=== PATIENT | female | born 1980 | race Caucasian/White ===

== ENCOUNTER → 2017-04-12 10:06 | Outpatient (CLI) | payer MEDICAID, SELFPAY ==
[2017-04-12 12:23] LABS: Absolute Lymphocyte Count 2.16 X10^3/ul (0.83-4.51); Absolute Neutrophil Count 4.5 X10^3/uL (2.0-7.7); Basophil# 0.03 X10^3/uL; Basophil% 0.4 % (0-1); Eosinophil# 0.29 X10^3/uL; Eosinophils% 3.9 % (0-5); Hematocrit 41.7 % (37-47); Hemoglobin 13.3 g/dl (12.0-15.0); Lymphocyte # 2.16 X10^3/ul (4.0); Lymphocyte % 29.1 % (19-41); Mean Corp Hgb Conc 31.9 g/gl (32-36); Mean Corpuscular Hgb 28.1 pg (27.0-32.0); Mean Platelet Vol. 9.7 fl (6.2-12.0); Monocyte# 0.43 X10^3/uL; Monocyte% 5.8 % (0-10); Neutrophil % 60.5 % (47-70); Platelet Count 358 K/mm3 (150-450); RBC Distribution Width CV 12.9 % (11.6-14.6); RBC Distribution Width SD 41.6 fl (35.1-43.9); Red Blood Count 4.74 M/mm3 (4.2-5.4); White Blood Count 7.4 K/mm3 (4.4-11.0)
[2017-04-12 12:28] LABS: POSITIVE COUNT NO; POSITIVE DIFFERENTIAL NO; POSITIVE MORPHOLOGY NO
[2017-04-12 14:51] LABS: ALB/GLOB Ratio 1.2 RATIO (0.9-2.4); AST(SGOT) 16 U/L (15-37); Alanine Aminotransfer ALT/SGPT 18 U/L (12-78); Albumin, Serum 4.2 g/dL (3.4-5.0); Alkaline Phosphatase 59 U/L (45-117); Anion Gap 8 (5-15); BUN 9 mg/dL (7-18); Calcium,Total 8.4 mg/dL (8.5-10.1); Chloride 103 mmol/L (98-107); Cholesterol 180 mg/dL (200); Creatinine, Serum 0.75 mg/dL (0.55-1.02); EST Glomerular Filtration Rate 93 mL/min (>60); Est Glom Filt Rate - Afr Amer 113 mL/min (>60); Globulin 3.5 g/dL (2.2-4.2); Glucose 80 mg/dL (70-110); High Density Lipoprotein 51 mg/dL; Potassium 3.8 mmol/L (3.5-5.1); Protein, Total 7.7 g/dL (6.4-8.2); Sodium Level 138 mmol/L (136-145); T4 Free Direct 1.02 ng/dL (0.76-1.46); Thyroid Stim Hormone (TSH) 1.51 uIU/mL (0.358-3.74); Triglycerides 134 mg/dL; Very Low Density Lipoprotein 27 mg/dL (5-40)
[2017-04-13 08:43] LABS: Vitamin B12 712 pg/mL (211-911)
[2017-04-17 10:26] LABS: Vitamin D 1,25-Dihydroxy 43.3 pg/mL (19.9-79.3)
== END ==
PROVIDERS: Family Provider Internal Medicine; PCP Internal Medicine; Visit Provider Nurse Practitioner Family
DX: F32.9 Major depressive disorder, single episode, unspecified (principal); F41.9 Anxiety disorder, unspecified; R53.83 Other fatigue; E55.9 Vitamin D deficiency, unspecified; E66.9 Obesity, unspecified; Z13.220 Encounter for screening for lipoid disorders
CPT/HCPCS: 36415; 80053; 80061; 82607; 82652; 84439; 84443; 85025

== ENCOUNTER → 2017-12-31 10:31 | Outpatient (CLI) | payer MEDICAID, SELFPAY ==
[2017-12-31 11:05] LABS: Absolute Lymphocyte Count 1.66 X10^3/ul (0.83-4.51); Absolute Neutrophil Count 4.9 X10^3/uL (2.0-7.7); Basophil# 0.02 X10^3/uL; Basophil% 0.3 % (0-1); Eosinophil# 0.19 X10^3/uL; Eosinophils% 2.6 % (0-5); Hematocrit 42.6 % (37-47); Hemoglobin 13.9 g/dl (12.0-15.0); Lymphocyte # 1.66 X10^3/ul (4.0); Lymphocyte % 23.1 % (19-41); Mean Corp Hgb Conc 32.6 g/gl (32-36); Mean Corpuscular Hgb 28.4 pg (27.0-32.0); Mean Corpuscular Volume 87.1 fL (81-99); Mean Platelet Vol. 9.5 fl (6.2-12.0); Monocyte% 5.6 % (0-10); Neutrophil # 4.92 X10^3/uL (2.7-7.7); Neutrophil % 68.3 % (47-70); POSITIVE COUNT NO; POSITIVE DIFFERENTIAL NO; POSITIVE MORPHOLOGY NO; Platelet Count 352 K/mm3 (150-450); RBC Distribution Width CV 13.5 % (11.6-14.6); RBC Distribution Width SD 42.7 fl (35.1-43.9); Red Blood Count 4.89 M/mm3 (4.2-5.4); White Blood Count 7.2 K/mm3 (4.4-11.0)
[2017-12-31 11:51] LABS: Thyroid Stim Hormone (TSH) 1.31 uIU/mL (0.358-3.74)
[2018-01-02 03:07] LABS: DHEA Sulfate 51.6 ug/dL (57.3-279.2)
[2018-01-02 13:34] LABS: Vitamin D 1,25-Dihydroxy 48.2 pg/mL (19.9-79.3)
[2018-01-03 15:31] LABS: Testosterone Free 0.3 pg/mL (0.0-4.2)
== END ==
PROVIDERS: Family Provider Internal Medicine; PCP Internal Medicine; Referring Provider Obstetrics & Gynecology; Visit Provider Obstetrics & Gynecology
DX: N93.9 Abnormal uterine and vaginal bleeding, unspecified (principal)
CPT/HCPCS: 36415; 82627; 82652; 84402; 84439; 84443; 85025; 82626

== ENCOUNTER 2018-01-26 10:04 | Inpatient (IN) | payer MEDICAID, SELFPAY ==
[2018-01-26] VITALS (9 sets, daily range): BP systolic 110–143; BP diastolic 69–96; PULSE 58–98; RESP 16–18; TEMP 36.6–37; O2SAT 92–99; BMI 32.3; BMI 33.5
--- NOTE | 2018-01-26 10:27 | CT_ITS ---
STUDY: CTA CHEST REASON FOR EXAM: Female, 37 years old. Shortness of breath and cough. RADIATION DOSAGE (If Supplied By Facility): CTDIvol = ( 14.89 ) mGy, DLP = ( 655.68 ) mGycm TECHNIQUE: The examination was performed with the intravenous administration of 100 ml of Isovue 370 contrast material. Post-processing of the angiographic images was performed, with multiplanar reformation. Individualized dose optimization techniques were used for this CT. COMPARISON: None. FINDINGS: There are filling defects consistent with pulmonary emboli in the distal right common pulmonary artery extending to the upper and lower lobe branches. There are also filling defects in the left upper and left lower lobe and it arteries extending to the peripheral branches. Normal thoracic aorta and visualized great vessels. There is no demonstrated aortic dissection. Normal heart and pericardium. Normal mediastinum. Normal hilar regions. Normal visualized trachea and bronchi. The lungs are well expanded. There are no pulmonary infiltrates. There are no pleural effusions. Normal chest wall structures. Normal osseous structures. Normal visualized upper abdomen. CT/CTA Chest W/WO Contrast IMPRESSION: 1. Bilateral pulmonary emboli in the main pulmonary arteries bilaterally extending to the peripheral branches. 2. No infiltrate is seen. N.B. : The above information has been verbally conveyed by Gama Conley MD to Dr. Adarsh Choudhary MD, on 01/26/2018 12:48:48 (ET). Electronically Signed: Gama Conley MD at 12:42 EST Tel , Service support ,
--- NOTE | 2018-01-26 10:27 | EKG12_ITS ---
Test Reason : SOB Blood Pressure : / mmHG Vent. Rate : 092 BPM Atrial Rate : 092 BPM P-R Int : 154 ms QRS Dur : 076 ms QT Int : 340 ms P-R-T Axes : 043 -15 034 degrees QTc Int : 420 ms Normal sinus rhythm Low voltage QRS Borderline ECG Confirmed by ASHIA ELENA, THERESA ([id number]), food editor ÁNGEL RAMIRES ([id number]) on 01/29/2018 3:52:03 PM Referred By: ANUP Confirmed By:THERESA ANG MD
--- NOTE | 2018-01-26 10:27 | RAD_ITS ---
STUDY: X-RAY CHEST REASON FOR EXAM: Female, 37 years old. Shortness of breath. Acute onset. TECHNIQUE: AP upright portable view. COMPARISON: None. FINDINGS: The lungs are clear and expanded. There is no demonstrated pleural abnormality. Normal size heart. Normal mediastinum and andrea. Normal visualized pulmonary arteries. Normal visualized aortic arch and descending thoracic aorta. Normal visualized thoracic spine. Normal visualized ribs, clavicles, and shoulders. There is no demonstrated abnormality of the visualized soft tissue structures of the upper abdomen. RAD/Chest 1 View (Portable) IMPRESSION: Normal x-ray examination of the chest. Electronically Signed: Aquiles Alvarado MD at 10:58 EST , Service support ,
--- NOTE | 2018-01-26 10:30 | ED.DCSUM_ITS ---
- ER Visit Summary Date of Service: 01/26/18 Chief Complaint: [] Shortness of breath recently started control pills to control endometriosis History of Present Illness: The patient is a 37 F [] no past history indicates that for a day or 2 she has had progressively worsening shortness of breath, slight cough with possible blood-tinged mucus, x1, no rhinorrhea no sore throat, she indicates her shortness of breath persisted this morning came in for evaluation, she indicates about 30 days ago she was started on control pills to control endometriosis, she has no history of cardiopulmonary disease no history of DVT or PE her bowel bladder habits been normal her review of systems are all negative she is a jkmu-zm-msov mom she is not been exposed anyone is been ill denies Physical Examination: [] Her vital signs are within normal range she is resting comforting the bed speaking full sentences her HEENT exam is unremarkable head neck normal lungs clear heart tones normal abdomen soft nontender upper lower extremities unremarkable neurologic exam normal her lower extremities show no sinus clubbing or edema her skin is normal her back is normal neurologic exam normal Test Results: [] Emergency Department Course and Treatment: [] All the above screening labs CTA chest duplex legs CTA of the chest per the radiologist shows bilateral PE no signs of saddle embolus no signs of right heart strain, duplex scan showed no DVT of legs and the rest of her studies were generally unremarkable on reevaluation she remains very hemodynamically stable we have started her immediately on IV heparin we spoke with the hospitalist though by to see her shortly for admission Treatment Plan: [] Disposition: [] Admit stable Impression: [] Bilateral pulmonary embolism This note was generated with Grey Area dictation software. It may contain incorrect words, spelling, and punctuation that were not noted in review of the chart prior to signing ED Disposition - Plan for ED Patient: Disposition: Acute Care Hospital [facility] Chief Complaint: Shortness of Breath
--- NOTE | 2018-01-26 10:36 | VDLE_ITS ---
Reason For Study: SHORTNESS OF BREATH RIGHT LEFT GSV is normal. GSV is normal. CFV is compressible, spontaneous, phasic, CFV is compressible, spontaneous, phasic, competent and demonstrates normal competent, and demonstrates normal augmentation. augmentation. FV is compressible, spontaneous, phasic, FV is compressible, spontaneous, phasic, competent and demonstrates normal competent and demonstrates normal augmentation. augmentation. POP V is compressible, spontaneous, phasic, POP V is compressible, spontaneous, phasic, competent and demonstrates normal competent and demonstrates normal augmentation. augmentation. T/P Trunk is compressible. T/P Trunk is compressible. PTV is compressible. PTV is compressible. RT PerV is compressible. LT PerV is compressible. Procedure Exam performed portable in ED. A preliminary report was called and/or faxed to Dr. Choudhary. <> Interpretation Summary Deep veins of the lower extremities are bilaterally patent and compressible segmentally. There is no evidence of deep vein thrombosis on either side. Valvular competence appears intact within the proximal deep venous systems bilaterally. The greater saphenous veins appear bilaterally patent and compressible segmentally. Ordering Physician: Adarsh Choudhary Referring Physician: Terence Goss Performed By: Viviana Hernandez RVT
[2018-01-26] MEDS: 0.9% Normal Saline 1,000 ML 1000 ML IV (10:45)
[2018-01-26 11:03] LABS: Absolute Lymphocyte Count 1.66 X10^3/ul (0.83-4.51); Absolute Neutrophil Count 6.3 X10^3/uL (2.0-7.7); Basophil# 0.04 X10^3/uL; Basophil% 0.5 % (0-1); Eosinophil# 0.18 X10^3/uL; Eosinophils% 2.1 % (0-5); Hematocrit 40.8 % (37-47); Hemoglobin 13.5 g/dl (12.0-15.0); Lymphocyte # 1.66 X10^3/ul (4.0); Lymphocyte % 19.5 % (19-41); Mean Corp Hgb Conc 33.1 g/gl (32-36); Mean Corpuscular Hgb 28.9 pg (27.0-32.0); Mean Corpuscular Volume 87.4 fL (81-99); Mean Platelet Vol. 9.4 fl (6.2-12.0); Monocyte# 0.29 X10^3/uL; Monocyte% 3.4 % (0-10); Neutrophil # 6.31 X10^3/uL (2.7-7.7); Neutrophil % 74.3 % (47-70); Platelet Count 273 K/mm3 (150-450); RBC Distribution Width CV 13.4 % (11.6-14.6); RBC Distribution Width SD 42.9 fl (35.1-43.9); Red Blood Count 4.67 M/mm3 (4.2-5.4); White Blood Count 8.5 K/mm3 (4.4-11.0)
[2018-01-26 11:05] LABS: POSITIVE COUNT NO; POSITIVE DIFFERENTIAL NO; POSITIVE MORPHOLOGY NO
[2018-01-26 11:25] LABS: Anion Gap 7 (5-15); BUN 11 mg/dL (7-18); BUN/Creat Ratio 11.3 RATIO (10-20); Calcium,Total 8.4 mg/dL (8.5-10.1); Chloride 107 mmol/L (98-107); Creatinine, Serum 0.97 mg/dL (0.55-1.02); EST Glomerular Filtration Rate 69 mL/min (>60); Est Glom Filt Rate - Afr Amer 83 mL/min (>60); Estimated Creatinine Clearance 75.06 ml/min; Glucose 79 mg/dL (74-106); Potassium 3.7 mmol/L (3.5-5.1); Sodium Level 139 mmol/L (136-145)
[2018-01-26 11:27] LABS: Pregnancy, Serum, hCG Quali. NEGATIVE Negative (0-9 Nonpreg)
[2018-01-26] MEDS: Heparin Injection (Vial) 5,000 UNIT/ML VIAL 6000 UNIT IV (12:13)
[2018-01-26] MEDS: HEPARIN/D5w 25,000 UNITS 25,000 UNITS/250 ML IV.SOLN. 12 UNITS IV (12:14)
[2018-01-26 12:20] LABS: Partial Thromboplast Time 27.2 Seconds (24.1-36.2)
--- NOTE | 2018-01-26 12:55 | PCM.HP.STD ---
Problem List (1) Chest pain Status: Acute History of Present Illness Date of Admission: 01/26/18 Chief Complaint: chest pain and shortness of breath The patient is a 37 year old F who was admitted through the ED on 01/26/2018 with a complaint of chest pain and shortness of breath for the last couple of days. Patient was started on combined estrogen and progesterone contraceptive pill, Lessina, in December 2017 for suspected endometriosis. 3 days ago started having shortness of breath with assisted pleuritic chest pain. She denied any headache or blurred vision, fever or chills, any palpitations, diarrhea vomiting. She discussed it with her mom who told her that she had had a PE herself when she was younger after she was put on control pills. Patient denies any previous history of DVT or PE or any long distance travel or any trauma. She is normally diagnosed with cancer. She decided to come into the ED with CT PE done showed bilateral pulmonary emboli. Vitals were essentially stable and she was saturating well on 2 L of oxygen. CBC and BMP were essentially unremarkable. Chest x-ray showed no acute pulmonary process. She was started on heparin drip and has been admitted to manage for PE. [] Past Medical History Past Medical History (Chronic Problems): Chronic Problems (Last Reviewed 12/31/17 @ 09:40 by Cammie Ortega) Insomnia (Chronic) Vitamin D deficiency (Chronic) Obesity (BMI 30.0-34.9) (Chronic) Anxiety and depression (Chronic) Medical History: Medical History (Last Reviewed 12/31/17 @ 09:40 by Cammie Ortega) Anxiety and depression (Chronic) F41.8 Allergies amoxicillin [From Augmentin] Allergy (Severe, Verified 12/31/17 09:39) Rash clavulanic acid [From Augmentin] Allergy (Severe, Verified 12/31/17 09:39) Rash augmentin Allergy (Severe, Uncoded 07/17/17 11:14) rash Home Medications: Ambulatory Orders Medication Instructions Recorded 1 tab PO QDAY 03/09/17 vitamin,calcium,wxjqjjil-ytyv-xidcl acid tablet levonorgestrel-ethinyl estradiol 1 tab PO QDAY #84 tab 12/31/17 0.1 mg-20 mcg tablet sertraline 100 mg tablet 150 mg PO QDAY 30 Days #45 tab 12/31/17 Trazodone HCl 100 mg PO QHS PRN 11/10/18 Surgical History: Surgical History (Last Reviewed 12/31/17 @ 09:40 by Cammie Ortega) History of hemorrhoidectomy Z98.890 History of tonsillectomy Z98.890, Z90.89 Surgical History: - - tonsillectomy Psychiatric History: 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 Denies: Claudication, Chest Tightness, Edema, Light Headedness, Orthopnea, Palpitations, Paroxysmal Noc. Dyspnea, Syncope Respiratory: Reports: Pleuritic Pain, Shortness of breath upon exertion. Denies: Cough, Shortness of Breath, Shortness of breath at rest, Sputum production Gastrointestinal: Denies: Abdominal Pain, Nausea, Vomiting Genitourinary: Denies: Dysuria Musculoskeletal: Denies: Joint Pain, Joint Tenderness Skin: Denies: Rash, Wounds Neurological: Denies: Numbness, Tingling, Focal weakness Psychiatric: Denies: Anxiety, Depression, Homicidal Ideations, Suicidal Ideations Hematologic/ Lymphatic: Denies: Easy Bruising, Easy Bleeding VTE Information - Inpt Only VTE Present on Admission: Yes Patient Problems: Active and Suspected Problems (Last Reviewed 12/31/17 @ 09:40 by Cammie Ortega) Chest pain (Acute) - Physical Exam General: Alert, Oriented x3, Cooperative, No apparent distress HEENT: Atraumatic, PERRLA, EOMI, Normocephalic Oral: Moist Mucosa Neck: Supple, No JVD, Negative Carotid Bruits Lungs: Clear to auscultation, Normal air movement, No rhonchi, No wheeze, No rales Cardiovascular: Regular rate, Regular Rhythm, Normal S1, Normal S2, No murmurs Abdomen: Bowel Sounds Present, Soft, Non Tender, Non-Distended, No Hepato-splenomegaly Extremities: No clubbing, No cyanosis, No edema Skin: No rashes, No breakdown Musculoskeletal: No Tenderness to Palpation of Joints or Extremities Lymphatic: No Cervical, Supraclavicular, or Inguinal Adenopathy Neurological: Cranial nerves II-XII grossly intact Psych/Mental Status: Normal Affect, Appropriate, Alert and oriented to time, place, person, mood and affect Vital Signs Temp Pulse Resp BP Pulse Ox 97.9 F 87 18 124/96 H 99 01/26/18 10:05 01/26/18 12:16 01/26/18 12:16 01/26/18 12:16 01/26/18 12:16 Oxygen Flow Rate (L/min) 2 Oxygen Delivery Method Nasal Cannula Weight: 200 lb Body Mass Index (BMI) 32.3 Laboratory Tests Past 24 Hrs 01/26/18 01/26/18 01/26/18 10:40 10:40 10:40 WBC 8.5 RBC 4.67 Hgb 13.5 Hct 40.8 MCV 87.4 MCH 28.9 MCHC 33.1 RDW 13.4 RDW Differential 42.9 Plt Count 273 MPV 9.4 Immature Gran % (Auto) 0.200 Neut % (Auto) 74.3 H Lymph % (Auto) 19.5 [place] % (Auto) 3.4 Eos % (Auto) 2.1 Baso % (Auto) 0.5 Absolute Neuts (auto) 6.3 Absolute Lymphs (auto) 1.66 Total Counted Not Reportable APTT Sodium 139 Potassium 3.7 Chloride 107 Carbon Dioxide 25.0 Anion Gap 7 BUN 11 Creatinine 0.97 Estim Creat Clear Calc 75.06 Est GFR (MDRD) Af Amer 83 Est GFR (MDRD) Non-Af 69 BUN/Creatinine Ratio 11.3 Glucose 79 Calcium 8.4 L Troponin I < 0.015 Serum , Qual NEGATIVE 01/26/18 10:40 WBC RBC Hgb Hct MCV MCH MCHC RDW RDW Differential Plt Count MPV Immature Gran % (Auto) Neut % (Auto) Lymph % (Auto) [place] % (Auto) Eos % (Auto) Baso % (Auto) Absolute Neuts (auto) Absolute Lymphs (auto) Total Counted APTT 27.2 Sodium Potassium Chloride Carbon Dioxide Anion Gap BUN Creatinine Estim Creat Clear Calc Est GFR (MDRD) Af Amer Est GFR (MDRD) Non-Af BUN/Creatinine Ratio Glucose Calcium Troponin I Serum , Qual Diagnostic Data Chest CTA 01/26/18 10:27 IMPRESSION: 1. Bilateral pulmonary emboli in the main pulmonary arteries bilaterally extending to the peripheral branches. 2. No infiltrate is seen. N.B. : The above information has been verbally conveyed by Gama Conley MD to Dr. Adarsh Choudhary MD, on 01/26/2018 12:48:48 (ET). Electronically Signed: Gama Conley MD at 12:42 EST Tel , Service support , Chest X-Ray 01/26/18 10:27 IMPRESSION: Normal x-ray examination of the chest. Electronically Signed: Aquiles Alvarado MD at 10:58 EST , Service support , Assessment/Plan All Active Problems (Last Reviewed 12/31/17 @ 09:40 by Cammie Ortega) Chest pain (Acute) 37 y/o female admitted with a complaint of chest pain and SOB 1. Bilateral provoked Pulmonary embolism Likely provoked by recent start of Lessina, combined oral progesterone and estrogen contraceptive pill CTPE showed bilateral PE in distal right common pulmonary artery extending to upper and lowre lobe branches, with filling defects in tehleft upper and left lower lobe and its arteries extending to peripheral branches. family history of PE in mother which was also provoked by OCPs admit to PCU with telemetry started on heparin drip. will transition to PO eliquis; home health care case manager to check if it is covered by her insurance patient told to stop taking OCPS and it would be risky for her to take it for the rest of her life. CT chest didnt show any right heart strain will need anticoagulation for ~ 6 months, then to follow up with PCP for decision to be made about stopping it or continuing. 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 there is also a clear precipitant, so will not do hypercoagulability testing, results of which would not be very accurate in light of current acute PE and her being strted on heparin. 2. Anxiety and depression: on sertraline and trazodone 3. Obesity: BMI is 32.3. This complicates care. Counselled on healthy diet and exercise. DVT prophylaxis: currently on heparin drip for PE ; to transition to eliquis Code Visit Inpatient E&M: 85824 Init Hosp L3
--- NOTE | 2018-01-26 14:00 | CM.UR ---
Dr. Galicia called stating that she will possibly discharge patient tomorrow on Eliquis. Called [facility] pharmacy as noted in her chart. They ran a test claim for 60 tablets for 30 day supply and they said came back with $[address] Galicia. Mikey Bran RN, [facility].
--- NOTE | 2018-01-26 14:52 | EKG12_ITS ---
Test Reason : CHEST PAIN Blood Pressure : / mmHG Vent. Rate : 080 BPM Atrial Rate : 080 BPM P-R Int : 148 ms QRS Dur : 078 ms QT Int : 388 ms P-R-T Axes : 013 -08 027 degrees QTc Int : 447 ms Normal sinus rhythm Low voltage QRS Borderline ECG When compared with ECG of 26-JAN-2018 10:36, MANUAL COMPARISON REQUIRED, DATA IS UNCONFIRMED Confirmed by ASHIA ELENA, THERESA ([id number]), editor department ÁNGEL RAMIRES ([id number]) on 01/30/2018 11:32:35 AM Referred By: NOEL Confirmed By:THERESA ANG MD
[2018-01-26] MEDS: Acetaminophen 325 MG Tablet 650 MG PO (17:38)
[2018-01-26] MEDS: APIXABAN 5 MG TABLET 10 MG PO (17:42)
[2018-01-27] VITALS (7 sets, daily range): BP systolic 110–115; BP diastolic 66–74; PULSE 72–78; RESP 16–18; TEMP 36.7–37.2; O2SAT 94–99
[2018-01-27 06:38] LABS: Absolute Lymphocyte Count 1.89 X10^3/ul (0.83-4.51); Absolute Neutrophil Count 5.5 X10^3/uL (2.0-7.7); Basophil# 0.04 X10^3/uL; Basophil% 0.5 % (0-1); Eosinophil# 0.38 X10^3/uL; Eosinophils% 4.5 % (0-5); Hematocrit 38.2 % (37-47); Hemoglobin 12.7 g/dl (12.0-15.0); Lymphocyte # 1.89 X10^3/ul (4.0); Lymphocyte % 22.6 % (19-41); Mean Corp Hgb Conc 33.2 g/gl (32-36); Mean Corpuscular Hgb 29.3 pg (27.0-32.0); Mean Platelet Vol. 9.6 fl (6.2-12.0); Monocyte# 0.56 X10^3/uL; Monocyte% 6.7 % (0-10); Neutrophil # 5.48 X10^3/uL (2.7-7.7); Neutrophil % 65.5 % (47-70); Platelet Count 284 K/mm3 (150-450); RBC Distribution Width CV 13.5 % (11.6-14.6); RBC Distribution Width SD 42.8 fl (35.1-43.9); Red Blood Count 4.34 M/mm3 (4.2-5.4); White Blood Count 8.4 K/mm3 (4.4-11.0)
[2018-01-27 06:50] LABS: POSITIVE COUNT NO; POSITIVE DIFFERENTIAL NO; POSITIVE MORPHOLOGY NO
[2018-01-27 06:54] LABS: Anion Gap 8 (5-15); BUN 9 mg/dL (7-18); BUN/Creat Ratio 10.2 RATIO (10-20); Calcium,Total 8.1 mg/dL (8.5-10.1); Chloride 111 mmol/L (98-107); Creatinine, Serum 0.88 mg/dL (0.55-1.02); EST Glomerular Filtration Rate 77 mL/min (>60); Est Glom Filt Rate - Afr Amer 93 mL/min (>60); Estimated Creatinine Clearance 82.74 ml/min; Glucose 82 mg/dL (74-106); Potassium 4.4 mmol/L (3.5-5.1); Sodium Level 142 mmol/L (136-145)
[2018-01-27] MEDS: Sertraline 100 MG Tablet 150 MG PO (09:58)
[2018-01-27] MEDS: APIXABAN 5 MG TABLET 10 MG PO (09:59)
[2018-01-27] MEDS: Prenatal Vits Tablet 1 TABLET PO (10:00)
[2018-01-27] MEDS: 0.9% NaCl Peripheral Flush Adult/Peds IV (10:04)
--- NOTE | 2018-01-27 11:10 | DS.PCM_ITS ---
Discharge Date and Diagnosis Date of Admission: 01/26/18 Date of Discharge: 01/27/18 - Primary Discharge Diagnosis Active and Suspected Problems (Last Reviewed 12/31/17 @ 09:40 by Cammie Ortega) Chest pain (Acute) bilateral PE - Secondary Discharge Diagnosis Chronic Problems (Last Reviewed 12/31/17 @ 09:40 by Cammie Ortega) Insomnia (Chronic) Vitamin D deficiency (Chronic) Obesity (BMI 30.0-34.9) (Chronic) Anxiety and depression (Chronic) Hospital Course and Treatment Imaging Results: Diagnostic Data Chest CTA 01/26/18 10:27 IMPRESSION: 1. Bilateral pulmonary emboli in the main pulmonary arteries bilaterally extending to the peripheral branches. 2. No infiltrate is seen. N.B. : The above information has been verbally conveyed by Gama Conley MD to Dr. Adarsh Choudhary MD, on 01/26/2018 12:48:48 (ET). Electronically Signed: Gama Conley MD at 12:42 EST Tel , Service support , Chest X-Ray 01/26/18 10:27 IMPRESSION: Normal x-ray examination of the chest. Electronically Signed: Aquiles Alvarado MD at 10:58 EST , Service support , Operations: None Procedures: None Summary of Care Provided: he patient is a 37 year old F who was admitted through the ED on 01/26/2018 with a complaint of chest pain and shortness of breath for the last couple of days. Patient was started on combined estrogen and progesterone contraceptive pill, Lessina, in December 2017 for suspected endometriosis. 3 days ago started having shortness of breath with assisted pleuritic chest pain. She denied any headache or blurred vision, fever or chills, any palpitations, diarrhea vomiting. She discussed it with her mom who told her that she had had a PE herself when she was younger after she was put on control pills. Patient denies any previous history of DVT or PE or any long distance travel or any trauma. She is normally diagnosed with cancer. She decided to come into the ED with CT PE done showed bilateral pulmonary emboli. Vitals were essentially stable and she was saturating well on 2 L of oxygen. CBC and BMP were essentially unremarkable. Chest x-ray showed no acute pulmonary process. She was started on heparin drip and admitted to be managed for PE. Heparin drip was stopped and she was transitioned to p.o. Eliquis. Patient remained stable and chest pain resolved. Duplex of the lower extremities were not done as the will have change the management in any way. Patient was discharged home on 01/27/2018 with a prescription for p.o. Eliquis 10 mg twice daily for 7 days ending on 02/02/2018. On 02/03/2018, she is to start taking p.o. Eliquis 5 mg twice daily. Prescriptions faxed to her pharmacy ([facility]) and I personally called pharmacy to confirm that her insurance will cover it. Insurance would cover medication with Seroquel P and patient was informed. She is to follow-up with her primary care doctor in 1 week. Patient was counseled that she will need to be on anticoagulation for at least 6 months and up to 6 months her primary care doctor is to decide whether to continue or otherwise. Patient was also told to stop taking her oral contraceptive pill Lessina and informed that she should never take an oral contraceptive pill for the rest of her life again due to it being very likely the cause of her PE> Patient seen and examined prior to discharge. She had no complaints and felt well. She denied any fever or chills, any cough or chest pain, any shortness of breath, abdominal pain, any diarrhea vomiting. Review of systems otherwise negative. Labs and vitals reviewed. Home medications reviewed and reconciled. [] [] Objective: Vital Signs Height 5 ft 6 in Weight: 207 lb 7.28 oz Weight in Pounds 207.5 lbs Pulse Ox 94 Temperature 98.9 F Pulse Rate 78 Respiratory Rate 18 Blood Pressure 112/66 Blood Pressure Position Semi-Fowlers General: Alert, Oriented x3, Cooperative, No apparent distress HEENT: Atraumatic, PERRLA, EOMI, Normocephalic Oral: Moist Mucosa Neck: Supple, No JVD, Negative Carotid Bruits Lungs: Clear to auscultation, Normal air movement, No rhonchi, No wheeze, No rales Cardiovascular: Regular rate, Regular Rhythm, Normal S1, Normal S2, No murmurs Abdomen: Bowel Sounds Present, Soft, Non Tender, Non-Distended, No Hepato- splenomegaly Extremities: No clubbing, No cyanosis, No edema Skin: No rashes, No breakdown Musculoskeletal: No Tenderness to Palpation of Joints or Extremities Lymphatic: No Cervical, Supraclavicular, or Inguinal Adenopathy Neurological: Cranial nerves II-XII grossly intact Psych/Mental Status: Normal Affect, Appropriate, Alert and oriented to time, place, person, mood and affect - Physical Exam Vital Signs Temp Pulse Resp BP Pulse Ox 98.8 F 78 18 115/74 99 01/27/18 08:10 01/27/18 08:10 01/27/18 08:10 01/27/18 08:10 01/27/18 08:10 Oxygen Flow Rate (L/min) 2 Oxygen Delivery Method Room Air Weight: 207 lb 7.28 oz Body Mass Index (BMI) 33.5 Intake and Output for Last 24 Hours 01/25/18 01/26/18 01/27/18 23:59 23:59 23:59 Intake Total 480 / 480 Balance 480 / 480 Laboratory Tests Past 24 Hrs 01/26/18 01/26/18 01/26/18 10:40 10:40 10:40 WBC RBC Hgb Hct MCV MCH MCHC RDW RDW Differential Plt Count MPV Immature Gran % (Auto) Neut % (Auto) Lymph % (Auto) [place] % (Auto) Eos % (Auto) Baso % (Auto) Absolute Neuts (auto) Absolute Lymphs (auto) Total Counted APTT 27.2 Sodium 139 Potassium 3.7 Chloride 107 Carbon Dioxide 25.0 Anion Gap 7 BUN 11 Creatinine 0.97 Estim Creat Clear Calc 75.06 Est GFR (MDRD) Af Amer 83 Est GFR (MDRD) Non-Af 69 BUN/Creatinine Ratio 11.3 Glucose 79 Calcium 8.4 L Troponin I < 0.015 Serum , Qual NEGATIVE 01/27/18 01/27/18 05:58 05:58 WBC 8.4 RBC 4.34 Hgb 12.7 Hct 38.2 MCV 88.0 MCH 29.3 MCHC 33.2 RDW 13.5 RDW Differential 42.8 Plt Count 284 MPV 9.6 Immature Gran % (Auto) 0.200 Neut % (Auto) 65.5 Lymph % (Auto) 22.6 [place] % (Auto) 6.7 Eos % (Auto) 4.5 Baso % (Auto) 0.5 Absolute Neuts (auto) 5.5 Absolute Lymphs (auto) 1.89 Total Counted Not Reportable APTT Sodium 142 Potassium 4.4 Chloride 111 H Carbon Dioxide 23.0 Anion Gap 8 BUN 9 Creatinine 0.88 Estim Creat Clear Calc 82.74 Est GFR (MDRD) Af Amer 93 Est GFR (MDRD) Non-Af 77 BUN/Creatinine Ratio 10.2 Glucose 82 Calcium 8.1 L Troponin I Serum , Qual Discharge Diet: No Restrictions Discharge Activity: Return to Normal Activity Weight Bearing Status: Weight bearing as tolerated Call your doctor if you observe: Shortness of breath, Chest pain, Increased palpitations (irregular heartbeat), Calf discomfort Home Medications: Medications to take at Discharge vitamin,calcium,mmtguoor-rops-uqlmw acid tablet 1 tab PO QDAY 03/09/17 sertraline 100 mg tablet 150 mg PO QDAY 30 Days #45 tab 12/31/17 Trazodone HCl 100 mg PO QHS PRN 01/26/18 Apixaban [Eliquis] 5 mg PO BID #60 tablet 01/27/18 Apixaban [Eliquis] 10 mg PO BID #14 tablet 01/27/18 Following Prescrptions Were Given to Patient: Apixaban [Eliquis] 10 mg PO BID #14 tablet Apixaban [Eliquis] 5 mg PO BID #60 tablet Primary Care Physician: Terence Goss MD [Primary Care Provider] - Please follow up with your Primary Care Physician in: one week Patient Instructions: Pulmonary Embolism Disposition: Home Minutes spent on discharge:: 35 Patient Condition:: Good Medical Necessity - Tobacco Use Smoking Status: Never smoker Meaningful Use Info Meaningful Use Diagnoses (Choose all that apply): VTE - VTE Anticoag overlap given w/in hospital stay or rx'd at nd?: Yes Pt receive overlap for 5 days?: No Reason overlap not ordered, prescribed, or given for 5 days: Treatment Not Indicated - transitioned to direct oral anticoagulants, so no need for overlap Code Visit Inpatient E&M: 19273 Disch Hosp
--- NOTE | 2018-01-27 11:10 | DCINST_ITS ---
- Discharge Diagnoses Current Active Problems: Current Active and Chronic Problems (Last Reviewed 12/31/17 @ 09:40 by Cammie Ortega) Chest pain (Acute) You will use the following diet at home:: Regular Your food should be the consistency of: Regular Your liquids should be the consistency of: Regular/Thin Discharge Activity: Return to Normal Activity Weight Bearing Status: Weight bearing as tolerated Call your doctor if you observe: Shortness of breath, Chest pain, Increased palpitations (irregular heartbeat), Calf discomfort Instructions: Pulmonary Embolism Allergies/Adverse Reactions: Allergies amoxicillin [From Augmentin] Allergy (Severe, Verified 12/31/17 09:39) Rash clavulanic acid [From Augmentin] Allergy (Severe, Verified 12/31/17 09:39) Rash augmentin Allergy (Severe, Uncoded 07/17/17 11:14) rash Medications to take at Discharge vitamin,calcium,fomqhyez-wyxo-adnzs acid tablet 1 tab PO QDAY 03/09/17 sertraline 100 mg tablet 150 mg PO QDAY 30 Days #45 tab 12/31/17 Trazodone HCl 100 mg PO QHS PRN 01/26/18 Apixaban [Eliquis] 5 mg PO BID #60 tablet 01/27/18 Apixaban [Eliquis] 10 mg PO BID #14 tablet 01/27/18 The following prescriptions were given: Apixaban [Eliquis] 10 mg PO BID #14 tablet Apixaban [Eliquis] 5 mg PO BID #60 tablet Primary Care Physician: Terence Goss MD [Primary Care Provider] - Please follow up with your Primary Care Physician in: one week Test Results: Test results from this visit will be discussed in further detail at your follow- up appointment, if applicable. Proposed Discharge Date: 01/27/18
== END 2018-01-27 12:11 | disposition home or self-care (01) | DRG 134 ==
LOC: ED 10:44 → PCU 14:26
PROVIDERS: Admitting Provider Student in an Organized Health Care Education/Training Program; Emergency Provider Emergency Medicine; Family Provider Internal Medicine; PCP Internal Medicine; Visit Provider Student in an Organized Health Care Education/Training Program
DX: I26.99 Other pulmonary embolism without acute cor pulmonale (principal); Z79.3 Long term (current) use of hormonal contraceptives; Z82.49 Family history of ischemic heart disease and other diseases of the circulatory system; E66.8 Other obesity; Z68.32 Body mass index [BMI] 32.0-32.9, adult; F41.9 Anxiety disorder, unspecified; F32.9 Major depressive disorder, single episode, unspecified; E55.9 Vitamin D deficiency, unspecified; G47.00 Insomnia, unspecified
CPT/HCPCS: 36415; 71045; 71275; 80048; 84484; 84703; 85025; 85730; 93005; 93970; 99283; J7030; Q9967; A4216; J2405

== ENCOUNTER 2018-01-29 03:53 | Emergency (ER) | payer MEDICAID, SELFPAY ==
[2018-01-29 03:56] VITALS: BP 119/77; PULSE 72; RESP 16; TEMP 36.7; O2SAT 98; BMI 34.7
--- NOTE | 2018-01-29 04:15 | RAD_ITS ---
HISTORY: PT STATES SHE FEELS LIKE THERE IS A LUMP IN HER THROAT SINCE 1800. PT STATES SHE IS WORRIED WITH RECENTLY BEING D/C'D FOR TREATMENT FOR BILATERAL PE'S. COMPARISON: None FINDINGS: AP and lateral soft tissue views of the neck: The epiglottis, aryepiglottic folds, and subglottic trachea are unremarkable. Trachea is midline. No radiopaque foreign body. The prevertebral soft tissues are not widened. RAD/Neck for Soft Tissue IMPRESSION: Negative neck soft tissues. No suspicious findings. at 0449 Reported and signed by: Wilmer De La Torre MD Electronically Signed: Wilmer De La Torre, at 4:47 EST Tel , Service support ,
[2018-01-29] MEDS: LORazepam 1 MG Tablet PO (04:25)
--- NOTE | 2018-01-29 05:06 | ED.DCSUM_ITS ---
- ER Visit Summary Date of Service: 01/29/18 Chief Complaint: Lump in throat History of Present Illness: The patient is a 37 F who complains of a sensation of a lump in her throat over the last 9 hours. She was recently admitted for bilateral pulmonary emboli. She does have a history of anxiety. She reports that she was feeling anxious when she began to have symptoms of feeling like a lump was in her throat. She denies having choked on anything. She denies fever chest pain shortness of breath nausea vomiting. Physical Examination: Afebrile vitals are normal Moist mucous membranes Oropharynx is clear no trismus clear speech Neck supple Heart regular rate and rhythm Lungs are clear Abdomen soft Alert Test Results: Soft tissue neck x-ray shows no acute findings or suspicious pathology. Emergency Department Course and Treatment: I suspect the patient's symptoms are related to anxiety and globus hystericus. She has benign physical exam and normal x-rays. Her oropharynx is clear. She has clear speech. She has no stridor. Her neck is supple with no lymphadenopathy mass or other acute findings. She was given a van here with improvement of symptoms. She was instructed on signs and symptoms to monitor for and she was discharged home. Treatment Plan: [] Disposition: Discharge Impression: Globus hystericus This note was generated with [employer] dictation software. It may contain incorrect words, spelling, and punctuation that were not noted in review of the chart prior to signing ED Disposition - Plan for ED Patient: Chief Complaint: Other, Pain/Inj Referrals: Terence Goss MD [Primary Care Provider] -
--- NOTE | 2018-01-29 05:06 | ED.DEP ---
ED Disposition - Plan for ED Patient: Chief Complaint: Other, Pain/Inj Instructions: ED Stress React Referrals: Terence Goss MD [Primary Care Provider] -
[2018-01-29 05:24] VITALS: RESP 16
== END 2018-01-29 05:25 | disposition home or self-care (01) ==
PROVIDERS: Emergency Provider Emergency Medicine; Family Provider Internal Medicine; PCP Internal Medicine
DX: F45.8 Other somatoform disorders (principal); F41.9 Anxiety disorder, unspecified; Z79.01 Long term (current) use of anticoagulants; Z79.899 Other long term (current) drug therapy; Z86.711 Personal history of pulmonary embolism
CPT/HCPCS: 70360; 99283

== ENCOUNTER → 2018-02-11 08:13 | Outpatient (CLI) | payer MEDICAID, SELFPAY ==
[2018-02-11 08:33] VITALS: BP 109/73; PULSE 74; RESP 18; TEMP 37; O2SAT 98; BMI 33.0
[2018-02-11] MEDS: Cosyntropin 0.25 MG Vial IM (09:00)
== END ==
PROVIDERS: Family Provider Internal Medicine; PCP Internal Medicine; Referring Provider Obstetrics & Gynecology; Visit Provider Obstetrics & Gynecology
DX: R53.83 Other fatigue (principal)
CPT/HCPCS: 36415; 82533; 96372; J0834

== ENCOUNTER → 2018-10-18 15:04 | Outpatient (CLI) | payer MEDICAID, SELFPAY ==
[2018-06-28 09:17] VITALS: BMI 33.1
--- NOTE | 2018-10-18 15:12 | RAD_ITS ---
STUDY: X-RAY - LUMBAR SPINE REASON FOR EXAM: Female, 38 years old. Right-sided low back pain. TECHNIQUE: 5 view(s) of the lumbar spine were obtained including oblique views. COMPARISON: None FINDINGS: There is straightening of the normal lumbar lordosis. There is no substantial scoliosis. There is a normal alignment of the vertebrae. 6 lumbar vertebral segments. Normal vertebral bodies and endplates. Normal disc space heights. The soft tissue structures are unremarkable. RAD/L/S Spine Min 4 Views IMPRESSION: There is loss of the normal lumbar lordosis. Electronically Signed: Chris Pérez, at 15:33 EDT , Service support ,
== END ==
PROVIDERS: Family Provider Internal Medicine; PCP Internal Medicine; Referring Provider Family Medicine; Visit Provider Family Medicine
DX: M54.16 Radiculopathy, lumbar region (principal)
CPT/HCPCS: 72110

== ENCOUNTER → 2018-12-12 16:08 | Outpatient (CLI) | payer BC, MEDICAID, SELFPAY ==
[2018-10-29 12:20] VITALS: BMI 33.1
[2018-12-12 17:55] LABS: Anion Gap 8 (5-15); BUN 11 mg/dL (7-18); BUN/Creat Ratio 14.5 RATIO (10-20); Calcium,Total 8.8 mg/dL (8.5-10.1); Chloride 107 mmol/L (98-107); Creatinine, Serum 0.76 mg/dL (0.55-1.02); EST Glomerular Filtration Rate 91 mL/min (>60); Est Glom Filt Rate - Afr Amer 110 mL/min (>60); Glucose 89 mg/dL (74-106); Potassium 3.7 mmol/L (3.5-5.1); Sodium Level 141 mmol/L (136-145); T4 Free Direct 0.95 ng/dL (0.76-1.46); Thyroid Stim Hormone (TSH) 0.98 uIU/mL (0.358-3.74)
== END ==
PROVIDERS: Family Provider Family Medicine; PCP Family Medicine; Referring Provider Family Medicine; Visit Provider Family Medicine
DX: F41.0 Panic disorder [episodic paroxysmal anxiety] (principal); L67.9 Hair color and hair shaft abnormality, unspecified
CPT/HCPCS: 36415; 80048; 84439; 84443

== ENCOUNTER → 2018-12-24 13:19 | Outpatient (CLI) | payer BC, MEDICAID, SELFPAY ==
[2018-10-29 12:20] VITALS: BMI 33.1
[2018-12-24 15:24] LABS: Erythrocyte Sedimentation Rate 4 mm/hr (0-20)
[2018-12-24 16:07] LABS: CRP < 2.90 mg/L (0.0-3.0)
[2018-12-26 16:08] LABS: Endomysial Antibody IgA Negative (Negative)
[2018-12-26 20:51] LABS: Immunoglobulin A 103 mg/dL (87-352); t-Transglutaminase IgA <2 U/mL (0-3)
== END ==
PROVIDERS: Family Provider Family Medicine; PCP Family Medicine; Visit Provider Family Medicine
DX: K52.9 Noninfective gastroenteritis and colitis, unspecified (principal)
CPT/HCPCS: 36415; 82784; 83516; 85652; 86140; 86255

== ENCOUNTER 2019-02-06 09:22 | Emergency (ER) | payer BC, MEDICAID, SELFPAY ==
[2018-10-29 12:20] VITALS: BMI 33.1
[2019-02-06 09:23] VITALS: BP 132/87; PULSE 82; RESP 16; TEMP 36.8; O2SAT 100; BMI 35.1
--- NOTE | 2019-02-06 09:34 | EKG12_ITS ---
Test Reason : CP Blood Pressure : / mmHG Vent. Rate : 080 BPM Atrial Rate : 080 BPM P-R Int : 144 ms QRS Dur : 080 ms QT Int : 382 ms P-R-T Axes : 012 -10 015 degrees QTc Int : 440 ms Normal sinus rhythm Low voltage QRS Borderline ECG Confirmed by HYEDI ELENA, TITI ([id number]), copy editor MADELIN IBRAHIM ([id number]) on 02/10/2019 9:16:08 AM Referred By: MARGOT Confirmed By:SABINE SOLIZ MD
--- NOTE | 2019-02-06 09:35 | CT_ITS ---
STUDY: CTA CHEST REASON FOR EXAM: Female, 38 years old. Chest tightness following inhalational injury. RADIATION DOSAGE (If Supplied By Facility): CTDIvol = ( 14.91 ) mGy, DLP = ( 451.00 ) mGycm TECHNIQUE: The examination was performed with the intravenous administration of IV Isovue 370 100. Post-processing of the angiographic images was performed, with multiplanar reformation and 3D reconstruction. Individualized dose optimization techniques were used for this CT. COMPARISON: Comparison is made with prior study dated January 26, 2018. FINDINGS: Small bilateral benign-appearing axillary lymph nodes. Normal enhancement of the main pulmonary artery and right and left pulmonary arteries. Normal enhancement of the bilateral peripheral pulmonary arteries. There is no demonstrated pulmonary embolism. Normal thoracic aorta and visualized great vessels. There is no demonstrated aortic dissection. Normal heart and pericardium. Normal mediastinum. Normal hilar regions. Normal visualized trachea and bronchi. The lungs are well expanded. Normal pulmonary parenchyma. Normal pleura. Normal chest wall structures. Normal osseous structures. Small hiatal hernia. CT/CTA Chest W/WO Contrast IMPRESSION: Normal CTA chest examination, without a demonstrated pulmonary embolism or arterial dissection. Electronically Signed: Chris Pérez, at 12:33 EST , Service support ,
--- NOTE | 2019-02-06 09:41 | ED.DCSUM_ITS ---
- ER Visit Summary Date of Service: 02/06/19 Chief Complaint: Chest pain History of Present Illness: The patient is a 38 F presenting with chest pain. Patient states this started this morning. She has pain in her mid chest when she takes a deep breath or coughs. She has had a URI for the past several days. She went to urgent care on Sunday and was advised this is likely a viral syndrome. She complains of cough and sore throat. She has been taking ibuprofen at home. This morning she called her primary care physician and they advised her to come into the ED due to history of PE. She had a PE in January and was on Eliquis for 6 months. Her control was stopped which was felt to be the cause. She denies recent travel or recent surgeries. She has a history of anxiety. Denies other complaints. Physical Examination: Vitals are stable. Patient is afebrile. Alert no acute distress. HEENT exam no pharyngeal erythema, no exudate. Uvula midline. Neck is supple. Lungs are clear and equal bilaterally. Heart is regular rate and rhythm. Abdomen is soft nontender nondistended. Extremities are unremarkable. Skin is warm and dry. No focal neurologic deficit. Remainder of exam is unremarkable. Emergency Department Course and Treatment: EKG is sinus rate of 80 with no acute ischemic changes. CBC, chemistries unremarkable. Troponin is negative. hCG negative. CTA chest normal CTA chest examination, without a demonstrated pulmonary embolism or arterial dissection. On reevaluation, patient is resting comfortably. She is given prescription for Tessalon Perles for her cough. Advised to follow-up with her primary care physician. Advised return to ED for worsening complaints. Disposition: Discharge home Impression: Chest pain, URI This note was generated with [employer] dictation software. It may contain incorrect words, spelling, and punctuation that were not noted in review of the chart prior to signing ED Disposition - Plan for ED Patient: Referrals: Tamiko Urena MD [Primary Care Provider] -
[2019-02-06 10:41] LABS: Absolute Lymphocyte Count 2.06 X10^3/uL (0.83-4.51); Absolute Neutrophil Count 5.2 X10^3/uL (2.0-7.7); Basophil# 0.06 X10^3/uL; Basophil% 0.7 % (0-1); Eosinophil# 0.41 X10^3/uL; Hematocrit 42.3 % (37-47); Hemoglobin 13.7 g/dL (12.0-15.0); Lymphocyte # 2.06 X10^3/ul (4.0); Lymphocyte % 25.2 % (19-41); Mean Corp Hgb Conc 32.4 g/dL (32-36); Mean Corpuscular Hgb 28.7 pg (27.0-32.0); Mean Corpuscular Volume 88.5 fL (81-99); Mean Platelet Vol. 9.1 fl (6.2-12.0); Monocyte# 0.41 X10^3/uL; NRBC Flagged by Analyzer 0 % (0-5); Neutrophil # 5.19 X10^3/uL (2.7-7.7); Neutrophil % 63.7 % (47-70); Platelet Count 312 K/mm3 (150-450); RBC Distribution Width CV 12.5 % (11.6-14.6); RBC Distribution Width SD 40.6 fl (35.1-43.9); Red Blood Count 4.78 M/mm3 (4.2-5.4); White Blood Count 8.2 K/mm3 (4.4-11.0)
[2019-02-06 10:50] VITALS: BP 120/71; PULSE 85; RESP 17; O2SAT 100
[2019-02-06 10:55] LABS: Anion Gap 6 (5-15); BUN 12 mg/dL (7-18); BUN/Creat Ratio 15.5 RATIO (10-20); Chloride 107 mmol/L (98-107); Creatinine, Serum 0.77 mg/dL (0.55-1.02); EST Glomerular Filtration Rate 89 mL/min (>60); Est Glom Filt Rate - Afr Amer 108 mL/min (>60); Estimated Creatinine Clearance 90.01 ml/min; Glucose 85 mg/dL (74-106); Potassium 3.6 mmol/L (3.5-5.1); Sodium Level 142 mmol/L (136-145)
[2019-02-06 10:56] LABS: Internal QC Validated? YES +Cl - CLEAR BKGD; Pregnancy, Serum, hCG Quali. NEGATIVE Negative
[2019-02-06 11:13] VITALS: BP 110/74; PULSE 79; RESP 23; O2SAT 97
[2019-02-06 12:16] VITALS: BP 98/70; PULSE 81; RESP 15; O2SAT 97
--- NOTE | 2019-02-06 12:49 | ED.DEP ---
ED Disposition - Plan for ED Patient: Instructions: Acute Bronchitis Prescriptions: Benzonatate [Tessalon Perle] 200 mg PO TID PRN PRN #20 capsule PRN Reason: Cough Referrals: Tamiko Urena MD [Primary Care Provider] -
[2019-02-06 13:05] VITALS: BP 125/75; PULSE 73; RESP 18; O2SAT 99
== END 2019-02-06 13:12 | disposition home or self-care (01) ==
LOC: ED 09:39
PROVIDERS: Emergency Provider Emergency Medicine; Family Provider Family Medicine; PCP Family Medicine
DX: R07.9 Chest pain, unspecified (principal); J06.9 Acute upper respiratory infection, unspecified; F41.9 Anxiety disorder, unspecified; Z79.899 Other long term (current) drug therapy; Z86.711 Personal history of pulmonary embolism
CPT/HCPCS: 71275; 80048; 84484; 84703; 85025; 93005; 96360; 99284; J7030; Q9967; A4216

== ENCOUNTER → 2019-04-02 08:56 | Outpatient (CLI) | payer BC, MEDICAID, SELFPAY ==
[2019-03-31 11:03] VITALS: BMI 35.1
--- NOTE | 2019-04-02 08:57 | US_ITS ---
STUDY: ULTRASOUND BREAST - RIGHT REASON FOR EXAM: Female, 38 years old. Right nipple discharge. TECHNIQUE: Axial and longitudinal images of the RIGHT breast were performed with a high resolution ultrasound transducer. # OF IMAGES: 58 COMPARISON: Correlation is made with prior mammogram done earlier in the day. FINDINGS: RIGHT Breast: The retroareolar region of the breast was examined by ultrasound. There is a mild degree of dilated retroareolar ducts. No solid or cystic mass lesion is seen. US/Breast Limited Unilateral IMPRESSION: Mild degree of dilated retroareolar ducts. ASSESSMENT CATEGORY: BIRADS Category 2: Benign. A letter regarding these results will be sent to the patient by the facility within 30 days. Electronically Signed: Chris Pérez, at 10:42 EST , Service support ,
--- NOTE | 2019-04-02 08:57 | BI_ITS ---
MAMMOGRAPHY - BILATERAL DIAGNOSTIC REASON FOR EXAM: Female, 38 years old. One-week history of right breast clear discharge. PERTINENT HISTORY: Non-contributory. TECHNIQUE: Digital bilateral breast christopher (3D mammographic acquisition) in the CC and MLO projections. 2-D mediolateral oblique (MLO) and craniocaudad (CC) views of both breasts were obtained. CAD: Full Field Digital Mammography with Computer Added Detection was performed. COMPARISON: None. Baseline examination. FINDINGS: Breast Composition: There are scattered areas of fibroglandular density. There are no dominant masses or suspicious calcifications. No other significant abnormalities are identified. BI/DIAG MAMM W/CAD, BILAT IMPRESSION: Negative diagnostic mammogram. With the patient''s history of right nipple discharge, correlation with ultrasound is recommended. ASSESSMENT CATEGORY: BIRADS Category 0: Incomplete. Need additional imaging evaluation. A letter regarding these results will be sent to the patient by the facility within 30 days. Approximately 10% of breast cancers are not detected by mammography. A normal mammogram should not delay biopsy of a clinically suspicious abnormality. Electronically Signed: Chris Pérez, at 10:41 EST , Service support ,
== END ==
PROVIDERS: Family Provider Family Medicine; PCP Family Medicine; Referring Provider Surgery; Visit Provider Surgery
DX: N64.4 Mastodynia (principal); N64.52 Nipple discharge
CPT/HCPCS: 76642; 77066

== ENCOUNTER → 2019-04-07 08:29 | Outpatient (CLI) | payer BC, MEDICAID, SELFPAY ==
[2019-04-01 09:33] VITALS: BMI 35.1
[2019-04-07 08:45] LABS: Absolute Lymphocyte Count 2.24 X10^3/uL (0.83-4.51); Absolute Neutrophil Count 3.9 X10^3/uL (2.0-7.7); Basophil# 0.04 X10^3/uL; Basophil% 0.6 % (0-1); Eosinophil# 0.34 X10^3/uL; Eosinophils% 4.9 % (0-5); Hemoglobin 12.8 g/dL (12.0-15.0); Lymphocyte # 2.24 X10^3/ul (4.0); Lymphocyte % 32.4 % (19-41); Mean Corpuscular Hgb 27.9 pg (27.0-32.0); Mean Corpuscular Volume 87.3 fL (81-99); Mean Platelet Vol. 9.2 fl (6.2-12.0); Monocyte# 0.36 X10^3/uL; Monocyte% 5.2 % (0-10); NRBC Flagged by Analyzer 0 % (0-5); Neutrophil % 56.5 % (47-70); Platelet Count 318 K/mm3 (150-450); RBC Distribution Width SD 41.3 fl (35.1-43.9); Red Blood Count 4.58 M/mm3 (4.2-5.4); White Blood Count 6.9 K/mm3 (4.4-11.0)
[2019-04-07 09:40] LABS: Prolactin 8.5 ng/mL; Thyroid Stim Hormone (TSH) 2.13 uIU/mL (0.358-3.74)
== END ==
PROVIDERS: Nurse Practitioner Women's Health; PCP Family Medicine; Referring Provider Obstetrics & Gynecology; Visit Provider Obstetrics & Gynecology
DX: R23.8 Other skin changes (principal); N64.52 Nipple discharge
CPT/HCPCS: 36415; 84146; 84443; 85025

== ENCOUNTER → 2019-08-01 13:51 | Outpatient (CLI) | payer BC, MEDICAID, SELFPAY ==
[2019-07-28 16:13] VITALS: BMI 35.1
--- NOTE | 2019-08-01 14:02 | US_ITS ---
STUDY: ULTRASOUND OF THE FEMALE PELVIS - COMPLETE REASON FOR EXAM: Female, 39 years old. Menorrhagia. Bilateral pelvic pain. LMP: July 12, 2019. TECHNIQUE: Transabdominal and Transvaginal TECHNICAL QUALITY: Adequate. COMPARISON: November 09, 2016. FINDINGS: The uterus is retroverted and is in a midline position. The uterus measures 12.4 x 7.6 x 5.2 cm. There are multiple nabothian cysts within the otherwise normal cervix. The endometrium measures 13 mm in thickness, and is hyperechoic. There is no demonstrated endometrial mass. There is a 1.5 x 1.3 x 1.0 cm hypoechoic focus in the posterior lower uterine segment consistent with a fibroid. I.U.D. - The patient does not have an I.U.D. The right ovary is visualized. The right ovary measures 3.0 x 3.5 x 2 point to cm. There are multiple follicles of the right ovary without a dominant cyst. There is no visualized right adnexal mass or complex lesion. There is normal arterial and normal venous vascularity. The left ovary is visualized. The left ovary measures 3.9 x 2.9 x 2.2 cm. There are multiple follicles of the left ovary without a dominant cyst. There is no visualized left adnexal mass or complex lesion. There is normal arterial and normal venous vascularity. There is no fluid in the cul-de-sac. The visualized urinary bladder appears grossly normal. Polycystic ovary disease: No. US/Transvaginal Non- IMPRESSION: 1. Retroverted uterus. There is a posterior fibroid in the lower uterine segment. 2. Prominent endometrium. 3. Normal ovaries. Electronically Signed: Luis Staton DO at 18:38 EDT Tel [phone], Service support ,
--- NOTE | 2019-08-01 14:02 | US_ITS ---
STUDY: ULTRASOUND OF THE FEMALE PELVIS - COMPLETE REASON FOR EXAM: Female, 39 years old. Menorrhagia. Bilateral pelvic pain. LMP: July 12, 2019. TECHNIQUE: Transabdominal and Transvaginal TECHNICAL QUALITY: Adequate. COMPARISON: November 09, 2016. FINDINGS: The uterus is retroverted and is in a midline position. The uterus measures 12.4 x 7.6 x 5.2 cm. There are multiple nabothian cysts within the otherwise normal cervix. The endometrium measures 13 mm in thickness, and is hyperechoic. There is no demonstrated endometrial mass. There is a 1.5 x 1.3 x 1.0 cm hypoechoic focus in the posterior lower uterine segment consistent with a fibroid. I.U.D. - The patient does not have an I.U.D. The right ovary is visualized. The right ovary measures 3.0 x 3.5 x 2 point to cm. There are multiple follicles of the right ovary without a dominant cyst. There is no visualized right adnexal mass or complex lesion. There is normal arterial and normal venous vascularity. The left ovary is visualized. The left ovary measures 3.9 x 2.9 x 2.2 cm. There are multiple follicles of the left ovary without a dominant cyst. There is no visualized left adnexal mass or complex lesion. There is normal arterial and normal venous vascularity. There is no fluid in the cul-de-sac. The visualized urinary bladder appears grossly normal. Polycystic ovary disease: No. US/Pelvic (Non ) IMPRESSION: 1. Retroverted uterus. There is a posterior fibroid in the lower uterine segment. 2. Prominent endometrium. 3. Normal ovaries. Electronically Signed: Luis Staton DO at 18:38 EDT Tel [phone], Service support ,
== END ==
PROVIDERS: PCP Family Medicine; Referring Provider Obstetrics & Gynecology; Visit Provider Obstetrics & Gynecology
DX: R10.2 Pelvic and perineal pain (principal); G89.29 Other chronic pain
CPT/HCPCS: 76830; 76856; 93976

== ENCOUNTER 2019-08-26 05:30 | Day surgery (SDC) | payer BC, MEDICAID, SELFPAY ==
[2019-07-28 16:13] VITALS: BMI 35.1
[2019-08-26] VITALS (9 sets, daily range): BP systolic 102–150; BP diastolic 65–93; PULSE 81–97; RESP 16–18; TEMP 36.1–37.4; O2SAT 95–99; BMI 36.7
[2019-08-26 05:54] LABS: Internal QC Validated? YES +Cl - CLEAR BKGD; Pregnancy, Urine Negative Negative
[2019-08-26] MEDS: dexAMETHasone 10 MG/ML Vial 8 MG IV (06:10)
[2019-08-26] MEDS: Acetaminophen 500 MG Tablet 1000 MG PO ×2 (06:10→12:17)
[2019-08-26] MEDS: Gabapentin 600 MG Tablet PO (06:11)
[2019-08-26] MEDS: Phenazopyridine 95 MG Tablet 190 MG PO (06:11)
[2019-08-26] MEDS: Scopolamine 1mg/72hr Patch 1 PATCH TRANSDERM. (06:12)
[2019-08-26] MEDS: Celecoxib 200 MG Capsule 400 MG PO (06:12)
[2019-08-26] MEDS: Lactated Ringers 1,000 ML 40 ML IV (06:13)
[2019-08-26] MEDS: Enoxaparin 40 MG/0.4 ML Syringe SC (06:15)
[2019-08-26 06:16] LABS: Bedside Glucose 86 mg/dL (70-110)
[2019-08-26 06:21] LABS: Absolute Lymphocyte Count 2.42 X10^3/uL (0.83-4.51); Absolute Neutrophil Count 4.2 X10^3/uL (2.0-7.7); Basophil# 0.05 X10^3/uL; Basophil% 0.7 % (0-1); Eosinophil# 0.32 X10^3/uL; Eosinophils% 4.3 % (0-5); Hematocrit 38.2 % (37-47); Hemoglobin 12.6 g/dL (12.0-15.0); Lymphocyte # 2.42 X10^3/ul (4.0); Lymphocyte % 32.4 % (19-41); Mean Corpuscular Hgb 28.4 pg (27.0-32.0); Mean Corpuscular Volume 86.2 fL (81-99); Mean Platelet Vol. 9.3 fl (6.2-12.0); Monocyte# 0.46 X10^3/uL; Monocyte% 6.1 % (0-10); NRBC Flagged by Analyzer 0 % (0-5); Neutrophil % 56.1 % (47-70); Platelet Count 377 K/mm3 (150-450); RBC Distribution Width CV 12.6 % (11.6-14.6); RBC Distribution Width SD 39.5 fl (35.1-43.9); Red Blood Count 4.43 M/mm3 (4.2-5.4); White Blood Count 7.5 K/mm3 (4.4-11.0)
--- NOTE | 2019-08-26 07:17 | HP.PCM_ITS ---
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 Leia Talamantes MD) Anxiety and depression (Chronic) History of blood clots (Acute) History of hemorrhoids (Acute) Surgical History History of hemorrhoidectomy (Acute) History of tonsillectomy (Acute) Family History Mother Hypertension Anxiety and depression Pulmonary embolism Grandmother Cancer ovarian Social History (Updated 07/28/19 @ 16:[address] 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 she has been having it worssened over the last few months. she used to only have pain with ovulation and with her periods. she has had some trouble with weight gain and has limited activities due to the pain. Female Reproductive History Questions: Metorrhagia: No, Sexually active: Yes, Dyspareunia: Yes, PCB: No Menopausal Symptoms: Yes hot flashes, Yes night sweats Pregancy History 2 Elective abortions Hx Para 2 Spontaneous abortions Hx # Term Pregnancies Ectopic pregnancies Hx # Pregnancies Multiple births # of living children Past Pregnancies Del. Date Name GA/Weeks Outcome Route Bth Weight Infant Gen Labor Lgth Anesthesia Del Locatn Provider FOB Unknown [place]- 2008 Unknown [place]-2011 ROS Const Constitutional: Reports night sweats; denies fatigue, fever(s), headache(s), increased appetite, poor appetite, weight gain or weight loss Cardio Card: Denies chest pain Resp Resp: Denies cough or dyspnea GI GI: Reports as per HPI; denies abdominal pain, constipation, nausea or vomiting : Reports as per HPI and hot flashes; denies difficulty urinating, painful urination, nipple discharge, urinary frequency, urinary incontinence, urinary hesitancy, urinary urgency, vaginal discharge, vaginal dryness, vaginal odor or vaginal itching Skin Skin/Breast: Denies change in hair, breast lump, breast pain, breast skin changes or nipple discharge Exam Const General: cooperative, healthy appearing, comfortable, no acute distress, well developed Orientation: alert [facility] Head: normal to inspection, normocephalic Neck Neck: normal visual inspection, trachea midline Thyroid: thyroid normal Resp Effort & Inspection: normal respiratory effort GI Inspection: normal to inspection, non-distended Palpation: soft, no hepatosplenomegaly General: bladder normal to palpation External Female Exam: normal external appearance, normal appearance of the urethra Urethra: normal appearance of the urethra, normal palpation, no discharge Speculum Exam - Vagina: normal appearance of the vagina, normal vaginal discha rge Speculum Exam - Cervix: normal appearance of the cervix, nontender Bimanual Exam- Vagina & Uterus: normal bimanual exam, uterine size normal, bladder normal to palpation, uterine shape normal, No cervical tenderness, uterine mobility normal, uterine consistency normal, normal cervical palpation, uterus non-tender Bimanual Exam- Adnexa, other: normal adnexae, adnexae mobile, no adnexal masses, pelvic support normal Pelvic Support: normal Skin General: no rashes or lesions noted Assessment & Plan Problems 1. History of blood clots Z86.718 PE. negative for evaluation. brought on by hormones. 2. Chronic pelvic pain in female R10.2; G89.29 Plan discussed options, not a candidate for medicla therapy, plan tvh bs once able to operate. Problem list updated and treatment plans were reviewed with the patient and relevant educational handouts given. See problem list details for specific plan information. After discussing the patient's diagnosis and treatment plan options, patient wishes to proceed with surgical management. I have discussed with the patient the risks, benefits, and alternatives of the procedure which include but are not limited to risks of anesthesia, bleeding, infection, possible damage to bowel, bladder, or surrounding vasculature which could lead to additional surgery to evaluate any complications. Patient agrees to procedure and wishes to proceed. ACOG/uptodate references given for additional information regarding procedure. Coding Level of Care Code Off vis,est,level 4 Diagnoses History of blood clots Z86.718 Chronic pelvic pain in female R10.2; G89.29 UPDATE- I have seen the patient and performed any clinically relevant updates to the history and physical exam. Leia Talamantes MD
--- NOTE | 2019-08-26 07:30 | HYST_PTH ---
PATIENT: CAYETANO PRABHAKAR LOC: [facility] [place] U#:[id number] AGE/SX: 39/F ROOM: RE08/26/[address]: Dr. Leia Talamantes MD : 1980 BED: DIS: 08/26/2019 SPEC #: [id number] RECD: 08/26/19 09:52 STATUS: KODY MELLO #: [id number] NATALI: 08/26/19 07:[address]: Leia Talamantes DEPT: SURGICAL PATHOLOGY RECD BY: Last Peacock ENTERED: 08/26/19 10:44 SP TYPE: HYSTERECT OTHR DR: Dr. Tamiko Urena MD Tissues: Uterus, NOS Procedures: Surgery Specimen Level V HEADER OPERATION: ERAS, vaginal hysterectomy, salpingectomy PRE-OP DIAGNOSIS: Chronic pelvic pain; history of blood clots TISSUE SUBMITTED: Uterus, bilateral fallopian tubes MICROSCOPIC DIAGNOSIS Uterus and bilateral fallopian tubes, vaginal hysterectomy and bilateral salpingectomy: Cervix - chronic cystic cervicitis. Endometrium - desynchronous endometrium consisting of proliferative endometrium to early secretory endometrium with focal area of simple endometrial hyperplasia without atypia. Myometrium - no pathologic diagnosis. Bilateral fallopian tubes - no pathologic diagnosis. SJ:johny 08/28/19 MICROSCOPIC DESCRIPTION Slides are reviewed. GROSS DESCRIPTION Received in fixative is one container labeled with the patient's name and designated uterus, bilateral fallopian tube. The specimen consists of a hysterectomy specimen consisting of uterus with cervix and detached bilateral fallopian tubes. The uterus with cervix weighs 145 gm and measures 10.5 x 7 x 5 cm. The serosal surface is whit[place], glistening. The ectocervical mucosa is unremarkable. The external os is oval in contour. The endocervical canal measures 3.5 cm in length and the endocervical mucosa is whit[place], glistening and unremarkable. Sections of the cervix reveal multiple cysts filled with mucoid material. The triangular endometrial cavity measures 5 cm in length and up to 4 cm in width. The endometrium is whitmore, glistening without any mass lesion and measures up to 0.7 cm in thickness. Sections of the uterine wall do not reveal any mass lesion and it measures up to 2.5 cm in thickness. The bilateral fallopian tubes are not identified as right or left and measures 5.5 cm in length and 0.6 cm in diameter and 4.5 cm in length and 0.7 cm in diameter. The fimbrial ends are identified. Sections reveal unremarkable cut surfaces. Senior Java Web Developer sections are submitted in eight cassettes as follows: 1 - anterior cervix, 2 - posterior cervix, 3 & 4 - anterior uterine wall, 5 & 6 - posterior uterine wall, 7 & 8 - bilateral fallopian tubes with each cassette containing one fallopian tube. / BETHANIE:johny 08/26/19 More sections area submitted in cassettes 9-13, endomyometrium. Almost entire endometrium is submitted. / BETHANIE:johny 08/27/19 TC:5 CPT: 26622
[2019-08-26] MEDS: Vasopressin 20 UNITS/ML Vial (08:17)
--- NOTE | 2019-08-26 08:44 | PCM.OPRPT ---
Problem List (1) Chronic pelvic pain in female Status: Chronic Comment: plan [facility] BS Report of Operation Date of Procedure: 08/26/19 Pre-Operative Diagnosis: chronic pelvic pain Post-Operative Diagnosis: same plus suspected adenomyosis and pelvic congestion syndrome Surgery/Procedure Performed:: tvh bs Description of Surgical Findings:: enlarged blood vessels, suspected adenomyosis, polycystic appearing ovaries solar hot water installer: Liana Clements Type of Anesthesia:: General Special Medications: none Specimen's removed: uterus tubes Drains: dawson, removed at completion Estimated Blood Loss (mL): 100 Fluids Replaced: crystalloid Description of Procedure: Patient was taken to the operating room and was placed under general anesthesia was prepped and draped in normal sterile fashion in the dorsal lithotomy position. Preoperative antibiotics and SCDs and Dawson catheter was placed inside the bladder. Weighted speculum was placed in the vagina and the anterior and posterior lip of the cervix was grasped with 2 Maxine clamps and circumferentially injected with dilute vasopressin. A circumferential incision was made with a scalpel and the posterior cul-de-sac was entered into sharply and a longneck speculum was placed. The anterior cul-de-sac was also dissected down and entered into sharply and the uterosacral ligaments were clamped cut and suture ligated bilaterally followed by the cardinal ligaments which were Clamped cut and suture ligated bilaterally with 0 Monocryl. The uterus serially descended and progressive bites were taken bilaterally up to the level of the utero-ovarian ligament bilaterally which was clamped transected and double ligated with 0 Monocryl suture and 0 Vicryl free tie. Bilateral fallopian tubes and ovaries were well visualized and noted be within normal limits and the bilateral fallopian tubes were transected across the base with a Anca clamp and removed and sutured with 0 Vicryl suture. Excellent hemostasis was noted. Posterior peritoneum was reapproximated with 2-0 Vicryl and a modified Sims stitch was placed through the posterior vaginal cuff and bilateral uterosacral ligaments across the posterior cul-de-sac skimming along to provide apical support to the vagina. 2 additional oversew sutures were placed over the ovary to obtain hemostasis. An additional right apical stitch was placed to obtain hemostasis due to the thickened vaginal mucosa and increased amount of vasculature particularly venous. Suspect pelvic congestion syndrome. The vagina was closed with [id number] 0 Vicryl pop offs including the posterior and anterior peritoneum in the reapproximation. Excellent hemostasis was noted. All instruments removed from the vagina clear urine was noted at the end of the procedure and patient was awoken and taken recovery in stable condition. Grafts/Implants Used: none - Complications none - Admit VTE Documentation VTE Present on Admission: No VTE Mechan Device Prophylaxis: SCD's VTE Pharm Prophylaxis ordered?: Yes Multi Select Codes - Urinary/Genital Urinary/Genital CPT Codes: 97735 TVH+BS/O <250gr uterus
--- NOTE | 2019-08-26 08:52 | PCM.DC.VHY ---
Discharge Diet: No Restrictions Discharge Activity: Return to Normal Activity, May Not Drive, May Shower May resume sexual activity in: 6-8 weeks Call your doctor if your incision/area has: Continuous Slow Oozing, Sudden Increased Bleeding, Increased Pain/ Swelling, Increased Redness, Foul Smelling Discharge Call your doctor if you observe: Fever of 101 or Higher, Inability to urinate, Inability to have a bowel movement, Using more than one pad per hour Allergies/Adverse Reactions: Allergies amoxicillin [From Augmentin] Allergy (Severe, Verified 08/26/19 06:00) Rash clavulanic acid [From Augmentin] Allergy (Severe, Verified 08/26/19 06:00) Rash augmentin Allergy (Severe, Uncoded 08/26/19 06:00) rash Medications to take at Discharge Buspirone HCl 10 mg PO TID 02/06/19 Sertraline HCl 100 mg PO DAILY 02/06/19 Trazodone HCl 50 mg PO QHS 02/06/19 Enoxaparin Sodium [Lovenox] 40 mg SQ DAILY 14 Days #14 ml 08/26/19 Naproxen [Naprosyn] 250 - 500 mg PO Q8H PRN PRN #30 tab 08/26/19 Oxycodone HCl/Acetaminophen [Percocet 5-325] 1 - 2 tablet PO Q6H PRN PRN 7 Days #28 tablet 08/26/19 The following prescriptions were given: Enoxaparin Sodium [Lovenox] 40 mg SQ DAILY 14 Days #14 ml Transmission Status: Pending to [facility] Naproxen [Naprosyn] 250 - 500 mg PO Q8H PRN PRN #30 tab PRN Reason: MILD PAIN Transmission Status: Pending to [facility] Oxycodone HCl/Acetaminophen [Percocet 5-325] 1 - 2 tablet PO Q6H PRN PRN 7 Days #28 tablet PRN Reason: Moderate-Severe pain Transmission Status: Sent to [facility] Primary Care Physician: Tamiko Urena MD [Primary Care Provider] - Test Results: Test results from this visit will be discussed in further detail at your follow-up appointment, if applicable. Please Follow Up With: Leia Talamantes MD - [phone]
[2019-08-26] MEDS: Ketorolac 30 MG/ML Syringe IV (10:05)
[2019-08-26] MEDS: oxyCODONE 5 MG Tablet PO (11:10)
[2019-08-26 13:11] LABS: Hematocrit 37.1 % (37-47); Hemoglobin 12.2 g/dL (12.0-15.0); Mean Corp Hgb Conc 32.9 g/dL (32-36); Mean Corpuscular Hgb 28.9 pg (27.0-32.0); Mean Corpuscular Volume 87.9 fL (81-99); Mean Platelet Vol. 9.3 fl (6.2-12.0); Platelet Count 339 K/mm3 (150-450); RBC Distribution Width CV 12.6 % (11.6-14.6); RBC Distribution Width SD 40.1 fl (35.1-43.9); Red Blood Count 4.22 M/mm3 (4.2-5.4)
== END 2019-08-26 13:59 | disposition home or self-care (01) ==
LOC: SDC 05:30 → AC 05:30
PROVIDERS: Anesthesiology; PCP Family Medicine; Visit Provider Obstetrics & Gynecology
PROC: (CPT 58260; principal; 2019-08-26 07:10)
DX: N85.01 Benign endometrial hyperplasia (principal); N72 Inflammatory disease of cervix uteri; R10.2 Pelvic and perineal pain; G89.29 Other chronic pain; E66.01 Morbid (severe) obesity due to excess calories; Z68.37 Body mass index [BMI] 37.0-37.9, adult; Z88.0 Allergy status to penicillin; Z88.1 Allergy status to other antibiotic agents; Z86.718 Personal history of other venous thrombosis and embolism; Z11.59 Encounter for screening for other viral diseases
CPT/HCPCS: 00944; 58262; 36415; 81025; 82962; 83735; 85025; 85027; 86850; 86900; 86901; 87635; 88307; G2023; J7120; J2310; J2405; U0003

== ENCOUNTER → 2019-09-01 | Outpatient (CLI) | payer BC, MEDICAID, SELFPAY ==
[2019-09-01 13:29] VITALS: BMI 36.9
== END | disposition home or self-care (01) ==
LOC: LABSPEC 15:25
PROVIDERS: PCP Family Medicine; Visit Provider Obstetrics & Gynecology
DX: G89.29 Other chronic pain (principal); R10.9 Unspecified abdominal pain
CPT/HCPCS: 87077; 87086; 87088; 87186

== ENCOUNTER → 2020-06-16 14:50 | Outpatient (CLI) | payer BC, MEDICAID, SELFPAY ==
[2019-11-19 08:11] VITALS: BMI 36.7
[2020-06-16 18:20] LABS: T4 Free Direct 0.83 ng/dL (0.76-1.46); Thyroid Stim Hormone (TSH) 1.46 uIU/mL (0.358-3.74)
== END ==
PROVIDERS: PCP Family Medicine; Visit Provider Family Medicine
DX: R53.83 Other fatigue (principal)
CPT/HCPCS: 36415; 84439; 84443

== ENCOUNTER 2020-08-07 10:41 | Emergency (ER) | payer BC, MEDICAID, SELFPAY ==
[2019-11-19 08:11] VITALS: BMI 36.7
[2020-08-07 10:42] VITALS: BP 153/78; PULSE 83; RESP 16; TEMP 36.3; O2SAT 99; BMI 33.0
--- NOTE | 2020-08-07 10:56 | VDLE_ITS ---
Reason For Study: pain Procedure LEFT This is a venous duplex using B-mode, color GSV is normal. flow and spectral Doppler. CFV is compressible, spontaneous, phasic, Exam performed portable in ED. competent, and demonstrates normal The exam was diagnostic. augmentation. A preliminary report was called and/or faxed FV is compressible, spontaneous, phasic, to Dr. Watkins. competent and demonstrates normal augmentation. POP V is compressible, spontaneous, phasic, competent and demonstrates normal augmentation. T/P Trunk is compressible. PTV is compressible. LT PerV is compressible. VL/Venous Duplex US, Unilateral Interpretation Summary There is no evidence of left lower extremity deep vein thrombosis. Left great s aphenous vein appears patent and compressible segmentally. Ordering Physician: Felicitas Watkins Performed By: Stef Zelaya RVT
--- NOTE | 2020-08-07 10:57 | EDS_ITS ---
HPI History of Present Illness Chief Complaint: Lower Extremity Injury Detail of Chief Complaint: Patient with left calf pain that started yesterday Informant: patient Onset/Context/Timing Worsened by: Standing and walking Narrative Narrative: Patient presents to the emergency department with complaint of pain in her left calf that started yesterday while she was at her desk working. Radha ent describes it is achy and crampy and worse with standing and walking. She denies any chest pain or shortness of breath. Patient does have history of PE in 2019 and was treated for 6 months with anticoagulation and it was felt that the PE was due to her control. Patient went to urgent care this morning and was referred to the emergency department. Patient does workout regularly but has not worked out in several days and denies any injury to her leg. Prior similar symptoms: No PFSH PFSH Medical History (Updated 08/07/20 @ 13:[address] Felicitas Watkins DO) Anxiety and depression History of blood clots History of hemorrhoids Home Medications buspirone 10 mg PO TID 02/06/19 [History Last Taken Unknown] sertraline 100 mg PO DAILY 02/06/19 [History Last Taken Unknown] trazodone 50 mg PO QHS 02/06/19 [History Last Taken Unknown] phentermine 37.5 mg tablet 37.5 mg PO QDAY #30 tab 11/19/19 [Rx Last Taken Unknown] Allergy/AdvReac Type Severity Reaction Status Date / Time amoxicillin [From Augmentin] Allergy Severe Rash Verified 08/07/20 10:42 clavulanic acid Allergy Severe Rash Verified 08/07/20 10:42 [From Augmentin] augmentin Allergy Severe rash Uncoded 08/07/20 10:42 Family History Mother Hypertension Anxiety and depression Pulmonary embolism Grandmother Cancer ovarian Surgical History History of hemorrhoidectomy History of tonsillectomy History of total vaginal hysterectomy (TVH) (~08/26/19) Social History (Updated 10/09/19 @ 09:[address] 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 NATHAN ROS ED Constitutional Constitutional ED: Reports systems reviewed and no addt'l complaints, except as documented; Denies body ache(s), change in weight or chills Eyes Eyes: Denies acute decrease in peripheral vision, change in vision, double vision or loss of vision ENT ENT ED: Reports none; Denies ear pain, lip swelling, loss taste/smell, neck pain, otalgia or sore throat Cardiovascular Cardiovascular: Reports none; Denies abdominal pain, chest pain with activity, leg edema, lightheadedness, palpitations, rapid heart rate or syncope Respiratory/Chest Respiratory/Chest: Reports none; Denies change in mental status, dry cough, dyspnea, hemoptysis, shortness of breath at rest or shortness of breath with exertion Gastrointestinal Gastrointestinal: Reports none; Denies abdominal pain, change in stool character, diarrhea, hematemesis, hematochezia, melena, rectal bleeding or vomiting Genitourinary Genitourinary ED: Reports none; Denies abdominal discomfort, anuria, dysuria, genital pain or polyuria Musculoskeletal Musculoskeletal: Reports none and other Details: Left calf pain ; Denies arthralgias, back pain, difficulty walking, extremity pain, muscle weakness or myalgias Integumentary Reports none; Denies abscess or rash Neurologic Neurologic: Reports none; Denies abnormal gait, confusion, focal weakness, frequent falls, headache(s), loss of vision, numbness, paresthesias, radicular pain, vertigo or weakness Psychiatric Psychiatric: Reports systems reviewed and no addt'l complaints, except as documented and none; Denies behavioral changes, confusion, difficulty concentrating, hallucinations, suicidal ideation, tactile hallucinations or visual hallucinations Endocrine Endocrinology: Denies none, cold intolerance, excessive sweating, fatigue or heat intolerance Hematologic/Lymphatic Hematologic/Lymphatic: Reports none; Denies anemia, easy bleeding or easy bruising Allergic/Immunologic Allergic/Immunologic ED: Denies as per HPI, none, lip swelling, mouth swelling, throat swelling, tongue swelling or hives EXAM Physical Exam Const Vital Signs: 08/07/20 10:42 Temperature 97.4 F L Temperature Source Temporal Pulse Rate 83 Respiratory Rate 16 Blood Pressure 153/78 H Blood Pressure Mean 103 Pulse Ox 99 Oxygen Delivery Method Room Air Positive well nourished and well developed General Appearance ED: well developed and NAD HEENT Reports TM's clear and moist mucous membranes normocephalic and atraumatic; Negative for trauma or tenderness Tympanic Membrane ED: Yes TM's clear Eyes PERRL and EOMs intact bilaterally General Eye ED: Negative for pale conjunctiva or scleral icterus Neck no lymphadenopathy, supple and no JVD General: Negative for tenderness Chest Wall inspection of chest normal and palpation of chest normal Chest: Negative for tenderness Resp normal respiratory effort and clear to auscultation bilaterally Effort and Inspection: Negative for respiratory distress or pain with movement Auscultation: Negative for rhonchi, wheezes or diminished lung sounds Cardio regular rate, regular rhythm, S1 normal heart sound, S2 normal heart sound and no murmurs Peripheral Pulses: pulses 2+ throughout GI normal to inspection, nondistended, normoactive bowel sounds, soft to palpation, non-tender, non-distended and no masses Back/Spine no CVA tenderness and no thoracic nor lumbar tenderness Extremity Extremity Narrative: Patient with some mild discomfort to the left calf. No significant edema noted. There is no erythema or warmth. No masses or ropes or cords palpated. General Extremety ED: Negative for edema General Extremity: Negative for edema Neuro oriented x3, CN's II-XII intact bilaterally, no sensory deficits noted and gait normal Sensorium / Orientation: awake, alert, oriented to person, oriented to place and oriented to time Motor Exam: strength 5/5 throughout and strength abnormal Psych mental status grossly normal Skin no rashes or lesions noted and no wounds MDM MDM MDM Narrative Medical decision making narrative: Venous Doppler of the left lower extremity was negative for DVT. Advised patient to follow-up with primary care physician in 3 to 5 days. She is to return if worsening pain, swelling, chest pain, shortness of breath, or condition should worsen anyway. Discharge Plan Triage Chief Complaint: Lower Extremity Injury ED Provider: Felicitas Watkins Dx/Rx/DC Orders Clinical Impression: Pain of right calf Instructions: ED Pain, Acute, Uncertain Cause Prescriptions: No Action phentermine [Adipex-P] 37.5 mg tablet 37.5 mg PO QDAY Qty: 30 RF: 0 sertraline 100 MG tablet 100 mg PO DAILY RF: 0 buspirone 10 MG tablet 10 mg PO TID RF: 0 trazodone 50 MG tablet 50 mg PO QHS RF: 0 Primary Care Provider: Tamiko Urena Referrals: Tamiko Urena MD [Primary Care Provider] - 3-5 Days Disposition Disposition: Home, self care
[2020-08-07 13:10] VITALS: BP 137/89; PULSE 72; RESP 16
== END 2020-08-07 13:17 | disposition home or self-care (01) ==
LOC: ED 13:14
PROVIDERS: Emergency Provider Emergency Medicine; PCP Family Medicine
DX: M79.661 Pain in right lower leg (principal); F32.9 Major depressive disorder, single episode, unspecified; F41.9 Anxiety disorder, unspecified; Z79.899 Other long term (current) drug therapy; Z86.711 Personal history of pulmonary embolism
CPT/HCPCS: 93971; 99282

== ENCOUNTER → 2021-10-11 | Outpatient (CLI) | payer BC, MEDICAID, SELFPAY | END | disposition home or self-care (01) | LOC: SL 11:06 | PROVIDERS: PCP Family Medicine; Visit Provider Family Medicine | DX: R40.0 Somnolence (principal); Z68.35 Body mass index [BMI] 35.0-35.9, adult | CPT/HCPCS: 95806 ==

== ENCOUNTER → 2022-10-10 | Outpatient (CLI) | payer BC, MEDICAID, SELFPAY ==
--- NOTE | 2022-10-10 15:03 | BI_ITS ---
MAMMOGRAPHY - BILATERAL SCREENING REASON FOR EXAM: Female, 42 years old. Routine annual screening examination. PERTINENT HISTORY: Non-contributory. TECHNIQUE: Digital bilateral breast kit (3D mammographic acquisition) in the CC and MLO projections. 2-D mediolateral oblique (MLO) and craniocaudad (CC) views of both breasts were obtained. CAD: Full Field Digital Mammography with Computer Added Detection was performed. COMPARISON: Comparison is made with prior study dated 01/01/2020. FINDINGS: Breast Composition: There are scattered areas of fibroglandular density. There are no dominant masses or suspicious calcifications. No other significant abnormalities are identified. There has been no significant change since the prior study. BI/SCRN MAMM (CAD)W/KIT BILAT IMPRESSION: Stable bilateral screening mammogram. Yearly follow-up mammogram recommended. (A) ASSESSMENT CATEGORY: BIRADS Category 1: Negative. A letter regarding these results will be sent to the patient by the facility within 30 days. Approximately 10% of breast cancers are not detected by mammography. A normal mammogram should not delay biopsy of a clinically suspicious abnormality. [id number] Electronically Signed: Chris Pérez MD at 8:08 EDT ,
[2022-10-10 15:54] LABS: Estradiol 159.7 pg/mL; Follicle Stimulating Hormone 4.3 mIU/mL; Thyroid Stim Hormone (TSH) 1.62 uIU/mL (0.358-3.74)
== END | disposition home or self-care (01) ==
LOC: OPBI 14:51
PROVIDERS: PCP Family Medicine; Referring Provider Advanced Practice Midwife; Visit Provider Advanced Practice Midwife
DX: Z12.31 Encounter for screening mammogram for malignant neoplasm of breast (principal); Z13.29 Encounter for screening for other suspected endocrine disorder; E66.9 Obesity, unspecified
CPT/HCPCS: 36415; 77063; 77067; 82670; 83001; 84439; 84443

== ENCOUNTER → 2022-11-17 | Outpatient (CLI) | payer BC, MEDICAID, SELFPAY ==
--- NOTE | 2022-11-17 16:25 | RAD_ITS ---
INDICATION: CHEST PAIN EXAMINATION/TECHNIQUE: X-RAY - XR Chest 2 Views COMPARISON: 01/26/2018 FINDINGS: LINES/DEVICES: None. LUNGS: No consolidation, edema or effusion. No pneumothorax. MEDIASTINUM AND CARDIOVASCULAR STRUCTURES: Cardiac silhouette not enlarged. Central airways and mediastinal contour are unremarkable. BONES AND SOFT TISSUES: Unremarkable. RAD/Chest PA and Lateral IMPRESSION: No radiographic evidence of acute cardiopulmonary disease. Electronically Signed: Agueda Baird MD at 0:29 EDT ,
[2022-11-17 17:48] LABS: Absolute Neutrophil Count 6.7 X10^3/uL (2.0-7.7); Basophil# 0.05 X10^3/uL; Basophil% 0.5 % (0-1); Eosinophil# 0.26 X10^3/uL; Eosinophils% 2.6 % (0-5); Hematocrit 41.2 % (37-47); Hemoglobin 13.1 g/dL (12.0-15.0); Lymphocyte % 24.9 % (19-41); Mean Corp Hgb Conc 31.8 g/dL (32-36); Mean Corpuscular Hgb 28.4 pg (27.0-32.0); Mean Corpuscular Volume 89.4 fL (81-99); Mean Platelet Vol. 9.8 fl (6.2-12.0); Monocyte# 0.49 X10^3/uL; Monocyte% 4.9 % (0-10); NRBC Flagged by Analyzer 0 % (0-5); Neutrophil % 66.7 % (47-70); Platelet Count 442 K/mm3 (150-450); RBC Distribution Width CV 12.8 % (11.6-14.6); RBC Distribution Width SD 41.9 fl (35.1-43.9); Red Blood Count 4.61 M/mm3 (4.2-5.4)
[2022-11-17 17:58] LABS: Erythrocyte Sedimentation Rate 7 mm/hr (0-30)
[2022-11-17 18:49] LABS: ALB/GLOB Ratio 1.1 RATIO (0.9-2.4); AST(SGOT) 16 U/L (15-37); Alanine Aminotransfer ALT/SGPT 18 U/L (13-56); Albumin, Serum 4.1 g/dL (3.2-5.0); Alkaline Phosphatase 58 U/L (45-117); Anion Gap 8 (5-15); BUN 11 mg/dL (7-18); BUN/Creat Ratio 11.4 RATIO (10-20); CRP 6.72 mg/L (0.0-3.0); Calcium,Total 8.9 mg/dL (8.5-10.1); Chloride 103 mmol/L (98-107); Cholesterol 186 mg/dL (200); Creatinine, Serum 0.96 mg/dL (0.55-1.02); EST Glomerular Filtration Rate 68 mL/min (>60); Est Glom Filt Rate - Afr Amer 82 mL/min (>60); Globulin 3.8 g/dL (2.2-4.2); Glucose 89 mg/dL (74-106); High Density Lipoprotein 48 mg/dL; Potassium 3.5 mmol/L (3.5-5.1); Protein, Total 7.9 g/dL (6.4-8.2); Rheumatoid Factor < 10.0 IU/mL (<15); Sodium Level 135 mmol/L (136-145); Triglycerides 71 mg/dL; Very Low Density Lipoprotein 14 mg/dL (5-40)
[2022-11-21 12:08] LABS: CCP IgG Antibodies 3 units (0-19)
[2022-11-21 13:07] LABS: ANTINUCLEAR ANTIBODIES DIRECT Negative (Negative)
== END | disposition home or self-care (01) ==
LOC: MTLAB 16:24
PROVIDERS: PCP Family Medicine; Referring Provider Family Medicine; Visit Provider Family Medicine
DX: Z00.00 Encounter for general adult medical examination without abnormal findings (principal); M32.9 Systemic lupus erythematosus, unspecified; M25.50 Pain in unspecified joint; R07.9 Chest pain, unspecified
CPT/HCPCS: 36415; 71046; 80053; 80061; 85025; 85652; 86038; 86140; 86200; 86431

== ENCOUNTER 2022-12-14 07:50 | Outpatient (CLI) | payer BC, MEDICAID, SELFPAY ==
[2022-12-14 08:17] VITALS: BP 122/76; PULSE 79; RESP 16; TEMP 36.7; O2SAT 100
[2022-12-14] MEDS: Cosyntropin 0.25 MG Vial IM (08:32)
== END 2022-12-14 07:51 | disposition home or self-care (01) ==
LOC: MEDOUTP 07:52
PROVIDERS: PCP Family Medicine; Referring Provider Family Medicine; Visit Provider Family Medicine
DX: E27.49 Other adrenocortical insufficiency (principal)
CPT/HCPCS: 36415; 82533; 96372; J0834

== ENCOUNTER → 2024-08-27 | Outpatient (CLI) | payer BC, SELFPAY | END | disposition home or self-care (01) | LOC: LABSPEC 13:07 | PROVIDERS: PCP Family Medicine; Visit Provider Nurse Practitioner Family | DX: N39.0 Urinary tract infection, site not specified (principal) | CPT/HCPCS: 87086; 87088 ==

== ENCOUNTER → 2025-02-19 | Outpatient (CLI) | payer BC, SELFPAY ==
--- NOTE | 2025-02-19 07:45 | BI_ITS ---
EXAM: SCRN MAMM (CAD)W/KIT BILAT DATE: 02/19/2025 CLINICAL HISTORY: F, Age 44 y/o , SCREENING TECHNIQUE: Procedure Code: [id number] Modality: MG Procedure: SCRN MAMM (CAD)W/KIT BILAT COMPARISON: Prior exam(s) were compared FINDINGS: TISSUE DENSITY: The breasts are heterogeneously dense, which may obscure small masses. Bilateral Breast Mammographic Findings: No significant masses, calcifications or other abnormalities are identified. BI/SCRN MAMM (CAD)W/KIT BILAT IMPRESSION: No mammographic evidence of malignancy. OVERALL FINAL ASSESSMENT BI-RADS 1: NEGATIVE. RECOMMENDATION: Routine annual follow-up in 1 Year Additional Recommendation none A letter with findings and recommendations will be mailed to the patient. Reading Location: [id number]
--- OUTSIDE RECORDS SUMMARY | 2025-02-19 07:50 | XMS RPT_ITS | CCD ---
Author Organization [facility] Care Team Providers Care Fashion Supervisor Name Role Phone Leia Talamantes MD Unavailable [phone] Nestor Dotson Unavailable Unavailable Leia Talamantes MD Unavailable [phone] Tamiko Urena Primary Care Provider Tamiko Urena Primary Care Provider Tamiko Urena Primary Care Provider Tamiko Urena Primary Care Provider Tamiko Urena MD Primary Care Provider Dr. Tamiko Urena Referring Provider CHESTER Aden Attending Provider Tamiko Urena MD Primary Care Provider Tamiko Urena MD Primary Care Provider ANTON OLIVEIRA Referring Unavailable TAMIKO URENA Primary Care Unavailable TAMIKO URENA Primary Care Unavailable ANTON OLIVEIRA Attending Unavailable TAMIKO URENA Primary Care Unavailable TAMIKO URENA Primary Care Unavailable ANKUR DE LA CRUZ Attending Unavailable ANKUR DE LA CRUZ Admitting Unavailable TAMIKO URENA Primary Care Unavailable TAMIKO URENA Primary Care Unavailable YANELY GORE Attending Unavailable MIEDEL, TAMIKO E Primary Care Unavailable MIEDEL, TAMIKO E Primary Care Unavailable SERINA MONTOYA Attending Unavailable [facility], Tamiko Primary Care Unavailable Leia Talamantes Attending Unavailable Wied, Tamiko Referring Unavailable Wiedel, Tamiko Primary Care Unavailable Alia Rod Attending Unavailable Wied, Tamiko Primary Care Unavailable Leia Talamantes Referring Unavailable Leia Talamantes Attending Unavailable Allergies Allergy Classification Reported Allergen(s) Allergy Type Date of Onset Reaction(s) Facility (5 sources) amoxicillin / clavulanate drug allergy 7 rash [facility] (20 sources) Amoxicillin / Clavulanate; Translations: [AMOXICILLIN-POT CLAVULANATE] Drug Allergy 4 Itching [facility] (4 sources) Amoxicillin Drug Allergy 1 [facility] (4 sources) Clavulanate Drug Allergy 1 [facility] (14 sources) HYDROcodone; Translations: [HYDROCODONE] Drug Allergy 2 Itching [facility] (2 sources) Acetaminophen / HYDROcodone; Translations: [vicodin] [facility] Amox[facility] Drug Allergy 4 [facility] (1 source) Clavulanate Drug Allergy 4 [facility] Medications Current Medications Medication Drug Class(es) Dates Sig (Normalized) Sig (Original) acetaminophen 21.7 mg/ml / chlorpheniramine maleate 0.133 mg/ml / dextromethorphan hydrobromide 1 mg/ml oral solution (4 sources) Histamine-1 Receptor Antagonist, Uncompetitive C-pxycme-X-aspartat e Receptor Antagonist, Sigma-1 Agonist End: 08-11-2023 chlorpheniram-DM- acetaminophen (VICKS NYQUIL COLD/FLU, CPM,) 4-30-650 mg/30 mL liqd Take by mouth. 0 08/11/2023 Discontinued Comment on above: Take by mouth. adrenal health and balance (3 sources) Start: 10-05-2022 adrenal health and balance Active PO DAILY October 05, 2022 12:00am azithromycin 250 mg oral tablet (1 source) Macrolide Antimicrobial Start: 03-19-2024 End: 03-24-2024 azithromycin (ZITHROMAX Z-EDGARDO) 250 mg tablet Take 2 tablets day one, then, 1 tablet daily until gone. 6 tablet 03/19/2024 03/24/2024 Active benzonatate 100 mg oral capsule (15 sources) Non-narcotic Antitussive Start: 08-05-2024 take 1 capsule by mouth every eight hours as needed benzonatate (TESSALON PERLE) 100 mg capsule Take 1 capsule by mouth three times a day as needed. 21 capsule 08/05/2024 Active Start: 03-19-2024 End: 08-05-2024 take 1 capsule by mouth every eight hours as needed benzonatate (TESSALON PERLE) 100 mg capsule Take 1 capsule by mouth three times a day as needed for cough. 21 capsule 03/19/2024 08/05/2024 Discontinued (Course of therapy completed) Start: 12-14-2021 End: 01-12-2022 take 1 capsule by mouth every eight hours as needed benzonatate (TESSALON PERLE) 100 mg capsule Indications: Sinobronchitis Take 1 capsule by mouth every 8 hours as needed. 30 capsule 0 12/14/2021 01/12/2022 Discontinued (Discontinued by Patient) Start: 02-06-2019 End: 04-01-2019 take 200 mg by mouth three times daily as needed Benzonatate Discontinued 200 MG PO 3 TIMES DAILY NEEDED February 06, 2019 1:00am April 01, 2019 10:33am Comment on above: Take 1 capsule by [facility] every 8 hours as needed. cholecalciferol 0.025 mg oral tablet (20 sources) Vitamin D Start: take 25 ug by mouth once daily Cholecalciferol (Vitamin D3) Active 25 MCG PO DAILY October 05, 2022 12:00am Start: 11-07-2021 End: 04-20-2022 take [id number] [IU] by mouth once daily cholecalciferol, Vitamin D3, (VITAMIN D3) 1,250 mcg (50,000 unit) cap capsule Indications: vitamin D deficiency Take 1 capsule by mouth one time a week for 12 doses. Transition to 2,000-4,000 units of Vitamin D OTC after completing 12 weeks 12 capsule 0 11/07/2021 04/20/2022 Discontinued (Discontinued by Patient) Comment on above: Take 1 capsule by [facility] one time a week for 12 doses. Transition to 2,000-4,000 units of Vitamin D OTC after completing 12 weeks cholecalciferol 5000 unt / folic acid 1 mg oral tablet (12 sources) Vitamin D take 1 mg by mouth once daily vitamin D3-folic acid 125 mcg (5,000 unit)-1 mg tab Take 5,000 Units by mouth once daily. Active Comment on above: Take 5,000 Units by mouth once daily. d-methorphan/PE/acetamin ophen (VICKS DAYQUIL COLD-FLU RELIEF ORAL) (4 sources) End: 08-11-19 24 d-methorphan/PE/acet aminophen (VICKS DAYQUIL COLD-FLU RELIEF ORAL) Take by mouth. 0 08/11/2023 Discontinued d-methorphan/PE/ acetaminophen (VICKS DAYQUIL COLD-FLU RELIEF ORAL) Take by mouth. 0 Active Comment on above: Take by mouth. doxycycline hyclate 100 mg oral tablet (4 sources) Tetracycline-cla ss Drug Start: 08-05-2024 End: 08-10-2024 take 1 tablet by mouth twice daily doxycycline (VIBRA-TABS) 100 mg tablet Take 1 tablet by mouth two times a day for 5 days. 10 tablet 08/05/2024 08/10/2024 Active Start: 12-14-2021 End: 12-24-2021 take 1 capsule by mouth twice daily doxycycline monohydrate (MONODOX) 100 mg capsule Indications: Sinobronchitis Take 1 capsule by mouth twice daily for 10 days. 20 capsule 0 12/14/2021 12/24/2021 Active Comment on above: Take 1 capsule by [facility] twice daily for 10 days. escitalopram 5 mg oral tablet (7 sources) Serotonin Reuptake Inhibitor take 1 tablet by mouth once daily at bedtime escitalopram oxalate (LEXAPRO) 5 mg tablet Take 5 mg by mouth daily at bedtime. Active lisdexamfetamine dimesylate 30 mg oral capsule (20 sources) Central Nervous System Stimulant Start: 07-15-19 take 1 capsule by mouth once daily in the morning VYVANSE 30 mg capsule TAKE 1 CAPSULE BY MOUTH ONCE DAILY IN THE MORNING 07/14/2021 Active Start: 01-20-2021 End: 10-05-2022 take 1 capsule by mouth once daily Lisdexamfetamine (Vyvanse) 20 mg capsule Discontinued 20 MG PO DAILY January 20, 2021 12:00am October 05, 2022 11:05am Comment on above: TAKE 1 CAPSULE BY [facility] [place] ONCE DAILY IN THE MORNING MULTIVITAMIN ORAL (20 sources) take 1 tablet by mouth once daily MULTIVITAMIN ORAL Take 1 tablet by mouth once daily. Active take 1 tablet by mouth once amor y MULTIVITAMIN ORAL Take 1 tablet by mouth once daily. 0 Active Comment on above: Take 1 tablet by cecilio once daily. Multivitamin preparation (3 sources) Start: 10-06-19 take 1 tablet by mouth once daily Multivitamin Active 1 TABLET PO DAILY October 05, 2022 12:00am nystatin [id number] unt/ml oral suspension (1 source) Polyene Antifungal Start: 08-11-19 End: 08-16-19 take 5 mL by mouth four times daily nystatin (MYCOSTATIN) 100,000 unit/mL suspension Indications: Oral thrush Take 5 mL by mouth four times daily for 5 days. Swish and swallow. 100 mL 0 08/11/2023 08/16/2023 Active oxyCODONE hydrochloride 5 mg oral tablet (1 source) Opioid Agonist Start: 01-18-20 End: 01-23-20 take 1 tablet by mouth every six hours as needed for pain oxyCODONE IR (ROXICODONE) 5 mg immediate release tablet Indications: Symptomatic cholelithiasis Take 1 tablet by mouth every 6 hours as needed for pain for up to 5 days. 10 tablet 01/18/2024 01/23/2024 Active polyethylene glycol 3350 [id number] mg powder for oral solution (12 sources) Osmotic Laxative polyethylene gl ycol 3350 (MIRALAX, GLYCOLAX) 17 gram/dose powder Take by mouth once daily. Dissolve dose in 4 - 8 ounces of liquid and take as directed. Active Comment on above: Take by mouth once d aily. Dissolve dose in 4 - 8 ounces of liquid and take as directed. predniSONE 20 mg oral tablet (1 source) Start: 08-06-19 End: 08-11-19 take 2 tablets by mouth once daily at mealtime predniSONE (DELTASONE) 20 mg tablet Take 2 tablets by mouth once daily for 5 days. Take daily with food. 10 tablet 08/05/2024 08/10/2024 Active Semaglutide (3 sources) Start: 10-06-19 Semaglutide (Ozempic) 1 mg/dose (4 mg/3 mL) pen injector Active 1 MG SC EVERY WEEK October 05, 2022 12:00am semaglutide (OZEMPIC) 1 mg/dose (4 mg/3 mL) pen (3 sources) Start: 10-06-19 End: 01-28-20 semaglutide (OZEMPIC) 1 mg/dose (4 mg/3 mL) pen Semaglutide (Ozempic) 1 mg/dose (4 mg/3 mL) pen injector Active 1 MG SC EVERY WEEK October 05, 2022 12:00am 10/05/2022 01/28/2024 Discontinued (Course of therapy completed) Start: 10-05-2022 semaglutide (O ZEMPIC) 1 mg/dose (4 mg/3 mL) pen Semaglutide (Ozempic) 1 mg/dose (4 mg/3 mL) pen injector Active 1 MG SC EVERY WEEK October 05, 2022 12:00am 10/05/2022 Active Start: 10-05-2022 semaglutide (O ZEMPIC) 1 mg/dose (4 mg/3 mL) pen Semaglutide (Ozempic) 1 mg/dose (4 mg/3 mL) pen injector Active 1 MG SC EVERY WEEK October 05, 2022 12:00am 0 10/05/2022 Active vitamin b12 1 mg oral tablet (3 sources) Vitamin B12 Start: 10-05-2022 take 1000 ug by mouth once daily Cyanocobalamin (Vitamin B-12) Active 1000 MCG PO DAILY October 05, 2022 12:00am Completed/Discontinued Medications Medication Drug Class(es) Dates Sig (Normalized) Sig (Original) acetaminophen 325 mg / oxyCODONE hydrochloride 5 mg oral tablet (4 sources) Opioid Agonist Start: 08-26-2019 End: 09-02-2019 take 1 tablet by mouth every six hours as needed Oxycodone-Acetamin ophen Discontinued 1 - 2 TABLET PO EVERY 6 HOURS NEEDED 28 7 August 26, 2019 September 02, 2019 12:02am apixaban 5 mg oral tablet (12 sources) Factor Xa Inhibitor Start: 01-27-2018 End: 02-03-2018 take 2 tablets by mouth twice daily, then take 5 tablets by mouth twice daily Apixaban (Eliquis) 5 MG tablet Discontinued 10 MG PO TWICE A DAY 14 January 27, 2018 1:00am February 03, 2018 1:15am UNTIL Jan. THEN START 5 BID Start: 01-27-2018 End: 10-29-2018 take 5 mg by mouth twice daily Apixaban Discontinued 5 MG PO TWICE A DAY 60 February 18, 2018 11:11am October 29, 2018 12:17pm brompheniramine maleate 0.4 mg/ml / dextromethorphan hydrobromide 2 mg/ml / pseudoephedrine hydrochloride 6 mg/ml oral solution (8 sources) alpha-Adrenergic Agonist, Uncompetitive F-qyqtwv-A-aspartate Receptor Antagonist, Sigma-1 Agonist Start: 12-14-2021 End: 01-12-2022 take 5 mL by mouth at bedtime as needed Hypczdnemyikgxa-Dkgprmwja-EU (BROMFED DM) 2-30-10 mg/5 mL syrup Indications: Sinobronchitis Take 5 mL by mouth at bedtime as needed. 118 mL 0 12/14/2021 01/12/2022 Discontinued (Discontinued by Patient) Comment on above: Take 5 mL by mouth a t bedtime as needed. busPIRone hydrochloride 10 mg oral tablet (20 sources) Start: 02-06-2019 End: 01-20-2021 take 10 mg by mouth three times daily Buspirone Discontinued 10 MG PO THREE TIMES A DAY February 06, 2019 1:00am January 20, 2021 2:43pm End: 08-11-2023 take 1 tablet by mouth three times daily busPIRone (BUSPAR) 5 mg tablet Take 5 mg by mouth three times daily. 0 08/11/2023 Discontinued Comment on above: Take 5 mg by mouth t hree times daily. cefaclor 500 mg oral capsule (5 sources) Cephalosporin Antibacterial Start: 06-14-19 End: 06-21-19 CEFACLOR 500 MG CAPS Take 1 tablet every 8 hours CEFACLOR [id number] Jono LANDERS 24 hr desvenlafaxine succinate 50 mg extended release oral tablet (20 sources) Serotonin and Norepinephrine Reuptake Inhibitor Start: 10-06-19 End: 12-15-19 take 50 mg by mouth once daily Desvenlafaxine Succinate Discontinued 50 MG PO DAILY October 05, 2022 12:00am December 14, 2022 8:15am End: 08-11-2023 desvenlafaxine ER (PRISTIQ) 50 mg 24 hr tablet Take 100 mg by mouth once daily. 0 08/11/2023 Discontinued take 1 tablet by cecilio th once daily, then take 1 tablet by mouth every twenty-four hours desvenlafaxine ER (PRISTIQ) 50 mg 24 hr tablet Take 50 mg by mouth once daily. 0 Active Comment on above: Take 50 mg by mouth once daily. Take 100 mg by mouth once daily. 0.4 ml enoxaparin sodium 100 mg/ml prefilled syringe (4 sources) Low Molecular Weight Heparin Start: 08-26-19 End: 10-09-19 inject 40 mg by subcutaneous injection once daily Enoxaparin Discontinued 40 MG SQ DAILY August 26, 2019 12:00am October 09, 2019 8:44am Levonorgestrel-Eth inyl Estrad (4 sources) Progestin, Estrogen, Progestin-containing Intrauterine Device Start: 01-01-20 End: 01-28-20 take 1 tablet by mouth once daily Levonorgestrel-Ethi nyl Estrad (Aviane) 0.1-20 mg-mcg tablet Discontinued 1 TABLET PO daily December 31, 2017 12:00am January 27, 2018 12:04pm take only active pills, discard inactive and start new pack immediately famotidine 20 mg oral tablet (4 sources) Histamine-2 Receptor Antagonist Start: 10-06-19 End: 12-15-19 take 20 mg by mouth once daily Famotidine Discontinued 20 MG PO DAILY October 05, 2022 12:00am December 14, 2022 8:15am Start: 04-20-2022 End: 06-19-2022 take 1 tablet by mouth once daily famotidine (PEPCID) 20 mg tablet Take 1 tablet by mouth once daily. 30 tablet 1 04/20/2022 06/19/2022 Active Comment on above: Take 1 tablet by cecilio th once daily. fluconazole 150 mg oral tablet (8 sources) Azole Antifungal Start: 0 End: 0 Fluconazole Discontinued 150 MG PO .COMPLEX 2 September 18, 2019 10:17am October 09, 2019 8:44am 150 mg PO take one po now and repeat in 3 days ibuprofen 200 mg oral tablet (5 sources) Nonsteroidal Anti-inflammatory Drug Start: 7 MOTRIN IB 200 MG TABS Take as directed IBUPROFEN [id number] Swati Durbin CUSTOMER SERVICE RECEPTIONIST naproxen 250 mg oral tablet (8 sources) Nonsteroidal Anti-inflammatory Drug Start: 0 End: 0 take 250-500 mg by mouth every eight hours as needed Naproxen Discontinued 250 - 500 MG PO EVERY 8 HOURS NEEDED August 26, 2019 12:00am October 09, 2019 8:44am Start: 05-27-2018 End: 10-29-2018 take 500 mg by mouth at mealtime Naproxen Discontinued 500 MG PO 2 to 3 times per day 60 May 27, 2018 12:00am October 29, 2018 12:17pm administer with food or milk phentermine hydrochloride 37.5 mg oral tablet (20 sources) Sympathomimetic Amine Anorectic Start: 10-22-2019 End: 01-20-2021 take 1 tablet by mouth once daily Phentermine (Adipex-P) 37.5 mg tablet Discontinued 37.5 MG PO daily November 19, 2019 8:23am January 20, 2021 2:43pm Start: 04-28-2018 End: 10-29-2018 take 1 tablet by mouth once daily Phentermine (Adipex-P) 37.5 mg tablet Discontinued 37.5 MG PO daily June 28, 2018 9:43am October 29, 2018 12:18pm Prenat.Vits,Drew,Wdy-Veli-Bbu ic ( Vitamin) tablet (4 sources) Start: 03-09-2017 End: 05-27-2018 take 1 tablet by mouth once daily Prenat.Vits,Drew,Fba-Cant-Xzofj ( Vitamin) tablet Discontinued 1 TABLET PO daily March 09, 2017 1:00am May 27, 2018 9:08am sertraline 100 mg oral table t (20 sources) Serot onin Reupt checo Inhib itor Start: 02-06-2019 End: 01-20-2021 take 100 mg by mouth once daily Sertraline Discontinued 100 MG PO DAILY February 06, 2019 1:00am January 20, 2021 2:43pm Start: 12-31-2017 End: 01-26-2019 take 150 mg by mouth once daily Sertraline Discontinue d 150 MG PO daily 45 December 31, 2017 10:10am January 26, 2019 1:09am Start: 04-12-2017 End: 12-31-2017 take 100 mg by mouth once daily Sertraline Discontinue d 100 MG PO daily July 03, 2017 10:47am December 31, 2017 10:11am Start: 03-09-2017 End: 04-12-2017 take 1 tablet by mouth once daily Sertraline (Zoloft) 50 mg tablet Discontinued 50 MG PO daily April 12, 2017 10:34am April 12, 2017 10:50am sulfamethoxazole 800 mg / trimethoprim 160 mg oral tablet (4 sources) Dihydrofolate Reductase Inhibitor Antibacterial, Sulfonamide Antimicrobial Start: 09-01-2019 End: 09-10-2019 take 1 tablet by mouth twice daily Sulfamethoxazole-Trimethoprim (Bactrim Ds) 800-160 mg tablet Discontinued 1 TABLET PO TWICE A DAY September 01, 2019 12:00am September 10, 2019 8:59am traZODone hydrochloride 50 mg oral tablet (20 sources) Serotonin Reuptake Inhibitor Start: 02-06-2019 End: 01-20-2021 take 50 mg by mouth at bedtime Trazodone Discontinued 50 MG PO AT BEDTIME February 06, 2019 1:00am January 20, 2021 2:43pm Start: 01-26-2018 End: 10-29-2018 take 100 mg by mouth at bedtime Trazodone Discontinued 100 MG PO AT BEDTIME 60 February 15, 2018 2:09pm October 29, 2018 12:18pm Start: 03-09-2017 End: 03-09-2017 take 100 mg by mouth at bedtime Trazodone Discontinued 100 MG PO AT BEDTIME March 09, 2017 1:00am March 09, 2017 11:02am Start: 03-09-2017 End: 01-26-2018 take 50 mg by mouth at bedtime Trazodone Discontinued 50 MG PO AT BEDTIME March 09, 2017 1:00am January 26, 2018 11:11am Start: 02-14-2017 TRAZODONE HCL 100 MG TABS take nightly TRAZODONE HCL [id number] Leia Talamantes MD triamcinolone acetonide 5 mg/ml topical cream (4 sources) Corticosteroid Start: 07-17-2017 End: 08-16-2017 Triamcinolone Acetonide Discontinued 1 APPLIC TOPICAL TWICE A DAY July 17, 2017 12:00am August 16, 2017 10:24am Problems Active Problems Problem Classification Problem Date Documented Da te Episodic/Chronic Abdominal pain (10 sources) Right lower quadrant pain; Translations: [Chronic pelvic pain of female] Onset: 11-13-2016 11-13-2016 Episodic Administrative/social admission (8 sources) Patient encounter status; Translations: [Dietary counseling and surveillance] Episodic Anxiety disorders (20 sources) Mixed anxiety and depressive disorder; Translations: [Anxiety disorder, unspecified] Onset: 03-16-2022 Chronic Attention-deficit, conduct, and disruptive behavior disorders (6 sources) Attention deficit hyperactivity disorder; Translations: [Attention-deficit hyperactivity disorder, unspecified type] Chronic Calculus of urinary tract (1 source) Calculus of kidney; Translations: [Kidney stone] Onset: 08-17-2024 Episodic Chronic obstructive pulmonary disease and bronchiectasis (1 source) Bronchitis, not specified as acute or chronic; Translations: [Sinobronchitis] Onset: 08-05-2024 Episodic Headache; including migraine (1 source) Acute headache; Translations: [Acute nonintractable headache, unspecified headache type] Episodic Miscellaneous mental health disorders (12 sources) Psychosomatic factor in physical condition; Translations: [Psychological and behavioral factors associated with disorders or diseases classified elsewhere] Chronic Mood disorders (20 sources) Recurrent major depression in partial remission; Translations: [Major depressive disorder, recurrent, in partial remission] Onset: 12-07-2021 Chronic Mycoses (1 source) Candidiasis of mouth; Translations: [Candidal stomatitis] 08-11-2023 Episodic Nonspecific chest pain (4 sources) Chest pain; Translations: [Chest pain, unspecified] 08-26-2019 Episodic Nutritional deficiencies (18 sources) Vitamin D deficiency; Translations: [Vitamin D deficiency, unspecified] Onset: 12-07-2021 Chronic Other connective tissue disease (4 sources) Pain in calf; Translations: [Pain in right lower leg] 08-07-2020 Episodic Other gastrointestinal disorders (1 source) Heartburn; Translations: [Heartburn] Episodic Other lower respiratory disease (2 sources) Cough; Translations: [Acute cough] 03-19-2024 Episodic Other lower respiratory disease (1 source) Lower respiratory tract infection; Translations: [Unspecified acute lower respiratory infection] 03-19-2024 Episodic Other nutritional; endocrine; and metabolic disorders (4 sources) Obese class I; Translations: [Obesity, unspecified] 01-26-2018 Chronic Other nutritional; endocrine; and metabolic disorders (3 sources) Obesity; Translations: [Obesity, unspecified] Chronic Other nutritional; endocrine; and metabolic disorders (12 sources) Severe obesity; Translations: [Morbid (severe) obesity due to excess calories] Chronic Other nutritional; endocrine; and metabolic disorders (14 sources) Morbid obesity; Translations: [Morbid (severe) obesity due to excess calories] Onset: 03-16-2022 Chronic Other nutritional; endocrine; and metabolic disorders (3 sources) Obesity, unspecified; Translations: [Obesity, unspecified] 10-05-2022 Chronic Other skin disorders (4 sources) Granulation of tissue; Translations: [Granulomatous disorder of the skin and subcutaneous tissue, unspecified] 01-20-2021 Episodic Other upper respiratory disease (1 source) Nasal sinus problem; Translations: [Other specified disorders of nose and nasal sinuses] Episodic Other upper respiratory disease (1 source) Nasal congestion; Translations: [Nasal congestion] Episodic Other upper respiratory infections (3 sources) Chronic sinusitis; Translations: [Chronic sinusitis, unspecified] Onset: 08-05-2024 Chronic Other upper respiratory infections (10 sources) Upper respiratory infection; Translations: [Acute maxillary sinusitis] Onset: 06-13-2016 06-13-2016 Episodic Unclassified (1 source) Counseling for infertility done; Translations: [Encounter for other general counseling and advice on procreation] Onset: 11-13-2016 11-13-2016 Unclassified (4 sources) Body mass index 40+ - severely obese; Translations: [Body mass index (BMI) greater than 40] 10-09-2019 Unclassified (1 source) APPOINTMENT CANCELLED Unclassified (1 source) Acute cough; Translations: [Acute cough] Onset: 08-05-2024 Unclassified (1 source) Post Op Follow Up Onset: 02-04-2024 Urinary tract infections (1 source) Urinary tract infection, site not specified; Translations: [Urinary tract infection, site not specified] Onset: 09-03-2024 Episodic Past or Other Problems Problem Classification Problem Date Documented Date Episodic/Chronic Anal and rectal conditions (20 sources) Disorder of rectum; Translations: [Anal fissure, unspecified] Onset: 03-14-2011 03-14-2011 Episodic Biliary tract disease (9 sources) Biliary calculus; Translations: [Calculus of gallbladder without cholecystitis without obstruction] Onset: 01-17-2024 01-17-2024 Episodic Cancer of rectum and anus (5 sources) Atypical squamous cells of undetermined significance on anal Papanicolaou smear; Translations: [Atypical squamous cells of undetermined significance on cytologic smear of anus (ASC-US)] Onset: 10-20-2016 10-22-2016 Episodic Contraceptive and procreative management (3 sources) Encounter for other general counseling and advice on procreation; Translations: [Encounter for other general counseling and advice on procreation] Onset: 11-13-2016 11-13-2016 Episodic Hemorrhoids (20 sources) Thrombosed external hemorrhoids; Translations: [Perianal venous thrombosis] Onset: 08-17-2011 08-17-2011 Episodic Miscellaneous mental health disorders (20 sources) depression; Translations: [ depression] Onset: 09-27-2011 09-27-2011 Episodic Other complications of (8 sources) Venous complication of and/or the puerperium; Translations: [Other venous complications in , unspecified trimester] Onset: 09-14-2008 Resolved: 05-18-2011 05-18-2011 Episodic Other lower respiratory disease (1 source) Cough Onset: 03-19-2024 Episodic Other and delivery including normal (8 sources) Normal in primigravida; Translations: [Encounter for supervision of normal first , unspecified trimester] Onset: 08-13-2008 Resolved: 01-26-2009 01-26-2009 Episodic Other screening for suspected conditions (not mental disorders or infectious disease) (5 sources) Encounter for screening for other suspected endocrine disorder; Translations: [Screening for thyroid disorders] Onset: 11-09-2023 10-05-2022 Episodic Other skin disorders (12 sources) Granulomatous disorder of the skin and subcutaneous tissue; Translations: [Granulomatous disorder of the skin and subcutaneous tissue, unspecified] Onset: 01-20-2021 03-16-2022 Episodic Other upper respiratory disease (5 sources) Pain in throat; Translations: [Acute pharyngitis, unspecified] Onset: 06-13-2016 06-13-2016 Episodic Otitis media and related conditions (5 sources) Acute otitis media; Translations: [Otitis media, unspecified, right ear] Onset: 06-13-2016 06-13-2016 Episodic Ovarian cyst (5 sources) Cyst of ovary; Translations: [Unspecified ovarian cysts] Onset: 10-20-2016 10-22-2016 Episodic Pulmonary heart disease (20 sources) 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 Submit a new specimen if indicated. Normal [facility] Comment on above: Performed By: #### M 100.1630 #### [facility] [address] [place], [place], [address] ALLIED HEALTHon 08-17-2024 [facility] HNO ID: [id number] Author: BATSHEVA HONG RT(R) Service: Radiology Author Type: Technologist Type: Allied Health Filed: 08/17/2024 16:44 Note Text: Radiology Service Progress Note PATIENT NAME: Zonia Ojeda DATE OF SERVICE: August 17, 2024 TIME: 4:44 PM PATIENT IDENTITY VERIFICATION COMPLETED USING TWO (2) IDENTIFIERS: Name and Date of confirmed by patient verbally. FALL SCREENING: Has the patient had 2 falls in the last year or 1 fall with injury or currently using an Ambulatory Assistive Device (Walker, Cane, Wheelchair, Crutches, etc.)? Emergency Room Patient: Screened in ED PATIENT GENDER DATA: Assigned female at . status: : No status: NO. PATIENT RELEVANT IMPLANT DATA REVIEWED: Not Applicable PATIENT PRESENTS WITH AN IMPLANTABLE OR ATTACHED MODEL DRESSER: No RADIOLOGY DEPARTMENT: CT; Exam(s) Completed: Flank Study PERIPHERAL IV DATA: Not applicable SIGNED BY: RT Haylie(R) August 17, 2024 4:44 PM Normal [facility] CBC W Auto Differential pane l (Bld)on 08-17-2024 Basophils (Bld) [#/Vol] 0.06 10*3/uL Normal <0.11 [facility] Comment on above: Order Comment: Speci men Type: BLOOD SPECIMEN Ordering Facility: [facility] Address: [address] [place] [address] Performed By: #### 5 7021-8 #### [facility] CLIA [id number] [address] [place] [address] [place] Basophils/100 WBC (Bld) 0.5 % Normal [facility] Comment on above: Order Comment: Speci zenaida Type: BLOOD SPECIMEN Ordering Facility: [facility] Address: [address] [place] [address] Performed By: #### 5 7021-8 #### [facility] CLIA [id number] [address] [place] [address] [place] Differential cell count method Nom (Bld) Auto Normal [facility] Comment on above: Order Comment: Speci men Type: BLOOD SPECIMEN Ordering Facility: [facility] Address: [address] [place] [address] Performed By: #### 5 7021-8 #### [facility] CLIA [id number] [address] [place] [address] [place] Eosinophils (Bld) [#/Vol] 0.09 10*3/uL Normal <0.46 [facility] Comment on above: Order Comment: Speci men Type: BLOOD SPECIMEN Ordering Facility: [facility] Address: [address] [place] [address] Performed By: #### 5 7021-8 #### [facility] CLIA [id number] [address] [place] [address] [place] Eosinophils/100 WBC (Bld) 0.8 % Normal [facility] Comment on above: Order Comment: Speci men Type: BLOOD SPECIMEN Ordering Facility: [facility] Address: [address] [place] [address] Performed By: #### 5 7021-8 #### [facility] CLIA [id number] [address] [place] [address] [place] Erythrocyte distribution width (RBC) [Ratio] 12.7 % Normal 11.5-15.0 [facility] Comment on above: Order Comment: Speci men Type: BLOOD SPECIMEN Ordering Facility: [facility] Address: [address] [place] [address] Performed By: #### 5 7021-8 #### [facility] CLIA [id number] [address] [id number] [place] Hematocrit (Bld) [Volume fraction] 43.0 % Normal 36.0-46.0 [facility] Comment on above: Order Comment: Speci men Type: BLOOD SPECIMEN Ordering Facility: [facility] Address: [address] [place] [address] Performed By: #### 5 7021-8 #### [facility] CLIA [id number] [address] [place] [address] [place] Hemoglobin (Bld) [Mass/Vol] 14.3 g/dL Normal 11.5-15.5 [facility] Comment on above: Order Comment: Speci men Type: BLOOD SPECIMEN Ordering Facility: [facility] Address: [address] [place] [address] Performed By: #### 5 7021-8 #### [facility] CLIA [id number] [address] [id number] [place] Immature granulocytes (Bld) [#/Vol] 10*3/uL Normal <0.10 [facility] Comment on above: Order Comment: Speci men Type: BLOOD SPECIMEN Ordering Facility: [facility] Address: [address] [place] [address] Performed By: #### 5 7021-8 #### [facility] CLIA [id number] [address] [place] [address] [place] Immature granulocytes/100 WBC (Bld) 0.1 % Normal [facility] Comment on above: Order Comment: Speci men Type: BLOOD SPECIMEN Ordering Facility: [facility] Address: [address] [place] [address] Performed By: #### 5 7021-8 #### [facility] CLIA [id number] [address] [place] [address] [place] Lymphocytes (Bld) [#/Vol] 1.47 10*3/uL Normal 1.00-4.00 [facility] Comment on above: Order Comment: Speci men Type: BLOOD SPECIMEN Ordering Facility: [facility] Address: [address] [place] [address] Performed By: #### 5 7021-8 #### [facility] CLIA [id number] [address] [place] Lymphocytes/100 WBC (Bld) 12.3 % Normal [facility] Comment on above: Order Comment: Speci men Type: BLOOD SPECIMEN Ordering Facility: [facility] Address: [address] [place] [address] Performed By: #### 5 7021-8 #### [facility] CLIA [id number] [address] [place] [address] [place] MCH (RBC) [Entitic mass] 28.6 pg Normal 26.0-34.0 [facility] Comment on above: Order Comment: Speci men Type: BLOOD SPECIMEN Ordering Facility: [facility] Address: [address] [place] [address] Performed By: #### 5 7021-8 #### [facility] CLIA [id number] [address] [place] [address] [place] MCHC (RBC) [Mass/Vol] 33.3 g/dL Normal 30.5-36.0 [facility] Comment on above: Order Comment: Speci men Type: BLOOD SPECIMEN Ordering Facility: [facility] Address: [address] [place] [address] Performed By: #### 5 7021-8 #### [facility] CLIA [id number] [address] [place] [address] [facility] [place] MCV (RBC) [Entitic vol] 86.0 fL Normal 80.0-100.0 [facility] Comment on above: Order Comment: Speci men Type: BLOOD SPECIMEN Ordering Facility: [facility] Address: [address] [place] [address] Performed By: #### 5 7021-8 #### [facility] CLIA [id number] [address] [place] [address] [place] Monocytes (Bld) [#/Vol] 0.42 10*3/uL Normal <0.87 [facility] Comment on above: Order Comment: Speci men Type: BLOOD SPECIMEN Ordering Facility: [facility] Address: [address] [place] [address] Performed By: #### 5 7021-8 #### [facility] CLIA [id number] [address] [place], [place] [address] [place] [address] [place] Monocytes/100 WBC (Bld) 3.5 % Normal [facility] Comment on above: Order Comment: Speci men Type: BLOOD SPECIMEN Ordering Facility: [facility] Address: [address] [place] [address] Performed By: #### 5 7021-8 #### [facility] CLIA [id number] [address] [place], [place] [address] [place] [address] [place] Neutrophils (Bld) [#/Vol] 9.91 10*3/uL High 1.45-7.50 [facility] Comment on above: Order Comment: Speci men Type: BLOOD SPECIMEN Ordering Facility: [facility] Address: [address] [place] [address] Performed By: #### 5 7021-8 #### [facility] CLIA [id number] [address] [place] [address] [place] Neutrophils/100 WBC (Bld) 82.8 % Normal [facility] Comment on above: Order Comment: Speci men Type: BLOOD SPECIMEN Ordering Facility: [facility] Address: [address] [place] [address] Performed By: #### 5 7021-8 #### [facility] CLIA [id number] [address] [place] [address] [place] Nucleated RBC (Bld) [#/Vol] Normal [facility] Comment on above: Order Comment: Speci men Type: BLOOD SPECIMEN Ordering Facility: [facility] Address: [address] [place] [address] Performed By: #### 5 7021-8 #### [facility] CLIA [id number] [address] [place] [address] [place] Nucleated RBC/100 WBC (Bld) [Ratio] Normal [facility] Comment on above: Order Comment: Speci men Type: BLOOD SPECIMEN Ordering Facility: [facility] Address: [address] [place] [address] Performed By: #### 5 7021-8 #### [facility] CLIA [id number] [address] [place] [address] [place] Platelet mean volume (Bld) [Entitic vol] 9.4 fL Normal 9.0-12.7 [facility] Comment on above: Order Comment: Speci men Type: BLOOD SPECIMEN Ordering Facility: [facility] Address: [address] [place] [address] Performed By: #### 5 7021-8 #### [facility] CLIA [id number] [address] [place] [address] [place] Platelets (Bld) [#/Vol] 416 10*3/uL High 150-400 [facility] Comment on above: Order Comment: Sheryl estevez Type: BLOOD SPECIMEN Ordering Facility: [facility] Address: [address] [place] [address] Performed By: #### 5 7021-8 #### [facility] CLIA [id number] [address] [place] [address] [facility] RBC (Bld) [#/Vol] 5.00 10*6/uL Normal 3.90-5.20 [facility] Comment on above: Order Comment: Speci men Type: BLOOD SPECIMEN Ordering Facility: [facility] Address: [address] [place] [address] Performed By: #### 5 7021-8 #### [facility] CLIA [id number] [address] [place], [place] [id number] [facility] WBC (Bld) [#/Vol] 11.96 10*3/uL High 3.70-11.00 [facility] Comment on above: Order Comment: Speci men Type: BLOOD SPECIMEN Ordering Facility: [facility] Address: [address] [place] [address] Performed By: #### 5 7021-8 #### [facility] CLIA [id number] [address] [place], [place] [id number] [facility] CT FLANK WO IVCONon 08-18-[address] FLANK WO IVCON * * *Final Report* * * DATE OF EXAM: Aug 17 2024 4:43PM [facility] 0529 - CT FLANK WO IVCON / PROCEDURE REASON: Flank pain, kidney stone suspected * * * * Physician Interpretation * * * * EXAMINATION: CT ABDOMEN AND PELVIS WITHOUT IV CONTRAST (Renal stone protocol) CLINICAL HISTORY: Flank pain, kidney stone suspected. TECHNIQUE: Non-contrast imaging of the abdomen and pelvis was performed through the urinary tract. Study performed without intravenous or oral contrast to evaluate for urinary tract calculus. MQ: [id number] Contrast: IV contrast: None Oral contrast: None CT Radiation dose: Integrated dose-length product (DLP) for this visit = 770.53 mGy*cm. CT Dose Reduction Employed: Automated exposure control(AEC) and iterative recon COMPARISON: None. RESULT: Limitations: Unenhanced imaging is limited for the evaluation of some renal and other intra-abdominal and pelvic pathology. Urinary Tract: Right kidney and ureter: There is a 2 mm calculus at the right ureterovesical junction (2:102-103). There is mild increased distention of the right ureter and right renal collecting system. No right renal calculus. No finding to suggest cyst or mass in the unenhanced kidney. Left kidney and ureter: No calculus. No hydronephrosis. No finding to suggest cyst or mass in the unenhanced kidney. Bladder: No calculus. Abdomen and Pelvis: Liver: Unremarkable. Biliary: Gallbladder is absent. Spleen: No splenomegaly. Pancreas: Unremarkable. Adrenals: Normal. GI Tract: No bowel dilation. Normal appendix. No diverticulosis. Lymph Nodes: No lymphadenopathy. Mesentery/peritoneum: No ascites. Vasculature: No abdominal aortic or iliac artery aneurysm. Pelvis: No mass or ascites. Bones and Soft Tissues: No acute abnormality. Lower thorax: Unremarkable. Localizer images: No additional findings. IMPRESSION: 2 mm calculus at the right ureterovesical junction with minimal right hydronephrosis Cloth Picker: [facility] Transcribe Date/Time: Aug 17 2024 5:37P Dictated by : JOSEPHINE HAILE MD This examination was interpreted and the report reviewed and electronically signed by: JOSEPHINE HAILE MD on Aug 17 2024 5:44PM EST [id number] Normal [facility] Comprehensive metabolic 2000 panelon 08-17-2024 Albumin [Mass/Vol] 4.7 g/dL Normal 3.9-4.9 [facility] Comment on above: Order Comment: Sheryl estevze Type: BLOOD SPECIMEN Ordering Facility: [facility] Address: [address] [place] [address] Performed By: #### 2 4323-8, 3040-3 #### [facility] CLIA [id number] [address] [place] [address] [place] ALP [Catalytic activity/Vol] 72 U/L Normal 34-123 [facility] Comment on above: Order Comment: Sheryl estevez Type: BLOOD SPECIMEN Ordering Facility: [facility] Address: [address] [place] [address] Performed By: #### 2 4323-8, 3040-3 #### [facility] CLIA [id number] [address] [place] [address] [place] ALT With P-5'-P [Catalytic activity/Vol] 13 U/L Normal 7-38 [facility] Comment on above: Order Comment: Speci men Type: BLOOD SPECIMEN Ordering Facility: [facility] Address: [address] [place] [address] Performed By: #### 2 4323-8, 3040-3 #### [facility] CLIA [id number] [address] [place] [address] [place] Anion gap [Moles/Vol] 14 mmol/L Normal 8-15 [facility] Comment on above: Order Comment: Speci men Type: BLOOD SPECIMEN Ordering Facility: [facility] Address: [address] [place] [address] Performed By: #### 2 4323-8, 0-3 #### [facility] CLIA [id number] [address] [place] [address] [place] AST With P-5'-P [Catalytic activity/Vol] 20 U/L Normal 13-35 [facility] Comment on above: Order Comment: Speci men Type: BLOOD SPECIMEN Ordering Facility: [facility] Address: [address] [place] [address] Performed By: #### 2 4323-8, 0-3 #### [facility] CLIA [id number] [address] [place] [address] [place] Bilirubin [Mass/Vol] 0.6 mg/dL Normal 0.2-1.3 [facility] Comment on above: Order Comment: Speci men Type: BLOOD SPECIMEN Ordering Facility: [facility] Address: [address] [place] [address] Performed By: #### 2 4323-8, 3040-3 #### [facility] CLIA [id number] [address] [place] [address] [place] Calcium [Mass/Vol] 10.1 mg/dL Normal 8.5-10.2 [facility] Comment on above: Order Comment: Speci men Type: BLOOD SPECIMEN Ordering Facility: [facility] Address: [address] [place] [address] Performed By: #### 2 4323-8, 3040-3 #### [facility] CLIA [id number] [address] [place] [address] [place] Chloride [Moles/Vol] 103 mmol/L Normal 98-107 [facility] Comment on above: Order Comment: Speci men Type: BLOOD SPECIMEN Ordering Facility: [facility] Address: [address] [place] [address] Performed By: #### 2 4323-8, 0-3 #### [facility] CLIA [id number] [address] [place] [address] [place] CO2 [Moles/Vol] 21 mmol/L Low 22-30 [facility] Comment on above: Order Comment: Speci men Type: BLOOD SPECIMEN Ordering Facility: [facility] Address: [address] [place] [address] Performed By: #### 2 4323-8, 0-3 #### [facility] CLIA [id number] [address] [place] [address] [place] Creatinine [Mass/Vol] 1.03 mg/dL High 0.58-0.96 [facility] Comment on above: Order Comment: Speci men Type: BLOOD SPECIMEN Ordering Facility: [facility] Address: [address] [place] [address] Performed By: #### 2 4323-8, 3040-3 #### [facility] CLIA [id number] [address] [place] [address] [place] Creatinine and Glomerular filtration rate.predicted panel (S/P/Bld) 69 mL/min/1.73m??? Normal >=60 [facility] Comment on above: Order Comment: Speci men Type: BLOOD SPECIMEN Ordering Facility: [facility] Address: [address] [place] [address] Result Comment: Morelia mated Glomerular Filtration Rate (eGFR) is calculated using the 2020 CKD-EPI creatinine equation. This equation utilizes serum creatinine, sex, and age as parameters. The creatinine assay has traceable calibration to isotope dilution-mass spectrometry. Refer to KDIGO guidelines for clinical interpretation. In patients with unstable renal function, e.g. those with acute kidney injury, the eGFR may not accurately reflect actual GFR. Performed By: #### 2 4323-8, 3039-3 #### [facility] CLIA [id number] [address] [place] [address] [place] Glucose [Mass/Vol] 111 mg/dL High 74-99 [facility] Comment on above: Order Comment: Sheryl estevez Type: BLOOD SPECIMEN Ordering Facility: [facility] Address: [address] [place] [address] Result Comment: The [place] Diabetes [employer] (ADA) provides guidance for cutoff values for fasting glucose and random glucose. The ADA defines fasting as no caloric intake for at least 8 hours. Fasting plasma glucose results between 100 to 125 mg/dL indicate increased risk for diabetes (prediabetes). Fasting plasma glucose results greater than or equal to 126 mg/dL meet the criteria for diagnosis of diabetes. In the absence of unequivocal hyperglycemia, results should be confirmed by repeat testing. In a patient with classic symptoms of hyperglycemia or hyperglycemic crisis, random plasma glucose results greater than or equal to 200 mg/dL meet the criteria for diagnosis of diabetes. Reference: Standards of Medical Care in Diabetes 2016, [place] [employer] Association. Diabetes Care. 2016.39(Suppl 1). Performed By: #### 2 4323-8, 3039-3 #### [facility] CLIA [id number] [address] [place] [address] [place] Potassium [Moles/Vol] 4.0 mmol/L Normal 3.7-5.1 [facility] Comment on above: Order Comment: Sheryl estevez Type: BLOOD SPECIMEN Ordering Facility: [facility] Address: [address] [place] [id number] Performed By: #### 2 4323-8, 3039-3 #### [facility] CLIA [id number] [address] [place] [address] [place] Protein [Mass/Vol] 8.2 g/dL High 6.3-8.0 [facility] Comment on above: Order Comment: Speci men Type: BLOOD SPECIMEN Ordering Facility: [facility] Address: [address] [place] [address] Performed By: #### 2 4323-8, 3040-3 #### [facility] CLIA [id number] [address] [place] [address] [place] Sodium [Moles/Vol] 138 mmol/L Normal 136-144 [facility] Comment on above: Order Comment: Speci men Type: BLOOD SPECIMEN Ordering Facility: [facility] Address: [address] [place] [address] Performed By: #### 2 4323-8, 3040-3 #### [facility] CLIA [id number] [address] [place], [place] [address] [place] [address] [place] Urea nitrogen [Mass/Vol] 13 mg/dL Normal 7-21 [facility] Comment on above: Order Comment: Speci men Type: BLOOD SPECIMEN Ordering Facility: [facility] Address: [address] [place] [address] Performed By: #### 2 4323-8, 3040-3 #### [facility] CLIA [id number] [address] [place] [address] [facility] [place] ED NOTEon 08-17-2024 ED NOTE HNO ID: [id number] Author: DARVIN RM RN Service: ? Author Type: Registered Nurse Type: ED Notes Filed: 08/17/2024 17:14 Note Text: Pt reports taking AZO this morning at approx 1030, urine is red in color Normal [facility] ED NOTE HNO ID: [id number] Author: DARVIN RM RN Service: ? Author Type: Registered Nurse Type: ED Notes Filed: 08/17/2024 15:12 Note Text: Pt reports right sided flank pain with radiation to right lower abd beginning approx 3 hours ago. Pt also reports nausea and vomiting. Did arrive with bottle of water and instructed not to drink more until exam is completed. Pt reports distant hx of kidney stones. Normal [facility] ED PROV NOTEon 08-17-2024 ED PROV NOTE HNO ID: [id number] Author: YANELY GORE MD Service: Emergency Medicine Author Type: Physician Type: ED Provider Notes Filed: 08/17/2024 23:51 Note Text: ED Provider Note Patient Name: Zonia Ojeda : 1980 SERVICE DATE: 08/17/24 History Patient presents with: Flank Pain Patient is a 44-year-old female presenting for right-sided flank pain that started acutely earlier today. She tried some Aleve for her symptoms with no improvement. She has had episodes of nonbilious nonbloody emesis related to her pain. No fevers or chills. She tried some Pyridium and her symptoms has worsened. No falls or trauma. No rashes or wounds. Denies concerns for STDs or STIs. Denies drugs alcohol or smoking. No chest pain or pressure. Pain is described as severe and she cannot find a comfortable place. PAST MEDICAL HISTORY Diagnosis Date ADD (attention deficit disorder) Anxiety Female infertility of unspecified origin Female infertility Influenza 03/2022 Morbid obesity (HCC) Pulmonary embolism (HCC) 2018 PAST SURGICAL HISTORY Procedure Laterality Date ADENOIDECTOMY PRIMARY Adenoidectomy CATH AND SALINE/CONTRAST SONOHYSTER/HYSTEROSAL PI EXT HYSTERECTOMY,W/PARTIA L VAGINECTO 2020 HEMORRHOIDAL nd 05/2011 HEMORRHOIDECTOMY INT AND XTRNL 2/> COLUMN/JENNIFER 06/16/2015 1 quadrant TONSILLECTOMY PRIMARY/SECONDARY Tonsillectomy FAMILY HISTORY Problem Relation Age of Onset Asthma Mother Hypertension Mother other (Pulmonary Embolism) Mother other (Kidney Stone) Father other (Pulmonary Embolism) Brother Cancer Maternal Grandmother ovarian Alcohol/Drug Maternal Grandfather ETOH Heart Maternal Aunt Psychiatry Maternal Aunt Social History Tobacco Use Smoking status: Never Smokeless tobacco: Never Vaping Use Vaping status: Never Used Substance and Sexual Activity Alcohol use: Yes Comment: NOT CURRENTLY THE LAST YEAR Drug use: No Sexual activity: Yes Partners: Male control/protection: Condom ALLERGIES Allergen Reactions Augmentin [Amoxicil* Itching AND swelling Hydrocodone Itching Review of Systems Constitutional: Negative for activity change, chills and fever. HENT: Negative for ear discharge and ear pain. Eyes: Negative for pain and discharge. Respiratory: Negative for cough and shortness of breath. Cardiovascular: Negative for chest pain and palpitations. Gastrointestinal: Positive for abdominal pain, nausea and vomiting. Negative for diarrhea. Genitourinary: Positive for flank pain. Negative for dysuria. Musculoskeletal: Negative for back pain and neck pain. Skin: Negative for color change, rash and wound. Neurological: Negative for dizziness, seizures and numbness. Psychiatric/Behaviora l: Negative for self-injury and suicidal ideas. Physical Exam Vitals [08/17/24 1509] BP Pulse Temp Temp src Resp SpO2 Weight Height 149/51 (!) 111 36.4 ?C (97.5 ?F) -- 18 100 % 95.3 kg (210 lb) 1.651 m (5' 5) Physical Exam Vitals and nursing note reviewed. Constitutional: General: She is not in acute distress. Appearance: She is well-developed. She is ill-appearing. She is not diaphoretic. Comments: Pacing and uncomfortable appearing HENT: Head: Normocephalic and atraumatic. Right Ear: External ear normal. Left Ear: External ear normal. Nose: Nose normal. Mouth/Throat: Mouth: Mucous membranes are moist. Pharynx: No oropharyngeal exudate or posterior oropharyngeal erythema. Eyes: General: No scleral icterus. Right eye: No discharge. Left eye: No discharge. Pupils: Pupils are equal, round, and reactive to light. Cardiovascular: Rate and Rhythm: Regular rhythm. Tachycardia present. Pulmonary: Effort: Pulmonary effort is normal. No respiratory distress. Abdominal: Palpations: Abdomen is soft. Tenderness: There is abdominal tenderness in the right lower quadrant and suprapubic area. There is no right CVA tenderness, left CVA tenderness, guarding or rebound. Negative signs include Vargas's sign and Rovsing's sign. Musculoskeletal: General: No tenderness or deformity. Normal range of motion. Cervical back: Normal range of motion and neck supple. Skin: General: Skin is warm and dry. Capillary Refill: Capillary refill takes less than 2 seconds. Findings: No rash. Neurological: General: No focal deficit present. Mental Status: She is alert and oriented to person, place, and time. Cranial Nerves: No cranial nerve deficit. Sensory: No sensory deficit. Motor: No weakness. Psychiatric: Mood and Affect: Mood normal. Behavior: Behavior normal. Diagnostic Testing ED Labs Ordered and Reviewed - No data to display Procedures ED Course / Clinical Impression Clinical Impressions as of 08/17/24 2346 Kidney stone Flank pain MDM / Disposition / Plan Patient is a 44-year-old female presenting for evaluation of right flank pain, acute onset feels similar to previous kidne (more content not included)... Normal [facility] Lipase SerPl-cCncon 08-18-19 25 Lipase [Catalytic activity/Vol] 43 U/L Normal 16- [facility] Comment on above: Order Comment: Speci men Type: BLOOD SPECIMEN Ordering Facility: [facility] Address: [address] [place] [address] Performed By: #### 2 4323-8, 3040-3 #### [facility] CLIA [id number] [address] [place] [address] [place] Urinalysis complete panel (U )on 08-17-2024 Bacteria LM.HPF (Urine sed) [#/Area] Few Abnormal None Seen [facility] Comment on above: Order Comment: Speci men Type: URINE SPECIMEN Ordering Facility: [facility] Address: [address] [place] [address] Performed By: #### 2 4356-8 #### [facility] CLIA [id number] [address] [place] [address] [place] Bilirubin Ql (U) Normal [facility] Comment on above: Order Comment: Speci men Type: URINE SPECIMEN Ordering Facility: [facility] Address: [address] [place] [address] Result Comment: Unab le to perform macroscopic analysis???due to abnormal color. Performed By: #### 2 4356-8 #### [facility] CLIA [id number] [address] [place] [address] [place] Clarity (Unsp spec) Cloudy Abnormal Clear [facility] Comment on above: Order Comment: Speci men Type: URINE SPECIMEN Ordering Facility: [facility] Address: [address] [place] [address] Performed By: #### 2 4356-8 #### [facility] CLIA [id number] [address] [place] [address] [facility] [place] Color (U) Bull[place] Abnormal Yellow [facility] Comment on above: Order Comment: Speci men Type: URINE SPECIMEN Ordering Facility: [facility] Address: [address] [place] [address] Performed By: #### 2 4356-8 #### [facility] CLIA [id number] [address] [place] [address] [facility] [place] Epithelial cells LM.HPF (Urine sed) [#/Area] Few Normal [facility] Comment on above: Order Comment: Speci men Type: URINE SPECIMEN Ordering Facility: [facility] Address: [address] [place] [address] Performed By: #### 2 4356-8 #### [facility] CLIA [id number] [address] [place] [address] [facility] Glucose Test strip (U) [Mass/Vol] Normal [facility] Comment on above: Order Comment: Speci men Type: URINE SPECIMEN Ordering Facility: [facility] Address: [address] [place] [address] Result Comment: Unab le to perform macroscopic analysis???due to abnormal color. Performed By: #### 2 4356-8 #### [facility] CLIA [id number] [address] [place] [address] [place] Hemoglobin Ql (U) Normal [facility] Comment on above: Order Comment: Speci men Type: URINE SPECIMEN Ordering Facility: [facility] Address: [address] [place] [address] Result Comment: Unab le to perform macroscopic analysis???due to abnormal color. Performed By: #### 2 4356-8 #### [facility] CLIA [id number] [address] [place] [address] [facility] [place] Ketones Ql (U) Normal [facility] Comment on above: Order Comment: Speci men Type: URINE SPECIMEN Ordering Facility: [facility] Address: [address] [place] [address] Result Comment: Unab le to perform macroscopic analysis???due to abnormal color. Performed By: #### 2 4356-8 #### [facility] CLIA [id number] [address] [place] [address] [place] [facility] Leukocyte esterase Test strip Ql (U) Normal [facility] Comment on above: Order Comment: Speci men Type: URINE SPECIMEN Ordering Facility: [facility] Address: [address] [place] [address] Result Comment: Unab le to perform macroscopic analysis???due to abnormal color. Performed By: #### 2 4356-8 #### [facility] CLIA [id number] [address] [place] [address] [place] Nitrite Ql (U) Normal [facility] Comment on above: Order Comment: Speci men Type: URINE SPECIMEN Ordering Facility: [facility] Address: [address] [place] [address] Result Comment: Unab le to perform macroscopic analysis???due to abnormal color. Performed By: #### 2 4356-8 #### [facility] CLIA [id number] [address] [place] [address] [place] pH (U) Normal [facility] Comment on above: Order Comment: Speci men Type: URINE SPECIMEN Ordering Facility: [facility] Address: [address] [place] [address] Result Comment: Unab le to perform macroscopic analysis???due to abnormal color. Performed By: #### 2 4356-8 #### [facility] CLIA [id number] [address] [place] [address] [place] Protein (U) [Mass/Vol] Normal [facility] Comment on above: Order Comment: Speci men Type: URINE SPECIMEN Ordering Facility: [facility] Address: [address] [place], [place] [id number] Result Comment: Unab le to perform macroscopic analysis???due to abnormal color. Performed By: #### 2 4356-8 #### [facility] CLIA [id number] [address] [place] [address] [place] RBC LM.HPF (Urine sed) [#/Area] 11-25 /HPF Abnormal 0-3 /HPF [facility] Comment on above: Order Comment: Speci men Type: URINE SPECIMEN Ordering Facility: [facility] Address: [address] [place] [address] Performed By: #### 2 4356-8 #### [facility] CLIA [id number] [address] [place], [place] [id number] [place] Specific gravity (U) [Rel density] Normal [facility] Comment on above: Order Comment: Speci men Type: URINE SPECIMEN Ordering Facility: [facility] Address: [address] [place] [address] Result Comment: Unab le to perform macroscopic analysis???due to abnormal color. Performed By: #### 2 4356-8 #### [facility] CLIA [id number] [address] [place] [address] Urobilinogen Ql (U) Normal [facility] Comment on above: Order Comment: Speci men Type: URINE SPECIMEN Ordering Facility: [facility] Address: [address] [place] [address] Result Comment: Unab le to perform macroscopic analysis???due to abnormal color. Performed By: #### 2 4356-8 #### [facility] CLIA [id number] [address] [place] [address] [place] WBC LM.HPF (Urine sed) [#/Area] 0-5 /HPF Normal 0-5 /HPF [facility] Comment on above: Order Comment: Speci men Type: URINE SPECIMEN Ordering Facility: [facility] Address: [address] [place] [address] Performed By: #### 2 4356-8 #### [facility] CLIA [id number] [address] [place], [place] [id number] [facility] CNOVon 08-05-2024 CNOV Office Visit ([facility]WSTR ) ZNOIA OJEDA ([id number]) 1980 F Date Time Provider Department 08/05/24 9:00 AM ANTON CANALES [facility] During your visit today, we recorded the following information about you: Temperature Pulse Respiration Blood pressure 98.5 degrees 70/minute 18/minute 110/76 Weight 104.2 kg Anton Canales PA 08/05/2024 8:30 AM Signed [facility] Subjective Zonia Ojeda is a 44 year old female. Patient presents with: Other: I have been sick for over 2 weeks. Cough, congestion, headache, heaviness in chest, fatigue. - Entered by patient Cough: Cough, congestion, SHOEMAKER, fatigue and chest feels heavy x 2 weeks HPI Cough and Dyspnea: - Persistent cough x2 weeks, initially productive with a lot of phlegm, now less so. - Chest feels heavy, particularly when coughing and ascending stairs. - Mild dyspnea noted when ascending stairs. - Denies chest pain. - Taking Mucinex, which helps reduce coughing at night. - Denies history of COPD, asthma, or smoking. Sinus Pressure: - Sinus congestion and pressure x2 weeks. - Initially had significant rhinorrhea with yellowish-green discharge, now resolved. - Currently experiencing sinus pressure. - Denies ear pain. Fever: - Intermittent fevers, with the most recent episode last night (Tmax 100.2 degreeF). - No fever this morning. - Denies being or . PAST MEDICAL HISTORY Diagnosis Date ADD (attention deficit disorder) Anxiety Female infertility of unspecified origin Female infertility Influenza 03/2022 Morbid obesity (HCC) Pulmonary embolism (HCC) 2018 PAST SURGICAL HISTORY Procedure Laterality Date ADENOIDECTOMY PRIMARY Adenoidectomy CATH AND SALINE/CONTRAST SONOHYSTER/HYSTEROSAL PI EXT HYSTERECTOMY,W/PARTIA L VAGINECTO 2020 HEMORRHOIDAL 05/2011 HEMORRHOIDECTOMY INT AND XTRNL 2/> COLUMN/JENNIFER 06/16/2015 1 quadrant TONSILLECTOMY PRIMARY/SECONDARY Tonsillectomy ALLERGIES Augmentin [Amoxicillin-Pot Clavulanate] and Hydrocodone MEDICATIONS escitalopram oxalate (LEXAPRO) 5 mg tablet Take 5 mg by mouth daily at bedtime. polyethylene glycol 3350 (MIRALAX, GLYCOLAX) 17 gram/dose powder Take by mouth once daily. Dissolve dose in 4 - 8 ounces of liquid and take as directed. vitamin D3-folic acid 125 mcg (5,000 unit)-1 mg tab Take 5,000 Units by mouth once daily. VYVANSE 30 mg capsule TAKE 1 CAPSULE BY MOUTH ONCE DAILY IN THE MORNING MULTIVITAMIN ORAL Take 1 tablet by mouth once daily. doxycycline (VIBRA-TABS) 100 mg tablet Take 1 tablet by mouth two times a day for 5 days. predniSONE (DELTASONE) 20 mg tablet Take 2 tablets by mouth once daily for 5 days. Take daily with food. benzonatate (TESSALON PERLE) 100 mg capsule Take 1 capsule by mouth three times a day as needed. FAMILY HISTORY Problem Relation Age of Onset Asthma Mother Hypertension Mother other (Pulmonary Embolism) Mother other (Kidney Stone) Father other (Pulmonary Embolism) Brother Cancer Maternal Grandmother ovarian Alcohol/Drug Maternal Grandfather ETOH Heart Maternal Aunt Psychiatry Maternal Aunt Social History Tobacco Use Smoking status: Never Smokeless tobacco: Never Vaping Use Vaping status: Never Used Substance Use Topics Alcohol use: Yes Comment: NOT CURRENTLY THE LAST YEAR Drug use: No Review of Systems Constitutional: (+) fever Head: (+) headache Ears/Nose/Mouth/Throa t: (+) congestion, (+) sinus pressure, (-) ear pain, (-) sore throat Cardiovascular: (-) chest pain Respiratory: (+) cough, (+) phlegm, (+) chest heaviness, (+) shortness of breath Objective BP 110/76 Pulse 70 Temp 36.9 ?C (98.5 ?F) (Tympanic) Resp 18 Wt 104.2 kg (229 lb 11.5 oz) LMP 08/26/2019 SpO2 99% BMI 39.43 kg/m? Nursing note reviewed. Vitals reviewed Physical Exam General: No acute distress. HEENT: Throat clear, maxillary sinus pressure, nasal mucosa inflamed, tympanic membranes clear. CV: Heart sounds regular. Resp: Crackles with cough. Lungs CTA at rest {1. Acute cough (R05.1) - Cough persisting for over two weeks, initially productive with yellowish-green sputum, now less productive; associated with chest heaviness, particularly during coughing and exertion. - Recent low-grade fever of 100.2 degreeF noted last night; no fever this morning. - Physical exam reveals clear lung martinez with mild crackles upon coughing, clear throat, inflamed nasal passages, and maxillary sinus pressure. - Differential diagnosis includes bronchitis and pneumonia. - Ordered chest X-ray to rule out pneumonia. - Continue Mucinex as needed for symptomatic relief. 2. sinobronchitis - Rx doxycycline, prednisone, Tessalon Perles and Recording using [employer] software for draft documentation of the visit was discussed with the patient/authorized territory account representative; (more content not included)... Normal [facility] XR CHEST 2V FRONTAL/LATon XR CHEST 2V FRONTAL/LAT * * *Final Report* * * DATE OF EXAM: Aug 05 2024 8:19AM WOX [id number] - XR CHEST 2V FRONTAL/LAT / PROCEDURE REASON: Acute cough * * * * Physician Interpretation * * * * EXAMINATION: CHEST RADIOGRAPH (2 VIEW FRONTAL and LATERAL) CLINICAL HISTORY: Acute cough MQ: XC2_6 EXAM DATE/TIME: 08/05/2024 8:19 AM COMPARISON: 10/26/2021 RESULT: Lines, tubes, and devices: None. Lungs and pleura: No consolidation. No lung mass. No pleural effusion. No pneumothorax. Cardiomediastinal silhouette: Normal cardiomediastinal silhouette. Bones and soft tissues: Unremarkable. IMPRESSION: No acute radiographic abnormality. Cloth Picker: [email or web address] Transcribe Date/Time: Aug 05 2024 8:21A Dictated by : CHIDI SNEED MD This examination was interpreted and the report reviewed and electronically signed by: CHIDI SNEED MD on Aug 05 2024 8:21AM EST [id number] Normal [facility] XR Chest PA and Lateralon IMPRESSION: No acute radiographic abnormality. Cloth Picker: [email or web address] Transcribe Date/Time: Aug 05 2024 8:21A Dictated by : CHIDI SNEED MD This examination was interpreted and the report reviewed and electronically signed by: CHIDI SNEED MD on Aug 05 2024 8:21AM [facility] DIVISION OF RADIOLOGY * * *Final Report* * * DATE OF EXAM: Aug 05 2024 8:19AM WOX [id number] - XR CHEST 2V FRONTAL/LAT / PROCEDURE REASON: Acute cough * * * * Physician Interpretation * * * * EXAMINATION: CHEST RADIOGRAPH (2 VIEW FRONTAL & LATERAL) CLINICAL HISTORY: Acute cough MQ: XC2_6 EXAM DATE/TIME: 08/05/2024 8:19 AM COMPARISON: 10/26/2021 RESULT: Lines, tubes, and devices: None. Lungs and pleura: No consolidation. No lung mass. No pleural effusion. No pneumothorax. Cardiomediastinal silhouette: Normal cardiomediastinal silhouette. Bones and soft tissues: Unremarkable. DIVISION OF RADIOLOGY Provider, [facility] - 08/05/2024 * * *Final Report* * * DATE OF EXAM: Aug 05 2024 8:19AM WOX [id number] - XR CHEST 2V FRONTAL/LAT / PROCEDURE REASON: Acute cough * * * * Physician Interpretation * * * * EXAMINATION: CHEST RADIOGRAPH (2 VIEW FRONTAL & LATERAL) CLINICAL HISTORY: Acute cough MQ: XC2_6 EXAM DATE/TIME: 08/05/2024 8:19 AM COMPARISON: 10/26/2021 RESULT: Lines, tubes, and devices: None. Lungs and pleura: No consolidation. No lung mass. No pleural effusion. No pneumothorax. Cardiomediastinal silhouette: Normal cardiomediastinal silhouette. Bones and soft tissues: Unremarkable. IMPRESSION IMPRESSION: No acute radiographic abnormality. Cloth Picker: [email or web address] Transcribe Date/Time: Aug 05 2024 8:21A Dictated by : CHIDI SNEED MD This examination was interpreted and the report reviewed and electronically signed by: CHIDI SNEED MD on Aug 05 2024 8:21AM [facility] Radiology Study observation (narrative) [facility] XR Chest PA and LateralOrder ed By: Cc Provider on 08-05-2024 [facility] CNOVon 03-19-2024 CNOV Office Visit (UCWSTR ) ZONIA OJEDA ([id number]) 1980 F Date Time Provider Department 03/19/24 9:00 AM REGINA HINES [facility] During your visit today, we recorded the following information about you: Temperature Pulse Respiration Blood pressure 98.5 degrees 92/minute 18/minute 122/68 Weight 100.7 kg Regina Hines APRN.CATT[employer]ER 03/19/2024 8:27 AM Signed This note was created using NoteWriter. Subjective Zonia Ojeda is a 43 year old female. 43 year old female with PMH PE 2017 (contributed to PE, not on blood thinners) presents for illness Acute onset almost 3 weeks ago She was POSITIVE for COVID 17 days ago with home test +cough +productive sputum Endorses yesterday day evening she developed fever +winded +chest congestion Denies N/V/D Has been using DayQuil Nyquil Mucinex DM Denies tobacco usage +ill contact at home, citing her family was ill as well They all seem better but me The history is provided by the patient. No speech language pathologist prn was used. Cough This is a new problem. The current episode started more than 1 week ago. The problem occurs constantly. The problem has been gradually worsening. The cough is Productive of sputum. The maximum temperature recorded prior to her arrival was 100 to 100.9 F. Associated symptoms include chills, headaches, rhinorrhea, shortness of breath and wheezing. Pertinent negatives include no chest pain, no sweats, no weight loss, no ear congestion, no ear pain, no sore throat, no myalgias and no eye redness (+ ill contacts). Treatments tried: see HPI. The treatment provided no relief. She is not a smoker. Her past medical history does not include bronchitis, pneumonia, bronchiectasis, COPD, emphysema or asthma. PAST MEDICAL HISTORY Diagnosis Date ADD (attention deficit disorder) Anxiety Female infertility of unspecified origin Female infertility Influenza 03/2022 Morbid obesity (HCC) Pulmonary embolism (HCC) 2018 PAST SURGICAL HISTORY Procedure Laterality Date ADENOIDECTOMY PRIMARY Adenoidectomy CATH AND SALINE/CONTRAST SONOHYSTER/HYSTEROSAL PI EXT HYSTERECTOMY,W/PARTIA L VAGINECTO 2020 HEMORRHOIDAL nd 05/2011 HEMORRHOIDECTOMY INT AND XTRNL 2/> COLUMN/JENNIFER 06/16/2015 1 quadrant TONSILLECTOMY PRIMARY/SECONDARY Tonsillectomy ALLERGIES Augmentin [Amoxicillin-Pot Clavulanate] and Hydrocodone MEDICATIONS escitalopram oxalate (LEXAPRO) 5 mg tablet Take 5 mg by mouth daily at bedtime. polyethylene glycol 3350 (MIRALAX, GLYCOLAX) 17 gram/dose powder Take by mouth once daily. Dissolve dose in 4 - 8 ounces of liquid and take as directed. vitamin D3-folic acid 125 mcg (5,000 unit)-1 mg tab Take 5,000 Units by mouth once daily. VYVANSE 30 mg capsule TAKE 1 CAPSULE BY MOUTH ONCE DAILY IN THE MORNING MULTIVITAMIN ORAL Take 1 tablet by mouth once daily. azithromycin (ZITHROMAX Z-EDGARDO) 250 mg tablet Take 2 tablets day one, then, 1 tablet daily until gone. benzonatate (TESSALON PERLE) 100 mg capsule Take 1 capsule by mouth three times a day as needed for cough. FAMILY HISTORY Problem Relation Age of Onset Asthma Mother Hypertension Mother other (Pulmonary Embolism) Mother other (Kidney Stone) Father other (Pulmonary Embolism) Brother Cancer Maternal Grandmother ovarian Alcohol/Drug Maternal Grandfather ETOH Heart Maternal Aunt Psychiatry Maternal Aunt Social History Tobacco Use Smoking status: Never Smokeless tobacco: Never Vaping Use Vaping status: Never Used Substance Use Topics Alcohol use: Yes Comment: NOT CURRENTLY THE LAST YEAR Drug use: No Review of Systems Constitutional: Positive for chills, fatigue and fever. Negative for weight loss. HENT: Positive for congestion and rhinorrhea. Negative for ear pain and sore throat. Eyes: Negative for discharge, redness (+ ill contacts) and itching. Respiratory: Positive for cough, shortness of breath and wheezing. Cardiovascular: Negative for chest pain. Gastrointestinal: Negative for abdominal pain, diarrhea, nausea and vomiting. Musculoskeletal: Negative for arthralgias, back pain and myalgias. Skin: Negative for color change, pallor, rash and wound. Allergic/Immunologic: Negative for environmental allergies, food allergies and immunocompromised state. Neurological: Positive for headaches. Hematological: Negative for adenopathy. Does not bruise/bleed easily. Psychiatric/Behaviora l: Negative for agitation and behavioral problems. Objective BP 122/68 Pulse 92 Temp 36.9 ?C (98.5 ?F) Resp 18 Wt 100.7 kg (222 lb 0.1 oz) LMP 08/26/2019 SpO2 100% BMI 38.11 kg/m? Physical Exam Vitals and nursing note reviewed. Constitutional: General: She is not in acute distress. Appearance: Normal appearance. She is normal weight. She is not ill-appearing, toxic-appearing or diaphoretic. HENT: Head: Normocephalic (more content not included)... Normal [facility] 02-05-[address] [facility] Telephone ([facility]) ZONIA OJEDA ([id number]) 1980 F Date Time Provider Department 02/05/24 CARMEN SAMPSON [facility] During your visit today, we recorded the following information about you: Glynn Edwards MA 02/05/2024 8:32 AM Signed Good morning, I still do not have the option to email Dr De La Cruz?s office via [employer] for some reason. Could this email be forwarded to him? I read the notes on my follow up appointment yesterday but I think I must have missed communicated to her how I am feeling. In the notes it says I have occasional burning and pulling with movement but it?s not worrisome. However, I have burning and pulling anytime I move. I am actually in quite a bit of pain unless I am laying down somewhat flat. It is not a digestive pain/burn. It feels more muscle or nerve near my largest incision. I have to wear an abdominal binder anytime I need to move/walk. I am worried about it, but she did reassure me it takes about 4 weeks to heal. Like I said, maybe I miscommunicated my pain, but I wanted to be sure this was known in case it raised any red flags. I may just be taking longer to recover but I just thought I?d be in less pain by now so it?s alittle discouraging. I appreciate your help in forwarding this message. Thank you! Zonia Ojeda Allergies As of Date: 02/05/2024 Noted Allergy Reaction AUGMENTIN (AMOXICILLIN-POT CLAVUL*03/14/2014 9 - Itching Comments: AND swelling HYDROCODONE 03/14/2022 9 - Itching Date Reviewed: 01/18/2024 Reviewed by: Latasha Cuellar, ADITYA - Fully Assessed Reason for Visit: Patient Question [1804] Prescriptions as of 03/27/2024 - benzonatate (TESSALON PERLE) 100 mg capsule Take 1 capsule by mouth three times a day as needed for cough. - escitalopram oxalate (LEXAPRO) 5 mg tablet Take 5 mg by mouth daily at bedtime. - polyethylene glycol 3350 (MIRALAX, GLYCOLAX) 17 gram/dose powder Take by mouth once daily. Dissolve dose in 4 - 8 ounces of liquid and take as directed. - vitamin D3-folic acid 125 mcg (5,000 unit)-1 mg tab Take 5,000 Units by mouth once daily. - VYVANSE 30 mg capsule TAKE 1 CAPSULE BY MOUTH ONCE DAILY IN THE MORNING - MULTIVITAMIN ORAL Take 1 tablet by mouth once daily. Problem List As Of Date 02/05/2024 Noted Resolved Supervision of Normal First [Z34.00] 08/13/2008 01/26/2009 BACKACHE NOS [M54.9] 08/31/2008 Other venous complication, antepartum [O22.8X9] 09/14/2008 05/18/2011 Rectal fissure [K60.2] 03/14/2011 Thrombosed external hemorrhoid [K64.5] 08/17/2011 depression [F53.0] 09/27/2011 Pulmonary embolus with infarction (HCC) [I26.99]03/20/2018 History of pulmonary embolism [Z86.711] 12/07/2021 Morbid obesity (HCC) [E66.01] 03/16/2022 Insomnia [G47.00] 03/16/2022 Vitamin D deficiency [E55.9] 12/07/2021 Depression [F32.A] 12/07/2021 Mixed anxiety depressive disorder [F41.8] 03/16/2022 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 Telephone (AGGENS3) ZONIA OJEDA ([id number]) 1980 F Date Time Provider Department 01/28/24 ANKUR DE LA CRUZ AGGENS3 During your visit today, we recorded the following information about you: Glynn Edwards MA 01/28/2024 9:05 AM Signed Pt sent email as below: Good morning, As I briefly advised on the phone, I had my gallbladder removed in January 17. I spoke with Dr Wagoner in Sunday and he reassured me that it sounds like what I am experiencing is normal but he said I could be seen today to make sure. I live about 35-40 mins away and I do struggle with being in the car for longer periods of time due to the pain/burning/pulling sensation so I?d like to avoid that if possible. I had developed a cough last week which I believe caused irritation and more soreness from coughing. I am just experiencing a burning sensation/pulling sensation pain with movement. If the incision appears to be normal, then I will just continue to take it easy and treat with ice/heat. Thank you for your help. Zonia Ojeda Glynn Edwards MA 01/29/2024 8:31 AM Signed Ankur De La Cruz MD You11 hours ago (8:58 PM) Thank you for the message. The incision appears to be healing well. The soreness should subside within the next week or two. Thank you, MD Mel Cancino [place], MA 01/29/2024 8:31 AM Signed LVM. Glynn Edwards MA January 29, 2024 8:31 AM Glynn Edwrads MA 01/29/2024 8:51 AM Signed Pt notified of message. Brandanviviana Edwards MA January 29, 2024 8:51 AM Allergies As of Date: 01/28/2024 Noted Allergy Reaction AUGMENTIN (AMOXICILLIN-POT CLAVUL*03/14/2014 9 - Itching Comments: AND swelling HYDROCODONE 03/14/2022 9 - Itching Date Reviewed: 01/18/2024 Reviewed by: Latasha Cuellar RN - Fully Assessed Reason for Visit: Patient Question [4899] Prescriptions as of 01/29/2024 - escitalopram oxalate (LEXAPRO) 5 mg tablet Take 5 mg by mouth daily at bedtime. - polyethylene glycol 3350 (MIRALAX, GLYCOLAX) 17 gram/dose powder Take by mouth once daily. Dissolve dose in 4 - 8 ounces of liquid and take as directed. - vitamin D3-folic acid 125 mcg (5,000 unit)-1 mg tab Take 5,000 Units by mouth once daily. - VYVANSE 30 mg capsule TAKE 1 CAPSULE BY MOUTH ONCE DAILY IN THE MORNING - MULTIVITAMIN ORAL Take 1 tablet by mouth once daily. Problem List As Of Date 01/28/2024 Noted Resolved Supervision of Normal First [Z34.00] 08/13/2008 01/26/2009 BACKACHE NOS [M54.9] 08/31/2008 Other venous complication, antepartum [O22.8X9] 09/14/2008 05/18/2011 Rectal fissure [K60.2] 03/14/2011 Thrombosed external hemorrhoid [K64.5] 08/17/2011 depression [F53.0] 09/27/2011 Pulmonary embolus with infarction (HCC) [I26.99]03/20/2018 History of pulmonary embolism [Z86.711] 12/07/2021 Morbid obesity (HCC) [E66.01] 03/16/2022 Insomnia [G47.00] 03/16/2022 Vitamin D deficiency [E55.9] 12/07/2021 Depression [F32.A] 12/07/2021 Mixed anxiety depressive disorder [F41.8] 03/16/2022 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 Overall she reports feeling better and has improvement in the appearance of her incisions and her discomfort. She had a coughing episode and felt some pulling and burning at the epigastric incision. The discomfort subsides with standing, sitting or resting, but does worsen when she initially stands up. She denies any other symptoms. I counseled her on the general course of the port sites and recovery. We will plan for a Sunday visit in the [facility] clinic time if possible for re-evaluation. All questions answered to her satisfaction. Ankur De La Cruz MD Allergies As of Date: 01/26/2024 Noted Allergy Reaction AUGMENTIN (AMOXICILLIN-POT CLAVUL*03/14/2014 9 - Itching Comments: AND swelling HYDROCODONE 03/14/2022 9 - Itching Date Reviewed: 01/18/2024 Reviewed by: Latasha Cuellar, ADITYA - Fully Assessed Reason for Visit: Returning Patient's Call [408] Prescriptions as of 01/28/2024 - escitalopram oxalate (LEXAPRO) 5 mg tablet Take 5 mg by mouth daily at bedtime. - polyethylene glycol 3350 (MIRALAX, GLYCOLAX) 17 gram/dose powder Take by mouth once daily. Dissolve dose in 4 - 8 ounces of liquid and take as directed. - vitamin D3-folic acid 125 mcg (5,000 unit)-1 mg tab Take 5,000 Units by mouth once daily. - VYVANSE 30 mg capsule TAKE 1 CAPSULE BY MOUTH ONCE DAILY IN THE MORNING - MULTIVITAMIN ORAL Take 1 tablet by mouth once daily. Problem List As Of Date 01/26/2024 Noted Resolved Supervision of Normal First [Z34.00] 08/13/2008 01/26/2009 BACKACHE NOS [M54.9] 08/31/2008 Other venous complication, antepartum [O22.8X9] 09/14/2008 05/18/2011 Rectal fissure [K60.2] 03/14/2011 Thrombosed external hemorrhoid [K64.5] 08/17/2011 depression [F53.0] 09/27/2011 Pulmonary embolus with infarction (HCC) [I26.99]03/20/2018 History of pulmonary embolism [Z86.711] 12/07/2021 Morbid obesity (HCC) [E66.01] 03/16/2022 Insomnia [G47.00] 03/16/2022 Vitamin D deficiency [E55.9] 12/07/2021 Depression [F32.A] 12/07/2021 Mixed anxiety depressive disorder [F41.8] 03/16/2022 Granulomatous disorder of the skin and subcutan*01/20/2021 Symptomatic cholelithiasis [K80.20] 01/17/2024 Medications Discontinued During This Encounter Prescriptions - semaglutide (OZEMPIC) 1 mg/dose (4 mg/3 mL) pen (Discontinued) Semaglutide (Ozempic) 1 mg/dose (4 mg/3 mL) pen injector Active 1 MG SC EVERY WEEK October 05, 2022 12:00am Encounter Status:Closed by ANKUR DE LA CRUZ on 01/28/24 [facility] 01-23-[address] [facility] Telephone (AGGENS3) LYNETTEZONIA ([id number]) 1980 F Date Time Provider Department 01/23/24 LANEY MONTOYA AGGENS3 During your visit today, we recorded the following information about you: Nestor Starr LPN 01/23/2024 9:23 AM Signed Ambika sosae on 01/18/24- states the top of her incision is slightly red and is burning, denies drainage, fever, chills, n/v. Still having pain is alternating tylenol and ibuprofen. She will email picture. Nestor Browne LPN, LPN 01/23/2024 11:04 AM Signed Laney Montoya MD Just saw the picture-- this looks totally appropriate, but if it worsens or changes she can contact us again or come in to have it checked. Any fever, chills, nausea or emesis, or drainage should also prompt her to come in. Thanks!! Pt notified verbalized understanding. Nannette MOTA Allergies As of Date: 01/23/2024 Noted Allergy Reaction AUGMENTIN (AMOXICILLIN-POT CLAVUL*03/14/2014 9 - Itching Comments: AND swelling HYDROCODONE 03/14/2022 9 - Itching Date Reviewed: 01/18/2024 Reviewed by: Latasha Cuellar RN - Fully Assessed Reason for Visit: Patient Question [9387] Prescriptions as of 01/23/2024 - oxyCODONE IR (ROXICODONE) 5 mg immediate release tablet Take 1 tablet by mouth every 6 hours as needed for pain for up to 5 days. - escitalopram oxalate (LEXAPRO) 5 mg tablet Take 5 mg by mouth daily at bedtime. - semaglutide (OZEMPIC) 1 mg/dose (4 mg/3 mL) pen Semaglutide (Ozempic) 1 mg/dose (4 mg/3 mL) pen injector Active 1 MG SC EVERY WEEK October 05, 2022 12:00am - polyethylene glycol 3350 (MIRALAX, GLYCOLAX) 17 gram/dose powder Take by mouth once daily. Dissolve dose in 4 - 8 ounces of liquid and take as directed. - vitamin D3-folic acid 125 mcg (5,000 unit)-1 mg tab Take 5,000 Units by mouth once daily. - VYVANSE 30 mg capsule TAKE 1 CAPSULE BY MOUTH ONCE DAILY IN THE MORNING - MULTIVITAMIN ORAL Take 1 tablet by mouth once daily. Problem List As Of Date 01/23/2024 Noted Resolved Supervision of Normal First [Z34.00] 08/13/2008 01/26/2009 BACKACHE NOS [M54.9] 08/31/2008 Other venous complication, antepartum [O22.8X9] 09/14/2008 05/18/2011 Rectal fissure [K60.2] 03/14/2011 Thrombosed external hemorrhoid [K64.5] 08/17/2011 depression [F53.0] 09/27/2011 Pulmonary embolus with infarction (HCC) [I26.99]03/20/2018 History of pulmonary embolism [Z86.711] 12/07/2021 Morbid obesity (HCC) [E66.01] 03/16/2022 Insomnia [G47.00] 03/16/2022 Vitamin D deficiency [E55.9] 12/07/2021 Depression [F32.A] 12/07/2021 Mixed anxiety depressive disorder [F41.8] 03/16/2022 Granulomatous disorder of the skin and subcutan*01/20/2021 Symptomatic cholelithiasis [K80.20] 01/17/2024 Encounter Status:Closed by NESTOR STARR on 01/23/24 [facility] ANES POSTPROC EVALon 024 ANES POSTPROC EVAL HNO ID: [id number] Author: MIRIAM VILLARREAL MD Service: Anesthesiology Author Type: Physician Type: Anesthesia Postprocedure Evaluation Filed: 01/18/2024 11:59 Note Text: POST ANESTHESIA EVALUATION NOTE : 1980 Procedure Summary Date: 01/18/24 Room / Location: [place] OR 17 / [place] OR Anesthesia Start: 827 Anesthesia Stop: 1040 Procedure: LAPAROSCOPIC CHOLECYSTECTOMY WITH GRAMS (Abdomen) Diagnosis: Symptomatic cholelithiasis (Symptomatic cholelithiasis [K80.20]) Surgeons: Ankur De La Cruz MD Responsible Provider: Miriam Villarreal MD Anesthesia Type: general ASA Status: 2 Anesthesia Type: general Airway Type: ETT Last Vitals Vitals Value Taken Time BP 120/88 01/18/24 1130 Temp 36.4 ?C (97.5 ?F) 01/18/24 1115 HR SpO2 87 01/18/24 1130 Resp 13 01/18/24 1130 SpO2 96 % 01/18/24 1130 Post Anesthesia Patient Status Anticipated Disposition: inpatient floor planned admission. Neurological Status: aware and responsive. Pulmonary Status: breathing comfortably on room air Airway Control: returned to baseline unsupported. Cardiovascular Status: stable. Pain Management: clinically adequate Postoperative Hydration: acceptable. Intraoperative Events: no significant anesthesia events Post Operative Nausea/Vomiting Status: no significant post operative nausea or vomiting Recommendation: further care per PACU/ICU/floor team. Anesthesia Observations No Documentation SIGNATURE: Miriam Villarreal MD PATIENT NAME: Zonia Ojeda DATE: January 18, 2024 TIME: 11:58 AM CSN: [id number] [facility] ANES PRE-OPon 01-18-2024 ANES PRE-OP HNO ID: [id number] Author: MIRIAM VILLARREAL MD Service: Anesthesiology Author Type: Physician Type: Anesthesia Preprocedure Evaluation Filed: 01/18/2024 08:54 Note Text: ANESTHESIOLOGY DAY OF SURGERY NOTE : 1980 Procedure Information Anesthesia Start Date/Time: 01/18/24827 Procedure: LAPAROSCOPIC CHOLECYSTECTOMY WITH GRAMS (Abdomen) Location: [place] [address] [place] [address] OR Surgeons: Ankur De La Cruz MD Estimated body mass index is 36.48 kg/m? as calculated from the following: Height as of this encounter: 162.6 cm (5' 4). Weight as of this encounter: 96.4 kg (212 lb 8.4 oz). Most recent hematocrit and potassium results: Hematocrit 38.9 01/18/2024 Potassium 3.9 01/18/2024 Relevant Problems CARDIO (+) Thrombosed external hemorrhoid NEURO-PSYCH (+) History of pulmonary embolism I - PHYSICAL EVALUATION AIRWAY Patient intubated: No. Tracheostomy tube not present Mallampati: II. TM distance: >3 FB. Neck ROM: full ROM without neurological symptoms. Mouth opening: adequate. Short neck: no. Thick neck: no DENTAL Dental findings: broken tooth. Additional exam findings: no II - ANESTHESIA PLAN ASA Score: 2 Anesthetic Plan: general Airway type: ETT NPO Status: adequate Anesthetic plan additional comments: S/p hysterectomy. Beta Len Monitoring Plan Monitoring plan: standard ASA. Post Procedure Analgesic Plan Postoperative analgesic plan: parenteral or oral opioids and multimodal analgesia. Informed Consent Anesthetic risks, benefits, alternatives, personnel and consent discussed: yes. Patient / Responsible [employer] agrees to proceed: yes Patient / Surrogate agrees to blood products: Yes Significant changes in the patient condition since the History and Physical, not otherwise documented in primary service progress note: no. Vitals Value Taken Time BP 137/82 01/18/24731 Pulse 84 01/18/24731 Resp 18 01/18/24731 Temp 36.6 ?C (97.9 ?F) 01/18/24731 SpO2 100 % 01/18/24731 Facility-Administered Medications as of 01/18/2024 Medication Dose Route Frequency [COMPLETED] NaCl 0.9% 500 mL iv bolus 500 mL INTRAVENOUS ONCE [COMPLETED] ondansetron (PF) 4 mg injection (ZOFRAN) 4 mg INTRAVENOUS ONCE [COMPLETED] fentaNYL 50 mcg/mL 50 mcg injection (SUBLIMAZE) 50 mcg INTRAVENOUS ONCE [Transfer Hold] enoxaparin 40 mg injection (LOVENOX) 40 mg SUBCUTANEOUS DAILY [Transfer Hold] NaCl 0.9% iv flush bag 20 mL INTRAVENOUS PRN [Transfer Hold] lactated ringers iv infusion 100 mL/hr INTRAVENOUS CONTINUOUS [Transfer Hold] ondansetron 4 mg tab(s) (ZOFRAN) 4 mg ORAL q 6 H PRN Or [Transfer Hold] ondansetron (PF) 4 mg injection (ZOFRAN) 4 mg INTRAVENOUS q 6 H PRN [Transfer Hold] morphine 2 mg injection 2 mg INTRAVENOUS q 4 H PRN [Transfer Hold] oxyCODONE IR 5-10 mg tab(s) (ROXICODONE) 5-10 mg ORAL q 4 H PRN [Transfer Hold] acetaminophen 975 mg tab(s) (TYLENOL) 975 mg ORAL QID [Transfer Hold] cefOXitin 2 g in NaCl 0.9% 100 mL Vial-Bag (MEFOXIN) 2 g INTRAVENOUS q 6 H [COMPLETED] cefOXitin 2 g in NaCl 0.9% 100 mL Vial-Bag (MEFOXIN) 2 g INTRAVENOUS ONCE [Transfer Hold] escitalopram oxalate 5 mg tab(s) (LEXAPRO) 5 mg ORAL AT BEDTIME Outpatient Medications as of 01/18/2024 Medication Sig polyethylene glycol 3350 (MIRALAX, GLYCOLAX) 17 gram/dose powder Take by mouth once daily. Dissolve dose in 4 - 8 ounces of liquid and take as directed. vitamin D3-folic acid 125 mcg (5,000 unit)-1 mg tab Take 5,000 Units by mouth once daily. VYVANSE 30 mg capsule TAKE 1 CAPSULE BY MOUTH ONCE DAILY IN THE MORNING MULTIVITAMIN ORAL Take 1 tablet by mouth once daily. semaglutide (OZEMPIC) 1 mg/dose (4 mg/3 mL) pen Semaglutide (Ozempic) 1 mg/dose (4 mg/3 mL) pen injector Active 1 MG SC EVERY WEEK October 05, 2022 12:00am I have interviewed and examined the patient. I have reviewed the medical record and/or the pre-anesthesia evaluation, pertinent labs, and test results. This contains updated information obtained within 48 hours of Surgery/Procedure. SIGNATURE: Miriam Villarreal MD PATIENT NAME: Zonia Ojeda DATE: January 18, 2024 TIME: 8:53 AM CSN: [id number] Normal [facility] Basic metabolic 2000 panelon 01-18-2024 Anion gap [Moles/Vol] 9 mmol/L Normal 8-15 [facility] Comment on above: Order Comment: Sheryl estevez Type: BLOOD SPECIMEN Ordering Facility: [facility] Address: [address] [place] [address] Performed By: #### 2 7701-2, 25876-7 #### [facility] CLIA [id number] [address] [place] [address] [place] Calcium [Mass/Vol] 8.5 mg/dL Normal 8.5-10.2 [facility] Comment on above: Order Comment: Sheryl estevez Type: BLOOD SPECIMEN Ordering Facility: [facility] Address: [address] [id number] Performed By: #### 2 4321-2, 01088-5 #### [facility] CLIA [id number] [address] [place] Chloride [Moles/Vol] 106 mmol/L Normal 98-107 [facility] Comment on above: Order Comment: Speci men Type: BLOOD SPECIMEN Ordering Facility: [facility] Address: [address] [place] [address] Performed By: #### 2 4321-2, 48735-0 #### [facility] CLIA [id number] [address] OF [facility] CO2 [Moles/Vol] 23 mmol/L Normal 22-30 [facility] Comment on above: Order Comment: Speci men Type: BLOOD SPECIMEN Ordering Facility: [facility] Address: [address] [place] [address] Performed By: #### 2 432-2, 06289-9 #### [facility] CLIA [id number] [address] OF [facility] Creatinine [Mass/Vol] 0.77 mg/dL Normal 0.58-0.96 [facility] Comment on above: Order Comment: Speci men Type: BLOOD SPECIMEN Ordering Facility: [facility] Address: [address] [place] [address] Performed By: #### 2 432-2, 19100-7 #### [facility] CLIA [id number] [address] Creatinine and Glomerular filtration rate.predicted panel (S/P/Bld) 99 mL/min/1.73m??? Normal >=60 [facility] Comment on above: Order Comment: Speci men Type: BLOOD SPECIMEN Ordering Facility: [facility] Address: [address] [place] [address] Result Comment: Morelia mated Glomerular Filtration Rate (eGFR) is calculated using the 2020 CKD-EPI creatinine equation. This equation utilizes serum creatinine, sex, and age as parameters. The creatinine assay has traceable calibration to isotope dilution-mass spectrometry. Refer to KDIGO guidelines for clinical interpretation. In patients with unstable renal function, e.g. those with acute kidney injury, the eGFR may not accurately reflect actual GFR. Performed By: #### 2 432-2, 64831-4 #### [facility] CLIA [id number] [address] [place] [address] [place] Glucose [Mass/Vol] 92 mg/dL Normal 74-99 [facility] Comment on above: Order Comment: Speci men Type: BLOOD SPECIMEN Ordering Facility: [facility] Address: [address] [place] [address] Result Comment: The [place] Diabetes Association (ADA) provides guidance for cutoff values for fasting glucose and random glucose. The ADA defines fasting as no caloric intake for at least 8 hours. Fasting plasma glucose results between 100 to 125 mg/dL indicate increased risk for diabetes (prediabetes). Fasting plasma glucose results greater than or equal to 126 mg/dL meet the criteria for diagnosis of diabetes. In the absence of unequivocal hyperglycemia, results should be confirmed by repeat testing. In a patient with classic symptoms of hyperglycemia or hyperglycemic crisis, random plasma glucose results greater than or equal to 200 mg/dL meet the criteria for diagnosis of diabetes. Reference: Standards of Medical Care in Diabetes 2016, [place] Diabetes Association. Diabetes Care. 2016.39(Suppl 1). Performed By: #### 2 432-, 48351-0 #### [facility] CLIA [id number] [address] [place] [address] [place] Potassium [Moles/Vol] 3.9 mmol/L Normal 3.7-5.1 [facility] Comment on above: Order Comment: Speci men Type: BLOOD SPECIMEN Ordering Facility: [facility] Address: [address] [place] [address] Performed By: #### 2 432-2, 32992-1 #### [facility] CLIA [id number] [address] [place] [address] [place] Sodium [Moles/Vol] 138 mmol/L Normal 136-144 [facility] Comment on above: Order Comment: Speci men Type: BLOOD SPECIMEN Ordering Facility: [facility] Address: [address] [place] [address] Performed By: #### 2 4320-2, 43217-7 #### [facility] CLIA [id number] [address] [place] Urea nitrogen [Mass/Vol] 8 mg/dL Normal 7-21 [facility] Comment on above: Order Comment: Speci men Type: BLOOD SPECIMEN Ordering Facility: [facility] Address: [address] [place] [address] Performed By: #### 2 4321-2, 26198-6 #### [facility] CLIA [id number] [address] [place] CBC panel Auto (Bld)on 01-17 Erythrocyte distribution width (RBC) [Ratio] 13.1 % Normal 11.5-15.0 [facility] Comment on above: Order Comment: Speci men Type: BLOOD SPECIMEN Ordering Facility: [facility] Address: [address] [place] [address] Performed By: #### 5 8410-2 #### [facility] CLIA [id number] [address] OF [facility] Hematocrit (Bld) [Volume fraction] 38.9 % Normal 36.0-46.0 [facility] Comment on above: Order Comment: Speci men Type: BLOOD SPECIMEN Ordering Facility: [facility] Address: [address] [place] [address] Performed By: #### 5 8410-2 #### [facility] CLIA [id number] [address] [place] Hemoglobin (Bld) [Mass/Vol] 12.4 g/dL Normal 11.5-15.5 [facility] Comment on above: Order Comment: Speci men Type: BLOOD SPECIMEN Ordering Facility: [facility] Address: [address] [place] [address] Performed By: #### 5 8410-2 #### [facility] CLIA [id number] [address] [place] MCH (RBC) [Entitic mass] 28.2 pg Normal 26.0-34.0 [facility] Comment on above: Order Comment: Speci men Type: BLOOD SPECIMEN Ordering Facility: [facility] Address: [address] [place] [address] Performed By: #### 5 8410-2 #### [facility] CLIA [id number] [address] MCHC (RBC) [Mass/Vol] 31.9 g/dL Normal 30.5-36.0 [facility] Comment on above: Order Comment: Speci men Type: BLOOD SPECIMEN Ordering Facility: [facility] Address: [address] [place] [address] Performed By: #### 5 8410-2 #### [facility] CLIA [id number] [address] MCV (RBC) [Entitic vol] 88.4 fL Normal 80.0-100.0 [facility] Comment on above: Order Comment: Speci men Type: BLOOD SPECIMEN Ordering Facility: [facility] Address: [address] [place] [address] Performed By: #### 5 8410-2 #### [facility] CLIA [id number] [address] Nucleated RBC (Bld) [#/Vol] 10*3/uL Normal <0.01 [facility] Comment on above: Order Comment: Speci men Type: BLOOD SPECIMEN Ordering Facility: [facility] Address: [address] [place] [address] Performed By: #### 5 8410-2 #### [facility] CLIA [id number] [address] Platelet mean volume (Bld) [Entitic vol] 8.9 fL Low 9.0-12.7 [facility] Comment on above: Order Comment: Speci men Type: BLOOD SPECIMEN Ordering Facility: [facility] Address: [address] [place] [address] Performed By: #### 5 8410-2 #### [facility] CLIA [id number] [address] Platelets (Bld) [#/Vol] 382 10*3/uL Normal 150-400 [facility] Comment on above: Order Comment: Speci men Type: BLOOD SPECIMEN Ordering Facility: [facility] Address: [address] [place] [address] Performed By: #### 5 8410-2 #### [facility] CLIA [id number] [address] [place] OF [facility] RBC (Bld) [#/Vol] 4.40 10*6/uL Normal 3.90-5.20 [facility] Comment on above: Order Comment: Speci men Type: BLOOD SPECIMEN Ordering Facility: [facility] Address: [address] [place] [address] Performed By: #### 5 8410-2 #### [facility] CLIA [id number] [address] OF [facility] WBC (Bld) [#/Vol] 8.66 10*3/uL Normal 3.70-11.00 [facility] Comment on above: Order Comment: Speci men Type: BLOOD SPECIMEN Ordering Facility: [facility] Address: [address] [place] [address] Performed By: #### 5 8410-2 #### [facility] CLIA [id number] [address] Hepatic function 2000 panelo n 01-18-2024 Albumin [Mass/Vol] 3.8 g/dL Low 3.9-4.9 [facility] Comment on above: Order Comment: Speci men Type: BLOOD SPECIMEN Ordering Facility: [facility] Address: [address] [place] [address] Performed By: #### 2 4321-2, 23410-6 #### [facility] CLIA [id number] [address] ALP [Catalytic activity/Vol] 92 U/L Normal 34-123 [facility] Comment on above: Order Comment: Speci men Type: BLOOD SPECIMEN Ordering Facility: [facility] Address: [address] [place] [address] Performed By: #### 2 4320-2, 32890-2 #### [facility] CLIA [id number] [address] OF [facility] ALT With P-5'-P [Catalytic activity/Vol] 116 U/L High 7-38 [facility] Comment on above: Order Comment: Speci men Type: BLOOD SPECIMEN Ordering Facility: [facility] Address: [address] [place] [address] Performed By: #### 2 4320-04, 27664-8 #### [facility] CLIA [id number] [address] AST With P-5'-P [Catalytic activity/Vol] 77 U/L High 13-35 [facility] Comment on above: Order Comment: Speci men Type: BLOOD SPECIMEN Ordering Facility: [facility] Address: [address] [place] [address] Performed By: #### 2 4320-04, 37126-6 #### [facility] CLIA [id number] [address] Bilirubin [Mass/Vol] 0.5 mg/dL Normal 0.2-1.3 [facility] Comment on above: Order Comment: Speci men Type: BLOOD SPECIMEN Ordering Facility: [facility] Address: [address] [place] [address] Performed By: #### 2 4320-04, 26909-6 #### [facility] CLIA [id number] [address] Bilirubin.conjugated [Mass/Vol] mg/dL Normal <0.2 [facility] Comment on above: Order Comment: Speci men Type: BLOOD SPECIMEN Ordering Facility: [facility] Address: [address] [place] [address] Performed By: #### 2 4320-04, 82563-8 #### [facility] CLIA [id number] [address] Protein [Mass/Vol] 6.2 g/dL Low 6.3-8.0 [facility] Comment on above: Order Comment: Speci men Type: BLOOD SPECIMEN Ordering Facility: [facility] Address: [address], [place] [address] Performed By: #### 2 4321-2, 66436-3 #### [facility] CLIA [id number] [address] OF [facility] OPERATIVE NOon 01-18-2024 OPERATIVE NO HNO ID: [id number] Author: ANKUR DE LA CRUZ MD Service: General Surgery Author Type: Resident Type: Operative Report Filed: 01/28/2024 22:07 Note Text: Attestation signed by Ankur De La Cruz MD at 01/28/2024 10:07 PM [facility] Operative Staff Addendum I was present and participated in the entire procedure. Ankur De La Cruz MD OPERATIVE/PROCEDURE REPORT LOG ID: [id number] Surgery/Procedure Date: 01/18/2024 Incision/Procedure Start Time: 9:01 AM Incision Close/Procedure End Time: 10:28 AM Surgeon(s)/Procedural ist(s) and Lawn Mower Mechanic(s): Surgeons and Role: * Ankur De La Cruz MD - Primary * Osamn Nolen DO - Resident - Assisting Procedure(s): Laparoscopic cholecystectomy, cholangiogram Anesthesia: General Indications: Patient is a 43-year-old female who presented originally to the hospital due to right upper quadrant abdominal pain. Imaging was concerning for cholelithiasis. After risk benefits and alternatives patient agreed to proceed with laparoscopic cholecystectomy and intraoperative cholangiogram. Pre-Op/Pre-Procedure Diagnosis: Symptomatic cholelithiasis Post-Op/Post-Procedur e Diagnosis: Same as above, Findings: Gallbladder with stones some omental adhesions. Procedure Details: The patient was brought to the operating room and identified by name and date of . The procedure of laparoscopic cholecystectomy with cholangiogram, possible open cholecystectomy, was confirmed with the patient, nursing, anesthesia, and surgical teams. The patient was intubated by the anesthesiologist and given general anesthesia. The patient was given 2 g Mefoxin intravenously. The abdomen was prepped with Chlorhexidine gluconate 4% and draped after allowing the prep solution to dry. A time out was performed, again identifying the patient and the procedure. A periumbilical incision was made and the tissue was dissected down to the fascia. The fascia was incised with a scalpel and 5mm trochar was inserted. The abdomen was insufflated and inspected. A 12 mm air seal port was placed in the subcostal region. Two 5mm ports were inserted under direct visualization in the sub right upper quadrant subcostally. The gallbladder fundus was grasped with a Justin and Gekiara grasper and retracted cranially. The infundibulum was grasped and retracted laterally. The peritoneum over the triangle of Calot was scored with cautery and dissected using Maryland graspers and Hook cautery. The cystic duct and cystic artery were isolated and the critical view was obtained. A small ductotomy was made and a Arrow catheter was placed and cholangiogram was obtained. There were no filling defects and the common bile duct was not dilated. There was prompt filing of the small bowel. Clips were used to clip the cystic duct proximally and distally, and the duct was transected with laparoscopic scissors. Clips were used to clip the cystic artery proximally and distally, and the artery was transected with laparoscopic scissors. The gallbladder was dissected off the liver bed with hook cautery. It was then placed in an anchor bag and removed via the subxiphoid port site. The resection bed was inspected and there were a few focal areas of bleeding, which were controlled with cautery. Hemostasis was achieved. The right upper quadrant was irrigated and suctioned. The subxiphoid port was closed with [id number] 0 PDS suture. The ports were removed under direct visualization and the abdomen was desufflated. The fascia of the umbilical port was closed with a figure of eight 0-PDS suture. Skin was closed using 4-0 monocryls. Skin glue was applied to the incisions. The patient was awakened and returned to the recovery area in good condition. Estimated Blood Loss: 5 mls Specimens: ID Type Source Tests Collected by Time Destination A : Tissue Gallbladder SURGICAL PATHOLOGY Ankur De La Cruz MD 01/18/2024 10:18 AM Drains: None Complications: None Counts: Sponge, needle, instrument, and towel counts were correct Wound class: 2 Attending Surgeon was present and participated in the entirety of the procedure. SIGNATURE: Osman Nolen DO PATIENT NAME: Zonia Ojeda DATE: January 18, 2024 TIME: 10:38 AM Pager: [phone] Normal [facility] SURGICAL PATHOLOGYon 024 CASE REPORT Normal [facility] Comment on above: Order Comment: Speci men Type: TISSUE SPECIMENOrdering Facility: [facility] Address: [address] [place] [address] Result Comment: Surg [facility] Pathology Report Case: [id number] Authorizing Provider: Ankur De La Cruz MD Collected: 01/18/2024 10:18 AM Ordering Location[facility] Received: 01/18/2024 02:52 PM Pathologist: Jennifer Monsalve MD Specimen: Gallbladder Performed By: #### S ####[facility] [id number] [address] OF [facility] CLINICAL HISTORY Normal [facility] Comment on above: Order Comment: Speci men Type: TISSUE SPECIMENOrdering Facility: [facility] Address: [address] [place] [address] Result Comment: Pre- op diagnosis: Symptomatic cholelithiasis [K80.20] Performed By: #### S ####[facility] [id number] [address] OF [facility] FINAL DIAGNOSIS Normal [facility] Comment on above: Order Comment: Speci men Type: TISSUE SPECIMENOrdering Facility: [facility] Address: [address] [place] [address] Result Comment: Gall bladder, cholecystectomy: - Chronic cholecystitis. - Cholelithiasis. Performed By: #### S ####[facility] [id number] [address] OF [facility] FINAL PERFORMING LAB Normal [facility] Comment on above: Order Comment: Speci men Type: TISSUE SPECIMENOrdering Facility: [facility] Address: [address] [place] [address] Result Comment: Diag nostic interpretation performed at [facility], [address] [place] [address] CLIA# [id number] Trailer Body Assembler: Clarence Coleman M.D. Performed By: #### S ####[facility] [id number] [address] GROSS DESCRIPTION A. Gallbladder Normal [facility] Comment on above: Order Comment: Speci men Type: TISSUE SPECIMENOrdering Facility: [facility] Address: [address] [place] [address] Result Comment: Rece ived in formalin labeled gallbladder is a gallbladder measuring 9 x 3 x 3 cm. The serosal aspect is bile-stained and smooth. A defect is not present. The lumen contains bile. The wall of the gallbladder averages 0.1 cm in thickness. Calculi are present and appear green in color and range in size from 0.1-0.5 cm in greatest dimension. A calculus is impacted in the cystic duct. The mucosa is bile-stained with yellow fatty streaks, more prominent along the summit of the mucosal ridges. Also received adjacent to the cystic duct, is a pink firm nodule, resembling a lymph node, measuring 0.6 cm in greatest dimension. Steam Table Worker sections are submitted in one cassette. Gross examination performed at [facility], [address] [place] [address] CLIA#[id number] [facility] January 18, 2024 4:30 PM Performed By: #### S ####[facility]ORY[facility]IA [id number] [address] XR CHOLANGIOGRAM INTRAOPon 03-19-2023 XR CHOLANGIOGRAM INTRAOP * * *Final Report* * * DATE OF EXAM: Jan 18 2024 10:11AM LEONOR 5421 - XR CHOLANGIOGRAM INTRAOP / PROCEDURE REASON: LAP MICHELLE * * * * Physician Interpretation * * * * EXAM TITLE: XR CHOLANGIOGRAM INTRAOP DATE: 01/18/2024 10:22 AM INDICATION: Intraoperative for laparoscopic cholecystectomy COMPARISON: None. FINDINGS: 34 seconds of fluoroscopy time. 14 images. These views demonstrate surgical instruments and injection of radiographic contrast opacifying the common bile duct. The duct appears normal in caliber and there are no definite filling defects. IMPRESSION: Intraoperative exam. Cloth Picker: PSCB Transcribe Date/Time: Jan 18 2024 10:22A Dictated by : WILLY AGUAYO MD This examination was interpreted and the report reviewed and electronically signed by: WILLY AGUAYO MD on Jan 18 2024 10:23AM EST [id number] Normal [facility] HNO ID: [id number] Author: STEVEN MONROE TECHNOLOGIST Service: ? Author Type: Technologist Type: Allied Health Filed: 01/17/2024 16:39 Note Text: Radiology Service Progress Note PATIENT NAME: Zonia Ojeda DATE OF SERVICE: January 17, 2024 TIME: 4:39 PM PATIENT IDENTITY VERIFICATION COMPLETED USING TWO (2) IDENTIFIERS: Name and Date of confirmed by patient verbally. FALL SCREENING: Has the patient had 2 falls in the last year or 1 fall with injury or currently using an Ambulatory Assistive Device (Walker, Cane, Wheelchair, Crutches, etc.)? Emergency Room Patient: Screened in ED PATIENT GENDER DATA: Female. status: : No status: NO. PATIENT RELEVANT IMPLANT DATA REVIEWED: Yes PATIENT PRESENTS WITH AN IMPLANTABLE OR ATTACHED MODEL DRESSER: No RADIOLOGY DEPARTMENT: Ultrasound PERIPHERAL IV DATA: Not applicable SIGNED BY: TECHNOLOGIST [place] January 17, 2024 4:39 PM Normal [facility] Basic metabolic 2000 panelon 01-17-2024 Anion gap [Moles/Vol] 12 mmol/L Normal 8-15 [facility] Comment on above: Order Comment: Speci men Type: BLOOD SPECIMEN Ordering Facility: [facility] Address: [address] [place] [address] Performed By: #### 2 4323-8, 3040-3 #### [facility] CLIA [id number] [address] [place] [address] [place] Calcium [Mass/Vol] 9.1 mg/dL Normal 8.5-10.2 [facility] Comment on above: Order Comment: Speci men Type: BLOOD SPECIMEN Ordering Facility: [facility] Address: [address] [place] [id number] Performed By: #### 2 4323-8, 0-3 #### [facility] CLIA [id number] [address] [place] [address] [place] Chloride [Moles/Vol] 102 mmol/L Normal 98-107 [facility] Comment on above: Order Comment: Speci men Type: BLOOD SPECIMEN Ordering Facility: [facility] Address: [address] [place] [address] Performed By: #### 2 4323-8, 3039-3 #### [facility] CLIA [id number] [address] [place] [address] [place] CO2 [Moles/Vol] 24 mmol/L Normal 22-30 [facility] Comment on above: Order Comment: Speci men Type: BLOOD SPECIMEN Ordering Facility: [facility] Address: [address] [place] [id number] Performed By: #### 2 4323-8, 0-3 #### [facility] CLIA [id number] [address] [place] [address] [place] Creatinine [Mass/Vol] 0.77 mg/dL Normal 0.58-0.96 [facility] Comment on above: Order Comment: Speci men Type: BLOOD SPECIMEN Ordering Facility: [facility] Address: [address] [place] [id number] Performed By: #### 2 4323-8, 0-3 #### [facility] CLIA [id number] [address] [place] [address] [place] Creatinine and Glomerular filtration rate.predicted panel (S/P/Bld) 99 mL/min/1.73m??? Normal >=60 [facility] Comment on above: Order Comment: Sheryl estevez Type: BLOOD SPECIMEN Ordering Facility: [facility] Address: [address] [place] [address] Result Comment: Morelia mated Glomerular Filtration Rate (eGFR) is calculated using the 2020 CKD-EPI creatinine equation. This equation utilizes serum creatinine, sex, and age as parameters. The creatinine assay has traceable calibration to isotope dilution-mass spectrometry. Refer to KDIGO guidelines for clinical interpretation. In patients with unstable renal function, e.g. those with acute kidney injury, the eGFR may not accurately reflect actual GFR. Performed By: #### 2 4323-8, 0-3 #### [facility] CLIA [id number] [address] [place] [address] [place] Glucose [Mass/Vol] 102 mg/dL High 74-99 [facility] Comment on above: Order Comment: Sheryl estevez Type: BLOOD SPECIMEN Ordering Facility: [facility] Address: [address] [place] [address] Result Comment: The [place] Diabetes Association (ADA) provides guidance for cutoff values for fasting glucose and random glucose. The ADA defines fasting as no caloric intake for at least 8 hours. Fasting plasma glucose results between 100 to 125 mg/dL indicate increased risk for diabetes (prediabetes). Fasting plasma glucose results greater than or equal to 126 mg/dL meet the criteria for diagnosis of diabetes. In the absence of unequivocal hyperglycemia, results should be confirmed by repeat testing. In a patient with classic symptoms of hyperglycemia or hyperglycemic crisis, random plasma glucose results greater than or equal to 200 mg/dL meet the criteria for diagnosis of diabetes. Reference: Standards of Medical Care in Diabetes 2016, [place] Diabetes Association. Diabetes Care. 2016.39(Suppl 1). Performed By: #### 2 4323-8, 0-3 #### [facility] CLIA [id number] [address] [place] [address] [place] Potassium [Moles/Vol] 4.0 mmol/L Normal 3.7-5.1 [facility] Comment on above: Order Comment: Speci men Type: BLOOD SPECIMEN Ordering Facility: [facility] Address: [address] [place] [address] Performed By: #### 2 4323-8, 3040-3 #### [facility] CLIA [id number] [address] [place] [address] [place] Sodium [Moles/Vol] 138 mmol/L Normal 136-144 [facility] Comment on above: Order Comment: Speci men Type: BLOOD SPECIMEN Ordering Facility: [facility] Address: [address] [place] [address] Performed By: #### 2 4323-8, 3040-3 #### [facility] CLIA [id number] [address] [place] [address] [place] Urea nitrogen [Mass/Vol] 11 mg/dL Normal 7-21 [facility] Comment on above: Order Comment: Speci men Type: BLOOD SPECIMEN Ordering Facility: [facility] Address: [address] [place] [address] Performed By: #### 2 4323-8, 3040-3 #### [facility] CLIA [id number] [address] [place] CBC W Auto Differential pane l (Bld)on 01-17-2024 Basophils (Bld) [#/Vol] 0.03 10*3/uL Normal <0.11 [facility] Comment on above: Order Comment: Speci men Type: BLOOD SPECIMEN Ordering Facility: [facility] Address: [address] [place] [address] Performed By: #### 5 7021-8 #### [facility] CLIA [id number] [address] [place] Basophils/100 WBC (Bld) 0.2 % Normal [facility] Comment on above: Order Comment: Speci men Type: BLOOD SPECIMEN Ordering Facility: [facility] Address: [address] [place] [address] Performed By: #### 5 7021-8 #### [facility] CLIA [id number] [address] [place] [address] [facility] [place] Differential cell count method Nom (Bld) Auto Normal [facility] Comment on above: Order Comment: Speci men Type: BLOOD SPECIMEN Ordering Facility: [facility] Address: [address] [place] [address] Performed By: #### 5 7021-8 #### [facility] CLIA [id number] [address] [place] [address] [place] Eosinophils (Bld) [#/Vol] 0.18 10*3/uL Normal <0.46 [facility] Comment on above: Order Comment: Speci men Type: BLOOD SPECIMEN Ordering Facility: [facility] Address: [address] [place] [address] Performed By: #### 5 7021-8 #### [facility] CLIA [id number] [address] [place] Eosinophils/100 WBC (Bld) 1.4 % Normal [facility] Comment on above: Order Comment: Speci men Type: BLOOD SPECIMEN Ordering Facility: [facility] Address: [address] [place] [address] Performed By: #### 5 7021-8 #### [facility] CLIA [id number] [address] [place] [address] [place] Erythrocyte distribution width (RBC) [Ratio] 13.1 % Normal 11.5-15.0 [facility] Comment on above: Order Comment: Speci men Type: BLOOD SPECIMEN Ordering Facility: [facility] Address: [address] [place] [address] Performed By: #### 5 7021-8 #### [facility] CLIA [id number] [address] [place] [address] [place] Hematocrit (Bld) [Volume fraction] 41.2 % Normal 36.0-46.0 [facility] Comment on above: Order Comment: Speci men Type: BLOOD SPECIMEN Ordering Facility: [facility] Address: [address] [place] [address] Performed By: #### 5 7021-8 #### [facility] CLIA [id number] [address] [place] [address] [place] Hemoglobin (Bld) [Mass/Vol] 13.4 g/dL Normal 11.5-15.5 [facility] Comment on above: Order Comment: Speci men Type: BLOOD SPECIMEN Ordering Facility: [facility] Address: [address] [place] [address] Performed By: #### 5 7021-8 #### [facility] CLIA [id number] [address] [place] [address] [place] Immature granulocytes (Bld) [#/Vol] 0.03 10*3/uL Normal <0.10 [facility] Comment on above: Order Comment: Speci men Type: BLOOD SPECIMEN Ordering Facility: [facility] Address: [address] [place] [address] Performed By: #### 5 7021-8 #### [facility] CLIA [id number] [address] [place] [address] [place] Immature granulocytes/100 WBC (Bld) 0.2 % Normal [facility] Comment on above: Order Comment: Speci men Type: BLOOD SPECIMEN Ordering Facility: [facility] Address: [address] [place] [address] Performed By: #### 5 7021-8 #### [facility] CLIA [id number] [address] [place] [address] [place] Lymphocytes (Bld) [#/Vol] 2.24 10*3/uL Normal 1.00-4.00 [facility] Comment on above: Order Comment: Speci men Type: BLOOD SPECIMEN Ordering Facility: [facility] Address: [address] [place] [address] Performed By: #### 5 7021-8 #### [facility] CLIA [id number] [address] [place] [address] [facility] Lymphocytes/100 WBC (Bld) 16.9 % Normal [facility] Comment on above: Order Comment: Speci men Type: BLOOD SPECIMEN Ordering Facility: [facility] Address: [address] [place] [address] Performed By: #### 5 7021-8 #### [facility] CLIA [id number] [address] [place], [place] [address] [place] [address] [place] MCH (RBC) [Entitic mass] 28.8 pg Normal 26.0-34.0 [facility] Comment on above: Order Comment: Speci men Type: BLOOD SPECIMEN Ordering Facility: [facility] Address: [address] [place] [address] Performed By: #### 5 7021-8 #### [facility] CLIA [id number] [address] [place], [place] [address] [place] [address] [place] MCHC (RBC) [Mass/Vol] 32.5 g/dL Normal 30.5-36.0 [facility] Comment on above: Order Comment: Speci men Type: BLOOD SPECIMEN Ordering Facility: [facility] Address: [address] [place] [address] Performed By: #### 5 7021-8 #### [facility] CLIA [id number] [address] [place] MCV (RBC) [Entitic vol] 88.6 fL Normal 80.0-100.0 [facility] Comment on above: Order Comment: Speci men Type: BLOOD SPECIMEN Ordering Facility: [facility] Address: [address] [place] [address] Performed By: #### 5 7021-8 #### [facility] CLIA [id number] [address] [place] Monocytes (Bld) [#/Vol] 0.68 10*3/uL Normal <0.87 [facility] Comment on above: Order Comment: Speci men Type: BLOOD SPECIMEN Ordering Facility: [facility] Address: [address] [place] [address] Performed By: #### 5 7021-8 #### [facility] CLIA [id number] [address] [place] [address] [place] Monocytes/100 WBC (Bld) 5.1 % Normal [facility] Comment on above: Order Comment: Speci men Type: BLOOD SPECIMEN Ordering Facility: [facility] Address: [address] [place] [address] Performed By: #### 5 7021-8 #### [facility] CLIA [id number] [address] [place] [address] [place] Neutrophils (Bld) [#/Vol] 10.08 10*3/uL High 1.45-7.50 [facility] [facility] Comment on above: Order Comment: Speci men Type: BLOOD SPECIMEN Ordering Facility: [facility] Address: [address] [place] [address] Performed By: #### 5 7021-8 #### [facility] CLIA [id number] [address] [place] [address] [place] Neutrophils/100 WBC (Bld) 76.2 % Normal [facility] Comment on above: Order Comment: Speci men Type: BLOOD SPECIMEN Ordering Facility: [facility] Address: [address] [place] [address] Performed By: #### 5 7021-8 #### [facility] CLIA [id number] [address] [place] [address] [place] Nucleated RBC (Bld) [#/Vol] Normal [facility] Comment on above: Order Comment: Speci men Type: BLOOD SPECIMEN Ordering Facility: [facility] Address: [address] [place] [address] Performed By: #### 5 7021-8 #### [facility] CLIA [id number] [address] [place] [address] [place] Nucleated RBC/100 WBC (Bld) [Ratio] Normal [facility] Comment on above: Order Comment: Speci men Type: BLOOD SPECIMEN Ordering Facility: [facility] Address: [address] [place] [address] Performed By: #### 5 7021-8 #### [facility] CLIA [id number] [address] [place] [address] [place] Platelet mean volume (Bld) [Entitic vol] 9.1 fL Normal 9.0-12.7 [facility] Comment on above: Order Comment: Speci men Type: BLOOD SPECIMEN Ordering Facility: [facility] Address: [address] [place] [address] Performed By: #### 5 7021-8 #### [facility] CLIA [id number] [address] [place] [address] [place] Platelets (Bld) [#/Vol] 444 10*3/uL High 150-400 [facility] Comment on above: Order Comment: Speci men Type: BLOOD SPECIMEN Ordering Facility: [facility] Address: [address] [place] [address] Performed By: #### 5 7021-8 #### [facility] CLIA [id number] [address] [place] [address] [place] RBC (Bld) [#/Vol] 4.65 10*6/uL Normal 3.90-5.20 [facility] Comment on above: Order Comment: Speci men Type: BLOOD SPECIMEN Ordering Facility: [facility] Address: [address] [place] [address] Performed By: #### 5 7021-8 #### [facility] CLIA [id number] [address] [place] [address] [place] WBC (Bld) [#/Vol] 13.24 10*3/uL High 3.70-11.00 [facility] Comment on above: Order Comment: Speci men Type: BLOOD SPECIMEN Ordering Facility: [facility] Address: [address] [place] [address] Performed By: #### 5 7021-8 #### [facility] CLIA [id number] [address] [place] [address] [facility] ED NOTEon 01-17-2024 ED NOTE HNO ID: [id number] Author: EMETERIO MARTINEZ RN Service: Emergency Medicine Author Type: Registered Nurse Type: ED Notes Filed: 01/17/2024 22:18 Note Text: Report questions clarified with Nicole BURGESS [address] [facility] ED NOTE HNO ID: [id number] Author: EMETERIO MARTINEZ RN Service: Emergency Medicine Author Type: Registered Nurse Type: ED Notes Filed: 01/17/2024 20:46 Note Text: Provider at bedside [facility] ED NOTE HNO ID: [id number] Author: APRIL ARAGON RN Service: ? Author Type: Registered Nurse Type: ED Notes Filed: 01/17/2024 20:21 Note Text: Bed: 12-ED Expected date: Expected time: Means of arrival: Comments: Squad [facility] ED NOTE HNO ID: [id number] Author: PIERCE RIOS RN Service: Emergency Medicine Author Type: Registered Nurse Type: ED Notes Filed: 01/17/2024 15:29 Note Text: Pt c/o abd pain that has been intermittent the last few weeks. Denies any abd surgery and hx regarding. Camilla, warm, dry. No apparent distress. Alert and oriented. [facility] ED PROV NOTEon 01-17-2024 ED PROV NOTE HNO ID: [id number] Author: WESLEY BROWNE MD Service: Emergency Medicine Author Type: Physician Type: ED Provider Notes Filed: 01/17/2024 21:34 Note Text: ED Provider Note Patient Name: Zonia Ojeda : 1980 SERVICE DATE: 01/17/24 History Patient presents with: Functional Transfers: Pt ambulatory to triage, sent from [place] for surgery consult. Pt initially went to ED for abdominal with nauseaANDdiarrhea. HPI 43-year-old female past medical history as noted below presents the emergency department via private transfer, here for surgery consultation. Has had postprandial pain for the last couple of weeks. Today's pain started around 1 to 1:30 PM after she had lunch. Symptoms started about an hour after eating. Pain is located epigastric and right upper quadrant region. Had pain radiating around the right flank. Today's episode was associated with nausea which is new for her. No vomiting. Denies any lower abdominal pain. Pain was fairly persistent throughout ED workup at [facility] and transferred for surgical consultation. Patient does have elevated white blood cell count at 13, previously normal, also with elevated ALT and AST. Pain has subsided a little bit since arrival here to the emergency department but she still feels discomfort in the upper abdomen. No nausea currently. Denies fever. PAST MEDICAL HISTORY Diagnosis Date ADD (attention deficit disorder) Anxiety Female infertility of unspecified origin Female infertility Influenza 03/2022 Morbid obesity (HCC) Pulmonary embolism (HCC) 2017 PAST SURGICAL HISTORY Procedure Laterality Date ADENOIDECTOMY PRIMARY Adenoidectomy CATH AND SALINE/CONTRAST SONOHYSTER/HYSTEROSAL PI EXT HYSTERECTOMY,W/PARTIA L VAGINECTO 2019 HEMORRHOIDAL 05/2011 HEMORRHOIDECTOMY INT AND XTRNL 2/> COLUMN/JENNIFER 06/16/2015 1 quadrant TONSILLECTOMY PRIMARY/SECONDARY Tonsillectomy FAMILY HISTORY Problem Relation Age of Onset Asthma Mother Hypertension Mother other (Pulmonary Embolism) Mother other (Kidney Stone) Father other (Pulmonary Embolism) Brother Cancer Maternal Grandmother ovarian Alcohol/Drug Maternal Grandfather ETOH Heart Maternal Aunt Psychiatry Maternal Aunt Social History Tobacco Use Smoking status: Never Smokeless tobacco: Never Vaping Use Vaping status: Never Used Substance and Sexual Activity Alcohol use: Yes Comment: NOT CURRENTLY THE LAST YEAR Drug use: No Sexual activity: Yes Partners: Male control/protection: Condom ALLERGIES Allergen Reactions Augmentin [Amoxicil* Itching AND swelling Hydrocodone Itching Review of Systems Constitutional: Positive for appetite change. Negative for activity change, chills, fatigue and fever. HENT: Negative for sore throat and trouble swallowing. Respiratory: Negative for cough and shortness of breath. Cardiovascular: Negative for palpitations. Gastrointestinal: Positive for abdominal pain and nausea. Negative for abdominal distention, diarrhea and vomiting. Musculoskeletal: Negative for back pain and neck pain. Skin: Negative for color change and wound. Neurological: Negative for weakness and headaches. Hematological: Negative for adenopathy. Does not bruise/bleed easily. Physical Exam Vitals [01/17/241921] BP Pulse Temp Temp src Resp SpO2 Weight Height 142/90 (!) 100 36.3 ?C (97.3 ?F) Oral 18 98 % 90.7 kg (200 lb) -- Physical Exam Vitals and nursing note reviewed. Constitutional: General: She is not in acute distress. Appearance: She is not ill-appearing, toxic-appearing or diaphoretic. HENT: Mouth/Throat: Mouth: Mucous membranes are moist. Pharynx: Oropharynx is clear. Eyes: Conjunctiva/sclera: Conjunctivae normal. Pupils: Pupils are equal, round, and reactive to light. Cardiovascular: Rate and Rhythm: Normal rate and regular rhythm. Pulses: Normal pulses. Pulmonary: Effort: Pulmonary effort is normal. Breath sounds: Normal breath sounds. Abdominal: Palpations: Abdomen is soft. Tenderness: There is abdominal tenderness. Positive signs include Vargas's sign. Negative signs include McBurney's sign. Comments: Mild tenderness to palpation epigastric and right upper quadrant. Does have a positive Vargas sign with deep inhalation. Neurological: Mental Status: She is alert and oriented to person, place, and time. 01/17/241921 BP: 142/90 Pulse: (!) 100 Resp: 18 Temp: 36.3 ?C (97.3 ?F) TempSrc: Oral SpO2: 98% Weight: 90.7 kg (200 lb) Diagnostic Testing ED Labs Ordered and Reviewed - No data to display Procedures ED Course / Clinical Impression Clinical Impressions as of 01/17/242132 RUQ pain MDM / Disposition / Plan History obtained from patient. Prior medical records reviewed. Pertinent information includes -reviewed [facility] ED workup. Reviewed documentation from Dr. Montoya and received report for transfer. Differential includes bu (more content not included)... Normal [facility] ED PROV NOTE HNO ID: [id number] Author: SERINA MONTOYA MD Service: Emergency Medicine Author Type: Physician Type: ED Provider Notes Filed: 01/17/2024 18:40 Note Text: ED Provider Note Patient Name: Zonia Ojeda : 1980 SERVICE DATE: 01/17/24 History Patient presents with: Abdominal Pain HPI 43-year-old female with history as below presenting with concerns for abdominal pain. Provided by patient. Reports 3 episodes in last 2 weeks of this postprandial pain. States her last episode was last night she ate dinner and then she developed this significant right upper quadrant epigastric pain with nausea. Symptoms resolved and she was able to sleep, woke up this morning still felt unwell but states that it was more just an upset stomach, unsettled stomach and not significant pain. Reports after eating lunch today had severe symptoms of epigastric right upper quadrant pain with nausea. States that she was able to find position of comfort. Is radiating into her back. Did not take anything for symptoms prior to arrival. This was most severe symptoms have ever been and she was not getting any relief prompting ED assessment. PAST MEDICAL HISTORY Diagnosis Date ADD (attention deficit disorder) Anxiety Female infertility of unspecified origin Female infertility Influenza 03/2022 Morbid obesity (HCC) Pulmonary embolism (HCC) 2017 PAST SURGICAL HISTORY Procedure Laterality Date ADENOIDECTOMY PRIMARY Adenoidectomy CATH AND SALINE/CONTRAST SONOHYSTER/HYSTEROSAL PI EXT HYSTERECTOMY,W/PARTIA L VAGINECTO 2019 HEMORRHOIDAL 05/2011 HEMORRHOIDECTOMY INT AND XTRNL 2/> COLUMN/JENNIFER 06/16/2015 1 quadrant TONSILLECTOMY PRIMARY/SECONDARY Tonsillectomy FAMILY HISTORY Problem Relation Age of Onset Asthma Mother Hypertension Mother other (Pulmonary Embolism) Mother other (Kidney Stone) Father other (Pulmonary Embolism) Brother Cancer Maternal Grandmother ovarian Alcohol/Drug Maternal Grandfather ETOH Heart Maternal Aunt Psychiatry Maternal Aunt Social History Tobacco Use Smoking status: Never Smokeless tobacco: Never Vaping Use Vaping status: Never Used Substance and Sexual Activity Alcohol use: Yes Comment: NOT CURRENTLY THE LAST YEAR Drug use: No Sexual activity: Yes Partners: Male control/protection: Condom ALLERGIES Allergen Reactions Augmentin [Amoxicil* Itching AND swelling Hydrocodone Itching Review of Systems Per HPI Physical Exam Vitals [01/17/24 1528] BP Pulse Temp Temp src Resp SpO2 Weight Height 154/110 (!) 100 37.3 ?C (99.1 ?F) Tympanic 16 100 % 90.7 kg (200 lb) 1.626 m (5' 4) Physical Exam Is tearful in obvious distress. Tachycardic, temp of 37.3. Heart RRR w/o murmurs; Distal pulses intact Lungs CTAB Abd soft, nondistended. Does have guarding to the right upper quadrant. Positive Vargas sign on my assessment. Also epigastric pain. No peritoneal signs. No CVA tenderness or flank pain. Patient moves all 4 extremities spontaneously and without deficit Diagnostic Testing ED Labs Ordered and Reviewed BASIC METABOLIC PANEL - Abnormal; Notable for the following components: Result Value Ref Range Glucose 102 (*) 74 - 99 mg/dL All other components within normal limits COMPLETE BLOOD COUNT AND DIFFERENTIAL - Abnormal; Notable for the following components: WBC 13.24 (*) 3.70 - 11.00 k/uL Platelet Count 444 (*) 150 - 400 k/uL Abs Neut 10.08 (*) 1.45 - 7.50 k/uL All other components within normal limits HEPATIC FUNCTION PNL - Abnormal; Notable for the following components: Bilirubin, Direct 0.3 (*) <0.2 mg/dL AST 171 (*) 13 - 35 U/L ALT 139 (*) 7 - 38 U/L All other components within normal limits Procedures ED Course / Clinical Impression Clinical Impressions as of 01/17/24 1823 Biliary colic MDM / Disposition / Plan MDM Patient is a 43-year-old female with history as above presenting with complaints of abdominal pain. History and exam as above. Medical record reviewed. Additional encounters reviewed: Last PCP encounter from 11/09/23 HPI obtained from patient DDx considered: Postprandial pain, location of discomfort considered this time for biliary colic versus acute cholecystitis. Low suspicion for pancreatitis as she does not leave any left-sided symptoms. Recommended symptom relief, lab assessment ultrasound imaging. Treated symptomatically with antiemetic, fentanyl and fluid bolus given and she was tachycardic. ED COURSE: Reassessment she is having improvement of pain but still persisting pain. Labs show leukocytosis with left shift white blood cell count of 13,000. Metabolic panel without abnormality. Hepatic function shows elevated AST and ALT, conjugated bilirubin slightly elevated 1.3 with T. bili within acceptable range at 0.5. I personally reviewed the radiographs and the radiology report. US RUQ IMPRESSION: 1. Cholelithiasis. N (more content not included)... Normal [facility] ED Triage Noteon 01-17-2024 ED Triage Note HNO ID: [id number] Author: STEVEN PINEDA APRN.AUREA Service: Emergency Medicine Author Type: Nurse Practitioner Type: ED Triage Notes Filed: 01/17/2024 19:27 Note Text: ED TRIAGE PROVIDER NOTE Patient Name: Zonia Ojeda Service Date: 01/17/24 BRIEF HPI: This is a 43 year old female who presents to the ED with: Biliary colic. Patient was sent from [place] for general surgery consultation. BRIEF EXAM: Obese, no acute distress. Heart mildly tachycardic, regular rhythm. Lungs clear to auscultation bilaterally. INITIAL WORKUP AND DECISION MAKING: Orders Placed This Encounter No orders of the defined types were placed in this encounter. SIGNATURE: Steven Pineda APRN.CATTLE SPRAYER Normal [facility] HISTORY PHYSICALon HISTORY PHYSICAL HNO ID: [id number] Author: ANKUR DE LA CRUZ MD Service: General Surgery Author Type: Resident Type: H&P Filed: 01/30/2024 13:15 Note Text: Attestation signed by Ankur De La Cruz MD at 01/30/2024 1:15 PM Attending Note I evaluated the patient and personally participated in the pierre components on 01/18/2024 I agree with the resident's findings and plan as documented and have discussed the case and management of the patient's care with the resident. Admit, IV abx, lap michelle with IOC. Ankur De La Cruz MD Delayed entry HISTORY AND PHYSICAL EXAM: EGS SERVICE SERVICE DATE: 01/17/2024 SERVICE TIME: 9:20 PM Subjective CHIEF COMPLAINT: Symptomatic cholelithiasis HPI: 43 year old female with previous history of a pulmonary embolism not on anticoagulation presents to the ED for worsening postprandial abdominal pain of 2 weeks duration. Patient states that she has been having crampy epigastric/RUQ pain intermittently for the last 2 weeks. She states that this morning she was eating lunch and roughly 30 minutes afterwards she had another episode of this pain however this time it did not go away within 1 to 2 hours. She denies any fevers chills but does relate nausea and vomiting during the episode of pain. She states that the episode today was her third or fourth episode in the last 2 weeks. No acholic stools or dark urine. No previous abdominal surgery history. No blood thinners. In the ED, she underwent a right upper quadrant ultrasound which remarkable for cholelithiasis and sludge without evidence of wall thickening or biliary duct dilatation. T. bili 0.5, AST 171, ALT 139, WBC 13.24, hemoglobin 13.4, creatinine 0.77. General surgery was consulted secondary to symptomatic cholelithiasis FUNCTIONAL STATUS: Independent PAST MEDICAL HISTORY Diagnosis Date ADD (attention deficit disorder) Anxiety Female infertility of unspecified origin Female infertility Influenza 03/2022 Morbid obesity (HCC) Pulmonary embolism (HCC) 2017 PAST SURGICAL HISTORY Procedure Laterality Date ADENOIDECTOMY PRIMARY Adenoidectomy CATH AND SALINE/CONTRAST SONOHYSTER/HYSTEROSAL PI EXT HYSTERECTOMY,W/PARTIA L VAGINECTO 2019 HEMORRHOIDAL nd 05/2011 HEMORRHOIDECTOMY INT AND XTRNL 2/> COLUMN/JENNIFER 06/16/2015 1 quadrant TONSILLECTOMY PRIMARY/SECONDARY Tonsillectomy FAMILY HISTORY Problem Relation Age of Onset Asthma Mother Hypertension Mother other (Pulmonary Embolism) Mother other (Kidney Stone) Father other (Pulmonary Embolism) Brother Cancer Maternal Grandmother ovarian Alcohol/Drug Maternal Grandfather ETOH Heart Maternal Aunt Psychiatry Maternal Aunt Social History Tobacco Use Smoking status: Never Smokeless tobacco: Never Vaping Use Vaping status: Never Used Substance Use Topics Alcohol use: Yes Comment: NOT CURRENTLY THE LAST YEAR Drug use: No (Not in a hospital admission) ALLERGIES Allergen Reactions Augmentin [Amoxicil* Itching AND swelling Hydrocodone Itching COMPLETE REVIEW OF SYSTEMS: GENERAL: No weight loss, malaise or fevers. HEENT: Negative for frequent or significant headaches, No changes in hearing or vision, no nose bleeds or other nasal problems. NECK: Negative for lumps, goiter, pain and significant neck swelling. RESPIRATORY: Negative for cough, hemoptysis, wheezing, COPD, dyspnea or shortness of breath. CARDIOVASCULAR: Negative for chest pain, leg swelling, hypertension, CHF or palpitations. GI: Positive for crampy epigastric/RUQ pain, nausea, episode of emesis MUSCULOSKELETAL: Negative for joint pain or swelling, back pain or muscle pain. SKIN: Negative for lesions, rash, and itching. PSYCH: Negative for sleep disturbance, mood disorder and recent psychosocial stressors. NEURO: No history of headaches, syncope, paralysis, seizures or tremors. Objective BP 142/90 Pulse 81 Temp (Src) 97.3 (Oral) Resp 22 Wt 200 lb (90.7kg) SpO2 98% LMP 08/26/2019 O2 Therapy: Room Air PHYSICAL EXAM: GENERAL: Alert. No distress. Resting comfortably. NEURO: AANDOx3. No focal neurologic deficits. Sensation grossly intact. HEENT: Normocephalic. Atraumatic. EOMI. LUNGS: Unlabored breathing. Equal excursion bilaterally. CARDIAC: Regular rate. Good perfusion throughout. ABDOMEN: Soft, minimal tenderness in the right upper quadrant, non-distended. No rebound or guarding. EXTREMITIES: FLORES. No deformities. SKIN: No obvious jaundice or pallor. DATA: Labs: Recent Labs 01/17/24 1600 NA 138 K 4.0 CHLOR 102 CO2 24 BUN 11 CREAT 0.77 GLUC 102* ANION 12 CA 9.1 ALB 4.1 AST 171* ALT 139* ALKPHOS 121 TBILI 0.5 WBC 13.24* HB 13.4 HCT 41.2 PLT 444* No orders to display Diagnostic tests reviewed for today's vis (more content not included)... Normal [facility] Hepatic function 2000 panelo n 01-17-2024 Albumin [Mass/Vol] 4.1 g/dL Normal 3.9-4.9 [facility] Comment on above: Order Comment: Sheryl estevez Type: BLOOD SPECIMEN Ordering Facility: [facility] Address: [address] [place] [address] Performed By: #### 2 4323-8, 3040-3 #### [facility] CLIA [id number] [address] [place] [address] [place] ALP [Catalytic activity/Vol] 121 U/L Normal 34-123 [facility] Comment on above: Order Comment: Speci men Type: BLOOD SPECIMEN Ordering Facility: [facility] Address: [address] [place] [address] Performed By: #### 2 4323-8, 3040-3 #### [facility] CLIA [id number] [address] [place] [address] [facility] ALT With P-5'-P [Catalytic activity/Vol] 139 U/L High 7-38 [facility] Comment on above: Order Comment: Speci men Type: BLOOD SPECIMEN Ordering Facility: [facility] Address: [address] [place], [place] [address] Performed By: #### 2 4323-8, 3040-3 #### [facility] CLIA [id number] [address] [place] [address] [facility] [place] AST With P-5'-P [Catalytic activity/Vol] 171 U/L High 13-35 [facility] Comment on above: Order Comment: Speci men Type: BLOOD SPECIMEN Ordering Facility: [facility] Address: [address] [place], [place] [address] Performed By: #### 2 4323-8, 3040-3 #### [facility] CLIA [id number] [address] [place], [place] [id number] [place] [address] [place] Bilirubin [Mass/Vol] 0.5 mg/dL Normal 0.2-1.3 [facility] Comment on above: Order Comment: Speci men Type: BLOOD SPECIMEN Ordering Facility: [facility] Address: [address] [place], [place] [address] Performed By: #### 2 4323-8, 3040-3 #### [facility] CLIA [id number] [address] [place] [address] [facility] Bilirubin.direct [Mass/Vol] 0.3 mg/dL High <0.2 [facility] Comment on above: Order Comment: Speci men Type: BLOOD SPECIMEN Ordering Facility: [facility] Address: [address] [place], [place] [address] Performed By: #### 2 4323-8, 3040-3 #### [facility] CLIA [id number] [address] [place] [address] [place] Protein [Mass/Vol] 7.2 g/dL Normal 6.3-8.0 [facility] Comment on above: Order Comment: Speci men Type: BLOOD SPECIMEN Ordering Facility: [facility] Address: [address] [place] [address] Performed By: #### 2 4323-8, 3040-3 #### [facility] CLIA [id number] [address] [place] [address] [place] US ABD RIGHT UPPER QUADRANTo n 01-17-2024 US ABD RIGHT UPPER QUADRANT * * *Final Report* * * DATE OF EXAM: Jan 17 2024 4:38PM LDU 1032 - US ABD RIGHT UPPER QUADRANT / PROCEDURE REASON: Cholelithiasis * * * * Physician Interpretation * * * * EXAMINATION: RIGHT UPPER QUADRANT ULTRASOUND CLINICAL HISTORY: Abdominal pain. TECHNIQUE: Sonography of the right upper quadrant was performed. Images were obtained and stored in a permanent archive. MQ: URUQ_2 COMPARISON: Ultrasound right upper quadrant 11/05/2021. RESULT: Pancreas: Normal sonographic appearance. Portions obscured: tail Liver: Echotexture: Normal, homogeneous. Echogenicity: Normal Surface contour: Smooth Lesions: None. Biliary: No intrahepatic biliary duct dilation. CBD: 0.2 cm at the hilum. Gallbladder: Normal caliber -Contents: Cholelithiasis and sludge present -Wall: Normal -Other: No pericholecystic fluid. Right Kidney: No hydronephrosis. Ascites: None. Main portal vein: Patent. IMPRESSION: 1. Cholelithiasis. No evidence of gallbladder wall thickening or biliary dilatation. 2. Otherwise unremarkable right upper quadrant ultrasound. Cloth Picker: PSCB Transcribe Date/Time: Jan 17 2024 5:16P Dictated by : KAMALJIT BELLE MD This examination was interpreted and the report reviewed and electronically signed by: KAMALJIT BELLE MD on Jan 17 2024 5:24PM EST [id number] Normal [facility] Assistant Director Office Visit Reporton 11-09-2023 Child Care Center Assistant Director Office Visit Report [facility] [address] [place] [address], [address] [place] [address] OFFICE VISIT Date of Service: 11/09/23 MR#: [id number] Acct: [id number] Name: ZONIA OJEDA Rep #: [id number] : 1980 Provider: Dr. 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: No Is patient in pain?: No Allergies amoxicillin (From Augmentin) Allergy (Severe, Verified 11/09/23 10:22) Rash clavulanic acid (From Augmentin) Allergy (Severe, Verified 11/09/23 10:22) Rash vicodin Adverse Reaction (Uncoded 11/09/23 10:22) Itching Medications ???Medication ???Instructions ???Recorded ???Confirmed ???Type lisdexamfetamine 30 mg capsule 30 mg PO DAILY 10/05/22 11/09/23 History (Vyvanse) multivitamin 1 tab PO DAILY 10/05/22 11/09/23 History semaglutide 1 mg/dose (4 mg/3 mL) 1 mg subcut QWEEK 10/05/22 11/09/23 History subcutaneous pen injector (Ozempic) Is last menstrual period known: No Patient : No : No Control Method: TVH PFSH Medical History History of blood clots History of hemorrhoids Anxiety and depression Surgical History History of total vaginal hysterectomy (TVH) ( 08/26/19) History of hemorrhoidectomy History of tonsillectomy Family History Mother Hypertension Anxiety and depression Pulmonary embolism Grandmother Cancer ovarian Social History Smoking Status: Never smoker alcohol intake: former substance use type: does not use caffeine: Yes (rarely) what type of physical activity do you participate in: other details: beach body videos frequency: 1-2 times per week seatbelt use: always do you feel safe at home: Yes additional social history: - 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 Date Name GA/Weeks Outcome Route Bth Weight Gen Labor Lgth Anesthesia Del Locatn Provider FOB Unknown Randall- 2008 Unknown Sofya-2010 HPI Encounter for routine gynecological examination Details: ZONIA OJEDA is a 43 year old who presents for annual exam. Last PAP: TVH History of abnormal PAP: no severe Last mammogram: 2022 History of abnormal mammogram: no Colon cancer screening: due at 46 Other preventative health care screenings: [place], sees PCP annually ROS Const Constitutional: Reports as per HPI; Denies fatigue, increased appetite, poor appetite, weight gain or weight loss Cardio Card: Denies chest pain Resp Resp: Denies cough or dyspnea GI GI: Reports as per HPI; Denies abdominal pain, bloating, constipation, nausea or vomiting : Reports as per HPI and other; Denies difficulty voiding, dysuria, hematuria, nipple discharge, pelvic pain, prolapse symptoms, urinary frequency, urinary incontinence, urinary urgency, vaginal discharge, vaginal dryness, vaginal odor or vaginal pruritus Skin Skin/Breast: Denies changing lesions, breast mass, breast pain, breast skin changes or nipple discharge Psych Psych: Reports anxiety; Denies depression Exam Const General: cooperative, healthy appearing, comfortable, no acute distress, well developed and well groomed [facility] Head: normal to inspection and normocephalic Ears: hearing grossly normal bilaterally and external ears normal Nose: external nose normal Face and sinus: normal facial exam Neck Neck: normal visual inspection, full ROM and no lymphadenopathy Thyroid: thyroid normal Chest Chest palpation inspection: normal inspection of the chest Breast inspection: normal inspection of the breasts and normal inspection of the axillae Breast palpation: normal palpation of the breasts, normal palpation of the axillae and no axillary lymphadenopathy Resp Effort Inspection: normal respiratory effort GI Inspection: normal to inspection and non-distended Palpation: soft, no hepatosplenomegaly and no guarding General: bladder normal to palpation External Female Exam: normal external appearance, normal appearance of the urethra and no lesions Urethra: normal appearance of the urethra and normal palpation Speculum Exam - Vagina: normal appearance of the vagina and normal vaginal discharge Bimanual Exam- Vagina Uterus: bladde (more content not included)... Normal [facility] Serum or plasma cortisol raj surement (mass/volume)Ordered By: Tamiko Urena on 12-14-2022 Cortisol [Mass/Vol] 26.40 ug/dL 3.44-22.45 [facility] Comment on above: Adult (AM) 5.27 - 22 .45 ug/dL Adult (PM) 3.44 - 16.76 ug/dLPlease note revised CORTISOL reference range effective 2019. Absolute lymphocyte countOrd ered By: Tamiko Urena on 11-17-2022 Lymphocytes Auto (Unsp spec) [#/Vol] 2.50 10*3/uL 0.83-4.51 [facility] Basophil percentageOrdered B y: Tamiko Urena on 11-17-2022 Basophils/100 WBC (Bld) 0.5 % 0-1 [facility] Bilirubin [Mass/Vol] 0.70 mg/dL 0.20-1.00 [facility] Comment on above: For patients on eltr ombopag therapy, use of Dimension [place] TBIL is not recommended. Chloride [Moles/Vol] 103 mmol/L 98-107 [facility] Cholesterol [Mass/Vol] 186 mg/dL <200 [facility] Comment on above: <200 mg/dL Desirable 200-240 mg/dL Borderline >240 mg/dL High Risk Eosinophils/100 WBC (Bld) 2.6 % 0-5 [facility] Glucose [Mass/Vol] 89 mg/dL 74-106 [facility] Neutrophils (Bld) [#/Vol] 6.7 10*3/uL 2.0-7.7 [facility] Neutrophils/100 WBC (Bld) 66.7 % 47-70 [facility] Potassium [Moles/Vol] 3.5 mmol/L 3.5-5.1 [facility] Protein [Mass/Vol] 7.9 g/dL 6.4-8.2 [facility] Sodium [Moles/Vol] 135 mmol/L 136-145 [facility] Triglyceride [Mass/Vol] 71 mg/dL <199 [facility] Comment on above: The drugs N-Acetylcy steine and Metamizole may falsely depress this assay.Serum Triglycerides Reference Interval Normal <150 mg/dL Borderline high 150 - 199 mg/dL High 200 - 499 mg/dL Very High > or = 500 mg/dL WBC (Bld) [#/Vol] 10.0 10*3/uL 4.4-11.0 [facility] Blood erythrocytes count (nu mber/volume)Ordered By: Tamiko Urena on 11-17-2022 RBC (Bld) [#/Vol] 4.61 10*6/uL 4.2-5.4 [facility] Blood hemoglobin measurement (mass/volume)Ordered By: Tamiko Urena on 11-17-2022 Hemoglobin (Bld) [Mass/Vol] 13.1 g/dL 12.0-15.0 [facility] Blood lymphocytes/100 leukoc ytesOrdered By: Tamiok Urena on 11-17-2022 Lymphocytes/100 WBC (Bld) 24.9 % 19-41 [facility] Blood monocytes/100 leukocyt esOrdered By: Tamiko Urena on 11-17-2022 Monocytes/100 WBC (Bld) 4.9 % 0-10 [facility] Blood platelet mean volumeOr dered By: Tamiko Urena on 11-17-2022 Platelet mean volume (Bld) [Entitic vol] 9.8 fL 6.2-12.0 [facility] Determination of erythrocyte mean corpuscular volume (MCV)Ordered By: Tamiko Urena on 11-17-2022 MCV (RBC) [Entitic vol] 89.4 fL 81-99 [facility] Erythrocyte sedimentation ra teOrdered By: Tamiko Urena on 11-17-2022 ESR (Bld) [Velocity] 7 mm/h 0-30 [facility] Hematocrit Auto (Bld) [Volum e fraction]Ordered By: Tamiko Urena on 11-17-2022 Hematocrit (Bld) [Volume fraction] 41.2 % 37-47 [facility] - Chemistry and C hemistry - challengeOrdered By: Tamiko Urena on 11-17-2022 ALP [Catalytic activity/Vol] 58 U/L 45-117 [facility] ALT [Catalytic activity/Vol] 18 U/L 13-56 [facility] CO2 [Moles/Vol] 24.0 mmol/L 21.0-32.0 [facility] Globulin (S) [Mass/Vol] 3.8 g/dL 2.2-4.2 [facility] Urea nitrogen/Creatinine [Mass ratio] 11.4 mg/mg 10-20 [facility] - Hematology and Cell countsOrdered By: Tamiko Urena on 11-17-2022 Erythrocyte distribution width (RBC) [Entitic vol] 41.9 fL 35.1-43.9 [facility] Erythrocyte distribution width (RBC) [Ratio] 12.8 % 11.6-14.6 [facility] Immature granulocytes/100 WBC (Bld) 0.400 % 0.0-0.9 [facility] Comment on above: IG% - Immature Granu locytes (promyelocytes, myelocytes and metamyelocytes) > 1% indicates that a LEFT SHIFT is Present. MCH (RBC) [Entitic mass] 28.4 pg 27.0-32.0 [facility] Nucleated RBC/100 WBC (Bld) [Ratio] 0 % 0-5 [facility] MCHC Auto (RBC) [Mass/Vol]Or dered By: Tamiko Urena on 11-17-2022 MCHC (RBC) [Mass/Vol] 31.8 g/dL 32-36 [facility] No Panel InformationOrdered By: Tamiko Urena on 11-17-2022 Anti-Nuclear Antibody Screen Negative Negative [facility] Comment on above: Performed at: [address] [id number] Director: Reji Abad PhD, Phone: [phone] Estimated GFR (MDRD) Amer 82 mL/min >60 [facility] Comment on above: GFR Calc Estimated GFR (MDRD) Non-Af Amer 68 mL/min >60 [facility] Comment on above: Non- GFR Calc Platelets bldOrdered By: Lencho Urena on 11-17-2022 Platelets (Bld) [#/Vol] 442 10*3/uL 150-450 [facility] Serum cyclic citrullinated p eptide IgG antibody assay (units/volume)Ordered By: Tamiko Urena on 11-17-2022 Cyclic citrullinated peptide IgG Qn 3 units 0-19 [facility] Comment on above: Negative <20 Weak po sitive 20 - 39 Moderate positive 40 - 59 Strong positive >59Performed at: [facility] [id number] Director: Reji Abad PhD, Phone: [phone] Serum or plasma C reactive p rotein measurement (mass/volume)Ordered By: Tamiko Urena on 11-17-2022 CRP [Mass/Vol] 6.72 mg/L 0.0-3.0 [facility] Comment on above: C-Reactive Protein ( CRP) provides useful information for thediagnosis, therapy and monitoring of inflammatory processesand associated diseases. For the evaluation of Relative Riskfor Cardiovascular Disease, a High Sensitivity CRP (HSCRP)should be ordered. Serum or plasma albumin jose urement (mass/volume)Ordered By: Tamiko Urena on 11-17-2022 Albumin [Mass/Vol] 4.1 g/dL 3.2-5.0 [facility] Serum or plasma albumin/glob ulin mass ratioOrdered By: Tamiko Urena on 11-17-2022 Albumin/Globulin [Mass ratio] 1.1 {ratio} 0.9-2.4 [facility] Serum or plasma calcium jose urement (mass/volume)Ordered By: Tamiko Urena on 11-17-2022 Calcium [Mass/Vol] 8.9 mg/dL 8.5-10.1 [facility] Serum or plasma cholesterol in HDL measurement (mass/volume)Ordered By: Tamiko Urena on 11-17-2022 Cholesterol in HDL [Mass/Vol] 48 mg/dL >40 [facility] Comment on above: The drugs N-Acetylcy steine and Metamizole may falsely depress this assay. Reference Range HDL <40 mg/dL Low HDL Cholesterol HDL >or= 60 mg/dL High HDL Cholesterol Serum or plasma cholesterol in VLDL measurement (mass/volume)Ordered By: Tamiko Urena on 11-17-2022 Cholesterol in VLDL [Mass/Vol] 14 mg/dL 5-40 [facility] Serum or plasma creatinine m easurement (mass/volume)Ordered By: Tamiko Urena on 11-17-2022 Creatinine [Mass/Vol] 0.96 mg/dL 0.55-1.02 [facility] Comment on above: The validity of the calculated GFR & GFRAA in patients over 70 years has not been determined. Clinical correlation is essential. Serum or plasma low density lipoprotein (LDL) cholesterol measurement (mass/volume)Ordered By: Tamiko Urena on 11-17-2022 Cholesterol in LDL [Mass/Vol] 124 mg/dL 0-130 [facility] Serum or plasma urea nitroge n measurement (mass/volume)Ordered By: Tamiko Urena on 11-17-2022 Urea nitrogen [Mass/Vol] 11 mg/dL 7-18 [facility] Serum rheumatoid factor dete ctionOrdered By: Tamiko Urena on 11-17-2022 Rheumatoid factor Ql (S) < 10.0 IU/mL <15 [facility] Thin prep Papanicolaou smear with manual screeningOrdered By: Tamiko Urena on 11-17-2022 Thin prep Papanicolaou smear with manual screening 16 U/L 15-37 [facility] Thin prep Papanicolaou smear with manual screening 8 5-15 [facility] - Chemistry and C hemistry - challengeOrdered By: Anca Aden on 10-10-2022 Free T4 [Mass/Vol] 0.80 ng/dL 0.76-1.46 [facility] No Panel InformationOrdered By: Anca Aden on 10-10-2022 Follicle Stimulating Hormone 4.3 mIU/mL [facility] Comment on above: NORMAL REFERENCE RAN GES FEMALE FOLLICULAR 2.3 - 12.6 mIU/mL MID-CYCLE PEAK 5.2 - 17.5 mIU/mL LUTEAL 1.7 - 12.9 mIU/mL POST-MENOPAUSAL ON MHT 5.9 - 72.8 mIU/mL NOT ON MHT 12.7 - 132.2 mlU/mL MALE 0.7 - 10.8 mIU/mL Thyroid Stimulating Hormone (TSH) 1.62 uIU/mL 0.358-3.74 [facility] Serum or plasma estradiol (E 2) measurement (mass/volume)Ordered By: Anca Aden on 10-10-2022 E2 [Mass/Vol] 159.7 pg/mL [facility] Comment on above: NORMAL REFERENCE RAN GES FEMALE FOLLICULAR 21.4 - 164.8 pg/mL MID-CYCLE PEAK 49.9 - 367.2 pg/mL LUTEAL 40.2 - 259.0 pg/mL POST-MENOPAUSAL ON MHT <11.0 - 462.1 pg/mL NOT ON MHT <11.0 - 58.3 pg/mL MALE <11.0 - 52.5 pg/mL NOTE:[employer] HAS CONFIRMED THE DRUG FULVETRANT (FASLODEX) MAY CAUSE FALSELY ELEVATED ESTRADIOL RESULTS WHEN USING THIS TEST METHOD. IF PATIENT IS TAKING FULVESTRANT AN ALTERNATIVE METHOD SHOULD BE USED TO DETERMINE ESTRADIOL CONCENTRATION. CBC panel Auto (Bld)on 03-16 Erythrocyte distribution width (RBC) [Ratio] 13.0 % 11.5 - 15.0 % [facility] Hematocrit (Bld) [Volume fraction] 41.4 % 36.0 - 46.0 % [facility] Hemoglobin (Bld) [Mass/Vol] 13.6 g/dL 11.5 - 15.5 g/dL [facility] MCH (RBC) [Entitic mass] 27.9 pg 26.0 - 34.0 pg [facility] MCHC (RBC) [Mass/Vol] 32.9 g/dL 30.5 - 36.0 g/dL [facility] MCV (RBC) [Entitic vol] 85.0 fL 80.0 - 100.0 fL [facility] Nucleated RBC (Bld) [#/Vol] <0.01 k/uL [facility] Platelet mean volume (Bld) [Entitic vol] 9.4 fL 9.0 - 12.7 fL [facility] Platelets (Bld) [#/Vol] 415 10*3/uL High 150 - 400 k/uL [facility] RBC (Bld) [#/Vol] 4.87 10*6/uL 3.90 - 5.2 0 m/uL [facility] WBC (Bld) [#/Vol] 10.51 10*3/uL 3.70 - 11 .00 k/uL [facility] Comprehensive metabolic 2000 panelon 03-16-2022 Albumin [Mass/Vol] 4.6 g/dL 3.9 - 4.9 g/dL [facility] ALP [Catalytic activity/Vol] 66 U/L 34 - 123 U/L [facility] ALT With P-5'-P [Catalytic activity/Vol] 16 U/L 7 - 38 U/L [facility] Anion gap [Moles/Vol] 12 mmol/L 9 - 18 mmol/L [facility] AST With P-5'-P [Catalytic activity/Vol] 24 U/L 13 - 35 U/L [facility] Bilirubin [Mass/Vol] 0.3 mg/dL 0.2 - 1 .3 mg/dL [facility] Calcium [Mass/Vol] 9.6 mg/dL 8.5 - 10. 2 mg/dL [facility] Chloride [Moles/Vol] 101 mmol/L 97 - 10 5 mmol/L [facility] CO2 [Moles/Vol] 24 mmol/L 22 - 30 mmol/L [facility] Creatinine [Mass/Vol] 0.79 mg/dL 0.58 - 0.96 mg/dL [facility] Estimated Glomerular Filtration Rate 97 mL/min/1.73m >=60 mL/min/1.73m [facility] Glucose [Mass/Vol] 99 mg/dL 74 - 99 mg/dL [facility] Potassium [Moles/Vol] 4.1 mmol/L 3.7 - 5.1 mmol/L [facility] Protein [Mass/Vol] 7.5 g/dL 6.3 - 8.0 g/dL [facility] Sodium [Moles/Vol] 137 mmol/L 136 - 144 mmol/L [facility] Urea nitrogen [Mass/Vol] 11 mg/dL 7 - 21 mg/dL [facility] TYPE AND SCREEN,30 DAYon ABO A [facility] HIstorical Ab Scr Status Negative [facility] Rh Nom (Bld) Positive [facility] XR UPPER GI ROUTINE DOUBLE C ONTRAST/AIRon 12-22-2021 [facility] US ABD RT UPPER QUADRANTon 0 11-05-2021 [facility] CT FOOT WO IVCON LTon 2019 CT FOOT WO IVCON LT Final Report DATE OF EXAM: Dec 07 2019 1:21AM LD [id number] - CT FOOT WO IVCON LT / PROCEDURE REASON: Foot trauma, Lisfranc fx suspected, xray equivocal Physician Interpretation EXAMINATION: CT FOOT WO IVCON LT CLINICAL HISTORY: Foot trauma, Lisfranc fx suspected, xray equivocal Technique: -- Axial noncontrast CT through the left foot with multiplanar reformats Exam Date: 12/07/2019 1:21 AM Comparison: Radiographs 12/07/2019 Contrast: None ml of ml of ml of CT Radiation dose: Integrated Dose-length product (DLP) for this visit = 296.[address] Dose Reduction Employed: No dose reduction techniques were required RESULT: Small subcutaneous lipoma medial plantar hindfoot. Small plantar calcaneal spur. 9 mm slightly displaced fracture intra-articular base of second metatarsal. 1 mm lateral displacement. Fracture involves the plantar portion of the distal attachment of the Lisfranc ligament. Also small fracture along the medial plantar cortex intra-articular base of third metatarsal. Normal ossicle plantar lateral to the cuboid. IMPRESSION: Plantar medial intra-articular fracture base of second and third metatarsals at the distal attachment of the plantar portion Lisfranc ligament. Minimal lateral displacement 1 of the second metatarsal fracture [facility] Transcribe Date/Time: Dec 07 2019 1:24A Dictated by : DMITRY DELUNA MD This examination was interpreted and the report reviewed and electronically signed by: DMITRY DELUNA MD on Dec 07 2019 1:48AM EST Normal [facility] XR FOOT 3V AP/LAT/OBL LTon 0 12-07-2019 XR FOOT 3V AP/LAT/OBL LT Final Report DATE OF EXAM: Dec 07 2019 12:17AM LDX [id number] - XR FOOT 3V AP/LAT/OBL LT / PROCEDURE REASON: Foot trauma, Cloud positive, fx suspected, initial exam Physician Interpretation EXAMINATION: XR FOOT 3V AP/LAT/OBL LT CLINICAL HISTORY: Trauma. Twisting injury. Dorsal medial foot pain. Technique: PA, oblique and lateral views of the left foot. Comparison: None. RESULT: Question mild widening at the Lisfranc interval. There is mild soft tissue swelling about the dorsal midfoot. There is a 3 to 4 mm curvilinear calcification adjacent to the plantar and lateral aspect of the cuboid bone. No other acute bony abnormality. IMPRESSION: Question mild widening at the Lisfranc interval which could indicate underlying Lisfranc ligamentous injury. Follow-up evaluation with MRI suggested. Mild soft tissue swelling about the dorsal midfoot. 3 to 4 mm curvilinear calcification adjacent to the plantar and lateral aspect of the cuboid bone may reflect an accessory ossicle or avulsion fracture fragment. Recommend correlation with point tenderness. Cloth Picker: [email or web address] Transcribe Date/Time: Dec 07 2019 12:40A Dictated by : CARMINA MCELROY DO This examination was interpreted and the report reviewed and electronically signed by: CARMINA MCELROY DO on Dec 07 2019 12:47AM EST Normal [facility] Office Visit: f/u ultrasound on 11-13-2016 Documentation of current medications (procedure) Done Invalid Interpretation Code [facility] Fall risk assessment No Invalid Interpretation Code [facility] Protein mass conc Done [facility] Tobacco smoking status [facility] Never Invalid Interpretation Code [facility] Tobacco smoking status [facility] Tobacco smoking status NHIS Invalid Interpretation Code [facility] Tobacco smoking status [facility] Never smoker [facility] Tobacco use HS Never smoker Invalid Interpretation Code [facility] Office Visit: f/u ultrasound on 09-29-2016 General categories [Interpretation] of Cervical or vaginal smear or scraping by Cyto stain Abnormal Invalid Interpretation Code [facility] Microbiology: Culture, R/O S trep Aon 06-15-2016 CUSTREPA . Invalid Interpretation Code [facility] GE use only - for [employer] import when terms are not otherwise specified . Invalid Interpretation Code [facility] Office Visit: UC: Fever, Cou ghon 06-13-2016 Alcoholism counseling (procedure) no Invalid Interpretation Code [facility] Documentation of current medications (procedure) Done Invalid Interpretation Code [facility] Fall risk assessment No Invalid Interpretation Code [facility] test Negative Invalid Interpretation Code [facility] S. pyogenes DNA DIONISIO+probe Ql (Throat) Negative [facility] Tobacco smoking status NHIS Never Invalid Interpretation Code [facility] Tobacco use [facility] Never smoker Invalid Interpretation Code [facility] Vital Signs Date Time Vital Sign Value Performing Clinician Nerissa sanchez 08-05-2024 07:55-0400 Body mass index (BMI) [Ratio] 39.43 kg/m2 Krislyn Aberegg PA Work Phone: [facility] 08-05-2024 07:55-0400 Body temperature 98.49 [degF] Krislyn Aberegg PA Work Phone: [facility] 08-05-2024 07:55-0400 Body weight 104.2 kg Krislyn Aberegg PA Work Phone: [facility] 08-05-2024 07:55-0400 Diastolic blood pressure 76 mm[Hg] Krislyn Aberegg PA Work Phone: [facility] 08-05-2024 07:55-0400 Heart rate 70 /min Krislyn Aberegg PA Work Phone: [facility] 08-05-2024 07:55-0400 Respiratory rate 18 /min Krislyn Aberegg PA Work Phone: [facility] 08-05-2024 07:55-0400 SaO2% (BldA) [Mass fraction] 99 % Krislyn Aberegg PA Work Phone: [facility] 08-05-2024 07:55-0400 Systolic blood pressure 110 mm[Hg] Krislyn Aberegg PA Work Phone: [facility] 03-19-2024 08:08-0500 Body mass index (BMI) [Ratio] 38.11 kg/m2 Regina Hines DOOR MANAGER.[employer] Work Phone: [facility] 03-19-2024 08:08-0500 Body temperature 98.49 [degF] Reginamatthew Hines DOOR MANAGER.[employer] Work Phone: [facility] 03-19-2024 08:08-0500 Body weight 100.7 kg Regina Hines DOOR MANAGER.[employer] Work Phone: [facility] 03-19-2024 08:08-0500 Diastolic blood pressure 68 mm[Hg] Regina Hines DOOR MANAGER.[employer] Work Phone: [facility] 03-19-2024 08:08-0500 Heart rate 92 /min Regina Hines DOOR MANAGER.[employer] Work Phone: [facility] 03-19-2024 08:08-0500 Respiratory rate 18 /min Regina Hines DOOR MANAGER.[employer] Work Phone: [facility] 03-19-2024 08:08-0500 SaO2% (BldA) [Mass fraction] 100 % Regina Hines DOOR MANAGER.[employer] Work Phone: [facility] 03-19-2024 08:08-0500 Systolic blood pressure 122 mm[Hg] Regina Hines DOOR MANAGER.[employer] Work Phone: [facility] 12-14-2022 08:17-0400 Body height 162.[address] Tamiko Urena Work Phone: [facility] 12-14-2022 08:17-0400 Body temperature 98.1 [degF] Dr. Tamiko Urena Work Phone: [facility] 12-14-2022 08:17-0400 Diastolic blood pressure 76 mm[Hg] Dr. Tamiko Urena Work Phone: [facility] 12-14-2022 08:17-0400 Heart rate 79 /min Dr. Tamiko Urena Work Phone: [facility] 12-14-2022 08:17-0400 Respiratory rate 16 /min Dr. Tamiko Urena Work Phone: [facility] 12-14-2022 08:17-0400 SaO2% (BldA) [Mass fraction] 100 % Dr. Tamiko Urena Work Phone: [facility] 12-14-2022 08:17-0400 Systolic blood pressure 122 mm[Hg] Dr. Tamiko Urena Work Phone: [facility] 10-05-2022 11:03-0400 Body height 162.[address] Tamiko Urena Work Phone: [facility] 10-05-2022 11:03-0400 Body mass index (BMI) [Ratio] 37.2 kg/m2 Dr. Tamiko Urena Work Phone: [facility] 10-05-2022 11:03-0400 Body weight 98.[address] Tamiko Urena Work Phone: [facility] 10-05-2022 11:03-0400 Diastolic blood pressure 98 mm[Hg] Dr. Tamiko Urena Work Phone: [facility] 10-05-2022 11:03-0400 Systolic blood pressure 142 mm[Hg] Dr. Tamiko Urena Work Phone: [facility] 04-20-2022 08:20-0500 Body height 162.6 cm Maira D Gromovsky DOOR MANAGER.[employer] Work Phone: [facility] 04-20-2022 08:20-0500 Body weight 106.05 kg Maria D Gromovsky DOOR MANAGER.[employer] Work Phone: [facility] 04-20-2022 08:20-0500 Diastolic blood pressure 87 mm[Hg] Maria D Gromovsky DOOR MANAGER.[employer] Work Phone: [facility] 04-20-2022 08:20-0500 Heart rate 83 /min Maria D Gromovsky DOOR MANAGER.[employer] Work Phone: [facility] 04-20-2022 08:20-0500 Systolic blood pressure 119 mm[Hg] Maria D Gromovsky DOOR MANAGER.CATTLE SPRAYER Work Phone: [facility] 04-03-2022 10:19-0500 Body height 162.6 cm Michelle Mariee MD Work Phone: [facility] 04-03-2022 10:19-0500 Body weight 105.69 kg Michelle Mariee MD Work Phone: [facility] 03-22-2022 11:23-0500 Body height 162.6 cm Maria D Fowler DOOR MANAGER.CATTLE SPRAYER Work Phone: [facility] 03-22-2022 11:23-0500 Body weight 101.61 kg Maria D Fowler DOOR MANAGER.CATTLE SPRAYER Work Phone: [facility] 03-16-2022 10:30-0500 Body height 162.6 cm Pst 1 [facility] 03-16-2022 10:30-0500 Body temperature 99 [degF] Pst 1 [facility] 03-16-2022 10:30-0500 Body weight 101.61 kg Pst 1 [facility] 03-16-2022 10:30-0500 Diastolic blood pressure 88 mm[Hg] Pst 1 [facility] 03-16-2022 10:30-0500 Heart rate 106 /min Pst 1 [facility] 03-16-2022 10:30-0500 Respiratory rate 18 /min Pst 1 [facility] 03-16-2022 10:30-0500 SaO2% (BldA) [Mass fraction] 98 % Pst 1 [facility] 03-16-2022 10:30-0500 Systolic blood pressure 119 mm[Hg] Pst 1 [facility] 02-27-2022 14:13-0500 Body height 162.[address] Work Phone: [facility] 02-27-2022 14:13-0500 Body weight 101.[address] Work Phone: [facility] 02-02-2022 08:05-0500 Body height 162.[address] Work Phone: [facility] 02-02-2022 08:05-0500 Body weight 102.[address] Work Phone: [facility] 01-12-2022 14:34-0400 Body height 162.[address] Work Phone: [facility] 01-12-2022 14:34-0400 Body weight 101.61 kg Tram Camachomanoj CORTEZ Work Phone: [facility] 12-14-2021 15:54-0400 Body height 162.6 cm Alia Slabaugh PA-C Work Phone: [facility] 12-14-2021 15:54-0400 Body temperature 97.5 [degF] Alia Slabaugh PA-C Work Phone: [facility] 12-14-2021 15:54-0400 Body weight 104.78 kg Alia Slabaugh PA-C Work Phone: [facility] 12-14-2021 15:54-0400 Diastolic blood pressure 79 mm[Hg] Alia Slabaugh PA-C Work Phone: [facility] 12-14-2021 15:54-0400 Heart rate 80 /min Alia Slabaugh PA-C Work Phone: [facility] 12-14-2021 15:54-0400 SaO2% (BldA) [Mass fraction] 99 % Alia Slabaugh PA-C Work Phone: [facility] 12-14-2021 15:54-0400 Systolic blood pressure 125 mm[Hg] Alia Slabaugh PA-C Work Phone: [facility] 12-07-2021 10:44-0400 Body height 162.6 cm Michelle Mariee MD Work Phone: [facility] 12-07-2021 10:44-0400 Body weight 102.29 kg Michelle Mariee MD Work Phone: [facility] 12-07-2021 10:44-0400 Diastolic blood pressure 80 mm[Hg] Michelle Mariee MD Work Phone: [facility] 12-07-2021 10:44-0400 Heart rate 108 /min Michelle Mariee MD Work Phone: [facility] 12-07-2021 10:44-0400 Respiratory rate 14 /min Michelle Mariee MD Work Phone: [facility] 12-07-2021 10:44-0400 SaO2% (BldA) [Mass fraction] 99 % Michelle Mariee MD Work Phone: [facility] 12-07-2021 10:44-0400 Systolic blood pressure 118 mm[Hg] Michelle Mariee MD Work Phone: [facility] 10-31-2021 10:42-0400 Body height 162.[address] Work Phone: [facility] 10-31-2021 10:42-0400 Body weight 101.[address] Work Phone: [facility] 10-25-2021 07:57-0400 Body height 162.6 cm Maria D Jennifermovsky DOOR MANAGER.CATTLE SPRAYER Work Phone: [facility] 10-25-2021 07:57-0400 Body weight 101.15 kg Maria D Jennifermovsky DOOR MANAGER.CATTLE SPRAYER Work Phone: [facility] 07-31-2021 10:00-0400 Body height 162.6 cm Trudy Wormald PA-C Work Phone: [facility] 07-31-2021 10:00-0400 Body temperature 98.4 [degF] Trudy Wormald PA-C Work Phone: [facility] 07-31-2021 10:00-0400 Body weight 101.15 kg Trudy Wormald PA-C Work Phone: [facility] 07-31-2021 10:00-0400 Diastolic blood pressure 83 mm[Hg] Trudy Wormald PA-C Work Phone: [facility] 07-31-2021 10:00-0400 Heart rate 80 /min Trudy Wormald PA-C Work Phone: [facility] 07-31-2021 10:00-0400 Respiratory rate 16 /min Trudy Wormald PA-C Work Phone: [facility] 07-31-2021 10:00-0400 SaO2% (BldA) [Mass fraction] 97 % Trudy Bernard PA-C Work Phone: [facility] 07-31-2021 10:00-0400 Systolic blood pressure 128 mm[Hg] Trudy LANDERS-Norma Work Phone: [facility] 11-13-2016 13:14-0400 BMI (Body Mass Index) 35.46 kg/m2 Leia Talamantes MD [facility] 11-13-2016 13:14-0400 Body Temperature 98.9 [degF] Leia Talamantes MD [facility] 11-13-2016 13:14-0400 Body Temperature 98.91 [degF] Leia Talamantes MD [facility] 11-13-2016 13:14-0400 BP Diastolic 84 mm[Hg] Leia Talamantes MD [facility] 11-13-2016 13:14-0400 BP Systolic 129 mm[Hg] Leia Talamantes MD [facility] 11-13-2016 13:14-0400 Height 162.56 cm Leia Talamantes MD [facility] 11-13-2016 13:14-0400 Pulse (Heart Rate) 80 /min Leia Talamantes MD [facility] 11-13-2016 13:14-0400 Respiratory Rate 16 /min Leia Talamantes MD [facility] 11-13-2016 13:14-0400 Weight 93.71 kg Leia Talamantes MD [facility] 06-13-2016 10:50-0400 BMI (Body Mass Index) 34.98 kg/m2 Leia Talamantes MD [facility] 06-13-2016 10:50-0400 Body Temperature 100.7 [degF] Leia Talamantes MD [facility] 06-13-2016 10:50-0400 BP Diastolic 72 mm[Hg] Leia Talamantes MD [facility] 06-13-2016 10:50-0400 BP Systolic 128 mm[Hg] Leia Talamantes MD [facility] 06-13-2016 10:50-0400 Height 162.56 cm Leia Talamantes MD [facility] 06-13-2016 10:50-0400 Pulse (Heart Rate) 102 /min Leia Talamantes MD [facility] 06-13-2016 10:50-0400 Respiratory Rate 16 /min Leia Talamantes MD [facility] 06-13-2016 10:50-0400 Weight 92.44 kg Leia Talamantes MD [facility] Encounters Encounter Date Encounter Type Care Provider Facility Start: 08-27-2024 End: 08-27-2024 ambulatory [facility] Facility:[facility] Start: 08-17-2024 End: 08-17-2024 Emergency department patient visit [facility] Facility:[facility] Start: 08-05-2024 End: 08-05-2024 Patient encounter procedure Anton Canales PA Work Phone: [facility] Comment on above: Acute cough (Primary Dx); Sinobronchitis Start: 08-05-2024 End: 08-05-2024 ambulatory [facility] Facility:[facility] Start: 04-02-2024 ambulatory [facility] Facility: [facility] Start: 03-19-2024 End: 03-19-2024 Patient encounter procedure Regina Kennedi CALLES Work Phone: [facility] Comment on above: Acute cough (Primary Dx); Lower respiratory infection Start: 03-19-2024 End: 03-19-2024 ambulatory [facility] Facility:[facility] Start: 02-05-2024 End: 03-27-2024 Telephone encounter Carmen Sampson MD Work Phone: [facility] GENERAL SURGERY DEPARTMENT Comment on above: Patient Question Start: 02-04-2024 End: 02-04-2024 Admission to same day surgery center Acute 359 Work Phone: [facility] Comment on above: Status post cholecys tectomy (Primary Dx) Start: 02-04-2024 End: 02-04-2024 Telemedicine consultation with patient [facility] Work Phone: [facility] Start: 02-04-2024 End: 02-04-2024 ambulatory TAMIKO URENA Facility:[facility] Start: 01-28-2024 End: 01-29-2024 Telephone encounter Ankur De La Cruz MD Work Phone: [facility] Comment on above: Patient Question Start: 01-26-2024 End: 01-28-2024 Telephone encounter Ankur De La Cruz MD Work Phone: [facility] Comment on above: Returning Patient's Call Start: 01-23-2024 End: 01-23-2024 Telephone encounter Laney Montoya MD Work Phone: [facility] Comment on above: Patient Question Start: 01-17-2024 End: 01-18-2024 ambulatory ANKUR DE LA CRUZ Facility:[facility] Start: 01-17-2024 End: 01-17-2024 Emergency department patient visit TAMIKO URENA Facility:[facility] Start: 11-09-2023 Encounter for gynecological examination (general) (routine) without abnormal findings Leia Talamantes [facility] Start: 11-09-2023 End: 11-09-2023 ambulatory Tamiko Urena Facility[facility] Start: 08-11-2023 End: 08-11-2023 ambulatory TAMIKO Jairo URENA Facility:[facility] Start: 08-11-2023 End: 08-11-2023 Telemedicine consultation with patient Garry Wilson APRN.AUREA Work Phone: Telemedicine Comment on above: Oral thrush (Primary Dx) Start: 12-14-2022 End: 12-14-[address] Tamiko Urena Work Phone: [facility] Work Phone: Start: 12-14-2022 End: 12-14-[address] Tamiko Urena Work Phone: [facility] Work Phone: Start: 11-17-2022 End: 11-17-[address] Tamiko Urena Work Phone: [facility] Work Phone: Start: 11-17-2022 End: 11-17-[address] Tamiko Urena Work Phone: [facility] Work Phone: Start: 10-10-2022 End: 10-10-[address] Tamiko Urena Work Phone: [facility] Work Phone: Start: 10-10-2022 End: 10-10-[address] Tamiko Urena Work Phone: [facility] Work Phone: Start: 10-05-[address] Tamiko Urena Work Phone: [facility] Start: 10-05-2022 End: 10-05-[address] Tamiko Urena Work Phone: [facility] Work Phone: Start: 04-20-2022 End: 04-20-2022 Patient encounter procedure Maria D Fowler APRN.CNP Work Phone: [facility] Comment on above: Class 3 severe obesi ty with body mass index (BMI) of 40.0 to 44.9 in adult, unspecified obesity type, unspecified whether serious comorbidity present (HCC) (Primary Dx); Heartburn; Depression, unspecified depression type Start: 04-03-2022 Telephone encounter Michelle holloway MD Work Phone: [facility] Comment on above: Patient Update (In o ffice weight check) Start: 03-22-2022 End: 01-04-2023 Patient encounter procedure Maria D Fowler DOOR MANAGER.CATTLE SPRAYER Work Phone: [facility] Comment on above: APPOINTMENT CANCELLE D (Primary Dx) Start: 03-22-2022 End: 03-22-2022 Telemedicine consultation with patient Maria D Fowler DOOR MANAGER.CATTLE SPRAYER Work Phone: [facility] Start: 03-16-2022 End: 03-21-2022 Admission to establishment Pst Riva Acc 1 [facility] Start: 03-16-2022 End: 03-21-2022 ambulatory Pst 1 Pre Surgical Testing Comment on above: Preop testing (Prima ry Dx); Morbid obesity (HCC) [E66.01 (ICD-10-CM)] Start: 03-16-2022 End: 03-21-2022 Patient encounter status Pst 1 Pre Surgical Te sting Start: 03-10-2022 Telephone encounter Maritza Flynn on DOOR MANAGER.CATTLE SPRAYER Work Phone: [facility] Comment on above: Patient Update (Surg bettina ) Start: 03-08-2022 End: 03-08-2022 ambulatory Maria D Reddy Brennachristina OREN.CATTLE SPRAYER Work Phone: [facility] Comment on above: Class 2 severe obesi ty due to excess calories with serious comorbidity and body mass index (BMI) of 38.0 to 38.9 in adult (HCC) (Primary Dx) Start: 03-08-2022 End: 03-08-2022 Telemedicine consultation with patient Maria D Fowler OREN.CATTLE SPRAYER Work Phone: [facility] Start: 02-28-2022 Orders Only Michelle Mariee MD Work Phone: [facility] Comment on above: Morbid obesity (HCC) (Primary Dx) Start: 02-27-2022 End: 02-27-[address] Work Phone: [facility] Comment on above: Dietary counseling a nd surveillance [Z71.3 (ICD-10-CM)] (Primary Dx) Start: 02-27-2022 End: 02-27-2022 Telemedicine consultation with patient Jennifer David RD Work Phone: [facility] Start: 02-21-2022 Telephone encounter Michelle holloway MD Work Phone: [facility] Comment on above: Medical Clearance Start: 02-06-2022 Telephone encounter [facility] Provider [facility] Comment on above: Appointment Start: 02-03-2022 Telephone encounter Michelle holloway MD Work Phone: [facility] Comment on above: Patient Update Start: 02-02-2022 End: 02-02-[address] Work Phone: [facility] Start: 02-02-2022 End: 02-02-2022 [facility] visit, estab pt Tram Stack RD Work Phone: [facility] Comment on above: Established Patient Start: 01-26-2022 Telephone encounter Maria D carrasquillo APRN.CATTLE SPRAYER Work Phone: [facility] Comment on above: Appointment Start: 01-12-2022 End: 01-12-2022 [facility] Erica Ibrahim PhD Work Phone: [facility] Comment on above: Psychological factor s affecting medical condition (Primary Dx); Class 2 severe obesity with serious comorbidity and body mass index (BMI) of 38.0 to 38.9 in adult, unspecified obesity type (HCC); Eating disorder in remission; MDD (major depressive disorder), recurrent, in partial remission (HCC); Other mixed anxiety disorders; Attention deficit hyperactivity disorder (ADHD), unspecified ADHD type Class 2 severe obesi ty due to excess calories with serious comorbidity and body mass index (BMI) of 38.0 to 38.9 in adult (HCC) (Primary Dx) Start: 01-10-2022 End: 01-10-2022 [facility] Js Ibrahim PhD Work Phone: [facility] Comment on above: Psychological factor s affecting medical condition (Primary Dx); Class 2 severe obesity with serious comorbidity and body mass index (BMI) of 38.0 to 38.9 in adult, unspecified obesity type (HCC); Eating disorder in remission; MDD (major depressive disorder), recurrent, in partial remission (HCC); Other mixed anxiety disorders; Attention deficit hyperactivity disorder (ADHD), unspecified ADHD type Start: 01-03-2022 End: 01-03-2022 [facility] Erica Ibrahim PhD Work Phone: [facility] Comment on above: Psychological factor s affecting medical condition (Primary Dx); Class 2 severe obesity with serious comorbidity and body mass index (BMI) of 38.0 to 38.9 in adult, unspecified obesity type (HCC); Eating disorder in remission; MDD (major depressive disorder), recurrent, in partial remission (HCC); Other mixed anxiety disorders; Attention deficit hyperactivity disorder (ADHD), unspecified ADHD type Start: 12-27-2021 End: 12-27-2021 [facility] Erica Ibrahim PhD Work Phone: [facility] Comment on above: Psychological factor s affecting medical condition (Primary Dx); Class 2 severe obesity with serious comorbidity and body mass index (BMI) of 38.0 to 38.9 in adult, unspecified obesity type (HCC); Eating disorder in remission; MDD (major depressive disorder), recurrent, in partial remission (HCC); Other mixed anxiety disorders; Attention deficit hyperactivity disorder (ADHD), unspecified ADHD type Start: 12-22-2021 End: 12-22-2021 Subsequent hospital visit by physician Gi/Gu 1 [facility] Comment on above: Class 2 severe obesi ty due to excess calories with serious comorbidity and body mass index (BMI) of 38.0 to 38.9 in adult (HCC) [E66.01, Z68.38] Start: 12-20-2021 End: 12-20-2021 [facility] Erica Ibrahim PhD Work Phone: [facility] Comment on above: Psychological factor s affecting medical condition (Primary Dx); Class 2 severe obesity with serious comorbidity and body mass index (BMI) of 38.0 to 38.9 in adult, unspecified obesity type (HCC); Eating disorder in remission; MDD (major depressive disorder), recurrent, in partial remission (HCC); Other mixed anxiety disorders; Attention deficit hyperactivity disorder (ADHD), unspecified ADHD type Start: 12-14-2021 End: 12-14-2021 Patient encounter procedure Alia Kraft PA-C Work Phone: [facility] Comment on above: Sinobronchitis (Prim ericka Dx) Start: 12-07-2021 End: 12-07-2021 Patient encounter procedure Michelle Mariee MD Work Phone: [facility] Comment on above: Class 2 severe obesi ty due to excess calories with serious comorbidity and body mass index (BMI) of 38.0 to 38.9 in adult (HCC) (Primary Dx); Depression, unspecified depression type; History of pulmonary embolism; Vitamin D deficiency Start: 11-17-2021 End: 11-17-2021 [facility] Erica Ibrahim PhD Work Phone: [facility] Comment on above: Psychological factor s affecting medical condition (Primary Dx); Class 2 severe obesity with serious comorbidity and body mass index (BMI) of 38.0 to 38.9 in adult, unspecified obesity type (HCC); Eating disorder in remission; MDD (major depressive disorder), recurrent, in partial remission (HCC); Other mixed anxiety disorders; Attention deficit hyperactivity disorder (ADHD), unspecified ADHD type Start: 11-07-2021 Orders Only Maria D vasquez APRN.CNP Work Phone: [facility] Comment on above: Vitamin D deficiency (Primary Dx) Start: 11-05-2021 End: 11-05-2021 Subsequent hospital visit by physician [facility] [employer] Comment on above: Class 2 obesity with body mass index (BMI) of 38.0 to 38.9 in adult, unspecified obesity type, unspecified whether serious comorbidity present [E66.9, Z68.38] Start: 10-31-2021 End: 10-31-[address] Work Phone: [facility] Comment on above: Disclosure statement for visit with Dr. Ibrahim on 11/17 Start: 10-31-2021 E-mail encounter fro m caregiver [facility] Provider [facility] Start: 10-26-2021 End: 10-26-2021 Subsequent hospital visit by physician Mary Ellen Vivas [facility] Comment on above: Class 2 obesity with body mass index (BMI) of 38.0 to 38.9 in adult, unspecified obesity type, unspecified whether serious comorbidity present [E66.9, Z68.38] Start: 10-25-2021 End: 10-25-2021 ambulatory Maria D Fowler APRN.CATTLE SPRAYER Work Phone: [facility] Comment on above: Class 2 obesity with body mass index (BMI) of 38.0 to 38.9 in adult, unspecified obesity type, unspecified whether serious comorbidity present (Primary Dx); History of pulmonary embolism; Anxiety and depression Start: 10-25-2021 End: 10-25-2021 Telemedicine consultation with patient Maria D Fowler APRN.CATTLE SPRAYER Work Phone: [facility] Start: 10-11-2021 End: 10-11-2021 Patient encounter procedure [facility] Start: 07-31-2021 End: 07-31-2021 Patient encounter procedure Trudy Bernard PA-C Work Phone: [facility] Comment on above: Acute maxillary sinu sitis, recurrence not specified (Primary Dx); Sinus pressure; Nasal congestion; Acute nonintractable headache, unspecified headache type Procedures Date Procedure Procedure Detail Performing Clinician Start: 11-17-2022 Plain chest X-ray Dr. Tamiko Urena Work Phone: Start: 10-10-[address] Tamiko Urena Work Phone: Start: 03-16-2022 Antibody screen Pst 1 Start: 12-22-2021 Radiologic exam upr gi trc double contrast study Michelle Mariee MD Work Phone: Start: 11-05-2021 Us abdominal real time w/image limited Maria D Fowler APRN.CNP Work Phone: Start: 08-18-2019 H/O: hysterectomy History of total vaginal hysterectomy (TVH) Start: 06-13-2016 End: 06-13-2016 [facility] a Jono LANDERS Work Phone: Start: 06-13-2016 End: 06-13-2016 [facility] streptococcus [facility] a Jono LANDERS Work Phone: Start: 06-13-2016 End: 06-13-2016 Rapid strep test Jono LANDERS Work Phone: History of cholecystectomy Status post cholecystectomy Acute 359 Work Phone: Plan of Treatment Date Care Activity Detail Author Start: 11-17-2024 Influenza vaccination Influenz a Vaccine (Season Ended) [facility] Start: 02-04-2024 End: 02-04-2024 Admission to same day surgery center 02/04/2024 3:15 PM [facility] GENERAL SURGERY DEPARTMENT 1 [facility] [address] [place] [address] lap [facility] SURGERY DEPARTMENT Comment on above: [facility] Start: 11-18-2023 Covid-19 Vaccine ( season) Covid-19 Vaccine ( season) [facility] Start: 11-18-2023 Influenza vaccination [facility] Start: 11-17-2022 Covid-19 Vaccine ( season) Covid-19 Vaccine ( season) [facility] Start: 10-05-2022 Patient referral [facility] Work Phone: Start: 04-20-2022 End: 06-20-2022 Albumin [Mass/volume] in Serum or Plasma ALBUMIN BLD Lab Routine Class 3 severe obesity with body mass index (BMI) of 40.0 to 44.9 in adult, unspecified obesity type, unspecified whether serious comorbidity present (HCC) Expected: 04/20/2022, Expires: 06/20/2022 [facility] Work Phone: Comment on above: Expected: 04/20/2022 , Expires: 06/20/2022 Start: 04-20-2022 End: 06-20-2022 Basic metabolic 2000 panel - Serum or Plasma BASIC METABOLIC PNL Lab Routine Class 3 severe obesity with body mass index (BMI) of 40.0 to 44.9 in adult, unspecified obesity type, unspecified whether serious comorbidity present (HCC) Expected: 04/20/2022, Expires: 06/20/2022 [facility] Work Phone: Comment on above: Expected: 04/20/2022 , Expires: 06/20/2022 Start: 04-20-2022 End: 06-20-2022 CBC panel - Blood by Automated count CBC Lab Routine Class 3 severe obesity with body mass index (BMI) of 40.0 to 44.9 in adult, unspecified obesity type, unspecified whether serious comorbidity present (HCC) Expected: 04/20/2022, Expires: 06/20/2022 [facility] Work Phone: Comment on above: Expected: 04/20/2022 , Expires: 06/20/2022 Start: 04-20-2022 End: 04-20-2023 SARS-CoV-2 (COVID-19) RNA [Presence] in Respiratory specimen by DIONISIO with probe detection PRE-PROCEDURE & PRE-OPERATIVE COVID Microbiology Routine Class 3 severe obesity with body mass index (BMI) of 40.0 to 44.9 in adult, unspecified obesity type, unspecified whether serious comorbidity present (HCC) Expected: 04/20/2022, Expires: 04/20/2023 [facility] Work Phone: Comment on above: Expected: 04/20/2022 , Expires: 04/20/2023 Start: 04-20-2022 End: 06-20-2022 TYPE AND SCREEN,30 DAY TYPE AND SCREEN,30 DAY Blood Bank Routine Class 3 severe obesity with body mass index (BMI) of 40.0 to 44.9 in adult, unspecified obesity type, unspecified whether serious comorbidity present (HCC) Expected: 04/20/2022, Expires: 06/20/2022 [facility] Work Phone: Comment on above: Expected: 04/20/2022 , Expires: 06/20/2022 Start: 11-17-2021 Influenza vaccination C [facility] Start: 10-25-2021 End: 12-25-2021 25-hydroxyvitamin D3 [Mass/volume] in Serum or Plasma VITAMIN D 25 HYDROXY Lab Routine Class 2 obesity with body mass index (BMI) of 38.0 to 38.9 in adult, unspecified obesity type, unspecified whether serious comorbidity present Expected: 10/25/2021, Expires: 12/25/2021 [facility] Work Phone: Comment on above: Expected: 10/25/2021 , Expires: 12/25/2021 Start: 10-25-2021 End: 12-25-2021 CBC panel - Blood by Automated count CBC Lab Routine Class 2 obesity with body mass index (BMI) of 38.0 to 38.9 in adult, unspecified obesity type, unspecified whether serious comorbidity present Expected: 10/25/2021, Expires: 12/25/2021 [facility] Work Phone: Comment on above: Expected: 10/25/2021 , Expires: 12/25/2021 Start: 10-25-2021 End: 12-25-2021 Cobalamin (Vitamin B12) [Mass/volume] in Serum or Plasma VITAMIN B12 BLOOD Lab Routine Class 2 obesity with body mass index (BMI) of 38.0 to 38.9 in adult, unspecified obesity type, unspecified whether serious comorbidity present Expected: 10/25/2021, Expires: 12/25/2021 [facility] Work Phone: Comment on above: Expected: 10/25/2021 , Expires: 12/25/2021 Start: 10-25-2021 End: 12-25-2021 Comprehensive metabolic 2000 panel - Serum or Plasma COMP METABOLIC PANEL Lab Routine Class 2 obesity with body mass index (BMI) of 38.0 to 38.9 in adult, unspecified obesity type, unspecified whether serious comorbidity present Expected: 10/25/2021, Expires: 12/25/2021 [facility] Work Phone: Comment on above: Expected: 10/25/2021 , Expires: 12/25/2021 Start: 10-25-2021 End: 12-25-2021 Ferritin [Mass/volume] in Serum or Plasma FERRITIN BLD Lab Routine Class 2 obesity with body mass index (BMI) of 38.0 to 38.9 in adult, unspecified obesity type, unspecified whether serious comorbidity present Expected: 10/25/2021, Expires: 12/25/2021 [facility] Work Phone: Comment on above: Expected: 10/25/2021 , Expires: 12/25/2021 Start: 10-25-2021 End: 12-25-2021 Folate [Mass/volume] in Serum or Plasma FOLATE SERUM Lab Routine Class 2 obesity with body mass index (BMI) of 38.0 to 38.9 in adult, unspecified obesity type, unspecified whether serious comorbidity present Expected: 10/25/2021, Expires: 12/25/2021 [facility] Work Phone: Comment on above: Expected: 10/25/2021 , Expires: 12/25/2021 Start: 10-25-2021 End: 12-25-2021 Iron and Iron binding capacity panel - Serum or Plasma IRON + TIBC Lab Routine Class 2 obesity with body mass index (BMI) of 38.0 to 38.9 in adult, unspecified obesity type, unspecified whether serious comorbidity present Expected: 10/25/2021, Expires: 12/25/2021 [facility] Work Phone: Comment on above: Expected: 10/25/2021 , Expires: 12/25/2021 Start: 10-25-2021 End: 12-25-2021 Lipid 1996 panel - Serum or Plasma LIPID PANEL BASIC Lab Routine Class 2 obesity with body mass index (BMI) of 38.0 to 38.9 in adult, unspecified obesity type, unspecified whether serious comorbidity present Expected: 10/25/2021, Expires: 12/25/2021 [facility] Work Phone: Comment on above: Expected: 10/25/2021 , Expires: 12/25/2021 Start: 10-25-2021 End: 12-25-2021 NICOTINE & METAB, UR NICOTINE & METAB, UR Lab Routine Class 2 obesity with body mass index (BMI) of 38.0 to 38.9 in adult, unspecified obesity type, unspecified whether serious comorbidity present Expected: 10/25/2021, Expires: 12/25/2021 [facility] Work Phone: Comment on above: Expected: 10/25/2021 , Expires: 12/25/2021 Start: 10-25-2021 End: 12-25-2021 Parathyrin.intact [Mass/volume] in Serum or Plasma PTH INTACT BLD Lab Routine Class 2 obesity with body mass index (BMI) of 38.0 to 38.9 in adult, unspecified obesity type, unspecified whether serious comorbidity present Expected: 10/25/2021, Expires: 12/25/2021 [facility] Work Phone: Comment on above: Expected: 10/25/2021 , Expires: 12/25/2021 Start: 10-25-2021 End: 12-25-2021 Thyrotropin [Units/volume] in Serum or Plasma TSH BLD Lab Routine Class 2 obesity with body mass index (BMI) of 38.0 to 38.9 in adult, unspecified obesity type, unspecified whether serious comorbidity present Expected: 10/25/2021, Expires: 12/25/2021 [facility] Work Phone: Comment on above: Expected: 10/25/2021 , Expires: 12/25/2021 Start: 10-25-2021 End: 12-25-2021 TOX SCREEN ROUT UR TOX SCREEN ROUT UR Lab Routine Class 2 obesity with body mass index (BMI) of 38.0 to 38.9 in adult, unspecified obesity type, unspecified whether serious comorbidity present Expected: 10/25/2021, Expires: 12/25/2021 [facility] Work Phone: Comment on above: Expected: 10/25/2021 , Expires: 12/25/2021 Start: 10-25-2021 End: 12-25-2021 VITAMIN B1 (THIAMINE), WHOLE BLOOD VITAMIN B1 (THIAMINE), WHOLE BLOOD Lab Routine Class 2 obesity with body mass index (BMI) of 38.0 to 38.9 in adult, unspecified obesity type, unspecified whether serious comorbidity present Expected: 10/25/2021, Expires: 12/25/2021 [facility] Work Phone: Comment on above: Expected: 10/25/2021 , Expires: 12/25/2021 Start: 09-28-2021 HPV TESTING HPV TESTING [facility] Start: 09-28-2021 PAP TESTING PAP TESTING [facility] Start: 09-28-2021 Screening for malign ant neoplasm of cervix [facility] Start: 2021 Mammography MAMMOGRAM [facility] Start: 2021 Screening for malign ant neoplasm of breast Mammogram Screening [facility] Start: 12-14-2020 COVID-19 VACCINE (3 - Booster for Moderna series) COVID-19 VACCINE (3 - Booster for Moderna series) [facility] Start: 09-08-2020 COVID-19 VACCINE (3 - Booster for Moderna series) COVID-19 VACCINE (3 - Booster for Moderna series) [facility] Start: 11-13-2016 End: 11-13-2016 Appointment Appointment [facility] Start: 10-20-2016 End: 10-23-2016 Us pelvic nonobstetric real-time image complete US Pelvis [facility] Start: 10-20-2016 End: 10-23-2016 Us transvaginal US Transvaginal [facility] Start: 10-20-2016 End: 10-23-2016 Transvaginal us, non-ob US Transvaginal [facility] Start: 10-20-2016 End: 10-23-2016 Us exam, pelvic, complete US Pelvis [facility] Start: 06-13-2016 End: 06-13-2016 Streptococcus.beta-hemol ytic [Presence] in Throat by Organism specific culture *Culture, R/O Strep A Swab [facility] Start: 06-13-2016 End: 06-13-2016 Streptococcus.beta-hemol ytic [Presence] in Throat by Organism specific culture *Culture, R/O Strep A Swab [facility] Start: 2000 Hepatitis B Vaccine (1 of 3 - 19+ 3-dose series) Hepatitis B Vaccine (1 of 3 - 19+ 3-dose series) [facility] Start: 2000 Urine microalbumin profile [facility] Start: 1981 HEPATITIS B (1 of 3 - 3-dose series) HEPATITIS B (1 of 3 - 3-dose series) [facility] End: 10-25-2022 ECG COMPLETE ECG COMPLETE ECG Routine Class 2 obesity with body mass index (BMI) of 38.0 to 38.9 in adult, unspecified obesity type, unspecified whether serious comorbidity present 1 Occurrences starting 10/25/2021 until 10/25/2022 [facility] Work Phone: Comment on above: 1 Occurrences starti ng 10/25/2021 until 10/25/2022 H&P for surgery H&P FOR SURGERY Procedures Routine Class 3 severe obesity with body mass index (BMI) of 40.0 to 44.9 in adult, unspecified obesity type, unspecified whether serious comorbidity present (HCC) Ordered: 04/20/2022 [facility] Work Phone: Comment on above: Ordered: 04/20/2022 Patient referral [facility] Work Phone: End: 11-24-2022 Radiologic exam chest 2 views XR CHEST 2V FRONTAL/LAT Radiology Routine Class 2 obesity with body mass index (BMI) of 38.0 to 38.9 in adult, unspecified obesity type, unspecified whether serious comorbidity present 1 Occurrences starting 10/25/2021 until 11/24/2022 [facility] Work Phone: Comment on above: 1 Occurrences starti ng 10/25/2021 until 11/24/2022 End: 10-26-2021 Radiologic exam chest 2 views [facility] Work Phone: Comment on above: 1 Occurrences starti ng 10/26/2021 until 10/26/2021 End: 01-06-2023 Radiologic exam upr gi trc double contrast study XR UPPER GI ROUTINE DOUBLE CONTRAST/AIR Radiology Routine Class 2 severe obesity due to excess calories with serious comorbidity and body mass index (BMI) of 38.0 to 38.9 in adult (HCC) 1 Occurrences starting 12/07/2021 until 01/06/2023 [facility] Work Phone: Comment on above: 1 Occurrences starti ng 12/07/2021 until 01/06/2023 End: 11-24-2022 Us abdominal real time w/image limited US ABD RT UPPER QUADRANT Radiology Routine Class 2 obesity with body mass index (BMI) of 38.0 to 38.9 in adult, unspecified obesity type, unspecified whether serious comorbidity present 1 Occurrences starting 10/25/2021 until 11/24/2022 [facility] Work Phone: Comment on above: 1 Occurrences starti ng 10/25/2021 until 11/24/2022 [facility] [place] Immunizations Immunization Date Immunization Notes Care Provider Leticia leroy 12-29-2017 influenza, injectabl e, quadrivalent, contains preservative Trudy Wormald PA-C Work Phone: [facility] 12-29-2017 influenza virus vaccine, unspecified formulation Garry Wilson DOOR MANAGER.CATTLE SPRAYER Work Phone: [facility] 12-22-2017 influenza, injectabl e, quadrivalent, preservative free Dr. Tamiko Urena Work Phone: [facility] 12-22-2017 influenza, seasonal, injectable [facility] 12-22-2017 influenza, seasonal, injectable, preservative free Tram Stack RD Work Phone: [facility] 01-30-2017 influenza, injectabl e, quadrivalent, contains preservative Trudy Wormald PA-C Work Phone: [facility] Work Phone: 12-24-2015 influenza, injectabl e, quadrivalent, contains preservative Trudy Wormald PA-C Work Phone: [facility] 02-17-2015 influenza, injectabl e, quadrivalent, contains preservative Maria D Fowler DOOR MANAGER.CATTLE SPRAYER Work Phone: [facility] 01-12-2009 novel [id number], preservative-free, injectable Maria D Malcolm LOTT.CATTLE SPRAYER Work Phone: [facility] 12-07-2008 influenza virus vaccine, whole virus Trudy Bernard PA-C Work Phone: [facility] Work Phone: Payers Date Payer Category Payer Self-pay [id number] 2022 Medicaid [id number] 2018 [employer] Blue Shield BLUE ACCE SS PPO [id number] 2018 Unknown ANTHEM BLUE ACCE PPO [id number] 2018-Present [phone] [address] [id number] 2018 Unknown ANTHEM BLUE ACCE PPO [id number] 2018-Present [phone] [place], [place] [id number] [facility] [id number] 2018 Unknown [id number] 2016 Medicaid [facility] MEDICAID [facility] [employer] MEDICAID [id number] 2016-Present [phone] [address] [place] [address] Medicaid [id number] 2016 Medicaid [id number] Unknown [id number] Unknown [id number] Unknown [id number] Unknown [id number] Social History Date Type Detail Facility Start: 10-25-2021 Tobacco smoking status NHIS Never smoked tobacco [facility] Start: 11-24-2020 End: 08-05-2024 Alcohol intake Current drinker of alcohol (finding) [facility] Start: 12-07-2019 History SDOH Alcohol Frequency 2 [facility] Start: 09-28-2015 History SDOH Alcohol Comment Occasionally [facility] Start: 1980 Sex Assigned At Not on file [facility] Start: 07-21-2021 End: 12-14-2021 Exposure to SARS-CoV-2 (event) Not sure [facility] Start: 01-20-2021 End: 10-05-2022 Tobacco smoking status NHIS Unknown if ever smoked [facility] Start: 01-26-2018 Occasional [facility] Start: 01-26-2018 None [facility] Start: 01-26-2018 With Family [facility] Start: 01-18-2021 Non-smoker [facility] Start: 1980 Sex Assigned At Female [facility] Start: 10-25-2021 Tobacco use and exposure Smokeless tobacco non-user [facility] Work Phone: Start: 10-15-2021 End: 10-25-2021 Exposure to SARS-CoV-2 (event) Unable to assess [facility] Start: 03-16-2022 Alcohol Comment NOT CURRENTLY THE LAST YEAR [facility] Start: 12-06-2019 End: 04-03-2022 History of Social function [facility] Start: 12-06-2019 End: 04-03-2022 Alcohol Use Disorder Identification Test - Consumption [AUDIT-C] [facility] How often to you hav e a drink containing alcohol? Monthly or less [facility] Average Number of Drinks Not on file [facility] Start: 10-16-2021 Gender identity Identifies as female gender (finding) [facility] Start: 10-16-2021 Sexual orientation Heterosexual (finding) [facility] Goals Date Patient Goal Desired Activity /State Personal health goal Personal health goal Functional Status Date Assessment Result Facility 01-18-2024 Are you deaf, or do you have serious difficulty hearing No 01/18/2024 2:56 PM Chantal Smallwood RN [facility] 01-18-2024 Are you blind, or do you have serious difficulty seeing, even when wearing glasses No 01/18/2024 2:56 PM Chantal Smallwood RN [facility] 01-18-2024 Do you have serious difficulty walking or climbing stairs No 01/18/2024 2:56 PM Chantal Smallwood RN [facility] 01-18-2024 Do you have difficul ty dressing or bathing No 01/18/2024 2:56 PM Chantal Smallwood RN No [facility] 01-18-2024 Because of a physica l, mental, or emotional condition, do you have difficulty doing errands alone such as visiting a physician's office or shopping No 01/18/2024 2:56 PM Chantal Smallwood RN [facility] Mental Status Date Assessment Result Facility 01-18-2024 Because of a physica l, mental, or emotional condition, do you have serious difficulty concentrating, remembering, or making decisions No 01/18/2024 2:56 PM Chantal Smallwood RN No [facility] 12-14-2022 Cognitive function Awake;Alert;A ppropriate; Follows Commands [facility] Work Phone: Clinical Notes 09-14-2008 to 08-05-2024 Anton Canales PA - 08/05/2024 8:29 AM Regina Villagran APRN.CATTLE SPRAYER - 03/19/2024 8:10 AM ESTTelephone Encounter - Glynn Edwards MA - 02/05/2024 8:31 AM ESTPatient InstructionsPatient Instructions Note Date & Type Note Facility 08-05-2024 Note HNO ID: [id number] Author: ANTON CANALES PA Service: ? Author Type: Physician Lawn Mower Mechanic Type: Progress Notes Filed: 08/05/2024 08:30 Note Text: [facility] Subjective Zonia Ojeda is a 44 year old female. Patient presents with: Other: I have been sick for over 2 weeks. Cough, congestion, headache, heaviness in chest, fatigue. - Entered by patient Cough: Cough, congestion, SHOEMAKER, fatigue and chest feels heavy x 2 weeks HPI Cough and Dyspnea: - Persistent cough x2 weeks, initially productive with a lot of phlegm, now less so. - Chest feels heavy, particularly when coughing and ascending stairs. - Mild dyspnea noted when ascending stairs. - Denies chest pain. - Taking Mucinex, which helps reduce coughing at night. - Denies history of COPD, asthma, or smoking. Sinus Pressure: - Sinus congestion and pressure x2 weeks. - Initially had significant rhinorrhea with yellowish-green discharge, now resolved. - Currently experiencing sinus pressure. - Denies ear pain. Fever: - Intermittent fevers, with the most recent episode last night (Tmax 100.2 degreeF). - No fever this morning. - Denies being or . PAST MEDICAL HISTORY Diagnosis Date ADD (attention deficit disorder) Anxiety Female infertility of unspecified origin Female infertility Influenza 03/2022 Morbid obesity (HCC) Pulmonary embolism (HCC) 2018 PAST SURGICAL HISTORY Procedure Laterality Date ADENOIDECTOMY PRIMARY Adenoidectomy CATH AND SALINE/CONTRAST SONOHYSTER/HYSTEROSALPI EXT HYSTERECTOMY,W/PARTIAL VAGINECTO 2020 HEMORRHOIDAL nd 05/2011 HEMORRHOIDECTOMY INT AND XTRNL 2/> COLUMN/JENNIFER 06/16/2015 1 quadrant TONSILLECTOMY PRIMARY/SECONDARY Tonsillectomy ALLERGIES Augmentin [Amoxicillin-Pot Clavulanate] and Hydrocodone MEDICATIONS escitalopram oxalate (LEXAPRO) 5 mg tablet Take 5 mg by mouth daily at bedtime. polyethylene glycol 3350 (MIRALAX, GLYCOLAX) 17 gram/dose powder Take by mouth once daily. Dissolve dose in 4 - 8 ounces of liquid and take as directed. vitamin D3-folic acid 125 mcg (5,000 unit)-1 mg tab Take 5,000 Units by mouth once daily. VYVANSE 30 mg capsule TAKE 1 CAPSULE BY MOUTH ONCE DAILY IN THE MORNING MULTIVITAMIN ORAL Take 1 tablet by mouth once daily. doxycycline (VIBRA-TABS) 100 mg tablet Take 1 tablet by mouth two times a day for 5 days. predniSONE (DELTASONE) 20 mg tablet Take 2 tablets by mouth once daily for 5 days. Take daily with food. benzonatate (TESSALON PERLE) 100 mg capsule Take 1 capsule by mouth three times a day as needed. FAMILY HISTORY Problem Relation Age of Onset Asthma Mother Hypertension Mother other (Pulmonary Embolism) Mother other (Kidney Stone) Father other (Pulmonary Embolism) Brother Cancer Maternal Grandmother ovarian Alcohol/Drug Maternal Grandfather ETOH Heart Maternal Aunt Psychiatry Maternal Aunt Social History Tobacco Use Smoking status: Never Smokeless tobacco: Never Vaping Use Vaping status: Never Used Substance Use Topics Alcohol use: Yes Comment: NOT CURRENTLY THE LAST YEAR Drug use: No Review of Systems Constitutional: (+) fever Head: (+) headache Ears/Nose/Mouth/Throat: (+) congestion, (+) sinus pressure, (-) ear pain, (-) sore throat Cardiovascular: (-) chest pain Respiratory: (+) cough, (+) phlegm, (+) chest heaviness, (+) shortness of breath Objective BP 110/76 Pulse 70 Temp 36.9 ?C (98.5 ?F) (Tympanic) Resp 18 Wt 104.2 kg (229 lb 11.5 oz) LMP 08/26/2019 SpO2 99% BMI 39.43 kg/m? Nursing note reviewed. Vitals reviewed Physical Exam General: No acute distress. HEENT: Throat clear, maxillary sinus pressure, nasal mucosa inflamed, tympanic membranes clear. CV: Heart sounds regular. Resp: Crackles with cough. Lungs CTA at rest {1. Acute cough (R05.1) - Cough persisting for over two weeks, initially productive with yellowish-green sputum, now less productive; associated with chest heaviness, particularly during coughing and exertion. - Recent low-grade fever of 100.2 degreeF noted last night; no fever this morning. - Physical exam reveals clear lung martinez with mild crackles upon coughing, clear throat, inflamed nasal passages, and maxillary sinus pressure. - Differential diagnosis includes bronchitis and pneumonia. - Ordered chest X-ray to rule out pneumonia. - Continue Mucinex as needed for symptomatic relief. 2. sinobronchitis - Rx doxycycline, prednisone, Tessalon Perles and Recording using [employer] software for draft documentation of the visit was discussed with the patient/authorized territory account representative; all questions welcomed and answered. Patient/authorized territory account representative agreed to proceed History and Record Review External record(s) reviewed: prior outpatient record. Systemic symptoms present included: Fever Differential Diagnoses - Sinobronchitis is more likely for the following reason (more content not included)... [facility] 08-05-2024 History of Presen t illness Narrative [facility] Subjective Zonia Ojeda is a 44 year old female. Patient presents with: Other: I have been sick for over 2 weeks. Cough, congestion, headache, heaviness in chest, fatigue. - Entered by patient Cough: Cough, congestion, SHOEMAKER, fatigue and chest feels heavy x 2 weeks HPI Cough and Dyspnea: - Persistent cough x2 weeks, initially productive with a lot of phlegm, now less so. - Chest feels heavy, particularly when coughing and ascending stairs. - Mild dyspnea noted when ascending stairs. - Denies chest pain. - Taking Mucinex, which helps reduce coughing at night. - Denies history of COPD, asthma, or smoking. Sinus Pressure: - Sinus congestion and pressure x2 weeks. - Initially had significant rhinorrhea with yellowish-green discharge, now resolved. - Currently experiencing sinus pressure. - Denies ear pain. Fever: - Intermittent fevers, with the most recent episode last night (Tmax 100.2 degreeF). - No fever this morning. - Denies being or . PAST MEDICAL HISTORY Diagnosis Date ADD (attention deficit disorder) Anxiety Female infertility of unspecified origin Female infertility Influenza 03/2022 Morbid obesity (HCC) Pulmonary embolism (HCC) 2018 PAST SURGICAL HISTORY Procedure Laterality Date ADENOIDECTOMY PRIMARY <AGE 13 Adenoidectomy CATH & SALINE/CONTRAST SONOHYSTER/HYSTEROSALPI EXT HYSTERECTOMY,W/PARTIAL VAGINECTO 2019 HEMORRHOIDAL 05/2011 HEMORRHOIDECTOMY INT & XTRNL 2/> COLUMN/JENNIFER 06/16/2015 1 quadrant TONSILLECTOMY PRIMARY/SECONDARY <AGE 13 Tonsillectomy ALLERGIES Augmentin [Amoxicillin-Pot Clavulanate] and Hydrocodone MEDICATIONS escitalopram oxalate (LEXAPRO) 5 mg tablet Take 5 mg by mouth daily at bedtime. polyethylene glycol 3350 (MIRALAX, GLYCOLAX) 17 gram/dose powder Take by mouth once daily. Dissolve dose in 4 - 8 ounces of liquid and take as directed. vitamin D3-folic acid 125 mcg (5,000 unit)-1 mg tab Take 5,000 Units by mouth once daily. VYVANSE 30 mg capsule TAKE 1 CAPSULE BY MOUTH ONCE DAILY IN THE MORNING MULTIVITAMIN ORAL Take 1 tablet by mouth once daily. doxycycline (VIBRA-TABS) 100 mg tablet Take 1 tablet by mouth two times a day for 5 days. predniSONE (DELTASONE) 20 mg tablet Take 2 tablets by mouth once daily for 5 days. Take daily with food. benzonatate (TESSALON PERLE) 100 mg capsule Take 1 capsule by mouth three times a day as needed. FAMILY HISTORY Problem Relation Age of Onset Asthma Mother Hypertension Mother other (Pulmonary Embolism) Mother other (Kidney Stone) Father other (Pulmonary Embolism) Brother Cancer Maternal Grandmother ovarian Alcohol/Drug Maternal Grandfather ETOH Heart Maternal Aunt Psychiatry Maternal Aunt Social History Tobacco Use Smoking status: Never Smokeless tobacco: Never Vaping Use Vaping status: Never Used Substance Use Topics Alcohol use: Yes Comment: NOT CURRENTLY THE LAST YEAR Drug use: No Review of Systems Constitutional: (+) fever Head: (+) headache Ears/Nose/Mouth/Throat: (+) congestion, (+) sinus pressure, (-) ear pain, (-) sore throat Cardiovascular: (-) chest pain Respiratory: (+) cough, (+) phlegm, (+) chest heaviness, (+) shortness of breath Objective BP 110/76 Pulse 70 Temp 36.9 C (98.5 F) (Tympanic) Resp 18 Wt 104.2 kg (229 lb 11.5 oz) LMP 08/26/2019 SpO2 99% BMI 39.43 kg/m Nursing note reviewed. Vitals reviewed Physical Exam General: No acute distress. HEENT: Throat clear, maxillary sinus pressure, nasal mucosa inflamed, tympanic membranes clear. CV: Heart sounds regular. Resp: Crackles with cough. Lungs CTA at rest {1. Acute cough (R05.1) - Cough persisting for over two weeks, initially productive with yellowish-green sputum, now less productive; associated with chest heaviness, particularly during coughing and exertion. - Recent low-grade fever of 100.2 degreeF noted last night; no fever this morning. - Physical exam reveals clear lung martinez with mild crackles upon coughing, clear throat, inflamed nasal passages, and maxillary sinus pressure. - Differential diagnosis includes bronchitis and pneumonia. - Ordered chest X-ray to rule out pneumonia. - Continue Mucinex as needed for symptomatic relief. 2. sinobronchitis - Rx doxycycline, prednisone, Tessalon Perles and Recording using [employer] software for draft documentation of the visit was discussed with the patient/authorized territory account representative; all questions welcomed and answered. Patient/authorized territory account representative agreed to proceed History and Record Review External record(s) reviewed: prior outpatient record. Systemic symptoms present included: Fever Differential Diagnoses - Sinobronchitis is more likely for the following reason(s): suggested by H&P - Pneumonia is less likely for the following reason(s): no evidence on imaging Disposition The patient was discharged. Procedures documented in this encounter [facility] 08-05-2024 Note HNO ID: [id number] Author: ARIADNA FUNK RT(R) Service: ? Author Type: Eligibility Clerk Type: Progress Notes Filed: 08/05/2024 08:18 Note Text: Radiology Service Progress Note PATIENT NAME: Zonia Ojeda DATE OF SERVICE: August 05, 2024 TIME: 8:08 AM PATIENT IDENTITY VERIFICATION COMPLETED USING TWO (2) IDENTIFIERS: Name and Date of confirmed by patient verbally. FALL SCREENING: Has the patient had 2 falls in the last year or 1 fall with injury or currently using an Ambulatory Assistive Device (Walker, Cane, Wheelchair, Crutches, etc.)? No PATIENT GENDER DATA: Assigned female at . status: : No status: NO. PATIENT RELEVANT IMPLANT DATA REVIEWED: Yes PATIENT PRESENTS WITH AN IMPLANTABLE OR ATTACHED MODEL DRESSER: No RADIOLOGY DEPARTMENT: General X-ray: Exam(s) Completed: Chest X-Ray PERIPHERAL IV DATA: Not applicable SIGNED BY: RT Heena(R) August 05, 2024 8:08 AM [facility] 03-19-2024 Note HNO ID: [id number] Author: REGINA HINES APRN.CATTLE SPRAYER Service: ? Author Type: Nurse Practitioner Type: Progress Notes Filed: 03/19/2024 08:27 Note Text: This note was created using NoteWriter. Subjective Zonia Ojeda is a 43 year old female. 43 year old female with PMH PE 2017 (contributed to PE, not on blood thinners) presents for illness Acute onset almost 3 weeks ago She was POSITIVE for COVID 17 days ago with home test +cough +productive sputum Endorses yesterday day evening she developed fever +winded +chest congestion Denies N/V/D Has been using DayQuil Nyquil Mucinex DM Denies tobacco usage +ill contact at home, citing her family was ill as well They all seem better but me The history is provided by the patient. No speech language pathologist prn was used. Cough This is a new problem. The current episode started more than 1 week ago. The problem occurs constantly. The problem has been gradually worsening. The cough is Productive of sputum. The maximum temperature recorded prior to her arrival was 100 to 100.9 F. Associated symptoms include chills, headaches, rhinorrhea, shortness of breath and wheezing. Pertinent negatives include no chest pain, no sweats, no weight loss, no ear congestion, no ear pain, no sore throat, no myalgias and no eye redness (+ ill contacts). Treatments tried: see HPI. The treatment provided no relief. She is not a smoker. Her past medical history does not include bronchitis, pneumonia, bronchiectasis, COPD, emphysema or asthma. PAST MEDICAL HISTORY Diagnosis Date ADD (attention deficit disorder) Anxiety Female infertility of unspecified origin Female infertility Influenza 03/2022 Morbid obesity (HCC) Pulmonary embolism (HCC) 2018 PAST SURGICAL HISTORY Procedure Laterality Date ADENOIDECTOMY PRIMARY Adenoidectomy CATH AND SALINE/CONTRAST SONOHYSTER/HYSTEROSALPI EXT HYSTERECTOMY,W/PARTIAL VAGINECTO 2020 HEMORRHOIDAL 05/2011 HEMORRHOIDECTOMY INT AND XTRNL 2/> COLUMN/JENNIFER 06/16/2015 1 quadrant TONSILLECTOMY PRIMARY/SECONDARY Tonsillectomy ALLERGIES Augmentin [Amoxicillin-Pot Clavulanate] and Hydrocodone MEDICATIONS escitalopram oxalate (LEXAPRO) 5 mg tablet Take 5 mg by mouth daily at bedtime. polyethylene glycol 3350 (MIRALAX, GLYCOLAX) 17 gram/dose powder Take by mouth once daily. Dissolve dose in 4 - 8 ounces of liquid and take as directed. vitamin D3-folic acid 125 mcg (5,000 unit)-1 mg tab Take 5,000 Units by mouth once daily. VYVANSE 30 mg capsule TAKE 1 CAPSULE BY MOUTH ONCE DAILY IN THE MORNING MULTIVITAMIN ORAL Take 1 tablet by mouth once daily. azithromycin (ZITHROMAX Z-EDGARDO) 250 mg tablet Take 2 tablets day one, then, 1 tablet daily until gone. benzonatate (TESSALON PERLE) 100 mg capsule Take 1 capsule by mouth three times a day as needed for cough. FAMILY HISTORY Problem Relation Age of Onset Asthma Mother Hypertension Mother other (Pulmonary Embolism) Mother other (Kidney Stone) Father other (Pulmonary Embolism) Brother Cancer Maternal Grandmother ovarian Alcohol/Drug Maternal Grandfather ETOH Heart Maternal Aunt Psychiatry Maternal Aunt Social History Tobacco Use Smoking status: Never Smokeless tobacco: Never Vaping Use Vaping status: Never Used Substance Use Topics Alcohol use: Yes Comment: NOT CURRENTLY THE LAST YEAR Drug use: No Review of Systems Constitutional: Positive for chills, fatigue and fever. Negative for weight loss. HENT: Positive for congestion and rhinorrhea. Negative for ear pain and sore throat. Eyes: Negative for discharge, redness (+ ill contacts) and itching. Respiratory: Positive for cough, shortness of breath and wheezing. Cardiovascular: Negative for chest pain. Gastrointestinal: Negative for abdominal pain, diarrhea, nausea and vomiting. Musculoskeletal: Negative for arthralgias, back pain and myalgias. Skin: Negative for color change, pallor, rash and wound. Allergic/Immunologic: Negative for environmental allergies, food allergies and immunocompromised state. Neurological: Positive for headaches. Hematological: Negative for adenopathy. Does not bruise/bleed easily. Psychiatric/Behavioral: Negative for agitation and behavioral problems. Objective BP 122/68 Pulse 92 Temp 36.9 ?C (98.5 ?F) Resp 18 Wt 100.7 kg (222 lb 0.1 oz) LMP 08/26/2019 SpO2 100% BMI 38.11 kg/m? Physical Exam Vitals and nursing note reviewed. Constitutional: General: She is not in acute distress. Appearance: Normal appearance. She is normal weight. She is not ill-appearing, toxic-appearing or diaphoretic. HENT: Head: Normocephalic and atraumatic. Right Ear: Ear canal and external ear normal. Left Ear: Ear canal and external ear normal. Nose: Congestion present. No rhinorrhea. Mouth/Throat: Mouth: Mucous membranes are moist. Pharynx: Posterior oropharyngeal erythema present. No oropharyngeal exudate. Eyes: (more content not included)... [facility] 03-19-2024 History of Presen t illness Narrative This note was created using [employer]. Subjective Zonia Ojeda is a 43 year old female. 43 year old female with PMH PE 2018 (contributed to PE, not on blood thinners) presents for illness Acute onset almost 3 weeks ago She was POSITIVE for COVID 17 days ago with home test +cough +productive sputum Endorses yesterday day evening she developed fever +winded +chest congestion Denies N/V/D Has been using DayQuil Nyquil Mucinex DM Denies tobacco usage +ill contact at home, citing her family was ill as well They all seem better but me The history is provided by the patient. No speech language pathologist prn was used. Cough This is a new problem. The current episode started more than 1 week ago. The problem occurs constantly. The problem has been gradually worsening. The cough is Productive of sputum. The maximum temperature recorded prior to her arrival was 100 to 100.9 F. Associated symptoms include chills, headaches, rhinorrhea, shortness of breath and wheezing. Pertinent negatives include no chest pain, no sweats, no weight loss, no ear congestion, no ear pain, no sore throat, no myalgias and no eye redness (+ ill contacts). Treatments tried: see HPI. The treatment provided no relief. She is not a smoker. Her past medical history does not include bronchitis, pneumonia, bronchiectasis, COPD, emphysema or asthma. PAST MEDICAL HISTORY Diagnosis Date ADD (attention deficit disorder) Anxiety Female infertility of unspecified origin Female infertility Influenza 03/2022 Morbid obesity (HCC) Pulmonary embolism (HCC) 2017 PAST SURGICAL HISTORY Procedure Laterality Date ADENOIDECTOMY PRIMARY <AGE 13 Adenoidectomy CATH & SALINE/CONTRAST SONOHYSTER/HYSTEROSALPI EXT HYSTERECTOMY,W/PARTIAL VAGINECTO 2019 HEMORRHOIDAL 05/2011 HEMORRHOIDECTOMY INT & XTRNL 2/> COLUMN/JENNIFER 06/16/2015 1 quadrant TONSILLECTOMY PRIMARY/SECONDARY <AGE 13 Tonsillectomy ALLERGIES Augmentin [Amoxicillin-Pot Clavulanate] and Hydrocodone MEDICATIONS escitalopram oxalate (LEXAPRO) 5 mg tablet Take 5 mg by mouth daily at bedtime. polyethylene glycol 3350 (MIRALAX, GLYCOLAX) 17 gram/dose powder Take by mouth once daily. Dissolve dose in 4 - 8 ounces of liquid and take as directed. vitamin D3-folic acid 125 mcg (5,000 unit)-1 mg tab Take 5,000 Units by mouth once daily. VYVANSE 30 mg capsule TAKE 1 CAPSULE BY MOUTH ONCE DAILY IN THE MORNING MULTIVITAMIN ORAL Take 1 tablet by mouth once daily. azithromycin (ZITHROMAX Z-EDGARDO) 250 mg tablet Take 2 tablets day one, then, 1 tablet daily until gone. benzonatate (TESSALON PERLE) 100 mg capsule Take 1 capsule by mouth three times a day as needed for cough. FAMILY HISTORY Problem Relation Age of Onset Asthma Mother Hypertension Mother other (Pulmonary Embolism) Mother other (Kidney Stone) Father other (Pulmonary Embolism) Brother Cancer Maternal Grandmother ovarian Alcohol/Drug Maternal Grandfather ETOH Heart Maternal Aunt Psychiatry Maternal Aunt Social History Tobacco Use Smoking status: Never Smokeless tobacco: Never Vaping Use Vaping status: Never Used Substance Use Topics Alcohol use: Yes Comment: NOT CURRENTLY THE LAST YEAR Drug use: No Review of Systems Constitutional: Positive for chills, fatigue and fever. Negative for weight loss. HENT: Positive for congestion and rhinorrhea. Negative for ear pain and sore throat. Eyes: Negative for discharge, redness (+ ill contacts) and itching. Respiratory: Positive for cough, shortness of breath and wheezing. Cardiovascular: Negative for chest pain. Gastrointestinal: Negative for abdominal pain, diarrhea, nausea and vomiting. Musculoskeletal: Negative for arthralgias, back pain and myalgias. Skin: Negative for color change, pallor, rash and wound. Allergic/Immunologic: Negative for environmental allergies, food allergies and immunocompromised state. Neurological: Positive for headaches. Hematological: Negative for adenopathy. Does not bruise/bleed easily. Psychiatric/Behavioral: Negative for agitation and behavioral problems. Objective BP 122/68 Pulse 92 Temp 36.9 C (98.5 F) Resp 18 Wt 100.7 kg (222 lb 0.1 oz) LMP 08/26/2019 SpO2 100% BMI 38.11 kg/m Physical Exam Vitals and nursing note reviewed. Constitutional: General: She is not in acute distress. Appearance: Normal appearance. She is normal weight. She is not ill-appearing, toxic-appearing or diaphoretic. HENT: Head: Normocephalic and atraumatic. Right Ear: Ear canal and external ear normal. Left Ear: Ear canal and external ear normal. Nose: Congestion present. No rhinorrhea. Mouth/Throat: Mouth: Mucous membranes are moist. Pharynx: Posterior oropharyngeal erythema present. No oropharyngeal exudate. Eyes: General: Right eye: No discharge. Left eye: No discharge. Extraocular Movements: Extraocular movements intact. Conjunctiva/sclera: Conjunctivae normal. Pupils: Pupils are equal, round, and reactive to light. Cardiovascular: Rate and Rhythm: Normal rate and regular rhythm. Pulses: Normal pulses. Heart sounds: Normal heart sounds. No murmur heard. No friction rub. Pulmonary: Effort: Pulmonary effort is normal. No respiratory distress. Breath sounds: Normal breath sounds. No stridor. No wheezing, rhonchi or rales. Comments: Harsh cough with deep inspiration Chest: Chest wall: No tenderness. Abdominal: General: Abdomen is flat. There is no distension. Palpations: Abdomen is soft. There is no mass. Tenderness: There is no abdominal tenderness. There is no right CVA tenderness, left CVA tenderness, guarding or rebound. Hernia: No hernia is present. Musculoskeletal: General: No swelling, tenderness, deformity or signs of injury. Normal range of motion. Cervical back: Normal range of motion and neck supple. No rigidity. Right lower leg: No edema. Left lower leg: No edema. Lymphadenopathy: Cervical: Cervical adenopathy present. Skin: General: Skin is warm and dry. Coloration: Skin is not jaundiced or pale. Findings: No bruising, erythema, lesion or rash. Neurological: General: No focal deficit present. Mental Status: She is alert and oriented to person, place, and time. Cranial Nerves: No cranial nerve deficit. Sensory: No sensory deficit. Motor: No weakness. Coordination: Coordination normal. Gait: Gait normal. Psychiatric: Mood and Affect: Mood normal. Behavior: Behavior normal. Thought Content: Thought content normal. Judgment: Judgment normal. Assessment and Plan ASSESSMENT/PLAN: 1. Acute cough - ICD9: 786.2, ICD10: R05.1 (primary diagnosis) X 3 weeks +COVID 17 days ago Increasing cough +winded Denies dyspnea Denies hemoptysis Pulse Ox 100 percent No CXR as patient presents on holiday, Will treat for atypical pneumonia RX Zpack RX Tessalon Perles 2. Lower respiratory infection - ICD9: 519.8, ICD10: J22 X 3 weeks Harsh cough noted Hemodynamically stable Regina Hines APRN.CATTLE SPRAYER documented in this encounter [facility] 02-05-2024 Telephone encounter Note Good morning, I still do not have the option to email Dr De La Cruz s office via [employer] for some reason. Could this email be forwarded to him? I read the notes on my follow up appointment yesterday but I think I must have missed communicated to her how I am feeling. In the notes it says I have occasional burning and pulling with movement but it s not worrisome. However, I have burning and pulling anytime I move. I am actually in quite a bit of pain unless I am laying down somewhat flat. It is not a digestive pain/burn. It feels more muscle or nerve near my largest incision. I have to wear an abdominal binder anytime I need to move/walk. I am worried about it, but she did reassure me it takes about 4 weeks to heal. Like I said, maybe I miscommunicated my pain, but I wanted to be sure this was known in case it raised any red flags. I may just be taking longer to recover but I just thought I d be in less pain by now so it s alittle discouraging. I appreciate your help in forwarding this message. Thank you! Zonia Ojeda [facility] 02-05-2024 Miscellaneous Notes Good morning, I still do not have the option to email Dr De La Cruz s office via [employer] for some reason. Could this email be forwarded to him? I read the notes on my follow up appointment yesterday but I think I must have missed communicated to her how I am feeling. In the notes it says I have occasional burning and pulling with movement but it s not worrisome. However, I have burning and pulling anytime I move. I am actually in quite a bit of pain unless I am laying down somewhat flat. It is not a digestive pain/burn. It feels more muscle or nerve near my largest incision. I have to wear an abdominal binder anytime I need to move/walk. I am worried about it, but she did reassure me it takes about 4 weeks to heal. Like I said, maybe I miscommunicated my pain, but I wanted to be sure this was known in case it raised any red flags. I may just be taking longer to recover but I just thought I d be in less pain by now so it s alittle discouraging. I appreciate your help in forwarding this message. Thank you! Zonia Ojeda documented in this encounter [facility] 02-04-2024 History of Presen t illness Narrative VIRTUAL VISIT PROGRESS NOTE This is a virtual visit using [employer] Zoom Video Visit. It required patient-provider interaction for the medical decision making as documented below. I have communicated my name and active licensure. The patient's identity and physical location were verified at the time of this visit. Either the patient or their legal territory account representative has been informed of the risks and benefits of -- and alternatives to -- treatment through a remote evaluation and consents to proceed with the evaluation remotely. Zonia Ojeda is a 43 year old female seen for pos operative visit following a laparoscopic cholecystectomy with grams by Dr De La Cruz. She was discharged on stable condition from PACU. Today, Zonia presents for a follow up. She reports no new or concerning symptoms. She does experience occasional burning / pulling sensation around incision area with movement but not worrisome. She uses an abdominal binder for comfort. Tolerating diet. Denies nausea/vomiting or diarrhea or constipation. Had chills this morning but no fevers. Incisions are healing well. The one on the epigastric area appears a little red/pinkish. Denies tenderness. HISTORY REVIEWED (electronic chart updated): PAST MEDICAL HISTORY Diagnosis Date ADD (attention deficit disorder) Anxiety Female infertility of unspecified origin Female infertility Influenza 03/2022 Morbid obesity (HCC) Pulmonary embolism (HCC) 2017 PAST SURGICAL HISTORY Procedure Laterality Date ADENOIDECTOMY PRIMARY <AGE 13 Adenoidectomy CATH & SALINE/CONTRAST SONOHYSTER/HYSTEROSALPI EXT HYSTERECTOMY,W/PARTIAL VAGINECTO 2019 HEMORRHOIDAL 05/2011 HEMORRHOIDECTOMY INT & XTRNL 2/> COLUMN/JENNIFER 06/16/2015 1 quadrant TONSILLECTOMY PRIMARY/SECONDARY <AGE 13 Tonsillectomy FAMILY HISTORY Problem Relation Age of Onset Asthma Mother Hypertension Mother other (Pulmonary Embolism) Mother other (Kidney Stone) Father other (Pulmonary Embolism) Brother Cancer Maternal Grandmother ovarian Alcohol/Drug Maternal Grandfather ETOH Heart Maternal Aunt Psychiatry Maternal Aunt Social History Tobacco Use Smoking status: Never Smokeless tobacco: Never Vaping Use Vaping status: Never Used Substance Use Topics Alcohol use: Yes Comment: NOT CURRENTLY THE LAST YEAR Drug use: No Current Outpatient Medications Medication Sig escitalopram oxalate (LEXAPRO) 5 mg tablet Take 5 mg by mouth daily at bedtime. polyethylene glycol 3350 (MIRALAX, GLYCOLAX) 17 gram/dose powder Take by mouth once daily. Dissolve dose in 4 - 8 ounces of liquid and take as directed. vitamin D3-folic acid 125 mcg (5,000 unit)-1 mg tab Take 5,000 Units by mouth once daily. VYVANSE 30 mg capsule TAKE 1 CAPSULE BY MOUTH ONCE DAILY IN THE MORNING MULTIVITAMIN ORAL Take 1 tablet by mouth once daily. No current facility-administered medications for this visit. ALLERGIES Allergen Reactions Augmentin [Amoxicil* Itching & swelling Hydrocodone Itching REVIEW OF SYSTEMS: 10 ROS reviewed negative except what noted on HPI. PHYSICAL EXAMINATION: VIDEO EXAM: (if completed, performed via video enabled technology) GENERAL: alert and appropriate, in no distress, well-hydrated, well nourished, and happy, smiling, interactive - Surgical incision: Mid upper quadrant of abdomen with some redness/ scabbed. No noted discharges or swelling. Rest of lap sites healing. ASSESSMENT / PLAN S/p Laparoscopic cholecystectomy 01/18/24 - Healing as expected. Reviewed post operative instructions with patient including but not limited to diet, activity/restrictions and incisional care. Advised to continue to follow lifting restrictions as discussed. Follow up as needed. I spent a total of 15 minutes on the date of the service which included preparing to see the patient, [id number] patient care, completing clinical documentation, obtaining and/or reviewing separately obtained history, performing a medically appropriate examination, and counseling and educating the patient/family/caregiver Rochelle Carlos APRN.AUREA documented in this encounter [facility] 02-04-2024 Note HNO ID: [id number] Author: ROCHELLE CARLOS APRN.AUREA Service: ? Author Type: Nurse Practitioner Type: Progress Notes Filed: 02/04/2024 15:58 Note Text: VIRTUAL VISIT PROGRESS NOTE This is a virtual visit using [employer] Video Visit. It required patient-provider interaction for the medical decision making as documented below. I have communicated my name and active licensure. The patient's identity and physical location were verified at the time of this visit. Either the patient or their legal territory account representative has been informed of the risks and benefits of -- and alternatives to -- treatment through a remote evaluation and consents to proceed with the evaluation remotely. Zonia Ojeda is a 43 year old female seen for pos operative visit following a laparoscopic cholecystectomy with grams by Dr De La Cruz. She was discharged on stable condition from PACU. Today, Zonia presents for a follow up. She reports no new or concerning symptoms. She does experience occasional burning / pulling sensation around incision area with movement but not worrisome. She uses an abdominal binder for comfort. Tolerating diet. Denies nausea/vomiting or diarrhea or constipation. Had chills this morning but no fevers. Incisions are healing well. The one on the epigastric area appears a little red/pinkish. Denies tenderness. HISTORY REVIEWED (electronic chart updated): PAST MEDICAL HISTORY Diagnosis Date ADD (attention deficit disorder) Anxiety Female infertility of unspecified origin Female infertility Influenza 03/2022 Morbid obesity (HCC) Pulmonary embolism (HCC) 2017 PAST SURGICAL HISTORY Procedure Laterality Date ADENOIDECTOMY PRIMARY Adenoidectomy CATH AND SALINE/CONTRAST SONOHYSTER/HYSTEROSALPI EXT HYSTERECTOMY,W/PARTIAL VAGINECTO 2019 HEMORRHOIDAL 05/2011 HEMORRHOIDECTOMY INT AND XTRNL 2/> COLUMN/JENNIFER 06/16/2015 1 quadrant TONSILLECTOMY PRIMARY/SECONDARY Tonsillectomy FAMILY HISTORY Problem Relation Age of Onset Asthma Mother Hypertension Mother other (Pulmonary Embolism) Mother other (Kidney Stone) Father other (Pulmonary Embolism) Brother Cancer Maternal Grandmother ovarian Alcohol/Drug Maternal Grandfather ETOH Heart Maternal Aunt Psychiatry Maternal Aunt Social History Tobacco Use Smoking status: Never Smokeless tobacco: Never Vaping Use Vaping status: Never Used Substance Use Topics Alcohol use: Yes Comment: NOT CURRENTLY THE LAST YEAR Drug use: No Current Outpatient Medications Medication Sig escitalopram oxalate (LEXAPRO) 5 mg tablet Take 5 mg by mouth daily at bedtime. polyethylene glycol 3350 (MIRALAX, GLYCOLAX) 17 gram/dose powder Take by mouth once daily. Dissolve dose in 4 - 8 ounces of liquid and take as directed. vitamin D3-folic acid 125 mcg (5,000 unit)-1 mg tab Take 5,000 Units by mouth once daily. VYVANSE 30 mg capsule TAKE 1 CAPSULE BY MOUTH ONCE DAILY IN THE MORNING MULTIVITAMIN ORAL Take 1 tablet by mouth once daily. No current facility-administered medications for this visit. ALLERGIES Allergen Reactions Augmentin [Amoxicil* Itching AND swelling Hydrocodone Itching REVIEW OF SYSTEMS: 10 ROS reviewed negative except what noted on HPI. PHYSICAL EXAMINATION: VIDEO EXAM: (if completed, performed via video enabled technology) GENERAL: alert and appropriate, in no distress, well-hydrated, well nourished, and happy, smiling, interactive - Surgical incision: Mid upper quadrant of abdomen with some redness/ scabbed. No noted discharges or swelling. Rest of lap sites healing. ASSESSMENT / PLAN S/p Laparoscopic cholecystectomy 01/18/24 - Healing as expected. Reviewed post operative instructions with patient including but not limited to diet, activity/restrictions and incisional care. Advised to continue to follow lifting restrictions as discussed. Follow up as needed. I spent a total of 15 minutes on the date of the service which included preparing to see the patient, ulok-fi-buaa patient care, completing clinical documentation, obtaining and/or reviewing separately obtained history, performing a medically appropriate examination, and counseling and educating the patient/family/caregiver Rochelle Carlos APRN.[facility] 01-29-2024 Telephone encounter Note Pt notified of message. Glynn Edwards MA January 29, 2024 8:51 AM [facility] 01-29-2024 Miscellaneous Notes Pt notified of message. Glynn Edwards MA January 29, 2024 8:51 AM LVM. Glynn Edwards MA January 29, 2024 8:31 AM Images from the original note were not included. Ankur De La Cruz MD You11 hours ago (8:58 PM) Thank you for the message. The incision appears to be healing well. The soreness should subside within the next week or two. Thank you, Ankur De La Cruz MD Images from the original note were not included. Pt sent email as below: Good morning, As I briefly advised on the phone, I had my gallbladder removed in January 17. I spoke with Dr Wagoner in Sunday and he reassured me that it sounds like what I am experiencing is normal but he said I could be seen today to make sure. I live about 35-40 mins away and I do struggle with being in the car for longer periods of time due to the pain/burning/pulling sensation so I d like to avoid that if possible. I had developed a cough last week which I believe caused irritation and more soreness from coughing. I am just experiencing a burning sensation/pulling sensation pain with movement. If the incision appears to be normal, then I will just continue to take it easy and treat with ice/heat. Thank you for your help. Zonia Ojeda documented in this encounter [facility] 01-29-2024 Telephone encounter Note LVM. Glynn Edwards MA January 29, 2024 8:31 AM [facility] 01-29-2024 Telephone encounter Note Images from the original note were not included. Ankur De La Cruz MD You11 hours ago (8:58 PM) Thank you for the message. The incision appears to be healing well. The soreness should subside within the next week or two. Thank you, Ankur De La Curz MD [facility] 01-28-2024 Telephone encounter Note Images from the original note were not included. Pt sent email as below: Good morning, As I briefly advised on the phone, I had my gallbladder removed in January 17. I spoke with Dr Wagoner in Sunday and he reassured me that it sounds like what I am experiencing is normal but he said I could be seen today to make sure. I live about 35-40 mins away and I do struggle with being in the car for longer periods of time due to the pain/burning/pulling sensation so I d like to avoid that if possible. I had developed a cough last week which I believe caused irritation and more soreness from coughing. I am just experiencing a burning sensation/pulling sensation pain with movement. If the incision appears to be normal, then I will just continue to take it easy and treat with ice/heat. Thank you for your help. Zonia Ojeda [facility] 01-26-2024 Telephone encounter Note Zonia Ojeda contacted our office via the answering service. Overall she reports feeling better and has improvement in the appearance of her incisions and her discomfort. She had a coughing episode and felt some pulling and burning at the epigastric incision. The discomfort subsides with standing, sitting or resting, but does worsen when she initially stands up. She denies any other symptoms. I counseled her on the general course of the port sites and recovery. We will plan for a Sunday visit in the [facility] time if possible for re-evaluation. All questions answered to her satisfaction. Ankur De La Cruz MD [facility] Work Phone: 01-26-2024 Miscellaneous Notes Zonia Ojeda contacted our office via the answering service. Overall she reports feeling better and has improvement in the appearance of her incisions and her discomfort. She had a coughing episode and felt some pulling and burning at the epigastric incision. The discomfort subsides with standing, sitting or resting, but does worsen when she initially stands up. She denies any other symptoms. I counseled her on the general course of the port sites and recovery. We will plan for a Sunday visit in the [facility] time if possible for re-evaluation. All questions answered to her satisfaction. Ankur De La Cruz MD documented in this encounter [facility] 01-23-2024 Telephone encounter Note Laney Montoya MD Just saw the picture-- this looks totally appropriate, but if it worsens or changes she can contact us again or come in to have it checked. Any fever, chills, nausea or emesis, or drainage should also prompt her to come in. Thanks!! Pt notified verbalized understanding. Nannette MOTA [facility] 01-23-2024 Miscellaneous Notes Laney Montoya MD Just saw the picture-- this looks totally appropriate, but if it worsens or changes she can contact us again or come in to have it checked. Any fever, chills, nausea or emesis, or drainage should also prompt her to come in. Thanks!! Pt notified verbalized understanding. Nannette MOTA Ambika padron on 01/18/24- states the top of her incision is slightly red and is burning, denies drainage, fever, chills, n/v. Still having pain is alternating tylenol and ibuprofen. She will email picture. Nannette MOTA documented in this encounter [facility] 01-23-2024 Telephone encounter Note Ambika padron on 01/18/24- states the top of her incision is slightly red and is burning, denies drainage, fever, chills, n/v. Still having pain is alternating tylenol and ibuprofen. She will email picture. Nannette MOTA [facility] 01-18-2024 Note HNO ID: [id number] Author: ANKUR DE LA CRUZ MD Service: General Surgery Author Type: Resident Type: Progress Notes Filed: 01/29/2024 05:38 Note Text: Attestation signed by Ankur De La Cruz MD at 01/29/2024 5:38 AM Attending Note The patient is appropriate for discharge on 01/18/2024. I discussed with resident. The patient was not examined by the attending. I reviewed the resident's note. I agree with the resident's assessment and plan unless otherwise noted. Signature: Ankur De La Cruz MD Delayed entry DISCHARGE SUMMARY PATIENT NAME: Zonia Ojeda Code Status: Full Code Highest Readmission Risk Score: 12 The 30 day readmissions risk score is derived from an internally validated risk model which evaluates patient level characteristics, utilization history, medication orders and lab results up until the day of discharge. Patients with a score of 40 or above are considered highest risk for readmission. Specific patient level drivers will be listed at the bottom of the summary. Admission Information Admission Information ADMIT DATE: 01/17/2024 DISCHARGE DATE: 01/18/2024 MY DOCTORS AND MEDICAL TEAM: My Main Hospital Doctor: Ankur De La Cruz MD Primary Care Provider: Tamiko Urena MD My Medical Team Members: Treatment Team: Attending Provider: Ankur De La Cruz MD MY CONDITION AT DISCHARGE: Stable REASON I WAS IN THE HOSPITAL: For Right upper quadrant pain SUMMARY OF WHAT HAPPENED WHILE I WAS IN THE HOSPITAL: Patient came into the hospital due to right upper quadrant abdominal pain. She was diagnosed with symptomatic cholelithiasis. She was taken the operating room for laparoscopic cholecystectomy with intraoperative cholangiograms. After the procedure her pain was under control. She was able to tolerate a diet. At this point she is stable for discharge. OTHER PROBLEMS/DIAGNOSIS: Principal Problem: Symptomatic cholelithiasis Resolved Problems: * No resolved hospital problems. * OPERATIONS PERFORMED WHILE IN THE HOSPITAL: Laparoscopic cholecystectomy with intraoperative cholangiogram IMPORTANT TEST/PROCEDURES: No procedures performed TEST RESULTS NOT AVAILABLE AT THIS TIME: None Discharge Disposition Discharge Disposition: Home With Self Care Activity When You Leave the Hospital No prolonged bedrest, longer than 8 hours in a 24 hour period Other: No heavy lifting greater than 10 pounds for 4 weeks. May shower. Do not soak in water for [address] while on pain medications. No walking restrictions. Diet Instructions Drink 6 to 8 glasses of fluids per day Resume your pre-hospital diet For Pain When You Leave the Hospital Continue taking previously prescribed pain medications as directed If you become constipated, you may use any avli-zex-oletljm treatment such as Milk of Magnesia, Sennakot, Prune Juice, Suppositories, etc. in addition to the stool softener/fiber supplement No alcohol or driving while on pain medication Use acetaminophen (Tylenol) as recommended on the bottle Use the dispensed medication (see prescription) You should use an kvgv-knk-ivgsjls stool softener (Docusate sodium) and/or a fiber supplement (Metamucil, Fiber Con) every day while taking prescribed pain medication Wound/Surgical Site Care Your incision has skin glue. It will peel off on its own. It can get wet Call Your Doctor If There is severe pain at the operative site You have persistent nausea/vomiting over 24 hours You have persistent or heavy bleeding You have redness, swelling, pus or drainage from the wound Your temperature is greater than 101F Follow Up Appointments Follow-Up Appointment When: In 2 weeks Patient/Parents to call for appointment?: Yes Ankur De La Cruz MD [phone] [address] [phone] PCP Requested Referral Additional Provider to Provider Information: Principal Problem: Symptomatic cholelithiasis Resolved Problems: * No resolved hospital problems. * Treatment Team: Attending Provider: Ankur De La Cruz MD FOLLOW-UP APPOINTMENTS ALREADY SCHEDULED WITH A [facility] PROVIDER: No future appointments. ALLERGIES Allergen Reactions Augmentin [Amoxicil* Itching AND swelling Hydrocodone Itching DISCHARGE MEDICATION: Medication List START taking these medications oxyCODONE IR 5 mg immediate release tablet Commonly known as: ROXICODONE Take 1 tablet by mouth every 6 hours as needed for pain for up to 5 days. CONTINUE taking these medications LEXAPRO 5 mg tablet Generic drug: escitalopram oxalate MULTIVITAMIN ORAL polyethylene glycol 3350 17 gram/dose powder semaglutide 1 mg/dose (4 mg/3 mL) pen Commonly known as: OZEMPIC vitamin D3-folic acid 1 (more content not included)... [facility] 01-18-2024 Note HNO ID: [id number] Author: LEAH SO RN Service: Care Management Author Type: Registered Nurse Type: Care Mgt Progress Note Filed: 01/18/2024 11:10 Note Text: CARE MANAGEMENT PROGRESS NOTE SERVICE DATE: 01/18/2024 SERVICE TIME: 11:09 AM LOS: 1 day Chart reviewed. Acute cholecystitis. Currently in the OR for laparoscopic cholecystectomy. Unable to complete initial assessment at this time. Will follow clinical course for transitional/discharge planning needs. SIGNATURE: Leah So RN PATIENT NAME: Zonia Ojeda DATE: January 18, 2024 TIME: 11:09 AM PAGER/CONTACT #: [phone] [facility] 01-18-2024 Note HNO ID: [id number] Author: CAMRYN LONG APRN.CRNA Service: Anesthesiology Author Type: Nurse Podiatric Assistant Type: Anesthesia Procedure Notes Filed: 01/18/2024 08:45 Note Text: ANESTHESIOLOGY PROCEDURE NOTE Airway General Information Procedure Start Time/Medication Administration: 01/18/2024 8:34 AM Procedure End Time: 01/18/2024 8:35 AM Patient location during procedure: OR Timeout Performed Pre-procedure: timeout performed Consent Obtained: Yes Patient identity confirmed: arm band and care human resources team member Staffing Anesthesiologist: Miriam Villarreal MD FIRST HELPER: Camryn Long APRN.FIRST HELPER Performed by: NIEVES Indications and Patient Condition Indications for airway management: anesthesia Preoxygenated: yes anesthesia circuit Patient position: sniffing Method: asleep Cricoid Pressure: No Difficult Mask: No Final Airway Details Final airway type: endotracheal airway Final Endotracheal Airway: ETT Cuffed: yes Successful intubation technique: direct laryngoscopy Devices used: intubating stylet Endotracheal tube insertion site: oral Blade: [place] Blade size: #3 Measured from: lips Measurement (cm): 22 Placement verified by: chest auscultation and capnometry Cormack-Lehane Classification: grade IIa - partial view of glottis Number of attempts at approach: 1 Failed airway: no Unrecognized esophageal intubation: no Airway not difficult SIGNATURE: Camryn Long APRN.CRNA PATIENT NAME: Zonia Ojeda DATE: January 18, 2024 TIME: 8:44 AM CSN: [id number] [facility] 01-18-2024 Note HNO ID: [id number] Author: ANKUR DE LA CRUZ MD Service: General Surgery Author Type: Resident Type: Progress Notes Filed: 01/29/2024 05:46 Note Text: Attestation signed by Ankur De La Cruz MD at 01/29/2024 5:46 AM Attending Note I evaluated the patient and personally participated in the pierre components on 01/18/2024 I agree with the resident's findings and plan as documented and have discussed the case and management of the patient's care with the resident. Ankur De La Cruz MD Delayed entry Emergency General Surgery Progress Note SERVICE DATE: January 18, 2024 Emergency General Surgery Service Pager: For questions or concerns Mon-Fri 6a-5p please page [phone]. After 5pm and on Weekends and Holidays, please page [phone] if in ICU or [phone] if on RNF. SUBJECTIVE: Patient seen in the AM. NAOE. Pain significantly improved from yesterday. Plan is for surgeyr today for lap michelle. Tolerating diet DIET NPO Nausea No Emesis No Flatus Yes Bowel movement Yes Pain Controlled Yes Ambulating Yes OBJECTIVE: Vitals: Temp (24hrs), Av.5 ?C (97.7 ?F), Min:36.3 ?C (97.3 ?F), Max:36.7 ?C (98 ?F) BP 96/59 Pulse 75 Temp 36.7 ?C (98 ?F) (Oral) Resp 18 Ht 162.6 cm (5' 4) Wt 96.4 kg (212 lb 8.4 oz) LMP 08/26/2019 SpO2 94% BMI 36.48 kg/m? O2 Therapy: Room Air IANDO: Date 01/17/24 07 - 01/18/24 0659 01/18/24699 - 01/19/24 0659 Shift 9995-2509 6593-1176 0830-5831 24 Hour Total 3271-6091 2332-0793 7932-0416 24 Hour Total INTAKE IV 100 626 726 Volume (mL) (cefOXitin 2 g in NaCl 0.9% 100 mL Vial-Bag (MEFOXIN)) 100 100 Volume (mL) (cefOXitin 2 g in NaCl 0.9% 100 mL Vial-Bag (MEFOXIN)) 100 100 Volume (mL) (lactated ringers iv infusion) 526 526 Shift Total 100 626 726 OUTPUT Urine 500 500 Void (ml) 500 500 Shift Total 500 500 Weight (kg) 90.7 96.4 96.4 96.4 96.4 96.4 96.4 MEDICATIONS Current Facility-Administered Medications Medication Dose Route Frequency enoxaparin 40 mg injection (LOVENOX) 40 mg SUBCUTANEOUS DAILY NaCl 0.9% iv flush bag 20 mL INTRAVENOUS PRN lactated ringers iv infusion 100 mL/hr INTRAVENOUS CONTINUOUS ondansetron 4 mg tab(s) (ZOFRAN) 4 mg ORAL q 6 H PRN Or ondansetron (PF) 4 mg injection (ZOFRAN) 4 mg INTRAVENOUS q 6 H PRN morphine 2 mg injection 2 mg INTRAVENOUS q 4 H PRN oxyCODONE IR 5-10 mg tab(s) (ROXICODONE) 5-10 mg ORAL q 4 H PRN acetaminophen 975 mg tab(s) (TYLENOL) 975 mg ORAL QID cefOXitin 2 g in NaCl 0.9% 100 mL Vial-Bag (MEFOXIN) 2 g INTRAVENOUS q 6 H escitalopram oxalate 5 mg tab(s) (LEXAPRO) 5 mg ORAL AT BEDTIME Labs: Recent Labs 01/18/24 0448 01/17/24 1600 NA 138 138 K 3.9 4.0 CHLOR 106 102 CO2 23 24 BUN 8 11 CREAT 0.77 0.77 GLUC 92 102* ANION 9 12 CA 8.5 9.1 ALB 3.8* 4.1 AST 77* 171* ALT 116* 139* ALKPHOS 92 121 TBILI 0.5 0.5 WBC 8.66 13.24* HB 12.4 13.4 HCT 38.9 41.2 PLT 382 444* Physical Exam: GENERAL: No distress, Alert NEURO: AANDOx3, CN II-XII grossly intact HEENT: normocephalic, atraumatic LUNGS: Unlabored breathing, equal chest rise bilaterally CARDIAC: Regular rate, warm and well perfused distal extremities ABDOMEN: Soft, mild RUQ tttp, non-distended. No guarding, rebound, rigidity. EXTREMITIES: FLORES, No deformities, No edema SKIN: Skin color, texture, turgor normal, No rashes or lesions ASSESSMENT AND PLAN: Assessment Active Hospital Problems Diagnosis Date Noted Symptomatic cholelithiasis 01/17/2024 Assessment: 43 year old female with PMHx of ADHD, presenting to [facility] for acute cholecystitis. Hospital Course/Operations/Procedures: 01/18/2024 Procedure(s): LAPAROSCOPIC CHOLECYSTECTOMY WITH GRAMS Plan: Acute cholecystitis - RUQ US shows evidence of acute cholecystitis - Patient has no surgical history. - Plan for OR today, no need for grams. - Tbilli 0.5, AST - 77, ALT - 116. Discussed with attending: Dr. De La Cruz Follow up needs: TBD SIGNATURE: Edgar Nielsen DO PATIENT NAME: Zonia Ojeda DATE: January 18, 2024 TIME: 0659 Pager: [phone] Emergency General Surgery Service Pager: For questions or concerns Mon-Fri 6a-5p please page [phone]. After 5pm and on Weekends and Holidays, please page [phone] if in ICU or [phone] if on RNF. [facility] 08-11-2023 Instructions Garry Wilson APRN.CNP - 08/11/2023 9:44 AM EDT -Nystatin 5 ml four times daily for 5 days - Listerine rinses at least 2 to 3 times daily - Good oral care with tooth brushing at least 2 times daily - Avoid foods or liquids that can irritate the mouth (acidic, caffeinated, or spicy/saucy) Follow up with PCP if failing to improve or worsening 1 week or sooner with concerns DEFINITION: White, irregularly shaped patches that coat the inside of the mouth and sometimes the tongue, adhere to the mouth, and cannot be washed away or wiped off easily like milk. Thrush causes mild discomfort. CAUSE: Thrush is caused by a yeast (Keiry) that grows rapidly on the lining of the mouth . Thrush is not contagious since it does not invade normal tissue. HOME CARE: Nystatin Oral Medicine. The drug for clearing this up is nystatin oral suspension. It requires a prescription. Give 5 ml of nystatin four times daily. Place it in the front of the mouth on each side (it doesn't do any good once it's swallowed). If the thrush isn't responding, rub the nystatin directly on the affected areas with a cotton swab or with gauze wrapped around your finger. documented in this encounter [facility] 08-11-2023 Note HNO ID: [id number] Author: GARRY WILSON APRN.AUREA Service: ? Author Type: Nurse Practitioner Type: Progress Notes Filed: 08/11/2023 09:44 Note Text: Telemedicine Visit - Distance Health Virtual Visit Note Patient seen on [employer] Video Visit platform. Location of patient: [place] MD I have communicated my name and active licensure. The patient's identity and physical location were verified at the time of this visit. Either the patient or their legal territory account representative has been informed of the risks and benefits of -- and alternatives to -- treatment through a remote evaluation and consents to proceed with the evaluation remotely. History of Present Illness Zonia Ojeda is a 43 year old year old female who presents with possible oral thrush. Per patient states she was recently on an antibiotic and believes this was the cause. States she was given oral nystatin 4 days ago with today being the last day. She only prescribed 5 days of the medication and she is not quite resolved but improving. Pt is hoping to extend prescription. PAST MEDICAL HISTORY Diagnosis Date ADD (attention deficit disorder) Anxiety Female infertility of unspecified origin Female infertility Influenza 03/2022 Morbid obesity (HCC) Pulmonary embolism (HCC) 2017 PAST SURGICAL HISTORY Procedure Laterality Date ADENOIDECTOMY PRIMARY Adenoidectomy CATH AND SALINE/CONTRAST SONOHYSTER/HYSTEROSALPI EXT HYSTERECTOMY,W/PARTIAL VAGINECTO 2020 HEMORRHOIDAL nd 05/2011 HEMORRHOIDECTOMY INT AND XTRNL 2/> COLUMN/JENNIFER 06/16/2015 1 quadrant TONSILLECTOMY PRIMARY/SECONDARY Tonsillectomy FAMILY HISTORY Problem Relation Age of Onset Asthma Mother Hypertension Mother other (Pulmonary Embolism) Mother other (Kidney Stone) Father other (Pulmonary Embolism) Brother Cancer Maternal Grandmother ovarian Alcohol/Drug Maternal Grandfather ETOH Heart Maternal Aunt Psychiatry Maternal Aunt Social History Tobacco Use Smoking status: Never Smokeless tobacco: Never Vaping Use Vaping Use: Never used Substance Use Topics Alcohol use: Yes Comment: NOT CURRENTLY THE LAST YEAR Drug use: No Current Outpatient Medications Medication Sig semaglutide (OZEMPIC) 1 mg/dose (4 mg/3 mL) pen Semaglutide (Ozempic) 1 mg/dose (4 mg/3 mL) pen injector Active 1 MG SC EVERY WEEK October 05, 2022 12:00am polyethylene glycol 3350 (MIRALAX, GLYCOLAX) 17 gram/dose powder Take by mouth once daily. Dissolve dose in 4 - 8 ounces of liquid and take as directed. vitamin D3-folic acid 125 mcg (5,000 unit)-1 mg tab Take 5,000 Units by mouth once daily. VYVANSE 30 mg capsule TAKE 1 CAPSULE BY MOUTH ONCE DAILY IN THE MORNING MULTIVITAMIN ORAL Take 1 tablet by mouth once daily. No current facility-administered medications for this visit. ALLERGIES Allergen Reactions Augmentin [Amoxicil* Itching AND swelling Hydrocodone Itching Video Exam (Examination performed via Video enabled technology) General appearance: Well in appearance Alert, oriented, pleasant, in NAD :Yes Ill appearing :No Lethargic appearing :No Respiratory distress :No Mouth: white patches noted to inner bucca on both sides, and posterior tongue ASSESSMENT/PLAN: 1. Oral thrush - ICD9: 112.0, ICD10: B37.0 - Will extend nystatin rx x5 days as she is not quite resolved - NYSTATIN 100,000 UNIT/ML ORAL SUSPENSION Plan -Nystatin 5 ml four times daily for 5 days - Listerine rinses at least 2 to 3 times daily - Good oral care with tooth brushing at least 2 times daily - Avoid foods or liquids that can irritate the mouth (acidic, caffeinated, or spicy/saucy) Follow up with PCP if failing to improve or worsening 1 week or sooner with concerns - Red flags discussed for need for in person care - All questions answered Garry Wilson APRN.CNP If you let us know who your primary care provider is, we will send them a notification of today's visit through our electronic medical records system. Since not all providers have access to our notifications, we strongly encourage you to share the following record of today's visit with your primary care provider at your next visit. This will help in providing you the best care. If you do not have an established Primary Care physician and would like to continue care with a [facility] Virtual Primary Care physician, please ask your provider to place a Establish Primary Care order. Use [employer] to manage your care, wherever you are, 09/10, on your mobile device or computer. [employer] connects you to [employer] so you can access all your health information in one place and also schedule and request virtual appointments with primary care providers. [facility] 08-11-2023 History of Presen t illness Narrative Telemedicine Visit - Distance Health Virtual Visit Note Patient seen on [employer] Video Visit platform. Location of patient: [place] Tamiko Urena MD I have communicated my name and active licensure. The patient's identity and physical location were verified at the time of this visit. Either the patient or their legal territory account representative has been informed of the risks and benefits of -- and alternatives to -- treatment through a remote evaluation and consents to proceed with the evaluation remotely. History of Present Illness Zonia Ojeda is a 43 year old year old female who presents with possible oral thrush. Per patient states she was recently on an antibiotic and believes this was the cause. States she was given oral nystatin 4 days ago with today being the last day. She only prescribed 5 days of the medication and she is not quite resolved but improving. Pt is hoping to extend prescription. PAST MEDICAL HISTORY Diagnosis Date ADD (attention deficit disorder) Anxiety Female infertility of unspecified origin Female infertility Influenza 03/2022 Morbid obesity (HCC) Pulmonary embolism (HCC) 2017 PAST SURGICAL HISTORY Procedure Laterality Date ADENOIDECTOMY PRIMARY <AGE 13 Adenoidectomy CATH & SALINE/CONTRAST SONOHYSTER/HYSTEROSALPI EXT HYSTERECTOMY,W/PARTIAL VAGINECTO 2020 HEMORRHOIDAL 05/2011 HEMORRHOIDECTOMY INT & XTRNL 2/> COLUMN/JENNIFER 06/16/2015 1 quadrant TONSILLECTOMY PRIMARY/SECONDARY <AGE 12 Tonsillectomy FAMILY HISTORY Problem Relation Age of Onset Asthma Mother Hypertension Mother other (Pulmonary Embolism) Mother other (Kidney Stone) Father other (Pulmonary Embolism) Brother Cancer Maternal Grandmother ovarian Alcohol/Drug Maternal Grandfather ETOH Heart Maternal Aunt Psychiatry Maternal Aunt Social History Tobacco Use Smoking status: Never Smokeless tobacco: Never Vaping Use Vaping Use: Never used Substance Use Topics Alcohol use: Yes Comment: NOT CURRENTLY THE LAST YEAR Drug use: No Current Outpatient Medications Medication Sig semaglutide (OZEMPIC) 1 mg/dose (4 mg/3 mL) pen Semaglutide (Ozempic) 1 mg/dose (4 mg/3 mL) pen injector Active 1 MG SC EVERY WEEK October 05, 2022 12:00am polyethylene glycol 3350 (MIRALAX, GLYCOLAX) 17 gram/dose powder Take by mouth once daily. Dissolve dose in 4 - 8 ounces of liquid and take as directed. vitamin D3-folic acid 125 mcg (5,000 unit)-1 mg tab Take 5,000 Units by mouth once daily. VYVANSE 30 mg capsule TAKE 1 CAPSULE BY MOUTH ONCE DAILY IN THE MORNING MULTIVITAMIN ORAL Take 1 tablet by mouth once daily. No current facility-administered medications for this visit. ALLERGIES Allergen Reactions Augmentin [Amoxicil* Itching & swelling Hydrocodone Itching Video Exam (Examination performed via Video enabled technology) General appearance: Well in appearance Alert, oriented, pleasant, in NAD :Yes Ill appearing :No Lethargic appearing :No Respiratory distress :No Mouth: white patches noted to inner bucca on both sides, and posterior tongue ASSESSMENT/PLAN: 1. Oral thrush - ICD9: 112.0, ICD10: B37.0 - Will extend nystatin rx x5 days as she is not quite resolved - NYSTATIN 100,000 UNIT/ML ORAL SUSPENSION Plan -Nystatin 5 ml four times daily for 5 days - Listerine rinses at least 2 to 3 times daily - Good oral care with tooth brushing at least 2 times daily - Avoid foods or liquids that can irritate the mouth (acidic, caffeinated, or spicy/saucy) Follow up with PCP if failing to improve or worsening 1 week or sooner with concerns - Red flags discussed for need for in person care - All questions answered Garry Wilson APRN.CNP If you let us know who your primary care provider is, we will send them a notification of today's visit through our electronic medical records system. Since not all providers have access to our notifications, we strongly encourage you to share the following record of today's visit with your primary care provider at your next visit. This will help in providing you the best care. If you do not have an established Primary Care physician and would like to continue care with a [facility] Virtual Primary Care physician, please ask your provider to place a Establish Primary Care order. Use [employer] to manage your care, wherever you are, 09/10, on your mobile device or computer. [employer] connects you to [employer] so you can access all your health information in one place and also schedule and request virtual appointments with primary care providers. documented in this encounter [facility] 04-20-2022 History of Presen t illness Narrative BARIATRIC SURGERY CLINIC FOLLOW UP NOTE HPI: Zonia Ojeda a 41 year old female for presents for medically supervised weight loss treatment of her obesity related co morbidities. This individual presents for month 6 of NA required visits completed as a virtual telephone encounter Zonia Ojeda weight calculation has increased by 9# since her last visit. Unfortunately, her insurance denied her surgery due to her BMI being less than 40. Despite continuing to keep a food journal, exercising, and following healthy lifestyle-she has gained 9 pounds. This is where she struggles, she is able to lose weight but then ultimately plateaus or regained the weight. Denies recent illnesses, hospitalizations, ED visits. She did have the flu in February and ever since has noticed an increase in heartburn symptoms, they are very mild and usually triggered when she has an empty stomach. Denies dysphagia and regurgitation. She may have had some gastritis during her flu virus. HISTORY REVIEWED (electronic chart updated): - medical history - medications - allergies PAST MEDICAL HISTORY Diagnosis Date ADD (attention deficit disorder) Anxiety Female infertility of unspecified origin Female infertility Influenza 03/2022 Morbid obesity (HCC) Pulmonary embolism (HCC) 2018 Social: Social History Tobacco Use Smoking status: Never Smokeless tobacco: Never Vaping Use Vaping Use: Never used Substance Use Topics Alcohol use: Yes Comment: NOT CURRENTLY THE LAST YEAR Drug use: No Medications: Current Outpatient Medications Medication Sig ditpzelmnqdmo-UG-xubsxvimftexk (VICKS NYQUIL COLD/FLU, CPM,) 4-30-650 mg/30 mL liqd Take by mouth. d-methorphan/PE/acetaminophen (VICKS DAYQUIL COLD-FLU RELIEF ORAL) Take by mouth. polyethylene glycol 3350 (MIRALAX, GLYCOLAX) 17 gram/dose powder Take by mouth once daily. Dissolve dose in 4 - 8 ounces of liquid and take as directed. vitamin D3-folic acid 125 mcg (5,000 unit)-1 mg tab Take 5,000 Units by mouth once daily. cholecalciferol, Vitamin D3, (VITAMIN D3) 1,250 mcg (50,000 unit) cap capsule Take 1 capsule by mouth one time a week for 12 doses. Transition to 2,000-4,000 units of Vitamin D OTC after completing 12 weeks (Patient not taking: Reported on 03/14/2022) busPIRone (BUSPAR) 5 mg tablet Take 5 mg by mouth three times daily. VYVANSE 30 mg capsule TAKE 1 CAPSULE BY MOUTH ONCE DAILY IN THE MORNING desvenlafaxine ER (PRISTIQ) 50 mg 24 hr tablet Take 100 mg by mouth once daily. MULTIVITAMIN ORAL Take 1 tablet by mouth once daily. No current facility-administered medications for this visit. REVIEW OF SYSTEMS General: No fatigue or fevers HEENT: Negative for frequent or significant headaches, No changes in hearing or vision, no nose bleeds or other nasal problems PAP Therapy: Not needed. GI:No nausea, vomiting, or diarrhea and positive for hearburn Muskuloskeletal: Negative for joint pain or swelling, back pain or muscle pain Skin: Negative for lesions, rash, and itching Psych: Negative for sleep disturbance, mood disorder and recent psychosocial stressors PHYSICAL EXAMINATION BP 119/87 Pulse 83 Ht 162.6 cm (5' 4) Wt 106.1 kg (233 lb 12.8 oz) LMP 08/26/2019 BMI 40.13 kg/m GENERAL APPEARANCE: Pleasant, interacts appropriately and in no apparent distress. Appropriately groomed, happy, smiling, and interactive SKIN: Skin of normal texture, temperature without rashes/lesions/ulcerations. LUNGS: unlabored on room air negative findings: normal respiratory rate no cough NEURO/PSYCH: Oriented to person, place, time; appropriate insight and judgement. Appropriate affect. Diagnostic Tests Reviewed for Today's Visit Most recent lab and imaging results The plan of treatment for Zonia Ojeda is Further Work-up: Required monthly visits: 6 of 0 months. Patient is interested in: Sleeve Gastrectomy EGD: defer to UGI Upper GI: WNL RUQ US: WNL Sleep Study: Negative study scanned in 09/2021 CXR: normal EKG: NSR, low voltage QRS- borderline EKG H Pylori NA planned SG Labs: complete, vitamin D def, Nicotine use <12 months: NA, required per insurance- ; negative Tox screen: required per insurance, negative Antiplatelet/anticoagulants: No Immunosuppressive therapy: No Estrogen therapy: No Evaluations Psychology: cleared Nutrition: cleared Education class: ongoing Clearances: PCP Risk Calculator: VTE Risk: History of PE +COVID on ~12/06/21 COVID-19 Risk 2 ISS score:Not diabetic Adverse Event score: 1.18% Post-op Medications: Extended Lovenox: Will require 4 weeks; history of PE Actigall: Yes H2 len/PPI: Will require ASSESSMENT/PLAN: 1. Class 3 severe obesity with body mass index (BMI) of 40.0 to 44.9 in adult, unspecified obesity type, unspecified whether serious comorbidity present (HCC) - ICD9: 278.01, V85.41, ICD10: E66.01, Z68.41 (primary diagnosis) Weight increasing - Behavioral intervention and - Medical nutrition therapy with dietitian - Nutrition Counseling Practice these: - Eat 3 meals daily--can use approved/recommended protein shake as 1 meal replacement (should be <200 calories, 20-30g protein, <5g added sugar) - Keep a food journal 5-7x/week (consider [employer] or [employer] nikki) and demonstrate meeting protein goal (60-90g protein for females, 70-105g protein for males)- Lean meats, fish, low fat dairy - cottage cheese, Burkinan yogurt, light yogurt, cheese, ricotta cheese, nuts, peanut butter, beans/legumes. Eat protein first at all meals. and 64oz of caffeine-free, carbonation-free fluids at least 5 days per week - engage in formal, planned exercise 5x/week for 30 minutes of cardiovascular activity OR 150+ minutes of cardiovascular activity per week - eliminate all caffeine, carbonation, alcohol and sugar-containing beverages from diet --consider sugar-free drink mixes, water, decaf coffee and tea - Separate eating and drinking by 30 minutes - Chew your food 20-30x per bite - Sip beverages slowly--no guzzling or gulping - CONSULT TO PRE-SURGICAL TESTING (AG) - H&P FOR SURGERY - PRE-PROCEDURE & PRE-OPERATIVE COVID - CBC - TYPE AND SCREEN,30 DAY - BASIC METABOLIC PNL - ALBUMIN BLD 2. Heartburn - ICD9: 787.1, ICD10: R12 - Will send in prescription for pepcid 20 mg PRN - new heartburn symptoms seem related to after affects of flu virus- may have had some gastritis which is why her symptoms are worse on an empty stomach 3. Depression, unspecified depression type - ICD9: 311, ICD10: F32.A - continue medical management All testing and clearances are complete. BMI is now 40, which means she has gained 9 pounds since her last visit. Will discuss with Dr. Mariee and consider resubmitting to insurance. Maria D Fowler APRN.CNP Total time in direct patient contact = 15 min. Greater than 50% of the time was spent in counseling and/or coordination of care. This note was generated using voice recognition technology and may contain grammatical errors. Medical Decision Making: Problems: Low: Stable chronic illness Data: Unique test(s) ordered: 1 Assessment requiring an independent historian(s) Medical Decision Making Level: 3 - Low documented in this encounter [facility] 04-03-2022 Miscellaneous Notes Patient comes into the office for a weight check. She states she has been under stress recently and has gained some weight. She would like this documented in her chart for reference. Weight today is 233 lbs. Patient is tearful to see the weight increase and is still hopeful to get bariatric surgery. Xena Jauregui RN April 03, 2022 10:20 AM documented in this encounter [facility] 03-22-2022 Instructions Maria D Fowler APRN.CATTLE SPRAYER - 03/22/2022 12:56 PM EST Images from the original note were not included. Stop taking NSAID medication, herbal supplements, fish oil, flaxseed oil 7 days prior to surgery because they thin your blood. Tylenol (Acetaminophen) is permitted before surgery. If you have diabetes or high blood pressure you must make an appointment to visit your primary care provider ONE WEEK after surgery to regulate your medication. BEFORE SURGERY CHECKLIST The evening before surgery, consume 28-32 ounces of Gatorade or 1 boost breeze The day of surgery, consume 20 ounces of Gatorade or 1 boost breeze. This must be completed before you arrive to the surgery center (2 hours before) Continue to consume clear liquids until you arrive to surgery (2 hours before) STOP the following medications 1 day before surgery: none TAKE the following medications the morning of surgery: none 12 hours before surgery shower with anti-bacterial soap, Chlorhexidine. Do not apply lotions, powder, or make-up. Apply clean clothing and bedding after your shower. Please remove your jewelry, including wedding band! ITEMS TO BRING TO THE HOSPITAL: CPAP/BiPAP if you are being treated for sleep apnea. Comfortable walking shoes You will remain in a hospital gown during your stay. You may bring undergarments to wear INCISION CARE Incisions must be kept clean and dry. Proper care of incisions promotes healing, reduces scarring, and reduces the risk of an infection. Follow these instructions for incision care very carefully. Some general tips about caring for incisions include: Always wash your hands before and after touching your incisions. Always inspect your incisions and wounds every day for signs of infection. Clothing: Avoid wearing tight clothes that rub on the incisions. Itching: Incisions may feel itchy as they heal; this is normal. Don't scratch them. If the itchiness gets worse instead of better, call your surgical team. This may be a sign of infection or that stitches are too tight. Lump/bump: You may feel a small lump or bump under your incision; this is normal. If the lump or bump gets worse, call your surgical team Steri-Strips: You may wash or shower with steri-strips in place. Cleanse the area with mild soap and water and gently pat dry with a clean towel or cloth. Do not pull, tug, or rub steri-strips. Tissue glue: The glue should be kept dry and the incisions should be kept out of direct sunlight. The glue will dry out and fall off within five to 10 days. What are the signs of a possible infection in an incision? A wound that has green or yellow drainage A bad odor from the incision Opening of the incision line -- it gets deeper, longer, or wider Redness that goes beyond the basic edge of the incision -- site should show signs of improvement and not getting redder Warmth, hardness, around the incision. Fever (greater than 101 degrees Fahrenheit or 38.4 degrees Celsius), sweating, or chills When is it important to call your surgical team? It is always best to contact your surgical team first if you have any concerns about your incisions. Bleeding that does not stop with pressure If there is any sign of infection (see question, what are the signs of a possible infection ). If you have questions or confusion about incision care instructions [facility] Laparoscopic Sleeve Gastrectomy What You Should Know: Laparoscopic Sleeve Gastrectomy is a newer type of less invasive surgery done for weight loss. A Sleeve Gastrectomy is surgery to remove part of your stomach. The stomach is a hollow organ that breaks down food into nutrients (small pieces your body can take in). It absorbs (takes in) some of these nutrients and the rest then pass into your small intestine (bowel). Your stomach is connected to your mouth by a tube called the esophagus. Laparoscopic Sleeve Gastrectomy is done using special tools put into small incisions (cuts) made in your abdomen (belly). The laparoscope is a long metal tool with a tiny video camera and light at the tip. Your surgeon can see your stomach and other parts inside your abdomen by watching on a video screen. Your surgeon uses other special tools to cut and remove part of the stomach. After surgery you should have less pain and faster healing compared to having an open (large incision) sleeve gastrectomy. Your home medicines are: High protein supplement, stomach acid medication every morning, pain medication, PLUS any home medications that you will be instructed to continue. Medicines: Keep a written list of the medicines you take, the amounts, and when and why you take them. Bring the list of your medicines or the pill bottles when you see your caregivers. Learn why you take each medicine. Ask your caregiver for information about your medicine. Do not take any medicines, gwvo-jls-mazujng drugs, vitamins, herbs or food supplements without first talking to your caregivers. Always take your medicine as directed by caregivers. Call your caregiver if you think your medicines are not helping or if you feel you are having side effects. Do not quit taking your medicines until you discuss it with your caregiver. If you are taking medicine that makes you drowsy, do not drive or use heavy equipment. Acetaminophen: Use acetaminophen (Tylenol) to decrease pain or lower a fever. Do not use aspirin or non-steroidal anti-inflammatory medicines (NSAIDs). Aspirin and NSAIDs may cause stomach irritation, an ulcer or bleeding. Read labels so that you know the active ingredients in each medicine that you use. Pain medicine: You may be given medicine to take at home to take away or decrease pain. Your caregiver will tell you how much to take and how often to take it. Take the medicine exactly as directed by your caregiver. Do not wait until the pain is too bad before taking the medicine. The medicine may not work as well at controlling your pain if you wait too long to take it. Tell your doctor if the pain medicine does not help or if your pain comes back too soon. Vitamins: You will only need to take these once you go home if you choose a high protein supplement without vitamins in it. Follow-Up Visit Information: See schedule given in class. Keep all your appointments. Write down any questions you may have. This way you will remember to ask these questions during your next visit. You have an appointment scheduled for 7-10 days after surgery: Phone call: You will receive a phone call 24-48 hours after your discharge from the hospital. We will be checking on your progress and making sure that you don't have any questions or concerns. What Can I Eat After I had Sleeve Gastrectomy Surgery? You will need to eat a full liquid diet for two (2) weeks before starting a diet of soft foods. Refer to handouts given in education class for sample menus. At 2-week follow-up appointment the Dietitian will advance you to soft foods. Drink the right type of liquids. Drink water or sugar-free drinks. These include non-carbonated, caffeine-free diet drinks, tea, coffee and skim or 1% low-fat milk. Drinking plenty of liquids is important during weight loss. Drink small amounts of liquid often throughout the day. Try to drink at least 8 (8 ounce) cups of liquid each day, which equals 64 ounces. No alcoholic beverages for 6 months. Examples of alcoholic beverages are INCISION CARE Incisions must be kept clean and dry. Proper care of incisions promotes healing, reduces scarring, and reduces the risk of an infection. Follow these instructions for incision care very carefully. Some general tips about caring for incisions include: Always wash your hands before and after touching your incisions. Always inspect your incisions and wounds every day for signs of infection. Clothing: Avoid wearing tight clothes that rub on the incisions. Itching: Incisions may feel itchy as they heal; this is normal. Don't scratch them. If the itchiness gets worse instead of better, call your surgical team. This may be a sign of infection or that stitches are too tight. Lump/bump: You may feel a small lump or bump under your incision; this is normal. If the lump or bump gets worse, call your surgical team Steri-Strips: You may wash or shower with steri-strips in place. Cleanse the area with mild soap and water and gently pat dry with a clean towel or cloth. Do not pull, tug, or rub steri-strips. Tissue glue: The glue should be kept dry and the incisions should be kept out of direct sunlight. The glue will dry out and fall off within five to 10 days. What are the signs of a possible infection in an incision? A wound that has green or yellow drainage A bad odor from the incision Opening of the incision line -- it gets deeper, longer, or wider Redness that goes beyond the basic edge of the incision -- site should show signs of improvement and not getting redder Warmth, hardness, around the incision. Fever (greater than 101 degrees Fahrenheit or 38.4 degrees Celsius), sweating, or chills What self-care instructions should I be aware of? You may shower the day after surgery. Carefully wash the incisions with soap and water. Check your incisions every day. Look for redness, swelling or drainage. If you cannot reach the incision areas, ask someone else to help you, or look in the mirror. Leave your incisions open to air. Do not put any lotions or ointments on your incisions. Do not miss any medical appointments. It is important to follow your weight loss team's instructions for the rest of your life. This includes changing your eating habits and lifestyle, taking vitamins and supplements, and going to regular medical appointments. If you do these things, you will decrease your risk of problems. Begin walking the night of surgery. The goal is to walk 30 minutes in total every day. You will start by walking for 5 minutes six times a day. As you start to feel stronger you can add your minutes together, walking 7 minutes, then 10 minutes at a stretch, but for a total of 30 minutes per day. Do not try to get until you have lost the weight that you want to lose. Your weight should be stable, which could take as much as 2 years after surgery. Getting while quickly losing weight could hurt you and your unborn baby. If you want to get , talk to your doctor and caregivers about this first. Driving: You may drive in approximately 1 week. You must be off your narcotic pain medications. Sexual [place] (sex): You may have sex in approximately 1 week, as long as you are pain free Lifting and moving objects: Nothing more than 10 pounds for 6 weeks. Returning to work or school: In approximately 2 - 3 weeks, unless heavy lifting is involved. Where can I go for information and support? Talk to your caregivers, family and friends about sleeve gastrectomy and weight loss. Let them help you before and after surgery. Join a bariatric support group and begin attending meetings before you to go to surgery. This is a group of people who plan to have or have already had weight loss surgery. Ask your caregiver for the names and numbers of support groups near you. For more information about support groups, obesity and weight loss surgery, contact the following: [employer] [address] [place] [address], [place], [place] www.obesity.org [employer] ([employer]) [address] [address] www.asmbs.org See the attached support group meeting schedule SEEK CARE IMMEDIATELY IF: You have sudden chest pain, trouble breathing, or are coughing up blood. Call 911 or 0 ([employer]) to get to the nearest hospital or clinic. DO NOT DRIVE YOURSELF! You cannot stop throwing up. You feel restless, short of breath, or feverish (over 100 F). You have pain or pressure in your stomach or back, you have the hiccups, or have a very fast heart rate that will not slow down. CALL during office or after hours: It is always best to contact your surgical team first if you have any concerns about your incisions. Bleeding that does not stop with pressure If there is any sign of infection If you have questions or confusion about incisions care or instructions You have new swelling or pain in the calf of your leg. Call if you feel sick to your stomach and the feeling will not go away. You have any questions or concerns about your sleeve gastrectomy or your care. documented in this encounter [facility] 03-16-2022 History and physical note HISTORY AND PHYSICAL EXAMINATION SERVICE DATE: 03/16/2022 SERVICE TIME: 10:00 AM PRIMARY CARE PHYSICIAN: Tamiko Urena MD REASON FOR VISIT: Zonia Ojeda is a 41 year old female who is scheduled for Procedure(s): LAPAROSCOPIC LONGITUDINAL GASTRECTOMY, GASTRIC RESTRICTIVE PROCEDURE (N/A) EGD (N/A) LAPAROSCOPIC BIOPSY LIVER (N/A) TRANSFUSION BLOOD (N/A) at the request of Dr. Michelle Mariee for routine H&P. My final recommendation will be communicated back to the requesting physician by way of shared medical record or letter. 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 Patient reports a prior COVID-19 infection, with an infection date of 11/2021. CHIEF COMPLAINT: Morbid obesity HPI: Zonia Ojeda is a 41 year old female that presents with above. She has a history of obesity most of her life. She states she has tried many different weight loss plans. She has had a hard time keeping the weight off since she had children. She wants to loose weight to improve her overall health. After discussion with the surgeon patient has agreed to surgical intervention. REVIEW OF SYSTEMS: General: No weight loss, malaise or fevers. Neurological: No history of TIA's, stroke, OPTICAL STORE MANAGER tumor, impaired sensorium, hemiplegia, paraplegia or quadraplegia. No neurological symptoms or problems. Negative for: cerebral palsy, OPTICAL STORE MANAGER tumor, delirium, dementia, headaches, hemiplegia, impaired sensorium, multiple sclerosis, paraplegia, Parkinson's disease, peripheral neuropathy, quadriplegia, seizures, TIA and strokes. Respiratory: Positive for: prior COVID-19 infection, current cough (NON PRODUCTIVE X 2 DAYS.) and URI < 2 weeks (pcp thinks may be viral. Covid and flu test 03/15/22 was negative with deann.). Date of COVID-19 infection: 11/2021. Negative for: asthma, bronchitis, COPD, bronchodilator used daily for the last 3 months, dyspnea, home oxygen, orthopnea, pneumonia within 6 weeks, tobacco use and obstructive sleep apnea. Cardiovascular: +History of PE Positive for: DVT/PE (PE 2018. Per patient r/t control.) Negative for: abdominal aortic aneurysm, AICD/PPM, angina, anticoagulation therapy, arrhythmia, atrial fibrillation, CAD, chest pain, CHF, congenital heart defect, hyperlipidemia, hypertension, recent [place], murmur/valvular heart disease, PTCA, PVD, open heart surgery and valve surgery. GI: See HPI. No history of GI symptoms or problems. No history of esophageal varices, recent ascites, or ETOH greater than 2 drinks per day. : Positive for: nephrolithiasis (2000). Negative for: BPH, decreased stream, on dialysis, dysuria, flank pain, frequent urination, hematuria, hesitancy, urinary incontinence, indwelling catheter, nocturia >1 time per night, renal failure, self catheterization, urgency and urinary tract infection. 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 Endocrine: No history of diabetes. Has not taken steroids within the past 30 days. No history of endocrinological symptoms or problems. Negative for: diabetes mellitus and hypothyroidism. Hematology: No history of bleeding or clotting disorder. Patient is not taking anti-coagulation or platelet medications. No history of hematological symptoms or problems. Negative for: anemia and factor V Leiden. Oncology: No history of CA metastasis, chemo within 30 days, or radiotherapy within 90 days. No history of oncological symptoms or problems. Psych: Positive for: ADD, anxiety and depression. Negative for: ADHD, bipolar disorder and drug dependency. Musculoskeletal: Negative for joint pain or swelling, back pain or muscle pain. Skin: Negative for lesions, rash and itching. PAST MEDICAL HISTORY Diagnosis Date ADD (attention deficit disorder) Anxiety Female infertility of unspecified origin Female infertility Morbid obesity (HCC) Pulmonary embolism (HCC) 2017 PAST SURGICAL HISTORY Procedure Laterality Date ADENOIDECTOMY PRIMARY <AGE 13 Adenoidectomy CATH & SALINE/CONTRAST SONOHYSTER/HYSTEROSALPI EXT HYSTERECTOMY,W/PARTIAL VAGINECTO 2020 HEMORRHOIDAL 05/2011 HEMORRHOIDECTOMY INT & XTRNL 2/> COLUMN/JENNIFER 06/16/2015 1 quadrant TONSILLECTOMY PRIMARY/SECONDARY <AGE 13 Tonsillectomy FAMILY HISTORY Problem Relation Age of Onset Asthma Mother Hypertension Mother other (Pulmonary Embolism) Mother other (Kidney Stone) Father other (Pulmonary Embolism) Brother Cancer Maternal Grandmother ovarian Alcohol/Drug Maternal Grandfather ETOH Heart Maternal Aunt Psychiatry Maternal Aunt Social History Tobacco Use Smoking status: Never Smokeless tobacco: Never Vaping Use Vaping Use: Never used Substance Use Topics Alcohol use: Yes Comment: NOT CURRENTLY THE LAST YEAR Drug use: No Prior to Admission medications as of 03/16/22 1019 Medication Sig Last Dose Taking polyethylene glycol 3350 (MIRALAX, GLYCOLAX) 17 gram/dose powder Take by mouth once daily. Dissolve dose in 4 - 8 ounces of liquid and take as directed. Taking Yes vitamin D3-folic acid 125 mcg (5,000 unit)-1 mg tab Take 5,000 Units by mouth once daily. Taking Yes busPIRone (BUSPAR) 5 mg tablet Take 5 mg by mouth three times daily. Taking Yes VYVANSE 30 mg capsule TAKE 1 CAPSULE BY MOUTH ONCE DAILY IN THE MORNING Taking Yes desvenlafaxine ER (PRISTIQ) 50 mg 24 hr tablet Take 100 mg by mouth once daily. Taking Yes MULTIVITAMIN ORAL Take 1 tablet by mouth once daily. Taking Yes cholecalciferol, Vitamin D3, (VITAMIN D3) 1,250 mcg (50,000 unit) cap capsule Take 1 capsule by mouth one time a week for 12 doses. Transition to 2,000-4,000 units of Vitamin D OTC after completing 12 weeks Patient not taking: Reported on 03/14/2022 No medication comments found. ALLERGIES Allergen Reactions Augmentin [Amoxicil* Itching & swelling Hydrocodone Itching Objective PHYSICAL EXAM: General: alert and oriented, healthy appearance and morbidly obese. Pertinent negatives noted - not distressed. Skin: normal color, no rash or lesions. HEENT: No additional findings for patient's neck. Cardiovascular: regular rate and rhythm, normal S1 and S2, no rub, murmurs, or gallop. Respiratory: normal breath sounds, no wheezes or crackles. Abdomen: bowel sounds present and soft. Pertinent negatives noted - not tender. Extremities: no deformity, no edema or tenderness, no joint swelling or clubbing. Neurological: Gait normal. No weakness or sensory deficit. PAIN ASSESSMENT: Pain Pain Level: 2 (headache and sore throat) Frequency: Continuous (contact the last 2 days. plans to follow up with PCP. pt states covid test 03/15 was negative.) VITALS: BP 119/88 Pulse 106 Temp (Src) 99 (Temporal) Resp 18 Ht 5' 4 (1.63m) Wt 224 lb (101.6kg) SpO2 98% LMP 08/26/2019 BMI 38.43 kg/(m^2). Diagnostic tests reviewed for today's visit: Lab Value Units Date High Low HB 13.6 g/dL 03/16/2022 15.5 11.5 HCT 41.4 % 03/16/2022 46.0 36.0 WBC 10.51 k/uL 03/16/2022 11.00 3.70 PLT 415 k/uL 03/16/2022 400 150 NA 137 mmol/L 03/16/2022 144 136 K 4.1 mmol/L 03/16/2022 5.1 3.7 GLUC 99 mg/dL 03/16/2022 99 74 BUN 11 mg/dL 03/16/2022 21 7 CREAT 0.79 mg/dL 03/16/2022 0.96 0.58 PTSEC No results within date range. INR No results within date range. APTT No results within date range. ALT 16 U/L 03/16/2022 38 7 AST 24 U/L 03/16/2022 35 13 TBILI 0.3 mg/dL 03/16/2022 1.3 0.2 TSH 1.040 mIU/L 11/05/2021 4.200 0.270 Lab Value Units Date High Low HCGQT No results within date range. UHCG No results within date range. HCG, BODY* No results within date range. Lab Value Units Date High Low ABORHD No results within date range. ABSCREEN No results within date range. No results found for: HBA1C Recent Results (from the past 8760 hour(s)) ECG COMPLETE Collection Time: 11/10/21 8:27 AM Result Value Ventricular Rate 76 Atrial Rate 76 P-R Interval 148 QRS Duration 84 QT Interval 406 QTC Calculation (Bazett) 456 Calculated P Spray 8 Calculated R Spray -15 Calculated T Spray 15 Impression NORMAL SINUS RHYTHM LOW VOLTAGE QRS BORDERLINE ECG NO PREVIOUS ECGS AVAILABLE Confirmed by MD CARLI, BLANCHE ([id number]) on 11/11/2021 3:23:06 PM No results found for this or any previous visit (from the past 74660 hour(s)). Harrison Activity Status Index: METS: Walk a block or two on level ground (2.75 METs) DASI Score: 2.75 (Would have SOB with Stairs. Denies chest pain . ) Patient denies any chest pain or undue shortness of breath with the above physical activity. Clinical Frailty Scale: 2. Well ARISCAT Score: Age: <=50 Preoperative SpO2: >=96% Respiratory infection in the last month: Yes Preoperative anemia: No Surgical incision: upper abdominal Duration of surgery: 2-3 hrs Emergency procedure: No ARISCAT Score: 48 ANESTHESIA FINDINGS: Intubation History: No history of difficult intubation. No abnormal airway history Significant Anesthesia Considerations: potential slow emergence Airway History: No history of difficult airway No abnormal airway history I - PHYSICAL EVALUATION AIRWAY Patient intubated: No. Vincent present: no DENTAL Dental findings: teeth intact. II - ANESTHESIA PLAN Anesthetic Plan: general Beta Len Monitoring Plan Post Procedure Analgesic Plan Prepared for Surgery: CONSULTS: The following consults have been initiated at this time: primary care/internal medicine (scanned in [facility] 03/16/22). Planned Anesthetic: general The Following Tests/Procedures Have Been Initiated: Orders Placed This Encounter CBC Standing Status: Future Number of Occurrences: 1 Standing Expiration Date: 05/16/2022 COMP METABOLIC PANEL Standing Status: Future Number of Occurrences: 1 Standing Expiration Date: 05/16/2022 ALBUMIN BLD Standing Status: Future Number of Occurrences: 1 Standing Expiration Date: 05/16/2022 Type and Screen, 30 day Standing Status: Future Number of Occurrences: 1 Standing Expiration Date: 05/16/2022 Order Specific Question: [facility] Planned Surgery or Procedure: Answer: [facility] Implantable Devices: None Patient has the following medical conditions which may affect mikayla-operative course URI- patient states she has had a non productive cough x2 days. She went to her PCP in [place]. She was told it was probably viral. She states her COVID and flu swabs were negative. She also has a sore throat. I instructed her to inform the surgeons office. I will send Dr. Mariee a [facility] message as well. History of PE - 2018 per patient related to taking control. Assessment/Plan Morbid obesity (HCC) [E66.01] PLAN Planned Procedure: Procedure(s): LAPAROSCOPIC LONGITUDINAL GASTRECTOMY, GASTRIC RESTRICTIVE PROCEDURE (N/A) EGD (N/A) LAPAROSCOPIC BIOPSY LIVER (N/A) TRANSFUSION BLOOD (N/A) The Following Tests/Procedures Have Been Initiated: Albumin, CBC, CMP and T&S ordered in epic by NIKKI Instructions Given to Patient: Instructions located in the after visit summary. Hibiclens given and instructions provided. Patient given verbal and written preop instructions and voices comprehension and compliance. SIGNATURE: Dottie Kellogg APRN.CNP PATIENT NAME: Zonia Ojeda DATE: March 16, 2022 TIME: 7:15 AM PAGER/CONTACT #: documented in this encounter [facility] 03-16-2022 Instructions Dottie Kellogg APRN.CNP - 03/16/2022 7:15 AM EST PATIENT PREOPERATIVE INSTRUCTIONS Your surgeon has scheduled you for your procedure at this surgery center: [facility] [phone] [address] [id number] Please enter through the main entrance, and proceed to the blue elevators. The surgery center is located left of the blue elevators. Please read below carefully for your personalized instructions. Arrival Time for Surgery: DATE: 03/27/2022 OR TIME: 4:00 pm CHECK IN TIME: 2:00 pm Please be aware that emergency situations arise, which may delay or change your surgical time. If this happens, we will notify you as soon as possible and regret any inconvenience. Dietary Restrictions: -Per surgeon. Blood Thinning Medications: - Stop NSAIDS (Ibuprofen, Advil, Aleve, Motrin, Celebrex, Mobic, Voltaren, Diclofenac, etc.) 7 days before surgery, as directed by your surgeon. -You may take Tylenol or pain medications that do not contain Aspirin or NSAIDs. - Stop Vitamin E, fish oil, multivitamins, Marijuana, CBD oil and other over the counter herbals and dietary supplements 7 days before surgery. ?-This would not apply to cancer patients who are prescribed Marinol or any other prescription form on marijuana or CBD. -IF YOU TAKE ANY OF THE FOLLOWING BLOOD THINNERS, PLEASE CONTACT YOUR SURGEON AND THE PHYSICIAN WHO PRESCRIBES IT FOR YOU IN ORDER TO GET PERIOPERATIVE INSTRUCTIONS SOON POSSIBLE. BLOOD THINNERS: Aspirin , Coumadin, Plavix, Eliquis, Pradaxa, Xarelto, Lovenox, Brilinta, Effient, Savaysa, Arixtra, etc Medications: Approved medications to take the morning of surgery with a sip of water: BP, Heart, thyroid, psych, seizure, and pain medications excluding NSAIDS. Use inhalers as prescribed. Please bring inhalers. Medications to be taken with small amount of fluid on the morning of surgery: If these are morning medications, go ahead and take: Approved medications to take the morning of surgery with a sip of water: BP, Heart, thyroid, psych, seizure, and pain medications excluding NSAIDS. Use inhalers as prescribed. Please bring inhalers. Please follow up with the provider that manages your diabetes and how to prepare you for surgery. -If you are taking the following medications for Type 2 diabetes: Canagliflozin (INVOKANA), dapagliflozin (FARXIGA), and empagliflozin (JARDIANCE) should each be discontinued at least 3 days before scheduled surgery. Ertugliflozin (STEGLATRO) should be discontinued at least four days before scheduled surgery. If you start any new medications after today's visit, please contact the surgeon's office. Important Reminders: - If you use CPAP/BIPAP, bring the machine with you to the surgery center. - If you are prescribed inhalers for breathing, continue using them AND bring them to the surgery center. - Candy, mints, gum and tobacco products are NOT permitted the morning of surgery. - Hearing aids, dentures and glasses may be worn the morning of surgery. - NO jewelry, body piercings, makeup, hairpins or contacts are to be worn the day of surgery. -Oral hygiene and a shower or bath is required the evening before or the morning of surgery. Use the Hibiclens body wash supplied to you along with the instruction. - NO lotion, creams, powders or deodorants on the skin the day of surgery -Wear loose, comfortable clothing that will accommodate bandages. -Your length of stay will be determined by your surgeon - You will need to have someone else (Family or friend) drive you home once discharged from the hospital. You are not allowed to drive yourself home after surgery. - YOU MUST HAVE A RESPONSIBLE SLIP CASTER TAKE YOU HOME. A LINOTYPE MECHANIC, CAB OR UBER SLIP CASTER CANNOT BE MADE A RESPONSIBLE SLIP CASTER. - We recommend that a responsible person stays with you overnight to take care of you. - You cannot stay in a hotel alone after outpatient surgery. You will not be permitted to have your surgery, if you do not have someone to take care of you. - If you have a stimulator, implant or pump that requires a remote please bring the remote with you day of surgery. Given COVID 19 pandemic, two visitor is allowed to be in the hospital. You will enter at the main entrance of the hospital and check in at the surgery welcome center, where you will provide points of contact. [facility] current visitor policy: may bring two visitor with you morning of surgery, they must wear a mask at all times while in the hospital, and during surgery they may be asked to wait in the car, and the surgeon will call them with updates. You will be required to have COVID-19 testing prior to surgery. Your surgeon's office should order this for you. You will receive a call from the scheduling department of [facility]. If you have not received a testing time and it is 4 days prior to surgery. Please call your surgeon. If you develop symptoms such as a fever, cold, or flu, or have other changes to your health within TWO DAYS of scheduled surgery or the morning of surgery, please contact the surgery center above. You should have a 72-hour period between getting your COVID vaccine and date of surgery. Personal Belongings: - Leave ALL valuables and money at home or with family members. - You will need a form of ID and insurance card to check in the morning of surgery. - You will have to wear a hospital gown during your stay but if you wish to bring undergarments for after surgery you may. testing Anesthesia requires testing on all females under the age of 55 without history of tubal ligation or hysterectomy. Dottie Kellogg APRN.CNP 03/16/22 documented in this encounter [facility] 03-10-2022 Miscellaneous Notes I completed peer to peer with Dr. Graham, her surgery was denied. Reason for denial is her BMI needs to be 40 or greater or she needs a BMI of 35 with significant comorbidity. Her BMI is 38 , but she does not have significant co-morbidities. They said physician could file an appeal. Right now her surgery is scheduled for 03/27. I was given a patient identifier for her insurance her patient identifier is [id number] and they gave me a fax number of [phone]. Maritza Contreras APRN.AUREA documented in this encounter [facility] 03-08-2022 History of Presen t illness Narrative Date: March 08, 2022 Time: 8:35 AM DISTANCE HEALTH VISIT This Team Access Model visit is a virtual encounter. It required patient-provider interaction for the medical decision making as documented below. Consent was obtained to complete today's distance health visit. Name: Zonia Ojeda CHIEF COMPLAINT: This is a 41 year old female with morbid obesity who presents to clinic for bariatric surgery and is completing educational class today. HISTORY OF PRESENTING ILLNESS: This individual is currently enrolled in the Bariatric Center Program persuing weight loss surgery and presents to complete preoperative requirements.Zonia Ojeda has been seen monthly for medically supervised weight loss and is being evaluated on their lifestyle modifications.Denies any difficulty hearing presentation. Denies any difficulty visualizing educational materials PHYSICAL EXAM: General Appearance: Well appearing, alert, in no acute distress, well-hydrated, well nourished. IMPRESSION: Zonia Ojeda is a 41 year old female with the following diagnosis and co-morbidities: Morbid (severe) obesity PLAN: Counseling and surgical care coordination was addressed during this educational class. Pathophysiology and side effects of surgery were discussed. Medications to be stopped 2 weeks and 1 week prior to surgery were discussed. Discharge instructions in terms of dietary restrictions, activity requirements, medications, follow-up were reviewed. Vitamins and supplements were reviewed with samples provided. Additionally, signs and symptoms of vitamin deficiencies reviewed. Postoperative medication management was explained. Received prevention education in terms of post operative problems and complications. Patient was educated on signs and symptoms requiring immediate and/or emergent medical attention. This patient also received dietary education. Patient was educated on incision care, signs of surgical site infection, and importance of contacting surgical team for incision concerns. Patient was educated on risk and should not get within two years after bariatric surgery (if applicable). could result in very poor weight loss and could be dangerous for the baby. This individual received an educational handouts reviewing the for mentioned class materials. At the end of class, Zonia Ojeda was provided time to answer questions. Denies any further questions or concerns. The Bariatric Center Patient agreement was reviewed and Zonia Ojeda received a copy of the patient agreement. The patient is aware by receiving this agreement, this accepts their understanding of the agreement and that surgery may not be recommended for medical and behavorial health reasons. Total time of virtual encounter: 60 minutes Maria D Fowler APRN.CNP documented in this encounter [facility] 02-27-2022 History of Presen t illness Narrative Zonia M Lynette--Visit conducted via [employer] (audio and visual) d/t COVID 19 Month 5/NA pt did consent for surgery with surgeon on 02/17 Pre-Op weight goal: 218# Education Class: Patient will receive instruction regarding healthy food choices and eating behaviors identified as optimal when preparing for surgery, losing weight after surgery, and maintaining weight loss long-term. Patient will also receive instruction regarding the Bariatric Full Liquid diet following surgery and optimal post-operative high-protein supplement choices. Education class to be completed prior to surgery. Behaviors Accomplished: Visit # 5 Date: 02/23/2022 Weight: 101.6 kg (224 lb) per pt report Weight goal met: No: pt presents with a 1# wt loss x 1 month. Currently 1# above initial wt. Behaviors that helped/hindered weight loss: Keeping journal daily Eating 3 meals/one snack Choose healthy foods Daily multivitamin Drink between meals Sip beverages slowly Eat slowly,chew well No high fat/fast foods D/c'd caffeinated, carbonated beverages Exercise: formal exercise 5x/week of walking for 30 minutes--planning on getting back to 7 days per week, stationary bike/youtube videos 24 hr recall: B: 2 eggs, 1 piece of whole grain [place] bread with ten sprays of spray butter L: tuna packets--hot buffalo wrapped in lettuce, carrot chips D: 8oz of grilled chicken (marinated with FF botswanan dressing), grilled veggies S: string cheese, 1/2 apple with1 TB peanut butter F: 96oz P: 78g P: 81g, 75g, 72g, 72g F: 64+ ounces daily--up to 140oz daily Written information provided and reviewed: Healthy plate/menus Behavior Checklist Journal Tracking protein intake Tracking liquid intake *THIS PATIENT RECEIVED INSTRUCTIONS FOR VLCD, ERAS, AND DISCHARGE DIET INFORMATION (PHASE I/II DIET) AND POST-OP VITAMIN SCHEDULE WITH PLAN TO CONSENT W/ SURGEON AT FUTURE APPOINTMENT-WILL RECEIVE ENSURE CLEAR BEVERAGES AT CONSENT APPOINTMENT--pt favoring fairlife 30g protein or premier protein for post-op. Will need 18mg of iron post-op, hx of hysterectomy. -VLCD, ERAS, Phase I/II diet, post-op vitamin schedule--via [employer] Pt verbally reports maintianig a food journal daily, meeting both protein/fluid goals. Pt presents month to review consent diet. Of note, she did consent with surgeon on 02/17 and received nutrition clearance on 02/02. Is still adhering to all nutrition recommendations and appears highly motivated. She has been provided a surgery date of March 27 in which we reviewed starting her VLCD on 03/13. Goals: Goals formal exercise 5-7x/week for 30 minutes OR 150 minutes per week (Cardiovascular) goal of 60-90g protein and 64oz of fluids per day--keep a food journal daily review consent diet--very low calorie diet, ERAS, discharge diet and post-op vitamin schedule (consider [employer] health bariatric with 18mg iro OR celebrate one 18mg iron chewable + 1200mg calcium citrate consider celebrate, bariatric fusion) The patient meets NIH guidelines for weight loss surgery and has been thoroughly evaluated and educated on good dietary practices. Patient is capable of following these guidelines pre-and post-surgically. From nutrition standpoint, the patient is cleared for weight loss surgery. No additional visits with nutrition are required at this time; however, pt is welcome to return as needed/desired before or after surgery. *All requirements have been met. Additional requirements may arise in course of treatment (02/02/22). Plan: no additional f/u with RD, has surgery scheduled early March. Total time in direct patient contact = 15 min. Greater than 50% of the time was spent in counseling and/or coordination of care. Jennifer David RD This note was generated using voice recognition technology and may contain grammatical errors. documented in this encounter [facility] 02-21-2022 Miscellaneous Notes Medical clearance letter faxed to Dr. Ayanna Jauregui RN February 21, 2022 9:44 AM documented in this encounter [facility] 02-06-2022 Miscellaneous Notes Called to see if pt can come in on 02/17 in the afternoon for her consent visit. No answer, LVM documented in this encounter [facility] 02-03-2022 Miscellaneous Notes 3rd time calling the patient to schedule his SX LVM documented in this encounter [facility] 02-02-2022 History of Presen t illness Narrative Zonia Ojeda Patient seen in office Pre-Op weight goal: 218 lbs Education Class: Patient will receive instruction regarding healthy food choices and eating behaviors identified as optimal when preparing for surgery, losing weight after surgery, and maintaining weight loss long-term. Patient will also receive instruction regarding the Bariatric Full Liquid diet following surgery and optimal post-operative high-protein supplement choices. Education class to be completed prior to surgery. Behaviors Accomplished: Visit # 4/0 Date: 02/02/22 Today's Weight: 226 lbs Last in-office weight: (w/ Dr. Mariee 12/07 ) 225 lbs Initial Weight (Bag Machine Tender VV 10/25 per pt report): 223 lbs Weight goal met: No 2# increase since last RD (01/12) visit, 8# above GW Behaviors that helped/hindered weight loss: helped Keeping journal daily Eating 3 meals/one snack Choose healthy foods Daily multivitamin Drink between meals Sip beverages slowly Eat slowly,chew well No high fat/fast foods D/c'd caffeinated, carbonated beverages Exercise: 150 min/week 24 hr recall: 02/01 B: protein shake (30g) L: lean cuisine pizza - 21g D: oven roasted turkey salad - subway (14g) S: 5 strawberries F: 144 oz Protein per recall:per pt nikki - 68g , per RD 65g Protein intake:past 7 days: 69g, 74g, 81g, 74g, 71g, 62g, 82g, 84 Fluid intake: past 7 days: 128 oz, 144 oz, 112 oz, 128 oz, 112, 96,128, 96 Exercise: 30 minutes daily of YT workouts (cardio/strength) + stationary bike -- meeting goals Caffeine: eliminated completely Carbonation: eliminated completely Alcohol: none Dining out: 2x/month Sipping slowly/frequently: Yes Taking small bites/chewing 20-30x per bite: Yes food and fluid by 30 minutes: Yes Patient presents for month 4 of NA supervised diet and exercise, demonstrates a 2# increase since last RD visit (01/12), remains 8# above GW -- patient reports being constipated for 1 week in addition to eating breakfast prior to being weighed in office. Verbalized she is using bariatastic 5-7 days per week. Per 24 hr recall, meeting protein and fluid goals. Upon further review of food journal, able to demonstrate consistency with tracking meals 5/7 days per week in addition to meeting protein and fluid goals. Is endorsing in formal exercise 7 days per week, exceeding 150 min total -- ensures she's breaking a sweat/increasing HR. Has successfully eliminated all carbonation from her diet as well. Reports taking daily MV (tab). The patient meets NIH guidelines for weight loss surgery and has been thoroughly evaluated and educated on good dietary practices. Patient is capable of following these guidelines pre-and post-surgically. From nutrition standpoint, the patient is cleared for weight loss surgery. No additional visits with nutrition are required at this time; however, patient is welcome to return as needed/desired before or after surgery. *All requirements have been met. Additional requirements may arise in course of treatment. Plan: follow up with RD in 1 month to review VLCD/ERAS/post op vitamins -- virtual Goals Eat 3 meals every day formal exercise 2-7x/week, as tolerated, goal of 30 minutes OR 150 min/week journal daily and bring to all appointments limit protein intake to 60-90g daily review VLCD/ERAS/oost op vitamins I spent 20 minutes in the visit, with more than 50% of the total gdgt-um-ssbx time of the visit in counseling / coordination of care. Tram Stack RD This note was generated using voice recognition technology and may contain grammatical errors. documented in this encounter [facility] 01-26-2022 Miscellaneous Notes Called to inform patient that Maria D will be out of office on 02/03 and we need to reschedule. No answer, LVM documented in this encounter [facility] 01-12-2022 History of Presen t illness Narrative Zonia Ojeda This patient encounter was completed virtually using a secure, HIPPA compliant video chat software program with the patient's consent. Pre-Op weight goal: 218 lbs Education Class: Patient will receive instruction regarding healthy food choices and eating behaviors identified as optimal when preparing for surgery, losing weight after surgery, and maintaining weight loss long-term. Patient will also receive instruction regarding the Bariatric Full Liquid diet following surgery and optimal post-operative high-protein supplement choices. Education class to be completed prior to surgery. Behaviors Accomplished: Visit # 3/0 Date: 01/12/22 Today's Weight: 224 lbs Last in-office weight: (w/ Dr. Mariee 12/07 ) 225 lbs Initial Weight (Bag Machine Tender VV 10/25 per pt report): 223 lbs Weight goal met: No -demonstrates down 1# since last month, 6# above GW, and 1# above initial weight. Behaviors that helped/hindered weight loss: helped Eating 3 meals/one snack Choose healthy foods Daily multivitamin No high fat/fast foods 24 hr recall: 01/11 B: 2 eggs (14g), 1 slice WG bread, small amt of spray butter, 2 slices turkey villarreal (7g) L: premier shake (30g) D: chicken quesdilla , 21g + broccoli S: skinny pop, cottage cheese with blueberries (14g) , apple F: 96 oz - 1 mini can sprite (7.5) = 88.5 oz Protein per recall:per pt 108g, per RD 86g Protein intake: 117g, 105g, 76 oz Fluid intake: 80 oz, 96 oz, 64 oz Exercise: 3x week - Youtube video (20-30 min), walking for 30 min, 15min stationary bike + 15min walking -- 90/150 minutes working on increasing to meet 150min Caffeine: eliminated completely Carbonation: yes per recall, once weekly right now, working on eliminating Alcohol: none Dining out: 2x/month Patient presents for month 3 of NA supervised diet and exercise, demonstrates down 1# since last month, 6# above GW, and 1# above initial weight. Verbalized she is using bariatastic 5-7 days per week. Per 24 hr recall, exceeding protein and fluid goals. Will review food journal further at next RD appointment. Does endorse in carbonation 1x/week and is working on eliminating, stated that she mostly cooks from home, maybe dines out 2x/month . Is partially meeting exercise goals at this time, reviewed increasing activity to meet 150min/week. Reports taking daily MV (tab). The patient meets NIH guidelines for weight loss surgery and has been thoroughly evaluated and educated on good dietary practices. Patient is capable of following these guidelines pre-and post-surgically. From nutrition standpoint, the has partially met nutrition clearance and will need to demonstrate limit protein intake to 60-90g/day, tracking 5/7 days per week via [email or web address] nikki, eliminate carbonation completely, and increase exercise to 150min/week or 5x/week for 30 min to receive nutrition clearance. Plan: Follow up with RD in 1 month (before ) -- in office for weight check + [employer] follow up Goals Eat 3 meals every day eliminate carbonation formal exercise 2-7x/week, as tolerated, goal of 30 minutes OR 150 min/week journal daily and bring to all appointments limit protein intake to 60-90g daily I spent 20 minutes in the visit, with more than 50% of the total lxlx-gh-crtl time of the visit in counseling / coordination of care. Tram Stack RD This note was generated using voice recognition technology and may contain grammatical errors. documented in this encounter [facility] 01-12-2022 History of Presen t illness Narrative Images from the original note were not included. Erica Ibrahim, Ph.D., Clinical Psychologist [facility] [address] [place] [address], [address] [place] [address] [facility] Progress Note January 12, 2022 BILLING CODE: Patrice CPT Code: 53176 Psychotherapy 16-37 minutes Chief Complaint: Presurgical preparation focused on behavior change; stress management/coping; regulating eating patterns; anxiety Time initiated session: 8:00AM to 8:30AM Date of First Session: 11/17/21 (initial evaluation) Session #: 2 This appointment was conducted remotely via video virtual visit due to outbreak of COVID-19. Patient agreed to distance mental health visit. Prior to initiating the appointment, patient identity was established using name and date of . Patient was encouraged to move to a quiet place free of distractions. Provided patient with number to call in case of disconnection ([phone]) and obtained alternate phone number from patient (n/a, patient requested call back on [phone]). She reported she was at the following location: home ([address] [place] [address]) Patient identified the following plan to follow in case of emergency: Go to emergency room or call 911 Closest emergency room: [facility] Contact Information Primary Emergency Contact: David Ojeda Mobile Relation: Spouse Secondary Emergency [place] [address] Relation: Mother Collateral Parties Present: none. Subjective: Patient reported that she has been doing well with making changes in line with recommendations and is consistently tracking her food, meeting protein and fluid goals, and engaging in consistent exercise. She did complete the [facility] last month, and she denies engaging in binge eating, night eating, graze eating, or significant emotional eating over the past several weeks. Patient has established with individual therapy and is finding this helpful for working through anxiety and body image concerns. Patient does report experiencing some anxiety related to surgery. However, she is working to process this anxiety and is also feeling excitement about the upcoming procedure. Validated patient's emotions and experiences and engaged in reflective listening as she explored her concerns. Reinforced focus on making healthy choices, and engaged in motivational interviewing to identify factors supporting changes, as well as barriers to change. Explored ongoing use of effective, healthy stress management skills, and encouraged patient to continue using healthy skills to manage stress. Explored the progress patient has made since the initial evaluation, as well as future desired areas of change. Overall, patient has been doing very well with making healthy choices and maintains high motivation, strong support, and effective use of coping skills. She remains focused on prioritizing her physical and mental health and is open to seeking additional support as needed. Patient reported strong confidence in her ability to continue making healthy choices going forward. No additional visits with psychology are required at this time; however, pt is welcome to return as needed/desired before or after surgery. Patient mood is: Anxious. Affect is: Mood congruent. Patient denies any suicidal or homicidal ideation, plan or intent at this time. 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 It was confirmed to be accurate at the current appointment. 1) REQUIREMENTS FOR COMPLETING BEHAVIORAL HEALTH EVALUATION: *Re-establish with psychotherapy to address adaptive coping and stress management--MET *Ongoing psychotropic medication management by Primary Care Physician *[facility]--MET *All requirements have been met. Additional requirements may arise in course of treatment. 2) The patient may benefit from the following during the surgery process: *Participation in a Weight Loss Surgery support group *Continue exercise program *Follow up with psychology as an inpatient if needed *Follow up with psychology at 1, 3, 6, and 12 months postsurgery *Do not use alcohol, tobacco, and street drugs for 3 to 6 months prior to and after surgery. 3) Insurance letter completed at this time and electronically forwarded to [facility] Team. Erica Ibrahim, Ph.D., Clinical Psychologist documented in this encounter [facility] 01-10-2022 History of Presen t illness Narrative Zonia Arellano Lynette [id number] January 10, 2022 [facility] Eating Group CPT: 82663 Group Psychotherapy Group time: 1:00pm to 2:30pm Number of participants in group: 8 This appointment was conducted remotely via video virtual visit due to outbreak of COVID-19. Patient agreed to distance mental health visit. Prior to initiating the appointment, patient identity was established using name and date of . Patient was encouraged to move to a quiet place free of distractions. Provided patient with number to call in case of disconnection ([phone]) and obtained alternate phone number from patient (n/a, patient requested call back on [phone]). She reported she was at the following location: home ([address] [place] [address]) Patient identified the following plan to follow in case of emergency: Go to emergency room or call [phone] Closest emergency room: [facility] Contact Information Primary Emergency Contact: David Ojeda Mobile Relation: Spouse Secondary Emergency [place] [address] Relation: Mother Session 4: Preparing for surgery and life after surgery Reviewed food diaries with an emphasis on reviewing techniques to prevent binge eating. Discussed becoming mentally prepared for life after surgery and coping with relationship issues. Discussed how to make good food choices in social and restaurant situations and assertive communication. Ms. Ojeda was an active participant in the session. She did verbalize an understanding of the material presented. Patient was compliant with food diaries. Patient shared that she had been sick this weekend and explored how this impacted her goals. 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) Attention deficit hyperactivity disorder (ADHD), unspecified ADHD type Plan: Follow up with individual psychology provider: 01/12/22 Behavioral goal for the week: Set aside time on 2 days for a mindfulness activity Erica Ibrahim, Ph.D., Clinical Psychologist documented in this encounter [facility] 01-03-2022 History of Presen t illness Narrative Zonia Ojeda [id number] January 03, 2022 [facility] CPT: 30091 Group Psychotherapy Group time: 1:00pm to 2:30pm Number of participants in group: 9 This appointment was conducted remotely via video virtual visit due to outbreak of COVID-19. Patient agreed to distance mental health visit. Prior to initiating the appointment, patient identity was established using name and date of . Patient was encouraged to move to a quiet place free of distractions. Provided patient with number to call in case of disconnection ([phone]) and obtained alternate phone number from patient (n/a, patient requested call back on [phone]). She reported she was at the following location: [place] ([address] [facility] [address]) Patient identified the following plan to follow in case of emergency: Go to emergency room or call 911 Closest emergency room: [facility] Contact Information Primary Emergency Contact: David Ojeda Mobile Relation: Spouse Secondary Emergency Contact: [place] [address] Relation: Mother Session 3: Behavioral Strategies for Eating and Exercise Reviewed food diaries with an emphasis on identifying attitudes that contribute to eating patterns. Discussed behavioral techniques for weight management including stimulus control, regular meal pattern (eating breakfast), delaying tactics, exercise, and behavior chaining. Introduced mindful eating and engaged patients in mindful eating exercise. Ms. Ojeda was an active participant in the session. She did verbalize an understanding of the material presented. Patient shared her stress related to parenting and using eating for coping; she was active in discussion of mindful eating. 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 Eating Group CPT: 40603 Group Psychotherapy Group time: 1:00pm to 2:30pm Number of participants in group: 9 This appointment was conducted remotely via video virtual visit due to outbreak of COVID-19. Patient agreed to distance mental health visit. Prior to initiating the appointment, patient identity was established using name and date of . Patient was encouraged to move to a quiet place free of distractions. Provided patient with number to call in case of disconnection ([phone]) and obtained alternate phone number from patient (n/a, patient requested call back on [phone]). She reported she was at the following location: home home ([address] [place] [id number]) Patient identified the following plan to follow in case of emergency: Go to emergency room or call [phone] Closest emergency room: [facility] Contact Information Primary Emergency Contact: David Ojeda Mobile Relation: Spouse Secondary Emergency Contact: [place] [address] Relation: Mother Session 2: Emotional Eating, Cognitive Strategies, and Self-Image Reviewed food diaries with an emphasis on identifying binge episodes. Discussed antecedents for binges including emotions such as stress, depression, and anger. Identified positive coping strategies for stress management. Demonstrated diaphragmatic breathing as a stress management technique and gave patients information on resources. Discussed cognitive behavioral treatment of weight issues and identified self-defeating vs. coping thoughts. Discussed body image and expectations for changes in self-worth post surgery. Ms. Ojeda was an active participant in the session. She did verbalize an understanding of the material presented. Patient does appear to be an appropriate group candidate. Patient was active in discussion of stress management skills and body image; she was open to sharing her own experiences, as well. Prev week's behavioral goal: Meet fluid goal on Sunday and Sunday--MET Assessment: (F54) Psychological factors affecting medical condition (primary encounter diagnosis) (E66.01, Z68.38) Class 2 severe obesity with serious comorbidity and body mass index (BMI) of 38.0 to 38.9 in adult, unspecified obesity type (HCC) (F50.9) Eating disorder in remission (F33.41) MDD (major depressive disorder), recurrent, in partial remission (HCC) (F41.3) Other mixed anxiety disorders (F90.9) Attention deficit hyperactivity disorder (ADHD), unspecified ADHD type Plan: Return to group in 1 week (Behavioral Strategies) Behavioral goal for the week: Do Youtube exercises on 2 days for 20 min Erica Ibrahim, Ph.D., Clinical Psychologist documented in this encounter [facility] 12-22-2021 History of Presen t illness Narrative Radiology Service Progress Note PATIENT NAME: Zonia Ojeda DATE OF SERVICE: December 22, 2021 TIME: 7:33 AM PATIENT IDENTITY VERIFICATION COMPLETED USING TWO (2) IDENTIFIERS: Name and Date of confirmed by patient verbally. FALL SCREENING: Has the patient had 2 falls in the last year or 1 fall with injury or currently using an Ambulatory Assistive Device (Walker, Cane, Wheelchair, Crutches, etc.)? No PATIENT GENDER DATA: Female. status: : No status: NO. PATIENT RELEVANT IMPLANT DATA REVIEWED: Not Applicable RADIOLOGY DEPARTMENT: General X-ray: Exam(s) Completed: GI/ Procedure(s): Upper GI with barium contrast PERIPHERAL IV DATA: Not applicable SIGNED BY: RT Phi(Barry) December 22, 2021 7:33 AM documented in this encounter [facility] 12-20-2021 History of Presen t illness Narrative Zonia Ojeda [id number] December 20, 2021 [facility] Eating [facility] CPT: 97230 Group Psychotherapy Group time: 1:00pm to 2:30pm Number of participants in group: 8 This appointment was conducted remotely via video virtual visit due to outbreak of COVID-19. Patient agreed to distance mental health visit. Prior to initiating the appointment, patient identity was established using name and date of . Patient was encouraged to move to a quiet place free of distractions. Provided patient with number to call in case of disconnection ([phone]) and obtained alternate phone number from patient (n/a, patient requested call back on [phone]). She reported she was at the following location: home ([address] [place] [address]) Patient identified the following plan to follow in case of emergency: Go to emergency room or call 911 Closest emergency room: [facility] Contact Information Primary Emergency Contact: David Ojeda Mobile Relation: Spouse Secondary Emergency Contact: [place] [address] Relation: Mother Session 1: Developing a Regular Eating Pattern Patients attended the first session of a four week cognitive behavioral intervention for binge eating disorder. Patients were reminded of the limits of confidentiality in the group setting and agreed to hold in confidence all matters discussed in the group. Patients introduced themselves and discussed their motivation for bariatric surgery and their relationship with food. Discussed symptoms of eating disorders including binge eating, night eating and graze eating, in addition to tools to help manage different eating patterns. Discussed importance of self-monitoring and reviewed how to keep accurate self-monitoring records. Ms. Ojeda was an active participant in the session. She did verbalize an understanding of the material presented. Patient does appear to be an appropriate group candidate. Patient shared her challenges with meeting her fluid goal on the weekends and was actively engaged in group discussion. 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 Behavioral goal for the week: Meet fluid goal on Sunday and Sunday Erica Ibrahim, Ph.D., Clinical Psychologist documented in this encounter [facility] 12-14-2021 Instructions Alia Kraft PA-C - 12/14/2021 4:16 PM EDT ASSESSMENT/PLAN: 1. Sinobronchitis - - DOXYCYCLINE MONOHYDRATE 100 MG CAPSULE - BROMPHENIRAMINE-PSEUDOEPHEDRINE- DM 2 MG-30 MG-10 MG/5 ML ORAL SYRUP- at bedtime - BENZONATATE 100 MG CAPSULE- in AM Encourage fluids, rest. Flonase NS Tylenol and Motrin for pain and fever Saline Nasil spray, Neti Pot, vaporizer, Vicks. Try Cepocol lozenges or Chloraseptic throat spray. Warm salt water gargles. Cough and deep breath- 10x/hr while awake. Call PCP if sx worsen or no better. If symptoms worsen, or new symptoms develop go to ER. If you have worsening of breathing or breathing changes- go to ER. If you have persistent fever unrelieved by Tylenol/Motrin- go to the ER. Follow up as needed. Barriers to learning: none. Barriers to Learning: Age. Here with a parent The patient verbalizes understanding and is in agreement with plan of care. - Red flags for in person care discussed - All questions answered Alia Kraft PA-C documented in this encounter [facility] 12-14-2021 History of Presen t illness Narrative Surgical mask, face shield, N95, and gloves worn for all in-person care. 12/14/2021 Patient presents with: cough, congestion, sinus pressure SUBJECTIVE: This is a 41 year old that is here today for concern for URI symptoms and cough. She complains of significant sinus pressure and drainage and cough x 2 weeks. Worsening sinus pressure. Cough is not worse but is wet. New fever to 100F last night. Denies body aches or fatigue. She denies wheezing, shortness of breath, increased WOB, or chest pain. Covid Immunization Dates Overdue - COVID-19 VACCINE (3 - Booster for Moderna series) Overdue since 09/08/2020 07/14/2020 Imm Admin: COVID-19 vaccine, full dose (MODERNA) 06/16/2020 Imm Admin: COVID-19 vaccine, full dose (MODERNA) Asthma: none Pneumonia: none Tobacco: none Pain on scale of 0-10 with 0 being no pain and 10 being greatest pain: 0 Nothing makes the symptoms better. Nothing makes them worse. Self-treatment:. Mucinex The severity is mild and the symptoms are not improving. The patient did not have a similar problem in the last 3 months. The patient did not take any antibiotics in the last 3 months. Barriers to learning: none. Reviewed meds, OTCs, herbals or supplements. Reviewed allergies, medications, social history, and past medical history. PAST MEDICAL HISTORY Diagnosis Date ADD (attention deficit disorder) Anxiety Female infertility of unspecified origin Female infertility Pulmonary embolism (HCC) ALLERGIES Augmentin [Amoxicillin-Pot Clavulanate] MEDICATIONS Current Outpatient Medications Medication Sig cholecalciferol, Vitamin D3, (VITAMIN D3) 1,250 mcg (50,000 unit) cap capsule Take 1 capsule by mouth one time a week for 12 doses. Transition to 2,000-4,000 units of Vitamin D OTC after completing 12 weeks busPIRone (BUSPAR) 5 mg tablet Take 5 mg by mouth three times daily. VYVANSE 30 mg capsule TAKE 1 CAPSULE BY MOUTH ONCE DAILY IN THE MORNING desvenlafaxine ER (PRISTIQ) 50 mg 24 hr tablet Take 100 mg by mouth once daily. MULTIVITAMIN ORAL Take 1 tablet by mouth once daily. No current facility-administered medications for this visit. Medications and allergies reviewed by this provider. SOCIAL HISTORY Social History Tobacco Use Smoking status: Never Smokeless tobacco: Never Substance Use Topics Alcohol use: Yes Comment: Occasionally Drug use: No REVIEW OF SYSTEMS Review of Systems ROS: constitutional: fever, fatigue, HENT-sinus symptoms, Eyes- neg, heart-neg, respiratory- Cough, GI-neg, -neg, skin-neg, Allergy- neg, lymph-neg, neuro-neg, psych-neg- All systems neg except as noted above in HPI. OBJECTIVE: BP 125/79 Pulse 80 Temp 36.4 C (97.5 F) Ht 162.6 cm (5' 4) Wt 104.8 kg (231 lb) LMP 08/26/2019 SpO2 99% BMI 39.65 kg/m . Vital signs reviewed by this provider. Physical Exam Vitals reviewed. Constitutional: General: She is not in acute distress. Appearance: Normal appearance. She is well-developed and normal weight. She is not ill-appearing, toxic-appearing or diaphoretic. HENT: Head: Normocephalic and atraumatic. No right periorbital erythema or left periorbital erythema. Salivary Glands: Right salivary gland is not diffusely enlarged or tender. Left salivary gland is not diffusely enlarged or tender. Right Ear: Tympanic membrane, ear canal and external ear normal. Left Ear: Tympanic membrane, ear canal and external ear normal. Nose: Congestion and rhinorrhea present. Right Sinus: Maxillary sinus tenderness and frontal sinus tenderness present. Left Sinus: Maxillary sinus tenderness and frontal sinus tenderness present. Mouth/Throat: Lips: No lesions. Mouth: Mucous membranes are moist. No oral lesions. Dentition: No gum lesions. Tongue: No lesions. Tongue does not deviate from midline. Palate: No mass and lesions. Pharynx: Oropharynx is clear. No pharyngeal swelling, oropharyngeal exudate, posterior oropharyngeal erythema or uvula swelling. Tonsils: No tonsillar exudate or tonsillar abscesses. Eyes: General: Lids are normal. No scleral icterus. Right eye: No discharge. Left eye: No discharge. Extraocular Movements: Extraocular movements intact. Conjunctiva/sclera: Conjunctivae normal. Pupils: Pupils are equal, round, and reactive to light. Cardiovascular: Rate and Rhythm: Normal rate and regular rhythm. Heart sounds: Normal heart sounds. Comments: Persistent cough spells throughout the exam Pulmonary: Effort: Pulmonary effort is normal. Breath sounds: Normal breath sounds and air entry. Musculoskeletal: Cervical back: Full passive range of motion without pain. No spinous process tenderness or muscular tenderness. Lymphadenopathy: Head: Right side of head: No submental, submandibular, tonsillar, preauricular or posterior auricular adenopathy. Left side of head: No submental, submandibular, tonsillar, preauricular or posterior auricular adenopathy. Cervical: No cervical adenopathy. Skin: General: Skin is warm. Capillary Refill: Capillary refill takes less than 2 seconds. Findings: No rash. Neurological: General: No focal deficit present. Mental Status: She is alert and oriented to person, place, and time. Cranial Nerves: No facial asymmetry. Psychiatric: Attention and Perception: Attention normal. Behavior: Behavior is cooperative. ASSESSMENT/PLAN: 1. Sinobronchitis - ICD9: 473.9, 490, ICD10: J32.9, J40 X2 weeks New fever last night - DOXYCYCLINE MONOHYDRATE 100 MG CAPSULE - BROMPHENIRAMINE-PSEUDOEPHEDRINE- DM 2 MG-30 MG-10 MG/5 ML ORAL SYRUP- at bedtime - BENZONATATE 100 MG CAPSULE- in AM Encourage fluids, rest. Flonase NS Tylenol and Motrin for pain and fever Saline Nasil spray, Neti Pot, vaporizer, Vicks. Try Cepocol lozenges or Chloraseptic throat spray. Warm salt water gargles. Cough and deep breath- 10x/hr while awake. Call PCP if sx worsen or no better. If symptoms worsen, or new symptoms develop go to ER. If you have worsening of breathing or breathing changes- go to ER. If you have persistent fever unrelieved by Tylenol/Motrin- go to the ER. Follow up as needed. Barriers to learning: none. Barriers to Learning: Age. Here with a parent The patient verbalizes understanding and is in agreement with plan of care. - Red flags for in person care discussed - All questions answered Alia Kraft PA-C Medical Decision Making: Problems: Moderate: Acute illness with systemic symptoms Risk: Low: Low risk from testing/treatment Moderate: Drug management Medical Decision Making Level: 4 - Moderate I spent a total of 20 minutes on the date of the service which included preparing to see the patient, [id number] patient care, completing clinical documentation, performing a medically appropriate examination, counseling and educating the patient/family/caregiver, and ordering medications, tests, or procedures. documented in this encounter [facility] 12-07-2021 History of Presen t illness Narrative BARIATRIC SURGERY NEW PATIENT CONSULTATION HISTORY AND PHYSICAL Date: December 07, 2021 Time: 11:52 AM Zonia Ojeda is a 41 year old year old female with obesity (Body mass index is 38.71 kg/m .), ADD (vyvanse), anxiety/depression (pristiq, buspar), female infertility, vitamin D deficiency, and Hx of PE (d/t OCPs) who presents to the clinic today for consideration of bariatric surgery. This patient has struggled with weight related concerns for most of their life - including in childhood. 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 The heaviest adult weight they can recall was 235 pounds and the healthiest adult weight they can recall was 180 pounds. Her weight today is 225 pounds. She has a history of PE in 2018 due to OCP use. She was worked up for genetic cause and this was negative. She was on eliquis for 6 months and has not had a repeat PE or DVT since that time. She uses occasional aleve for TMJ. She takes this once weekly at most. She had COVID one month ago and still has a residual cough. She endorses mild occasional heartburn for which she believes is triggered by overeating or eating certain foods - this occurs less than once per month. She denies other Upper GI symptoms. She alternates between bouts of diarrhea and constipation. Social: denies use of tobacco or second hand smoke, denies use of illicit drugs; occasional etoh use PSHx: T&A, partial hysterectomy (2019; secondary to endometriosis), and hemorrhoidectomy PAST MEDICAL HISTORY Diagnosis Date ADD (attention deficit disorder) Anxiety Female infertility of unspecified origin Female infertility Pulmonary embolism (HCC) PAST SURGICAL HISTORY Procedure Laterality Date ADENOIDECTOMY PRIMARY <AGE 13 Adenoidectomy CATH & SALINE/CONTRAST SONOHYSTER/HYSTEROSALPI EXT HYSTERECTOMY,W/PARTIAL VAGINECTO HEMORRHOIDAL nd 05/2011 HEMORRHOIDECTOMY INT & XTRNL 2/> COLUMN/JENNIFER 06/16/2015 1 quadrant TONSILLECTOMY PRIMARY/SECONDARY <AGE 13 Tonsillectomy FAMILY HISTORY Problem Relation Age of Onset Asthma Mother Hypertension Mother other (Pulmonary Embolism) Mother other (Kidney Stone) Father other (Pulmonary Embolism) Brother Cancer Maternal Grandmother ovarian Alcohol/Drug Maternal Grandfather ETOH Heart Maternal Aunt Psychiatry Maternal Aunt Social History Tobacco Use Smoking status: Never Smokeless tobacco: Never Substance Use Topics Alcohol use: Yes Comment: Occasionally Drug use: No Current Outpatient Medications Medication Sig cholecalciferol, Vitamin D3, (VITAMIN D3) 1,250 mcg (50,000 unit) cap capsule Take 1 capsule by mouth one time a week for 12 doses. Transition to 2,000-4,000 units of Vitamin D OTC after completing 12 weeks busPIRone (BUSPAR) 5 mg tablet Take 5 mg by mouth three times daily. VYVANSE 30 mg capsule TAKE 1 CAPSULE BY MOUTH ONCE DAILY IN THE MORNING desvenlafaxine ER (PRISTIQ) 50 mg 24 hr tablet Take 100 mg by mouth once daily. MULTIVITAMIN ORAL Take 1 tablet by mouth once daily. No current facility-administered medications for this visit. ALLERGIES Allergen Reactions Augmentin [Amoxicil* Itching & swelling Review of Systems Constitutional: Negative for chills, diaphoresis, fever and malaise/fatigue. HENT: Negative for congestion, hearing loss, nosebleeds, sinus pain, sore throat and tinnitus. Eyes: Negative for blurred vision, double vision, pain and redness. Respiratory: Negative for cough, hemoptysis, sputum production, shortness of breath and wheezing. Cardiovascular: Negative for chest pain, palpitations, orthopnea, leg swelling and PND. Gastrointestinal: Positive for constipation and diarrhea. Negative for abdominal pain, blood in stool, heartburn, nausea and vomiting. Genitourinary: Negative for dysuria, frequency, hematuria and urgency. Musculoskeletal: Negative for back pain, falls, joint pain, myalgias and neck pain. Skin: Negative for itching and rash. Neurological: Negative for dizziness, speech change, focal weakness, seizures, loss of consciousness, weakness and headaches. Endo/Heme/Allergies: Does not bruise/bleed easily. Psychiatric/Behavioral: Positive for depression. Negative for hallucinations, memory loss, substance abuse and suicidal ideas. The patient is nervous/anxious. The patient does not have insomnia. Physical Exam Vitals reviewed. Constitutional: Appearance: Normal appearance. She is obese. HENT: Head: Normocephalic and atraumatic. Nose: Nose normal. Eyes: Extraocular Movements: Extraocular movements intact. Conjunctiva/sclera: Conjunctivae normal. Pupils: Pupils are equal, round, and reactive to light. Cardiovascular: Rate and Rhythm: Normal rate. Pulses: Normal pulses. Pulmonary: Effort: Pulmonary effort is normal. Abdominal: General: Abdomen is flat. Palpations: Abdomen is soft. Skin: General: Skin is warm and dry. Coloration: Skin is not jaundiced or pale. Neurological: General: No focal deficit present. Mental Status: She is alert and oriented to person, place, and time. Psychiatric: Mood and Affect: Mood normal. Behavior: Behavior normal. Required monthly visits: 2 of 0 months. Patient is interested in: Sleeve Gastrectomy EGD: defer to UGI Upper GI: ordered today RUQ US: WNL Sleep Study: Negative study scanned in 09/2021 CXR: normal EKG: NSR, low voltage QRS- borderline EKG H Pylori pending Labs: complete, vitamin D def, Nicotine use <12 months: NA, required per insurance- ordered and completed; negative Tox screen: required per insurance, ordered and negative Antiplatelet/anticoagulants: No Immunosuppressive therapy: No Estrogen therapy: No Evaluations Psychology: ongoing Nutrition: ongoing Education class: ongoing Clearances: PCP Risk Calculator: VTE Risk: History of PE COVID-19 Risk 2 ISS score:Not diabetic Adverse Event score: 1.18% Post-op Medications: Extended Lovenox: Will require 4 weeks; history of PE Actigall: Yes H2 len/PPI: Will require Plan IMPRESSION: Zonia Ojeda is a 41 year old year old female who presents for consideration of bariatric surgery (Body mass index is 38.71 kg/m .). She does meet the criteria for a surgical weight loss procedure according to NIH guidelines. The plan of treatment for Zonia is to continue with the consultations and tests ordered today in hopes of qualifying for pre-operative clearance for bariatric surgery. She is interested in: Sleeve gastrectomy ASSESSMENT/PLAN: 1. Class 2 severe obesity due to excess calories with serious comorbidity and body mass index (BMI) of 38.0 to 38.9 in adult ([facility]) - ICD9: 278.01, V85.38, ICD10: E66.01, Z68.38 (primary diagnosis) - Today we discussed the bariatric surgical options available to her. We discussed the risks and benefits associated with both the sleeve gastrectomy and shana-en-y gastric bypass. At this time she is open to either procedure, but is most interested in the LSG. I am most concerned about her mild intermittent heartburn, but she states this is very rare - XR UPPER GI ROUTINE DOUBLE CONTRAST/AIR 2. Depression, unspecified depression type - ICD9: 311, ICD10: F32.A - Continue current medical management 3. History of pulmonary embolism - ICD9: V12.55, ICD10: Z86.711 - Will need 4 weeks of post op Lovenox due to history of PE 4. Vitamin D deficiency - ICD9: 268.9, ICD10: E55.9 - Continue medication Nutrition Counseling Practice these: - Eat 3 meals daily--can use approved/recommended protein shake as 1 meal replacement (should be <200 calories, 20-30g protein, <5g added sugar) - Keep a food journal 5-7x/week (consider [employer] or [employer] nikki) and demonstrate meeting protein goal (60-90g protein for females, 70-105g protein for males)- Lean meats, fish, low fat dairy - cottage cheese, Burkinan yogurt, light yogurt, cheese, ricotta cheese, nuts, peanut butter, beans/legumes. Eat protein first at all meals. and 64oz of caffeine-free, carbonation-free fluids at least 5 days per week - engage in formal, planned exercise 5x/week for 30 minutes of cardiovascular activity OR 150+ minutes of cardiovascular activity per week - eliminate all caffeine, carbonation, alcohol and sugar-containing beverages from diet --consider sugar-free drink mixes, water, decaf coffee and tea - Separate eating and drinking by 30 minutes - Chew your food 20-30x per bite - Sip beverages slowly--no guzzling or gulping Information regarding probable and potential postoperative complications, dietary and medical postoperative limitations, and potential cosmetic sequelae has been received by individual. Michelle Mariee MD Advanced Laparoscopic and Bariatric Surgery Medical Decision Making: Problems: Moderate: 2+ stable chronic illnesses Data: Unique source(s) for external note(s) reviewed: 2 Unique test result(s) reviewed: 1 Unique test(s) ordered: 1 Discussed management or test w/ external physician/QHCP/source Risk: Moderate: Decision on elective major surgery w/o risk factors Medical Decision Making Level: 4 - Moderate PMH: + PE (2018 - due to oral contraception. No longer on anticoagulation) + Mild heartburn (no meds) + Denies NSAID use + ADD (vyvanse) + depression and anxiety (pristiq, buspar) Surgical history significant for tonsillectomy and adenoidectomy, partial hysterectomy (secondary to endometriosis), and hemorrhoidectomy Required monthly visits: 2 of 0 months. Patient is interested in: Sleeve Gastrectomy EGD: surgeon Upper GI: surgeon GIL US: WNToshia Sleep Study: Negative study scanned in 09/2021 CXR: normal EKG: NSR, low voltage QRS- borderline EKG H Pylori pending Labs: complete, vitamin D def, Nicotine use <12 months: NA, required per insurance- ordered Tox screen: required per insurance, ordered Antiplatelet/anticoagulants: No Immunosuppressive therapy: No Estrogen therapy: No Evaluations Psychology: ongoing Nutrition: ongoing Education class: ongoing Clearances: PCP Risk Calculator: VTE Risk: History of PE COVID-19 Risk 2 ISS score:Not diabetic Adverse Event score: 1.18% Post-op Medications: Extended Lovenox: Will require 4 weeks; history of PE Actigall: Yes H2 len/PPI: Will require Maria D Fowler APRN.[employer] documented in this encounter [facility] 11-17-2021 History of Presen t illness Narrative Images from the original note were not included. Erica Ibrahim, Ph.D., Clinical Psychologist [facility] [address] [place] [address], [address] [place] [address] BARIATRIC SURGERY BEHAVIORAL HEALTH EVALUATION DATE OF SERVICE: November 17, 2021 TIME OF SERVICE: 2:00pm to 3:40pm [facility]: [facility] CPT CODE: 67824 Psychiatric diagnostic evaluation 08768 Interactive complexity add on code. Reasoning: Pt presented with complex history, requiring additional time to complete evaluation BILLING CODE: Patrice CHIEF COMPLAINT: Pre-surgical psychological evaluation DATE OF FIRST SERVICE THIS CYCLE: November 17, 2021 SESSION #: 1 This appointment was conducted remotely via video virtual visit due to outbreak of COVID-19. Prior to initiating the appointment, patient identity was established using name and date of . Patient was encouraged to move to a quiet place free of distractions. Provided patient with number to call in case of disconnection ([phone]) and obtained alternate phone number from patient (n/a, patient requested call back on [phone]). She reported she was at the following location: home ([address] [place] [address], [place] [address]) Patient identified the following plan to follow in case of emergency: Go to emergency room or call 911 Closest emergency room: [facility] Extended Emergency Contact Information Primary Emergency Contact: David Ojeda Mobile Relation: Spouse Secondary Emergency Contact: [place] [address] Relation: Mother Patient agreed to distance mental health visit. The patient signed the Informed Consent for Psychological Evaluation & Care Form, and the [facility] health care insurance benefits, fees for service, emergency procedures, and the limits of confidentiality that may pertain with any given case were discussed with the patient. Discussed additional risks that may apply to telepsychology and steps that are taken to minimize risk. Discussed strategies to use in case of service disruption or emergencies, as well as alternatives to distance visits. Ms. Ojeda was given a copy of the consent form. IDENTIFYING INFORMATION: Ms. Zonia Ojeda is a 41 year old female. She was referred by Surgery. Ms. Ojeda is seeking gastric bypass or gastric sleeve surgery for morbid obesity. Her surgeon is Dr. Mariee. COLLATERAL PARTIES PRESENT: none. MOTIVATION FOR SURGERY / UNDERSTANDING OF PROCEDURE / EXPECTATIONS: Ms. Ojeda notes she is motivated for surgery by wanting to improve her health for her children. The patient has a good understanding of the surgery, risks, and benefits. She has partially talked with other people who have undergone the procedure (watched videos online/on [employer]). Specific areas of understanding that should be addressed include n/a. The patient has not attended a weight loss surgery support group. The patient expects to lose 30-50+ lbs. following surgery over 6-18 months. Other expectations include increased quality of life and increased activity. Educated patient regarding expected weight loss after surgical procedure and timeline of weight loss/surgery recovery. CAPACITY TO CONSENT: Ms. Ojeda evidences the following concerns regarding capacity to consent: none noted. MEDICAL PROBLEMS ACTIVE PROBLEM LIST Backache, Unspecified Rectal Fissure Thrombosed External Hemorrhoid Depression Pulmonary Embolus With Infarction (Hcc) History of depression and anxiety PAST SURGICAL HISTORY Procedure Laterality Date ADENOIDECTOMY PRIMARY <AGE 13 Adenoidectomy CATH & SALINE/CONTRAST SONOHYSTER/HYSTEROSALPI EXT HYSTERECTOMY,W/PARTIAL VAGINECTO HEMORRHOIDAL nd 05/2011 HEMORRHOIDECTOMY INT & XTRNL 2/> COLUMN/JENNIFER 06/16/2015 1 quadrant TONSILLECTOMY PRIMARY/SECONDARY <AGE 13 Tonsillectomy Past surgeries? Yes History of psychological complications post-surgery? No MEDICATIONS Current Outpatient Medications Medication Sig cholecalciferol, Vitamin D3, (VITAMIN D3) 1,250 mcg (50,000 unit) cap capsule Take 1 capsule by mouth one time a week for 12 doses. Transition to 2,000-4,000 units of Vitamin D OTC after completing 12 weeks busPIRone (BUSPAR) 5 mg tablet Take 5 mg by mouth three times daily. VYVANSE 30 mg capsule TAKE 1 CAPSULE BY MOUTH ONCE DAILY IN THE MORNING desvenlafaxine ER (PRISTIQ) 50 mg 24 hr tablet Take 100 mg by mouth once daily. MULTIVITAMIN ORAL Take 1 tablet by mouth once daily. No current facility-administered medications for this visit. Pristiq (taking for the past 5 months), Buspar (taking for the past two years) and Vyvanse (taking for the past year). Prescribed by PCP for depression, anxiety, and ADHD. ALLERGIES Allergen Reactions Augmentin [Amoxicil* Itching & swelling EATING/WEIGHT HISTORY: Ms. Ojeda was average weight or slightly overweight as a child; reported her father was very critical of her weight even when she was at a healthy weight. Her weight at age 19 was ~140 lbs. The patient reports the following factors as contributing to weight gain: , depression, stress/divorce, weight regain after weight loss. The patient reports some family history of obesity. Current Weight: BMI: The patient has tried weight loss strategies in the past including exercising, Adipex (two times, prescribed by OB), Weight Watchers,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 endometriosis), and hemorrhoidectomy HISTORY REVIEWED (electronic chart updated): - medical history - medications - allergies PAST MEDICAL HISTORY Diagnosis Date ADD (attention deficit disorder) Anxiety Female infertility of unspecified origin Female infertility Pulmonary embolism (HCC) PAST SURGICAL HISTORY Procedure Laterality Date ADENOIDECTOMY PRIMARY <AGE 13 Adenoidectomy CATH & SALINE/CONTRAST SONOHYSTER/HYSTEROSALPI EXT HYSTERECTOMY,W/PARTIAL VAGINECTO HEMORRHOIDAL nd 05/2011 HEMORRHOIDECTOMY INT & XTRNL 2/> COLUMN/JENNIFER 06/16/2015 1 quadrant TONSILLECTOMY PRIMARY/SECONDARY <AGE 13 Tonsillectomy FAMILY HISTORY Problem Relation Age of Onset Asthma Mother Hypertension Mother other (Pulmonary Embolism) Mother other (Kidney Stone) Father other (Pulmonary Embolism) Brother Cancer Maternal Grandmother ovarian Alcohol/Drug Maternal Grandfather ETOH Heart Maternal Aunt Psychiatry Maternal Aunt SOCIAL HISTORY: Social History Tobacco Use Smoking status: Never Smokeless tobacco: Never Substance Use Topics Alcohol use: Yes Comment: Occasionally Drug use: No MEDICATIONS: Prior to Admission Medications: busPIRone (BUSPAR) 5 mg tablet Take 5 mg by mouth three times daily. VYVANSE 30 mg capsule TAKE 1 CAPSULE BY MOUTH ONCE DAILY IN THE MORNING desvenlafaxine ER (PRISTIQ) 50 mg 24 hr tablet Take 100 mg by mouth once daily. MULTIVITAMIN ORAL Take 1 tablet by mouth once daily. ALLERGIES Allergen Reactions Augmentin [Amoxicil* Itching & swelling Sleep apnea screen: Negative sleep study last month per patient REVIEW OF SYSTEMS: GENERAL: No weight loss, malaise or fevers HEENT: Negative for frequent or significant headaches, No changes in hearing or vision, no nose bleeds or other nasal problems NECK: Negative for lumps, goiter, pain and significant neck swelling RESPIRATORY: Negative for cough, hemoptysis, wheezing, COPD, dyspnea or shortness of breath CARDIOVASCULAR: Negative for chest pain, leg swelling, hypertension, CHF or palpitations GI: No nausea, vomiting, or diarrhea and No heartburn or reflux symptoms : No history of dysuria, frequency or incontinence MUSCULOSKELETAL: Negative for joint pain or swelling, back pain or muscle pain SKIN: Negative for lesions, rash, and itching PSYCH: Negative for sleep disturbance, mood disorder and recent psychosocial stressors HEMATOLOGY/LYMPHOLOGY: Negative for prolonged bleeding, bruising easily or swollen nodes ENDOCRINE: Negative for cold or heat intolerance, polyuria, polydipsia and goiter PHYSICAL EXAM: Ht 162.6 cm (5' 4) Wt 101.2 kg (223 lb) LMP 08/26/2019 BMI 38.28 kg/m GENERAL APPEARANCE: Pleasant, interacts appropriately and in no apparent distress Appropriately groomed, happy, smiling, and interactive. ENT: Oral mucosa pink without lesions/ulcerations; LUNGS: unlabored on room air negative findings: normal respiratory rate and rhythm, no cough ABDOMEN: Obese SKIN: Skin of normal texture, temperature without rashes/lesions/ulcerations. NEURO/PSYCH: Oriented to person, place, time; appropriate insight and judgement. Appropriate affect. Diagnostic Tests Reviewed for Today's Visit Most recent labs and imaging results. Further Work-up: Required monthly visits: 1 of 0 months. Patient is interested in: Sleeve Gastrectomy EGD: surgeon Upper GI: surgeon GIL US: pending Sleep Study: Recent negative test per pt- requesting from PCP CXR:pending EKG:pending H Pylori pending Labs:pending Nicotine use <12 months: NA, required per insurance- ordered Tox screen: required per insurance, ordered Antiplatelet/anticoagulants: No Immunosuppressive therapy: No Estrogen therapy: No Evaluations Psychology: ongoing Nutrition: ongoing Education class: ongoing Clearances: PCP Risk Calculator: VTE Risk: History of PE COVID-19 Risk 2 ISS score:Not diabetic Adverse Event score: TBD Post-op Medications: Extended Lovenox: Will require 4 weeks; history of PE Actigall: TBD H2 len/PPI: Will require IMPRESSION AND PLAN: Zonia Ojeda is a 41 year old female with the following diagnosis and co-morbidities: Body mass index is 38.28 kg/m . This patient does meet the criteria for a surgical weight loss procedure according to NIH guidelines. Time was spent discussing both surgical options as well as she was provided with estimations in terms of percent excess weight loss. Procedure she is interested in: LSG Zonia Ojeda complete a 0 month trial of diet and exercise. Therefore, Zonia Ojeda was given a 10 pound weight loss goal, received 10-15 minutes of dietary counseling in office today, as well as was scheduled for our shared education class. She will also need to be cleared by psychology. ASSESSMENT/PLAN: 1. Class 2 obesity with body mass index (BMI) of 38.0 to 38.9 in adult, unspecified obesity type, unspecified whether serious comorbidity present - ICD9: 278.00, V85.38, ICD10: E66.9, Z68.38 (primary diagnosis) Stable - Behavioral intervention and - Medical nutrition therapy with dietitian - SNA scheduled 10/31 - CBC - COMP METABOLIC PANEL - ECG COMPLETE - FERRITIN BLD - FOLATE SERUM - IRON + TIBC - LIPID PANEL BASIC - NICOTINE & METAB, UR - PTH INTACT BLD - US ABD RT UPPER QUADRANT - TOX SCREEN ROUT UR - VITAMIN B1 (THIAMINE), WHOLE BLOOD - VITAMIN D 25 HYDROXY - VITAMIN B12 BLOOD - XR CHEST 2V FRONTAL/LAT - TSH BLD 2. History of pulmonary embolism - ICD9: V12.55, ICD10: Z86.711 - Triggered by use of oral contraception, required Eliquis x 6 months but no longer requires anticoagulation - Will require 4 weeks extended lovenox post-op 3. Anxiety and depression - ICD9: 300.00, 311, ICD10: F41.9, F32.A - On Prestiq and buspar We will continue to see patient on a monthly basis until all testing and clearances are complete. Follow-up with surgeon next month to discuss surgical planning and additional testing if needed. Maria D Fowler, DOOR MANAGER.AUREA I spent a total of 45 minutes on the date of the service which included preparing to see the patient, [id number] patient care, completing clinical documentation, obtaining and/or reviewing separately obtained history, counseling and educating the patient/family/caregiver, ordering medications, tests, or procedures, and care coordination (not separately reported). Medical Decision Making: Problems: Low: Stable chronic illness Data: Unique test(s) ordered: 3+ Assessment requiring an independent historian(s) Risk: Minimal: Minimal risk from testing/treatment Medical Decision Making Level: 3 - Low This note was generated using voice recognition technology and may contain grammatical errors. documented in this encounter [facility] 07-31-2021 Instructions Trudy Bernard PA-C - 07/31/2021 10:19 AM EDT Images from the original note were not included. Adult Sinusitis Patient Education What is Sinusitis? Sinusitis [[id number]-yjq-[id number]-tis] is inflammation of the sinuses or swelling of the lining of the sinus cavity or nose. During an infection the sinuses become blocked with fluid causing swelling of the lining of the sinuses. Symptoms: (viral and bacterial infections) Stuffy nose Runny nose Postnasal drip Fever Toothache Headache Tiredness Cough Sore throat Face and head pressure and or pain Common causes: 98% of sinus infections are viral caused by viruses. Risk Factors of Sinusitis Include: Allergies, air pollution, indoor humidity and outdoor temperature changes, andstructural changes in the nose may contribute to sinus pain, pressure and congestion. When to get help? Temperature greater than 100.4 F Symptoms lasting more than 10 days or worsening symptoms greater than 7-10 days. If you do not improve or worsen after a course of antibiotics, you should be re-examined. Diagnosis and Treatment: Your healthcare provider will ask a number of questions about your symptoms and how long they have occurred. If symptoms of sinusitis persist greater than 10 days, it is possible you have a bacterial sinus infection and an antibiotic is prescribed. If it is viral, antibiotics will not help. You may be instructed to take [id number] medications for symptoms. including fever reducers acetaminophen or ibuprofen, nasal saline spray, cough and cold preparations and decongestants as prescribed by the physician, nurse practitioner or physician assistant branch manager. Self-Care and Prevention: Rest Fluids for hydration Good hand washing Humidifier Avoid smoking and exposure to second hand smoke Avoid sick contacts documented in this encounter [facility] 07-31-2021 History of Presen t illness Narrative Subjective Zonia Ojeda is a 41 year old female with a past medical history of PE who presents to [facility] today for evaluation of nasal congestion, sinus pressure, headache, and left ear fullness x2 days. She denies having any fevers. No known exposure to COVID-19. Review of Systems Constitutional: Negative for chills, diaphoresis and fever. HENT: Positive for congestion, ear pain (left), sinus pressure and sinus pain. Negative for sore throat. Eyes: Negative for discharge and redness. Respiratory: Negative for cough and shortness of breath. Skin: Negative for rash and wound. Neurological: Positive for headaches. Negative for weakness. All other systems reviewed and are negative. Objective BP 128/83 Pulse 80 Temp 36.9 C (98.4 F) Resp 16 Ht 162.6 cm (5' 4) Wt 101.2 kg (223 lb) LMP 08/26/2019 SpO2 97% BMI 38.28 kg/m Physical Exam Vitals reviewed. Constitutional: General: She is not in acute distress. Appearance: Normal appearance. She is normal weight. She is not ill-appearing or toxic-appearing. HENT: Head: Normocephalic and atraumatic. Right Ear: Tympanic membrane, ear canal and external ear normal. Left Ear: Tympanic membrane, ear canal and external ear normal. Nose: Congestion present. Right Sinus: Maxillary sinus tenderness present. Left Sinus: Maxillary sinus tenderness present. Eyes: Extraocular Movements: Extraocular movements intact. Cardiovascular: Rate and Rhythm: Normal rate and regular rhythm. Heart sounds: Normal heart sounds. No murmur heard. No friction rub. No gallop. Pulmonary: Effort: Pulmonary effort is normal. No respiratory distress. Breath sounds: Normal breath sounds. No wheezing. Musculoskeletal: General: Normal range of motion. Cervical back: Normal range of motion. Skin: General: Skin is warm and dry. Findings: No erythema or rash. Neurological: General: No focal deficit present. Mental Status: She is alert and oriented to person, place, and time. Mental status is at baseline. Psychiatric: Mood and Affect: Mood normal. Behavior: Behavior normal. Thought Content: Thought content normal. Assessment and Plan History and exam are consistent with acute sinusitis. As patient symptoms have only been present for 2 days, she will not be started on antibiotics. Patient counseled regarding suspected diagnosis and advised to take Sudafed and Flonase at home. Patient advised to follow-up with her primary care provider as needed for any new or worsening symptoms. ASSESSMENT/PLAN: 1. Acute maxillary sinusitis, recurrence not specified - ICD9: 461.0, ICD10: J01.00 (primary diagnosis) - sudafed - flonase 2. Sinus pressure - ICD9: 478.19, ICD10: J34.89 3. Nasal congestion - ICD9: 478.19, ICD10: R09.81 4. Acute nonintractable headache, unspecified headache type - ICD9: 784.0, ICD10: R51.9 Medical Decision Making: Problems: Low: Acute, uncomplicated illness or injury Risk: Minimal: Minimal risk from testing/treatment Moderate: Drug management Medical Decision Making Level: 3 - Low I spent a total of 20 minutes on the date of the service which included preparing to see the patient, [id number] patient care, completing clinical documentation, performing a medically appropriate examination, counseling and educating the patient/family/caregiver and ordering medications, tests, or procedures. documented in this encounter [facility] 09-14-2008 History of Past i llness Narrative Problem Noted Date Resolved Date Other venous complication, antepartum 09/14/2008 05/18/2011 Supervision of normal first 08/13/2008 01/26/2009 documented as of this encounter (statuses as of 07/31/2021) [facility] History of Past illness Narrative* Problem Noted Date Resolved Date Other venous complication, antepartum 09/14/2008 05/18/2011 Supervision of normal first 08/13/2008 01/26/2009 documented as of this encounter (statuses as of 10/25/2021) [facility] History of Past illness Narrative* Problem Noted Date Resolved Date Other venous complication, antepartum 09/14/2008 05/18/2011 Supervision of normal first 08/13/2008 01/26/2009 documented as of this encounter (statuses as of 10/27/2021) [facility] History of Past illness Narrative* Problem Noted Date Resolved Date Other venous complication, antepartum 09/14/2008 05/18/2011 Supervision of normal first 08/13/2008 01/26/2009 documented as of this encounter (statuses as of 10/31/2021) [facility] History of Past illness Narrative* Problem Noted Date Resolved Date Other venous complication, antepartum 09/14/2008 05/18/2011 Supervision of normal first 08/13/2008 01/26/2009 documented as of this encounter (statuses as of 11/06/2021) [facility] History of Past illness Narrative* Problem Noted Date Resolved Date Other venous complication, antepartum 09/14/2008 05/18/2011 Supervision of normal first 08/13/2008 01/26/2009 documented as of this encounter (statuses as of 11/07/2021) [facility] History of Past illness Narrative* Problem Noted Date Resolved Date Other venous complication, antepartum 09/14/2008 05/18/2011 Supervision of normal first 08/13/2008 01/26/2009 documented as of this encounter (statuses as of 11/07/2021) [facility] History of Past illness Narrative* Problem Noted Date Resolved Date Other venous complication, antepartum 09/14/2008 05/18/2011 Supervision of normal first 08/13/2008 01/26/2009 documented as of this encounter (statuses as of 11/17/2021) [facility] History of Past illness Narrative* Problem Noted Date Resolved Date Other venous complication, antepartum 09/14/2008 05/18/2011 Supervision of normal first 08/13/2008 01/26/2009 documented as of this encounter (statuses as of 12/07/2021) [facility] History of Past illness Narrative* Problem Noted Date Resolved Date Other venous complication, antepartum 09/14/2008 05/18/2011 Supervision of normal first 08/13/2008 01/26/2009 documented as of this encounter (statuses as of 12/14/2021) [facility] History of Past illness Narrative* Problem Noted Date Resolved Date Other venous complication, antepartum 09/14/2008 05/18/2011 Supervision of normal first 08/13/2008 01/26/2009 documented as of this encounter (statuses as of 12/20/2021) [address]2009 History of Past illness Narrative* Problem Noted Date Resolved Date Other venous complication, antepartum 09/14/2008 05/18/2011 Supervision of normal first 08/13/2008 01/26/2009 documented as of this encounter (statuses as of 12/23/2021) [address]2009 History of Past illness Narrative* Problem Noted Date Resolved Date Other venous complication, antepartum 09/14/2008 05/18/2011 Supervision of normal first 08/13/2008 01/26/2009 documented as of this encounter (statuses as of 12/27/2021) [address]2009 History of Past illness Narrative* Problem Noted Date Resolved Date Other venous complication, antepartum 09/14/2008 05/18/2011 Supervision of normal first 08/13/2008 01/26/2009 documented as of this encounter (statuses as of 01/03/2022) [address]2009 History of Past illness Narrative* Problem Noted Date Resolved Date Other venous complication, antepartum 09/14/2008 05/18/2011 Supervision of normal first 08/13/2008 01/26/2009 documented as of this encounter (statuses as of 01/10/2022) [address]2009 History of Past illness Narrative* Problem Noted Date Resolved Date Other venous complication, antepartum 09/14/2008 05/18/2011 Supervision of normal first 08/13/2008 01/26/2009 documented as of this encounter (statuses as of 01/12/2022) [address]2009 History of Past illness Narrative* Problem Noted Date Resolved Date Other venous complication, antepartum 09/14/2008 05/18/2011 Supervision of normal first 08/13/2008 01/26/2009 documented as of this encounter (statuses as of 01/12/2022) [address]2009 History of Past illness Narrative* Problem Noted Date Resolved Date Other venous complication, antepartum 09/14/2008 05/18/2011 Supervision of normal first 08/13/2008 01/26/2009 documented as of this encounter (statuses as of 01/26/2022) [facility] History of Past illness Narrative* Problem Noted Date Resolved Date Other venous complication, antepartum 09/14/2008 05/18/2011 Supervision of normal first 08/13/2008 01/26/2009 documented as of this encounter (statuses as of 02/02/2022) [facility] History of Past illness Narrative* Problem Noted Date Resolved Date Other venous complication, antepartum 09/14/2008 05/18/2011 Supervision of normal first 08/13/2008 01/26/2009 documented as of this encounter (statuses as of 02/03/2022) [facility] History of Past illness Narrative* Problem Noted Date Resolved Date Other venous complication, antepartum 09/14/2008 05/18/2011 Supervision of normal first 08/13/2008 01/26/2009 documented as of this encounter (statuses as of 02/06/2022) [facility] History of Past illness Narrative* Problem Noted Date Resolved Date Other venous complication, antepartum 09/14/2008 05/18/2011 Supervision of normal first 08/13/2008 01/26/2009 documented as of this encounter (statuses as of 02/21/2022) [facility] History of Past illness Narrative* Problem Noted Date Resolved Date Other venous complication, antepartum 09/14/2008 05/18/2011 Supervision of normal first 08/13/2008 01/26/2009 documented as of this encounter (statuses as of 02/27/2022) [facility] History of Past illness Narrative* Problem Noted Date Resolved Date Other venous complication, antepartum 09/14/2008 05/18/2011 Supervision of normal first 08/13/2008 01/26/2009 documented as of this encounter (statuses as of 02/28/2022) [facility] History of Past illness Narrative* Problem Noted Date Resolved Date Other venous complication, antepartum 09/14/2008 05/18/2011 Supervision of normal first 08/13/2008 01/26/2009 documented as of this encounter (statuses as of 03/08/2022) [facility] History of Past illness Narrative* Problem Noted Date Resolved Date Other venous complication, antepartum 09/14/2008 05/18/2011 Supervision of normal first 08/13/2008 01/26/2009 documented as of this encounter (statuses as of 03/12/2022) [place] [id number] History of Past illness Narrative* Problem Noted Date Resolved Date Other venous complication, antepartum 09/14/2008 05/18/2011 Supervision of normal first 08/13/2008 01/26/2009 documented as of this encounter (statuses as of 03/22/2022) [place] [id number] History of Past illness Narrative* Problem Noted Date Resolved Date Other venous complication, antepartum 09/14/2008 05/18/2011 Supervision of normal first 08/13/2008 01/26/2009 documented as of this encounter (statuses as of 03/24/2022) [place] [id number] History of Past illness Narrative* Problem Noted Date Resolved Date Other venous complication, antepartum 09/14/2008 05/18/2011 Supervision of normal first 08/13/2008 01/26/2009 documented as of this encounter (statuses as of 04/03/2022) [address]2009 History of Past illness Narrative* Problem Noted Date Resolved Date Other venous complication, antepartum 09/14/2008 05/18/2011 Supervision of normal first 08/13/2008 01/26/2009 documented as of this encounter (statuses as of 04/20/2022) [facility] note* Diagnosis Acute maxillary sinusitis, recurrence not specified- Primary Sinus pressure Other diseases of nasal cavity and sinuses Nasal congestion Other diseases of nasal cavity and sinuses Acute nonintractable headache, unspecified headache type documented in this encounter [facility] noteNo assessment information availableWSelect Medical [facility] Work Phone: Evaluation note* Diagnosis Class 2 obesity with body mass index (BMI) of 38.0 to 38.9 in adult, unspecified obesity type, unspecified whether serious comorbidity present- Primary History of pulmonary embolism Personal history of pulmonary embolism Anxiety and depression Dysthymic disorder documented in this encounter [facility] note* Diagnosis Class 2 obesity with body mass index (BMI) of 38.0 to 38.9 in adult, unspecified obesity type, unspecified whether serious comorbidity present documented in this encounter [facility] note* Diagnosis Dietary counseling and surveillance [Z71.3 (ICD-10-CM)]- Primary Dietary surveillance and counseling documented in this encounter [facility] note* Diagnosis Class 2 obesity with body mass index (BMI) of 38.0 to 38.9 in adult, unspecified obesity type, unspecified whether serious comorbidity present documented in this encounter [facility] note* Diagnosis Vitamin D deficiency- Primary Unspecified vitamin D deficiency documented in this encounter [facility] note* Diagnosis Psychological factors affecting medical condition- Primary Psychic factors associated with diseases classified elsewhere Class 2 severe obesity with serious comorbidity and body mass index (BMI) of 38.0 to 38.9 in adult, unspecified obesity type (HCC) Eating disorder in remission Eating disorder, unspecified MDD (major depressive disorder), recurrent, in partial remission (HCC) Major depressive disorder, recurrent episode, in partial or unspecified remission Other mixed anxiety disorders Attention deficit hyperactivity disorder (ADHD), unspecified ADHD type documented in this encounter [facility] note* Diagnosis Class 2 severe obesity due to excess calories with serious comorbidity and body mass index (BMI) of 38.0 to 38.9 in adult ([facility])- Primary Depression, unspecified depression type History of pulmonary embolism Personal history of pulmonary embolism Vitamin D deficiency Unspecified vitamin D deficiency documented in this encounter [facility] note* Diagnosis Sinobronchitis- Primary Unspecified sinusitis (chronic) documented in this encounter [facility] note* Diagnosis Psychological factors affecting medical condition- Primary Psychic factors associated with diseases classified elsewhere Class 2 severe obesity with serious comorbidity and body mass index (BMI) of 38.0 to 38.9 in adult, unspecified obesity type (HCC) Eating disorder in remission Eating disorder, unspecified MDD (major depressive disorder), recurrent, in partial remission (HCC) Major depressive disorder, recurrent episode, in partial or unspecified remission Other mixed anxiety disorders Attention deficit hyperactivity disorder (ADHD), unspecified ADHD type documented in this encounter [facility] note* Diagnosis Class 2 severe obesity due to excess calories with serious comorbidity and body mass index (BMI) of 38.0 to 38.9 in adult (HCC) documented in this encounter [facility] note* Diagnosis Psychological factors affecting medical condition- Primary Psychic factors associated with diseases classified elsewhere Class 2 severe obesity with serious comorbidity and body mass index (BMI) of 38.0 to 38.9 in adult, unspecified obesity type (HCC) Eating disorder in remission Eating disorder, unspecified MDD (major depressive disorder), recurrent, in partial remission (HCC) Major depressive disorder, recurrent episode, in partial or unspecified remission Other mixed anxiety disorders Attention deficit hyperactivity disorder (ADHD), unspecified ADHD type documented in this encounter [facility] note* Diagnosis Psychological factors affecting medical condition- Primary Psychic factors associated with diseases classified elsewhere Class 2 severe obesity with serious comorbidity and body mass index (BMI) of 38.0 to 38.9 in adult, unspecified obesity type (HCC) Eating disorder in remission Eating disorder, unspecified MDD (major depressive disorder), recurrent, in partial remission (HCC) Major depressive disorder, recurrent episode, in partial or unspecified remission Other mixed anxiety disorders Attention deficit hyperactivity disorder (ADHD), unspecified ADHD type documented in this encounter [facility] note* Diagnosis Psychological factors affecting medical condition- Primary Psychic factors associated with diseases classified elsewhere Class 2 severe obesity with serious comorbidity and body mass index (BMI) of 38.0 to 38.9 in adult, unspecified obesity type (HCC) Eating disorder in remission Eating disorder, unspecified MDD (major depressive disorder), recurrent, in partial remission (HCC) Major depressive disorder, recurrent episode, in partial or unspecified remission Other mixed anxiety disorders Attention deficit hyperactivity disorder (ADHD), unspecified ADHD type [facility] Diagnosis Class 2 severe obesity due to excess calories with serious comorbidity and body mass index (BMI) of 38.0 to 38.9 in adult (HCC)- Primary documented in this encounter [facility] note* Diagnosis Class 2 severe obesity due to excess calories with serious comorbidity and body mass index (BMI) of 38.0 to 38.9 in adult (HCC)- Primary documented in this encounter [facility] note* Diagnosis Dietary counseling and surveillance [Z71.3 (ICD-10-CM)]- Primary Dietary surveillance and counseling documented in this encounter [facility] note* Diagnosis Morbid obesity (HCC)- Primary Morbid obesity Morbid obesity (HCC) Morbid obesity documented in this encounter [facility] note* Diagnosis Class 2 severe obesity due to excess calories with serious comorbidity and body mass index (BMI) of 38.0 to 38.9 in adult (HCC)- Primary Morbid obesity (HCC) Morbid obesity documented in this encounter [facility] note* Diagnosis Preop testing- Primary Preoperative examination, unspecified Morbid obesity (HCC) [E66.01 (ICD-10-CM)] Morbid obesity documented in this encounter [facility] note* Diagnosis APPOINTMENT CANCELLED- Primary documented in this encounter [facility] note* Diagnosis Class 3 severe obesity with body mass index (BMI) of 40.0 to 44.9 in adult, unspecified obesity type, unspecified whether serious comorbidity present (HCC)- Primary Heartburn Depression, unspecified depression type documented in this encounter [facility] note* Diagnosis Onset Date Resolution Status Thyroid disorder screening a cute Anxiety and depression chron ic Obesity (BMI 30.0-34.9) 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 Encounter for routine gynecological examination noneactive [facility] Work Phone: Evaluation note* Diagnosis Oral thrush- Primary Candidiasis of mouth documented in this encounter [facility] note* Diagnosis Status post cholecystectomy- Primary Other acquired absence of organ documented in this encounter [facility] note* Diagnosis Acute cough- Primary Lower respiratory infection Other diseases of respiratory system, not elsewhere classified documented in this encounter [facility] note* Diagnosis Acute cough- Primary Sinobronchitis Unspecified sinusitis (chronic) Acute cough documented in this encounter [facility] for referral (narrative)* Diagnostic Procedure Only (Routine) - Authorized Specialty Diagnoses / Procedures Referred By Bobby t Referred To Contact US IMAGING Diagnoses Class 2 obesity with body mass index (BMI) of 38.0 to 38.9 in adult, unspecified obesity type, unspecified whether serious comorbidity present Procedures US ABD RT UPPER QUADRANT US ABDOMINAL REAL TIME W/IMAGE LIMITED Maria D Fowler, OREN.CATTLE SPRAYER [address] [place] [address] Us Imaging Referral ID Status Reason Start Date Expiration Date Visits Requested Visits Authorized [id number] Authorized Auto-Generat ed Referral 10/25/2021 11/24/2022 1 1 * Outpatient Procedure (Routine) - Pending Review Specialty Diagnoses / Procedures Referred By Contac t Referred To Contact [facility] Diagnoses Class 2 obesity with body mass index (BMI) of 38.0 to 38.9 in adult, unspecified obesity type, unspecified whether serious comorbidity present Procedures ECG COMPLETE ECG ROUTINE ECG W/LEAST 12 LDS W/I&R Maria D Fowler APRN.CATTLE SPRAY[address] [place] [address] [facility] [place] [address] [place] [address] Referral ID Status Reason Start Date Expiration Date Visits Requested Visits Authorized [id number] Pending Review Auto-Generat ed Referral 10/25/2021 10/25/2022 1 1 [facility] for referral (narrative)* Diagnostic Procedure Only (Routine) - Closed Specialty Diagnoses / Procedures Referred By Contac t Referred To Contact US IMAGING Diagnoses Class 2 obesity with body mass index (BMI) of 38.0 to 38.9 in adult, unspecified obesity type, unspecified whether serious comorbidity present Procedures US ABD RT UPPER QUADRANT US ABDOMINAL REAL TIME W/IMAGE LIMITED Maria D Fowler APRN.CATT[address] [place] [address] Us Imaging Referral ID Status Reason Start Date Expiration Date V isits Requested Visits Authorized [id number] Closed Auto-Generate d Referral 10/25/2021 11/24/2022 1 1 [facility] for referral (narrative)* Diagnostic Procedure Only (Routine) - Authorized Specialty Diagnoses / Procedures [facility] To Contact XR IMAGING Diagnoses Class 2 severe obesity due to excess calories with serious comorbidity and body mass index (BMI) of 38.0 to 38.9 in adult (HCC) Procedures XR UPPER GI ROUTINE DOUBLE CONTRAST/AIR RADIOLOGIC EXAM UPR GI TRC DOUBLE CONTRAST STUDY Michelle Mariee MD [address] [address] Xr Imaging Referral ID Status Reason Start Date Expiration Date Visits Requested Visits Authorized [id number] Authorized Auto-Generat ed Referral 12/07/2021 01/06/2023 1 1 [facility] for referral (narrative)* Diagnostic Procedure Only (Routine) - Closed Specialty Diagnoses / Procedures Referred By Contac t Referred To Contact XR IMAGING Diagnoses Class 2 severe obesity due to excess calories with serious comorbidity and body mass index (BMI) of 38.0 to 38.9 in adult (HCC) Procedures XR UPPER GI ROUTINE DOUBLE CONTRAST/AIR RADIOLOGIC EXAM [facility] GI TR DOUBLE CONTRAST STUDY Michelle Mariee MD [address] [address] Xr Imaging Referral ID Status Reason Start Date Expiration Date V isits Requested Visits Authorized [id number] Closed Auto-Generate d Referral 12/07/2021 01/06/2023 1 1 [facility] for visit Narrative* Diagnostic Procedure Only (Routine) - Closed Specialty Diagnoses / Procedures Referred By Contac t Referred To Contact US IMAGING Diagnoses Class 2 obesity with body mass index (BMI) of 38.0 to 38.9 in adult, unspecified obesity type, unspecified whether serious comorbidity present Procedures US ABD RT UPPER QUADRANT US ABDOMINAL REAL TIME W/IMAGE LIMITED Maria D Fowler, DOOR MANAGER.CATTLE SPRAY[address] [place] [address] Us Imaging Referral ID Status Reason Start Date Expiration Date V isits Requested Visits Authorized [id number] Closed Auto-Generate d Referral 10/25/2021 11/24/2022 1 1 [facility] for visit Narrative* Diagnostic Procedure Only (Routine) - Closed Specialty Diagnoses / Procedures Referred By Contac t Referred To Contact XR IMAGING Diagnoses Class 2 severe obesity due to excess calories with serious comorbidity and body mass index (BMI) of 38.0 to 38.9 in adult (HCC) Procedures XR UPPER GI ROUTINE DOUBLE CONTRAST/AIR RADIOLOGIC EXAM UPR GI TRC DOUBLE CONTRAST STUDY Michelle Mariee MD [address] [place] [address] Xr Imaging Referral ID Status Reason Start Date Expiration Date V isits Requested Visits Authorized [id number] Closed Auto-Generate d Referral 12/07/2021 01/06/2023 1 1 [facility] Summary Purpose Family History No Family History Records Found Relationship Condition Age at Onset Recorded Date/T lance mother Hypertension Unknown Anxiety and depression Unknown Pulmonary embolism Unknown grandmother Malignant neoplasm Unknown Advance Directives No Advanced Directives Records FoundDocuments on File Type Date Recorded 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 Advance Directive(s) 12/07/2019 12:05 AM Advance Directive(s) 06/16/2015 12:14 PM Advance Directive Response Recorded Date/ Time Living Will No January 18 9:13am Power of Press Tender [employer] No January 18, 2021 9:13am Advance Directive Response Recorded Date/ Time Living Will No September 06, 2022 9:40am Power of Press Tender [employer] No September 06 9:40am Date Activated Date Inactivated Comments 01/17/2024 10:28 PM 01/18/2024 8:02 PM Question Answer Comments Full Code Order Discussed With: Discussion Not M edically Appropriate Chief Complaint and Reason for Visit Chief Complaint SOMNOLENCE, OBESITY 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 Reason for Visit Thyroid disorder scr eening Anxiety and depression Obesity (BMI 30.0-34.9) Encounter for routine gynecological examination 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 AND XRAY Reason for Visit Thyroid disorder scr eening Anxiety and depression Obesity (BMI 30.0-34.9) Encounter for routine gynecological examination 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 AND 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 CORTISOL STIM TEST Reason for Visit Thyroid disorder scr eening Anxiety and depression Obesity (BMI 30.0-34.9) Encounter for routine gynecological examination Reason for Referral Specialty Diagnoses / Procedures Referred By Contac t Referred To Contact Diagnoses Morbid obesity (HCC) Procedures CONSULT TO PRE-SURGICAL TESTING (AG) Michelle Mariee MD [address] [address] Referral ID Status Reason Start Date Expiration Date Visits Requested Visits Authorized [id number] Ref Not Required PCP Requested Referral 2 05/29/2022 1 1 Additional Source Comments INFORMATION SOURCE (unrecogn ized section and content) DATE CREATED AUTHOR 12/08/2019 [facility] DATE CREATED AUTHOR AUTHOR'S ORGANIZ ATION 08/06/2024 [facility] DATE CREATED AUTHOR AUTHOR'S ORGANIZ ATION 08/18/2024 [facility] DATE CREATED AUTHOR AUTHOR'S ORGANIZ ATION 09/06/2024 [facility] Source Comments (unrecognize d section and content) In the event this informatio n is protected by the Federal Confidentiality of Alcohol and Drug Abuse Patient Records regulations: The Federal rules restrict any use of the information to criminally investigate or prosecute any alcohol or drug abuse patient.[facility] the event this information is protected by the Federal Confidentiality of Alcohol and Drug Abuse Patient Records regulations: The Federal rules restrict any use of the information to criminally investigate or prosecute any alcohol or drug abuse patient.[facility] the event this information is protected by the Federal Confidentiality of Alcohol and Drug Abuse Patient Records regulations: The Federal rules restrict any use of the information to criminally investigate or prosecute any alcohol or drug abuse patient.[facility] the event this information is protected by the Federal Confidentiality of Alcohol and Drug Abuse Patient Records regulations: The Federal rules restrict any use of the information to criminally investigate or prosecute any alcohol or drug abuse patient.[facility] the event this information is protected by the Federal Confidentiality of Alcohol and Drug Abuse Patient Records regulations: The Federal rules restrict any use of the information to criminally investigate or prosecute any alcohol or drug abuse patient.[facility] the event this information is protected by the Federal Confidentiality of Alcohol and Drug Abuse Patient Records regulations: The Federal rules restrict any use of the information to criminally investigate or prosecute any alcohol or drug abuse patient.[facility] the event this information is protected by the Federal Confidentiality of Alcohol and Drug Abuse Patient Records regulations: The Federal rules restrict any use of the information to criminally investigate or prosecute any alcohol or drug abuse patient.[facility] the event this information is protected by the Federal Confidentiality of Alcohol and Drug Abuse Patient Records regulations: The Federal rules restrict any use of the information to criminally investigate or prosecute any alcohol or drug abuse patient.[facility] the event this information is protected by the Federal Confidentiality of Alcohol and Drug Abuse Patient Records regulations: The Federal rules restrict any use of the information to criminally investigate or prosecute any alcohol or drug abuse patient.[facility] the event this information is protected by the Federal Confidentiality of Alcohol and Drug Abuse Patient Records regulations: The Federal rules restrict any use of the information to criminally investigate or prosecute any alcohol or drug abuse patient.[facility] the event this information is protected by the Federal Confidentiality of Alcohol and Drug Abuse Patient Records regulations: The Federal rules restrict any use of the information to criminally investigate or prosecute any alcohol or drug abuse patient.[facility] the event this information is protected by the Federal Confidentiality of Alcohol and Drug Abuse Patient Records regulations: The Federal rules restrict any use of the information to criminally investigate or prosecute any alcohol or drug abuse patient.[facility] the event this information is protected by the Federal Confidentiality of Alcohol and Drug Abuse Patient Records regulations: The Federal rules restrict any use of the information to criminally investigate or prosecute any alcohol or drug abuse patient.[facility] the event this information is protected by the Federal Confidentiality of Alcohol and Drug Abuse Patient Records regulations: The Federal rules restrict any use of the information to criminally investigate or prosecute any alcohol or drug abuse patient.[facility] the event this information is protected by the Federal Confidentiality of Alcohol and Drug Abuse Patient Records regulations: The Federal rules restrict any use of the information to criminally investigate or prosecute any alcohol or drug abuse patient.[facility] the event this information is protected by the Federal Confidentiality of Alcohol and Drug Abuse Patient Records regulations: The Federal rules restrict any use of the information to criminally investigate or prosecute any alcohol or drug abuse patient.[facility] the event this information is protected by the Federal Confidentiality of Alcohol and Drug Abuse Patient Records regulations: The Federal rules restrict any use of the information to criminally investigate or prosecute any alcohol or drug abuse patient.[facility] the event this information is protected by the Federal Confidentiality of Alcohol and Drug Abuse Patient Records regulations: The Federal rules restrict any use of the information to criminally investigate or prosecute any alcohol or drug abuse patient.[facility] the event this information is protected by the Federal Confidentiality of Alcohol and Drug Abuse Patient Records regulations: The Federal rules restrict any use of the information to criminally investigate or prosecute any alcohol or drug abuse patient.[facility] the event this information is protected by the Federal Confidentiality of Alcohol and Drug Abuse Patient Records regulations: The Federal rules restrict any use of the information to criminally investigate or prosecute any alcohol or drug abuse patient.[facility] the event this information is protected by the Federal Confidentiality of Alcohol and Drug Abuse Patient Records regulations: The Federal rules restrict any use of the information to criminally investigate or prosecute any alcohol or drug abuse patient.[facility] the event this information is protected by the Federal Confidentiality of Alcohol and Drug Abuse Patient Records regulations: The Federal rules restrict any use of the information to criminally investigate or prosecute any alcohol or drug abuse patient.[facility] the event this information is protected by the Federal Confidentiality of Alcohol and Drug Abuse Patient Records regulations: The Federal rules restrict any use of the information to criminally investigate or prosecute any alcohol or drug abuse patient.[facility] the event this information is protected by the Federal Confidentiality of Alcohol and Drug Abuse Patient Records regulations: The Federal rules restrict any use of the information to criminally investigate or prosecute any alcohol or drug abuse patient.[facility] the event this information is protected by the Federal Confidentiality of Alcohol and Drug Abuse Patient Records regulations: The Federal rules restrict any use of the information to criminally investigate or prosecute any alcohol or drug abuse patient.[facility] the event this information is protected by the Federal Confidentiality of Alcohol and Drug Abuse Patient Records regulations: The Federal rules restrict any use of the information to criminally investigate or prosecute any alcohol or drug abuse patient.[facility] the event this information is protected by the Federal Confidentiality of Alcohol and Drug Abuse Patient Records regulations: The Federal rules restrict any use of the information to criminally investigate or prosecute any alcohol or drug abuse patient.[facility] the event this information is protected by the Federal Confidentiality of Alcohol and Drug Abuse Patient Records regulations: The Federal rules restrict any use of the information to criminally investigate or prosecute any alcohol or drug abuse patient.[facility] the event this information is protected by the Federal Confidentiality of Alcohol and Drug Abuse Patient Records regulations: The Federal rules restrict any use of the information to criminally investigate or prosecute any alcohol or drug abuse patient.[facility] the event this information is protected by the Federal Confidentiality of Alcohol and Drug Abuse Patient Records regulations: The Federal rules restrict any use of the information to criminally investigate or prosecute any alcohol or drug abuse patient.[facility] the event this information is protected by the Federal Confidentiality of Alcohol and Drug Abuse Patient Records regulations: The Federal rules restrict any use of the information to criminally investigate or prosecute any alcohol or drug abuse patient.[facility] the event this information is protected by the Federal Confidentiality of Alcohol and Drug Abuse Patient Records regulations: The Federal rules restrict any use of the information to criminally investigate or prosecute any alcohol or drug abuse patient.[facility] the event this information is protected by the Federal Confidentiality of Alcohol and Drug Abuse Patient Records regulations: The Federal rules restrict any use of the information to criminally investigate or prosecute any alcohol or drug abuse patient.[facility] the event this information is protected by the Federal Confidentiality of Alcohol and Drug Abuse Patient Records regulations: The Federal rules restrict any use of the information to criminally investigate or prosecute any alcohol or drug abuse patient.[facility] the event this information is protected by the Federal Confidentiality of Alcohol and Drug Abuse Patient Records regulations: The Federal rules restrict any use of the information to criminally investigate or prosecute any alcohol or drug abuse patient.[facility]In the event this information is protected by the Federal Confidentiality of Alcohol and Drug Abuse Patient Records regulations: The Federal rules restrict any use of the information to criminally investigate or prosecute any alcohol or drug abuse patient.[facility]In the event this information is protected by the Federal Confidentiality of Alcohol and Drug Abuse Patient Records regulations: The Federal rules restrict any use of the information to criminally investigate or prosecute any alcohol or drug abuse patient.[facility]In the event this information is protected by the Federal Confidentiality of Alcohol and Drug Abuse Patient Records regulations: The Federal rules restrict any use of the information to criminally investigate or prosecute any alcohol or drug abuse patient.[facility] Reason for Visit (unrecogniz ed section and content) Reason Comments Sinus Infection,frequent/recurring low g rade fever, neg covid Reason Comments New Patient Evaluation Reason Comments Psychotherapy Evaluation (DX Interview) Reason Comments New Patient Evaluation Reason Comments cough, congestion, sinus pressure Reason Comments Psychology Services Reason Comments Established Patient Reason Comments Appointment Reason Comments Patient Update Reason Comments Medical Clearance Reason Comments Obesity Reason Comments Patient Update Surgery Reason Comments Established Patient Pre Op - Surg - Jaylene Reason Comments Patient Update In office weight daisha ck Reason Comments Mouth/Lip Problem Reason Comments Patient Question Reason Onset Date Comments Returning Patient's Call 01/26/2024 Reason Comments Post Op Follow Up Lap Michelle on 01/23/24 Reason Comments Cough Covid positive 17 da ys ago. Started to feel better last week but fever has returned and cough is getting worse x 3 days Chest Congestion Reason Comments Other I have been sick for over 2 weeks. Cough, congestion, headache, heaviness in chest, fatigue. - Entered by patient Cough Cough, congestion, H A, fatigue and chest feels heavy x 2 weeks Care Teams (unrecognized sec tion and content) Fashion Supervisor Relationship Specialty Start Date End Date Tamiko Urena [address] [place] [address] PCP - General Family Practice 03/06/18 Fashion Supervisor Relationship Specialty Start Date End Date Tamiko Urena [address] [place] [address] PCP - General Family Practice 03/06/18 Fashion Supervisor Relationship Specialty Start Date End Date Tamiko Urena [address] [place] [address] PCP - General Family Practice 03/06/18 Fashion Supervisor Relationship Specialty Start Date End Date Tamiko Urena [address] [place] [address] PCP - General Family Practice 03/06/18 Fashion Supervisor Relationship Specialty Start Date End Date Tamiko Urena [address] [address] PCP - General Family Practice 03/06/18 Fashion Supervisor Relationship Specialty Start Date End Date Tamiko Urena [address] [address] PCP - General Family Practice 03/06/18 Fashion Supervisor Relationship Specialty Start Date End Date Tamiko Urena [address] [address] PCP - General Family Practice 03/06/18 Fashion Supervisor Relationship Specialty Start Date End Date Tamiko Urena [address] [address] PCP - General Family Medicine 03/06/18 Fashion Supervisor Relationship Specialty Start Date End Date Tamiko Urena [address] [address] PCP - General Family Medicine 03/06/18 Fashion Supervisor Relationship Specialty Start Date End Date Tamiko Urena [address] [address] PCP - General Family Medicine 03/06/18 Fashion Supervisor Relationship Specialty Start Date End Date Tamiko Urena [address] [address] PCP - General Family Medicine 03/06/18 Fashion Supervisor Relationship Specialty Start Date End Date Tamiko Urena [address] [place] [address] PCP - General Family Medicine 03/06/18 Fashion Supervisor Relationship Specialty Start Date End Date Tamiko Urena [address] [address] PCP - General Family Medicine 03/06/18 Fashion Supervisor Relationship Specialty Start Date End Date Tamiko Urena [address] [address] PCP - General Family Medicine 03/06/18 Fashion Supervisor Relationship Specialty Start Date End Date Tamiko Urena [address] [address] PCP - General Family Medicine 03/06/18 Fashion Supervisor Relationship Specialty Start Date End Date Tamiko Urena [address] [address] PCP - General Family Medicine 03/06/18 Fashion Supervisor Relationship Specialty Start Date End Date Tamiko Urena [address] [address] PCP - General Family Medicine 03/06/18 Fashion Supervisor Relationship Specialty Start Date End Date Tamiko Urena [address] [address] PCP - General Family Medicine 03/06/18 Fashion Supervisor Relationship Specialty Start Date End Date Tamiko Urena [id number] [place] [address] PCP - General Family Medicine 03/06/18 Fashion Supervisor Relationship Specialty Start Date End Date MiedTamiko galindo [address] [place] [address] PCP - General Family Medicine 03/06/18 Fashion Supervisor Relationship Specialty Start Date End Date VikashTamiko galindo [address] [place] [address] PCP - General Family Medicine 03/06/18 Fashion Supervisor Relationship Specialty Start Date End Date AyannaTamiko [address] [place] [address] PCP - General Family Medicine 03/06/18 Fashion Supervisor Relationship Specialty Start Date End Date Lencho Urenarosio Pérez [address] [place] [address] PCP - General Family Medicine 03/06/18 Fashion Supervisor Relationship Specialty Start Date End Date Tamiko Urena MD [address] [place] [address] PCP - General Family Medicine 03/06/18 Fashion Supervisor Relationship Specialty Start Date End Date Tamiko Urena MD [address] [place] [address] PCP - General Family Medicine 03/06/18 Team Status: Active Member Role Status Dates Dr. Tamiko Urena MD Family Provider Active Dr. Tamiko Urena MD Primary Care Provider Active Team Status: Inactive Member Role Status Dates Dr. Tamiko Urena MD Referring Provider Active Anac Aden CNM Attending Provider Active Team Status: Inactive Member Role Status Dates Anca Aden CNM Attending Provider, Referring Pro vider Active Dr. Tamiko Urena MD Primary Care Provider Active Team Status: Inactive Member Role Status Dates Dr. Tamiko Urena MD Primary Care Prov ider, Attending Provider, Referring Provider Active Fashion Supervisor Relationship Specialty Start Date End Date Tamiko Urena MD [address] [place] [address] PCP - General Family Medicine 03/06/18 Fashion Supervisor Relationship Specialty Start Date End Date Tamiko Urena MD [address] [place] [address] PCP - General Family Medicine 03/06/18 Fashion Supervisor Relationship Specialty Start Date End Date Tamiko Urena MD [address] [place] [address] PCP - General Family Medicine 03/06/18 Fashion Supervisor Relationship Specialty Start Date End Date Tamiko Urena MD [address] [place] [address] PCP - General Family Medicine 03/06/18 Fashion Supervisor Relationship Specialty Start Date End Date Tamiko Urena MD [address] [place] [address] PCP - General Family Medicine 03/06/18 Fashion Supervisor Relationship Specialty Start Date End Date Tamiko Urena MD [address] [place] [address] PCP - General Family Medicine 03/06/18 Goals (unrecognized section and content) Goals may be documented in a n alternate sectionGoals may be documented in an alternate sectionGoals may be documented in an alternate sectionGoals may be documented in an alternate section FOR RECORDS PERTAINING TO PATIENTS WHO ARE OR HAVE BEEN ENROLLED IN A CHEMICAL DEPENDENCY/SUBSTANCEABUSE PROGRAM, SOME INFORMATION MAY BE OMITTED. This clinical summary was aggregated from multiple sources. Caution should be exercised in using it in the provision of clinical care. This summary normalizes information from multiple sources, and as a consequence, information in this document may materially change the coding, format and clinical context of patient data. In addition, data may be omitted in some cases. CLINICAL DECISIONS SHOULD BE BASED ON THE PRIMARY CLINICAL RECORDS. [facility]. provides no warranty or guarantee of the accuracy or completeness of information in this document.
== END | disposition home or self-care (01) ==
LOC: OPBI 07:34
PROVIDERS: PCP Family Medicine; Referring Provider Obstetrics & Gynecology; Visit Provider Obstetrics & Gynecology
DX: Z12.31 Encounter for screening mammogram for malignant neoplasm of breast (principal)
CPT/HCPCS: 77063; 77067